=== PATIENT | female | born 1945 | race Caucasian/White ===

== ENCOUNTER 2017-10-11 06:14 | Emergency (ER) | payer MEDICARE, MEDICAID ==
[2014-08-05 08:55] VITALS: Ht 177.8 cm; Wt 108.9 kg
[~2017-10-11] VITALS: Ht 177.8 cm; Wt 108.9 kg
[~2017-10-11 06:14] MED LIST changes: -BACL-1 PO; -DOXA4TAB58 PO; -OLME40TA28 PO; -VITAMIN B12 SUBQ
--- NOTE | 2017-10-11 06:21 | ER Report ---
History and Physical Time Seen By MD: 06:14 (MELLO GOODMAN MD) HPI/ROS CHIEF COMPLAINT: short of breath, syncope, hypoxia HISTORY OF PRESENT ILLNESS: This is a 72 year old female. She had an episode of syncope this morning. Unsure how long she was down. She thinks from about 2:30 this morning. Family thinks from about 5:30 this morning. She has been very tired and fatigues for a few ays. Short of breath tonight. No chest pain. She has had a mild cough. She denies fevers or chills. She denies abdominal pain. She denies nausea or vomiting. She has a bowel movement every other day and that is normal. She denies having any diarrhea. She denies having any dysuria or other urinary problems. Initially hypoxic with EMS. They used their CPAP device to bring her oxygen saturations to about 94%. Oxygen saturation on her usual 2 liters was 80%. EMS reported some confusion initially, but clearing with improved oxygenation. Family also notes that she had extreme confusion when they found her. REVIEW OF SYSTEMS: Constitutional: As above. Eyes: No vision changes. ENT: No sore throat. No congestion. Cardiovascular: No chest pain. No palpitations. Respiratory: As above. Gastrointestinal: No abdominal pain. No nausea or vomiting. No change in bowel movements. Genitourinary: No dysuria or problems with urination. Musculoskeletal: No back pain. No extremity pain. Skin: No rashes. Neurological: No numbness. No weakness. (MELLO GOODMAN MD) HPI/ROS Primary given to me by Mello Goodman M.D. past medical history heart blood pressure, hyperlipidemia, COPD, emphysema, GERD, hiatal hernia, arthritis, back pain, upper or lower dentures, diabetes, occasional alcohol use, depression. Patient has a surgical history of cataract surgery, tonsillectomy, bilateral shoulder surgery, carpal tunnel, hammertoe, knee scope, colonoscopy, vein stripping. Patient was found down in her house. EMS was called and then transported to the emergency department. Patient is complaining of hip pain and knee pain. Patient does have decreased oxygenation. Patient is on oxygen at night. She did have a syncopal episode for unknown causes. (BARTOLO PABLO MD) Allergies: Coded Allergies: bacitracin (Verified Allergy, Intermediate, RASH, 10/11/17) gramicidin D (Verified Allergy, Intermediate, RASH, 10/11/17) neomycin (Verified Allergy, Intermediate, RASH, 10/11/17) polymyxin B (Verified Allergy, Intermediate, RASH, 10/11/17) Home Meds Active Scripts Oxybutynin Chloride (OXYBUTYNIN CHLORIDE) 5 Mg Tablet, 1 TAB PO BID, #180 TAB 3 Refills Prov:WENDY STONE MD 12/22/14 Gabapentin (GABAPENTIN) 400 Mg Capsule, 400 MG PO TID, #90 CAPSULE 12 Refills Prov:WENDY STONE MD 10/03/14 Reported Medications [Vitamin B12] No Conflict Check, 1 UNIT SUBQ QMONTH 10/11/17 Baclofen (BACLOFEN) 10 Mg Tablet, 10 MG PO TID Y for PAIN, #30 TAB 10/11/17 Olmesartan Medoxomil (BENICAR) 40 Mg Tablet, 40 MG PO QAM 10/11/17 Citalopram Hydrobromide (CITALOPRAM HBR) 20 Mg Tablet, 20 MG PO QAM, #5 TAB 10/11/17 Doxazosin Mesylate (DOXAZOSIN MESYLATE) 4 Mg Tablet, 4 MG PO HS 10/11/17 Fluticasone/Vilanterol (Breo Ellipta 200-25 Mcg INH) 1 Each Blst.w.dev, 1 PUFF INH PRN 05/01/17 Linaclotide (LINZESS) 145 Mcg Capsule, 145 MCG PO QAM, CAPSULE 05/01/17 Furosemide (LASIX) 20 Mg Tablet, 1-2 TAB PO QAM, TAB 05/01/17 Aspirin (ASPIRIN) 81 Mg Tab.chew, 81 MG PO QHS, TAB.CHEW 05/01/17 Atorvastatin Calcium (LIPITOR) 20 Mg Tablet, 1 TAB PO QHS, TAB 05/01/17 Oxygen (OXYGEN) Inha, 3 L INH CONTINUOUS, L 10/18/16 Albuterol Sulfate (PROVENTIL HFA) 6.7 Gm Inh, 1-2 PUFF INH QDAY Y for SHORTNESS OF BREATH, INH 10/18/16 Insulin Glargine (LANTUS) 100 Unit/Ml Soln, 30 UNIT SUBQ QHS, ML 10/18/16 Dexlansoprazole (DEXILANT) 60 Mg Rosendo., 60 MG PO QHS 10/18/16 Fish Oil/Dha/Epa (FISH OIL 1,200 MG FISH OIL) 1 Each Capsule, 1 EACH PO TID, CAPSULE 10/18/16 Sitagliptin Phos/Metformin Hcl (JANUMET 50-1,000 MG TABLET) 1 Each Tablet, 1 EACH PO BID 10/18/16 Meloxicam (MELOXICAM) 7.5 Mg Tablet, 7.5 MG PO QAM 10/18/16 Allopurinol (ALLOPURINOL) 100 Mg Tablet, 100 MG PO QAM, TAB 10/18/16 Cinnamon Bark (CINNAMON) 500 Mg Capsule, 1000 MG PO BID, CAPSULE 02/22/14 Discontinued Reported Medications Losartan Potassium (LOSARTAN POTASSIUM) 100 Mg Tablet, 100 MG PO QDAY 05/01/17 Discontinued Scripts Atorvastatin Calcium (ATORVASTATIN CALCIUM) 20 Mg Tablet, 1 TAB PO QDAY, #90 TAB 1 Refill Prov:WENDY STONE MD 03/13/15 Citalopram Hydrobromide (CITALOPRAM HBR) 20 Mg Tablet, 20 MG PO QDAY, #90 TAB 3 Refills TAKE 1 TABLET BY MOUTH EVERY DAY Prov:WENDY STONE MD 10/03/14 Past Medical/Surgical History Hypertension, hyperlipidemia, COPD with continuous oxygen use at 3 L by nasal cannula, emphysema due to smoking history, GERD, insulin-dependent diabetes, arthritis with some chronic back pain. Surgeries include hernia repair, multiple orthopedic surgeries including right rotator cuff, left rotator cuff, bilateral carpal tunnels, left foot, right knee. She has had a colonoscopy in the past. Also with history of cataract surgery and tonsillectomy (MELLO GOODMAN MD) Reviewed Nurses Notes: Yes (MELLO GOODMAN MD) Hx Smoking: Yes Smoking Status: Current: Every Day Smoker Exposure to Second Hand Smoke?: Yes Hx Substance Use Disorder: No Hx Alcohol Use: Yes (MELLO GOODMAN MD) Constitutional Vital Sign - Last 24 Hours 10/11/17 10/11/17 10/11/17 10/11/17 06:16 06:18 06:28 06:29 Temp 99.1 Pulse 95 95 Resp 24 B/P (MAP) 160/91 160/91 (114) Pulse Ox 91 O2 Delivery CPAP O2 Flow Rate 15.0 10/11/17 10/11/17 10/11/17 1/6/18 06:31 06:31 06:38 06:44 Pulse 94 91 95 Resp 22 22 28 Pulse Ox 90 91 O2 Delivery Non-Rebreather O2 Flow Rate 15.0 10/11/17 10/11/17 10/11/17 10/11/17 06:49 07:15 07:19 07:30 Pulse 94 86 Resp 24 27 B/P (MAP) 158/81 (106) Pulse Ox 91 95 O2 Flow Rate 6.0 10/11/17 10/11/17 10/11/17 10/11/17 07:30 07:34 07:59 08:04 Pulse 84 77 Resp 24 21 B/P (MAP) 118/66 (83) Pulse Ox 96 91 O2 Flow Rate 15.0 10/11/17 10/11/17 10/11/17 10/11/17 08:12 08:15 09:00 09:07 Pulse 69 Resp 29 B/P (MAP) 93/64 (74) Pulse Ox 90 O2 Flow Rate 6.0 15.0 10.0 10/11/17 10/11/17 10/11/17 10/11/17 09:15 09:30 09:45 09:51 Pulse 70 72 71 Resp 21 20 19 B/P (MAP) 88/56 (67) Pulse Ox 93 89 94 O2 Flow Rate 15.0 10/11/17 10/11/17 10/11/17 10:00 11:05 11:05 Pulse 68 Resp 21 B/P (MAP) 102/59 (73) Pulse Ox 87 93 O2 Delivery Bi-PAP FiO2 50.0 50.0 (BARTOLO PABLO MD) Physical Exam General Appearance: The patient is alert. Acute distress due to pain. Non- toxic in appearance. Eyes: Pupils are equal, round. No pallor, injection or icterus. ENT: Mucous membranes are moist. Normal oral mucosa. Posterior oropharynx is normal. Normal tympanic membranes and canals. Neck: Supple and non tender. No lymphadenopathy. Respiratory: Lungs diminished throughout, some coarse sounds on the left chest. There are retractions and accessory muscle use. Cardiovascular: Regular rate and rhythm. Distant sounds. No murmurs, gallops or rubs appreciated. Normal capillary refill. Trace edema in the extremities. Gastrointestinal: Abdomen is soft and non tender. Nondistended. Normal active bowel sounds. Neurological: Alert and oriented x3. No focal neurologic deficits, but has generalized weakness. Skin: Warm and dry. Musculoskeletal: Extremities are nontender. DIFFERENTIAL DIAGNOSIS: After history and physical exam, differential diagnosis was considered for shortness of breath and hypoxia, with syncopal episode, including but not limited to pulmonary infectious process, COPD, myocardial infarction, arrhythmia, pulmonary embolus and heart failure. ([facility]) Medical Decision Making Data Points Result Diagram: 10/11/17 0630 10/11/17 0630 Laboratory Hematology Test 10/11/17 06:30 10/11/17 06:45 10/11/17 07:10 10/11/17 11:06 Red Blood Count 4.86 M/uL (4.17-5.56) Mean Corpuscular Volume 96.1 fL (80.0-96.0) Mean Corpuscular Hemoglobin 31.9 pg (26.0-33.0) Mean Corpuscular Hemoglobin Concent 33.2 g/dL (32.0-36.0) Red Cell Distribution Width 14.3 % (11.5-14.5) Mean Platelet Volume 9.1 fL (7.2-11.1) Neutrophils (%) (Auto) 93.6 % (39.4-72.5) Lymphocytes (%) (Auto) 1.7 % (17.6-49.6) Monocytes (%) (Auto) 4.3 % (4.1-12.4) Eosinophils (%) (Auto) 0.1 % (0.4-6.7) Basophils (%) (Auto) 0.3 % (0.3-1.4) Nucleated RBC Relative Count (auto) 0.0 /100WBC Neutrophils # (Auto) 16.9 K/uL (2.0-7.4) Lymphocytes # (Auto) 0.3 K/uL (1.3-3.6) Monocytes # (Auto) 0.8 K/uL (0.3-1.0) Eosinophils # (Auto) 0.0 K/uL (0.0-0.5) Basophils # (Auto) 0.1 K/uL (0.0-0.1) Nucleated RBC Absolute Count (auto) 0.00 K/uL Prothrombin Time 13.6 seconds (12.0-14.4) Prothromb Time International Ratio 1.04 Activated Partial Thromboplast Time 35 seconds (23-35) D-Dimer Quantitative (PE/DVT) 2.78 ug/ml (0-0.50) Sodium Level 134 mmol/L (137-145) Potassium Level 4.4 mmol/L (3.5-5.0) Chloride Level 101 mmol/L (98-107) Carbon Dioxide Level 23 mmol/L (22-31) Blood Urea Nitrogen 33 mg/dl (7-18) Creatinine 0.90 mg/dl (0.52-1.04) Glomerular Filtration Rate Calc > 60.0 Random Glucose 219 mg/dl (75-110) Lactate 2.4 mmol/L (0.7-2.1) Calcium Level 9.4 mg/dl (8.4-10.2) Total Bilirubin 0.6 mg/dl (0.2-1.3) Aspartate Amino Transf (AST/SGOT) 22 U/L (0-35) Alanine Aminotransferase (ALT/SGPT) 25 U/L (0-56) Alkaline Phosphatase 91 U/L (0-126) B-Type Natriuretic Peptide 128 pg/ml (0-100) Total Protein 7.2 gm/dl (6.3-8.2) Albumin 3.7 g/dl (3.5-5.0) Blood Gas Puncture Site Right radial Blood Gas Patient Temperature Unknown DEGREES Arterial Blood pH 7.32 (7.35-7.45) Arterial Blood Partial Pressure CO2 45 mmHg (32-37) Arterial Blood Partial Pressure O2 49 mmHg (60-80) Arterial Blood HCO3 23 mmol/L (20-26) Arterial Blood Oxygen Saturation 80 % (92-100) Arterial Blood Base Excess -3.0 mmol/L Karlos Test Acceptable Oxygen Liters/Minute Unknown Urine Color Yellow Urine Clarity Slightly-cloudy Urine pH 5.0 pH (4.8-9.5) Urine Specific Ford 1.011 Urine Protein 100 mg/dL (NEGATIVE) Urine Glucose (UA) Negative mg/dL (NEGATIVE) Urine Ketones Negative mg/dL (NEGATIVE) Urine Blood Small (NEGATIVE) Urine Nitrite Negative (NEGATIVE) Urine Bilirubin Negative (NEGATIVE) Urine Urobilinogen Negative mg/dL (0.2-1.9) Urine Leukocyte Esterase Small (NEGATIVE) Urine RBC 3 /HPF (0-2/HPF) Urine WBC 8 /HPF (0-5/HPF) Urine Squamous Epithelial Cells Many /LPF (</=FEW) Urine Bacteria Few /HPF (NONE-FEW) Urine Mucus None /HPF (NONE-FEW) Troponin I 0.358 ng/ml Test 10/11/17 13:24 Whole Blood Glucose 258 mg/DL (75-110) Chemistry Test 10/11/17 06:30 10/11/17 06:45 10/11/17 07:10 10/11/17 11:06 White Blood Count 18.1 k/uL (4.5-11.0) Red Blood Count 4.86 M/uL (4.17-5.56) Hemoglobin 15.5 g/dL (12.0-16.0) Hematocrit 46.7 % (34.0-47.0) Mean Corpuscular Volume 96.1 fL (80.0-96.0) Mean Corpuscular Hemoglobin 31.9 pg (26.0-33.0) Mean Corpuscular Hemoglobin Concent 33.2 g/dL (32.0-36.0) Red Cell Distribution Width 14.3 % (11.5-14.5) Platelet Count 172 K/uL (150-450) Mean Platelet Volume 9.1 fL (7.2-11.1) Neutrophils (%) (Auto) 93.6 % (39.4-72.5) Lymphocytes (%) (Auto) 1.7 % (17.6-49.6) Monocytes (%) (Auto) 4.3 % (4.1-12.4) Eosinophils (%) (Auto) 0.1 % (0.4-6.7) Basophils (%) (Auto) 0.3 % (0.3-1.4) Nucleated RBC Relative Count (auto) 0.0 /100WBC Neutrophils # (Auto) 16.9 K/uL (2.0-7.4) Lymphocytes # (Auto) 0.3 K/uL (1.3-3.6) Monocytes # (Auto) 0.8 K/uL (0.3-1.0) Eosinophils # (Auto) 0.0 K/uL (0.0-0.5) Basophils # (Auto) 0.1 K/uL (0.0-0.1) Nucleated RBC Absolute Count (auto) 0.00 K/uL Prothrombin Time 13.6 seconds (12.0-14.4) Prothromb Time International Ratio 1.04 Activated Partial Thromboplast Time 35 seconds (23-35) D-Dimer Quantitative (PE/DVT) 2.78 ug/ml (0-0.50) Glomerular Filtration Rate Calc > 60.0 Lactate 2.4 mmol/L (0.7-2.1) Calcium Level 9.4 mg/dl (8.4-10.2) Total Bilirubin 0.6 mg/dl (0.2-1.3) Aspartate Amino Transf (AST/SGOT) 22 U/L (0-35) Alanine Aminotransferase (ALT/SGPT) 25 U/L (0-56) Alkaline Phosphatase 91 U/L (0-126) B-Type Natriuretic Peptide 128 pg/ml (0-100) Total Protein 7.2 gm/dl (6.3-8.2) Albumin 3.7 g/dl (3.5-5.0) Blood Gas Puncture Site Right radial Blood Gas Patient Temperature Unknown DEGREES Arterial Blood pH 7.32 (7.35-7.45) Arterial Blood Partial Pressure CO2 45 mmHg (32-37) Arterial Blood Partial Pressure O2 49 mmHg (60-80) Arterial Blood HCO3 23 mmol/L (20-26) Arterial Blood Oxygen Saturation 80 % (92-100) Arterial Blood Base Excess -3.0 mmol/L Karlos Test Acceptable Oxygen Liters/Minute Unknown Urine Color Yellow Urine Clarity Slightly-cloudy Urine pH 5.0 pH (4.8-9.5) Urine Specific Ford 1.011 Urine Protein 100 mg/dL (NEGATIVE) Urine Glucose (UA) Negative mg/dL (NEGATIVE) Urine Ketones Negative mg/dL (NEGATIVE) Urine Blood Small (NEGATIVE) Urine Nitrite Negative (NEGATIVE) Urine Bilirubin Negative (NEGATIVE) Urine Urobilinogen Negative mg/dL (0.2-1.9) Urine Leukocyte Esterase Small (NEGATIVE) Urine RBC 3 /HPF (0-2/HPF) Urine WBC 8 /HPF (0-5/HPF) Urine Squamous Epithelial Cells Many /LPF (</=FEW) Urine Bacteria Few /HPF (NONE-FEW) Urine Mucus None /HPF (NONE-FEW) Troponin I 0.358 ng/ml Test 10/11/17 13:24 Whole Blood Glucose 258 mg/DL (75-110) Coagulation Test 10/11/17 06:30 Prothrombin Time 13.6 seconds Prothromb Time International Ratio 1.04 Activated Partial Thromboplast Time 35 seconds D-Dimer Quantitative (PE/DVT) 2.78 ug/ml Urinalysis Test 10/11/17 07:10 Urine Color Yellow Urine Clarity Slightly-cloudy Urine pH 5.0 pH (4.8-9.5) Urine Specific Ford 1.011 Urine Protein 100 mg/dL (NEGATIVE) Urine Glucose (UA) Negative mg/dL (NEGATIVE) Urine Ketones Negative mg/dL (NEGATIVE) Urine Blood Small (NEGATIVE) Urine Nitrite Negative (NEGATIVE) Urine Bilirubin Negative (NEGATIVE) Urine Urobilinogen Negative mg/dL (0.2-1.9) Urine Leukocyte Esterase Small (NEGATIVE) Urine RBC 3 /HPF (0-2/HPF) Urine WBC 8 /HPF (0-5/HPF) Urine Squamous Epithelial Cells Many /LPF (</=FEW) Urine Bacteria Few /HPF (NONE-FEW) Urine Mucus None /HPF (NONE-FEW) (BARTOLO PABLO MD) Microbiology Microbiology Date/Time Source Procedure Growth Status 10/11/17 06:45 Blood Blood Culture - Preliminary NO GROWTH SO FAR, SET LATE. REINCUBATED Resulted 10/11/17 06:30 Blood Blood Culture - Preliminary NO GROWTH SO FAR, SET LATE. REINCUBATED Resulted (BARTOLO PABLO MD) EKG/Imaging EKG Interpretation 12 lead EKG: Rhythm: [normal sinus rhythm] [Mccormick:] [normal] [QRS:] [normal] ST segments: [normal] [ ] (MELLO GOODMAN MD) EKG Interpretation Normal sinus rhythm left anterior fascicular block left ventricular hypertrophy with repolarization abnormality. Possible old septal infarct when determined age. Ventricular rate 94 bpm, [place] interval 184 ms, QRS duration 102 ms, QT 336 ms , QTC is 420 ms. Similar ECG from 05/01/2017 but this ECG appears to have increased strain. Repeat ECG shows sinus bradycardia, left anterior fascicular block, LVH, ventricular rate 56 bpm, [place] interval 200 ms, QRS duration R 16 ms, QTC 434 ms, QTC 418 ms. Imaging CTA chest: IMPRESSION: 1. Negative examination for acute pulmonary embolism. 2. Moderate airspace consolidation within the left upper lobe with mild consolidation within the left lower lobe. Findings may represent pneumonia versus contusion. Subtle nondisplaced fracture of the left lateral seventh and eighth rib. Recommend continued radiographic surveillance to resolution. 3. Stable mildly enlarged distal paraesophageal lymph nodes which could be inflammatory but nonspecific. X-ray chest: IMPRESSION: New left mid and lower lung opacification suspicious for pneumonia. Consider follow-up to exclude underlying lesion. CT abdomen and pelvis: IMPRESSION: 1. No evidence of traumatic injury to the abdominal organs or free fluid. X-ray knee: IMPRESSION: 1. Moderate to severe tricuspid minimal osteoarthritis in the right knee with meniscal calcifications which can be seen with CPPD arthropathy. 2. No acute fracture or malalignment. 3. Small simple right knee effusion CT HEAD: IMPRESSION: 1. Continued senescent changes without acute abnormality. 2. Bilateral maxillary sinus disease (BARTOLO PABLO MD) ED Course/Re-evaluation ED Course Patient was changed to BiPAP. Head CT was not performed as patient did not report loss of consciousness or hitting her head. Due to rising troponin I called Rona entitled to Dr. Gomez the sales representative leather goods. He agreed that patient should be transferred. Entire to the hospitalist who feels due to the fall this needs to be referred through the trauma service. Due to the rising troponin we then talked to Dr. Carver the ED physician and he accepts patient. Patient will be transferred to the emergency room and [place] and will be evaluated at that time by cardiology and the trauma service. Report given on a CT and labs. Patient stable at this time on BiPAP. Re-evaluation Medical decision making acute coronary syndrome, pulmonary embolus, pulmonary contusion, pneumonia. Decision to Disposition Date: Oct 11, 2017 Decision to Disposition Time: 12:15 (BARTOLO PABLO MD) Depart Departure Latest Vital Signs Vital Signs Date Time Temp Pulse Resp B/P (MAP) Pulse Ox O2 Delivery O2 Flow Rate FiO2 10/11/17 11:05 93 Bi-PAP 50.0 10/11/17 10:00 68 21 102/59 (73) 10/11/17 09:51 15.0 10/11/17 06:16 99.1 (BARTOLO PABLO MD) Impression: Primary Impression: Troponin level elevated Additional Impressions: Hypoxia Lung contusion Pneumonia Condition: Improved Disposition: XFER TO [facility]ARE [facility] Referrals: AVA,MELANIE BRIDGE GANG WORKER (PCP) Problem Qualifiers Additional Impressions: Lung contusion Encounter type: sequela Laterality: unspecified laterality Qualified Codes : S27.329S - Contusion of lung, unspecified, sequela Pneumonia Pneumonia type: due to unspecified organism Laterality: unspecified laterality Lung location: unspecified part of lung Qualified Codes: J18.9 - Pneumonia, unspecified organism MELLO GOODMAN MD Oct 11, 2017 06:21 BARTOLO PABLO MD Oct 11, 2017 08:41
[2017-10-11] MEDS ORDERED: methylPREDNIS SUCC 125 MG/2ML IVP ONE (06:25)
[2017-10-11] MEDS ORDERED: ALBUTEROL/IPRATROPIUM 3 ML NEB NEB ONE (06:25)
--- NOTE | 2017-10-11 06:41 | EKG ---
[place] [facility] [place] NAME: NINO JUDGE : [id number] MR: [id number] V: [id number] EXAM DATE: ORDERING PHYSICIAN: NAYAN STEWARD TECHNOLOGIST: NOLBERTO Cosme Reason : RESPIRAATORY Blood Pressure : / mmHG Vent. Rate : 096 BPM Atrial Rate : 096 BPM P-R Int : 190 ms QRS Dur : 114 ms QT Int : 334 ms P-R-T Axes : 033 -67 087 degrees QTc Int : 421 ms Sinus rhythm Left axis Probable left atrial enlargement Interventricular conduction delay Poor R wave progression through precordial leads Diffuse ST elevation Abnormal ECG Confirmed by ZOILA NEWTON ([id number]) on 10/11/2017 12:51:02 PM Referred By: BIN Confirmed By:ZOILA NEWTON
[2017-10-11 06:53] LABS: PLATELET COUNT, AUTOMATED 172 K/uL (150-450)
[2017-10-11] MEDS ORDERED: EMS NS 0.9%(*) 1000 ML BAG 1,000 ML IV ONE (06:55)
[2017-10-11] MEDS ORDERED: DOXA4TAB58 PO (07:12)
[2017-10-11] MEDS ORDERED: BACL-1 PO (07:12)
[2017-10-11] MEDS ORDERED: CITA-139 PO (07:12)
[2017-10-11] MEDS ORDERED: OLME40TA28 PO (07:12)
[2017-10-11] MEDS ORDERED: VITAMIN B12 SUBQ (07:15)
[2017-10-11 07:34] LABS: INR 1.04
--- NOTE | 2017-10-11 07:34 | RADIOLOGY IMAGING REPORT ---
FACILITY: [facility] - [place] PATIENT NAME: Danielle Moody : 1945 MR: [id number] V: [id number] EXAM DATE: ORDERING PHYSICIAN: NAYAN STEWARD TECHNOLOGIST: [place] [facility] [place]: Danielle Moody : 1945 Visit/Account:[id number] Date of Sevice: 10/11/2017 AP radiographs of the chest 10/11/2017 6:21 AM. INDICATION: Respiratory distress. COMPARISON: 04/24/1717. FINDINGS: Lungs are overall hyperexpanded, likely chronic. New patchy opacification of the left mid and lower lung. No definite pleural effusion or pneumothorax. Heart size is normal. IMPRESSION: New left mid and lower lung opacification suspicious for pneumonia. Consider follow-up t o exclude underlying lesion. Report Dictated By: Cale Wilkerson MD at 10/11/2017 7:27 AM Report E-Signed By: Cale Wilkerson MD at 10/11/2017 7:29 AM WSN:[id number]
[2017-10-11] MEDS ORDERED: PIPERACILLIN/TAZO*3.375GM VIAL 3.375 GM in NS(*) 0.9% 100 ML ADDVANT BAG 100 ML IVPB ONE (07:50)
[2017-10-11] MEDS ORDERED: NS 0.9% 50 ML VIAL 100 ML ONE (07:57)
[2017-10-11] MEDS ORDERED: IOPAMIDOL 76% 100 ML INFUS BTL 100 ML ONE (07:57)
--- NOTE | 2017-10-11 08:48 | RADIOLOGY IMAGING REPORT ---
FACILITY: [facility] - [place] PATIENT NAME: Danielle Moody : 1945 MR: [id number] V: [id number] EXAM DATE: ORDERING PHYSICIAN: BARTOLO PABLO TECHNOLOGIST: [place] [facility] [place] : 1945 Visit/Account:[id number] Date of Sevice: 10/11/2017 KNEE 3 VIEW RIGHT COMPARISON: None. HISTORY: :trauma TECHNIQUE: 3 views of the right knee FINDINGS: BONES: Advanced patellofemoral and lateral compartment, moderate to advanced medial compartment dege nerative narrowing with bulky tricompartmental spurring consistent with severe osteoarthritis. Lucenc ies consistent with degenerative geodes in the medial and lateral tibial plateau. There is no acute f racture or malalignment. SOFT TISSUES: Numerous clips in the soft tissues. Mild soft tissue swelling anterior to a small knee effusion. There is medial and lateral meniscal chondrocalcinosis. EFFUSION: Small simple appearing knee effusion. OTHER: Negative. IMPRESSION: 1. Moderate to severe tricuspid minimal osteoarthritis in the right knee with meniscal calcification s which can be seen with CPPD arthropathy. 2. No acute fracture or malalignment. 3. Small simple right knee effusion. Report Dictated By: Osmel Marcano at 10/11/2017 8:41 AM Report E-Signed By: Osmel Marcano at 10/11/2017 8:43 AM WSN:[id number]
--- NOTE | 2017-10-11 09:11 | RADIOLOGY IMAGING REPORT ---
FACILITY: [facility] - [place] PATIENT NAME: Danielle Moody : 1945 MR: [id number] V: [id number] EXAM DATE: ORDERING PHYSICIAN: BARTOLO PABLO TECHNOLOGIST: Location: [facility] - [place] Patient: Danielle Moody : 1945 Visit/Account:[id number] Date of Sevice: 10/11/2017 CTA CHEST with contrast [facility] (PULM ANG) HISTORY: Shortness of breath. Trauma ADDITIONAL HISTORY: None. TECHNIQUE: CTA chest with contrast. 3D coronal slab MIPs and 2D reconstructions in the coronal and sagittal planes were also created. One of the following dose optimization techniques was utilized in the performance of this exam: automated exposure control; adjustment of the mA and/or kv according to patient size; or use of iterative reconstruction technique. Specific details can be referenced in [facility]'s radiology CT exam operational policy. CONTRAST: Trauma COMPARISON: CT angiogram of the chest 05/01/2017 FINDINGS: Vessels: No acute filling defect within the central or segmental pulmonary arteries. Moderate aortic calcification. Moderate calcification of the coronary arteries. Lower neck: Negative. Heart and pericardium: No pericardial effusion. Mediastinum/hilum/lymph nodes: Stable mildly enlarged distal paraesophageal lymph node measuring up to 1.3 x 1.2 cm (image 197). Lungs/pleura: Moderate left upper lobe airspace consolidation. Mild left lower lobe airspace consoli dation. Mild right basilar atelectasis. No pleural effusion. Visualized upper abdomen: Negative. Bones/soft tissues: Subtle fracture of the left lateral seventh and eighth ribs. Other findings: None significant IMPRESSION: 1. Negative examination for acute pulmonary embolism. 2. Moderate airspace consolidation within the left upper lobe with mild consolidation within the left lower lobe. Findings may represent pneumonia versus contusion. Subtle nondisplaced fracture of the l eft lateral seventh and eighth rib. Recommend continued radiographic surveillance to resolution. 3. Stable mildly enlarged distal paraesophageal lymph nodes which could be inflammatory but nonspecif ic. Report Dictated By: Bakari Mitchell MD at 10/11/2017 8:54 AM Report E-Signed By: Bakari Mitchell MD at 10/11/2017 9:07 AM WSN:[id number]
--- NOTE | 2017-10-11 09:15 | RADIOLOGY IMAGING REPORT ---
[place] [facility] [place] NAME: Danielle Moody : 1945 MR: [id number] V: [id number] EXAM DATE: ORDERING PHYSICIAN: BARTOLO PABLO TECHNOLOGIST: Location: [facility] Patient: Danielle Moody : 1945 Visit/Account:[id number] Date of Sevice: 10/11/2017 ABDOMEN/PELVIS WITH CONTRAST HISTORY: Trauma TECHNIQUE: Axial images were obtained through the abdomen and pelvis with intravenous contrast . One of the following dose optimization techniques was utilized in the performance of this exam: automate d exposure control; adjustment of the mA and/or kv according to patient size; or use of iterative rec onstruction technique. Specific details can be referenced in the facility's radiology CT exam operati onal policy. CONTRAST: 100 cc of Isovue-370 COMPARISON: 08/03/2014 FINDINGS: Visualized lung bases: Please see separate report Hepatobiliary: Negative. Spleen: Negative. Adrenals: Negative. Pancreas: Negative. Kidneys/ureters/bladder: 1.5 cm exophytic cyst at the upper pole the right kidney. No hydronephrosis . Mild bilateral perinephric stranding. Bowel/peritoneum/mesentery: Negative. Vessels: Moderate arterial calcifications. Retroaortic left renal vein noted. Lymph nodes: Enlarged paraesophageal lymph nodes discussed on CT chest report Pelvic genitourinary: Negative. Bones/body wall: Bilateral indirect inguinal hernias containing fat, right greater than left. Other findings: None significant IMPRESSION: 1. No evidence of traumatic injury to the abdominal organs or free fluid. Report Dictated By: Bakari Mitchell MD at 10/11/2017 9:04 AM Report E-Signed By: Bakari Mitchell MD at 10/11/2017 9:11 AM WSN:[id number]
[2017-10-11 10:00] VITALS: BP 102/59
[2017-10-11] MEDS ORDERED: ASPIRIN 325 MG TAB PO ONE (12:05)
--- NOTE | 2017-10-11 13:14 | RADIOLOGY IMAGING REPORT ---
FACILITY: [facility] PATIENT NAME: Danielle Moody : 1945 MR: [id number] V: [id number] EXAM DATE: ORDERING PHYSICIAN: BARTOLO PABLO TECHNOLOGIST: Location: [facility] Patient: Danielle Moody : 1945 Visit/Account:[id number] Date of Sevice: 10/11/2017 CT Head without contrast Indication: Trauma. Comparison: 05/01/2017. Technique: Axial CT images were obtained through the brain from the skull base to the vertex without administration of IV contrast. Reformatted coronal and sagittal images were also obtained. One of the following dose optimization techniques was utilized in the performance of this exam: autom ated exposure control; adjustment of the mA and/or kV according to the patient's size; or use of an i terative reconstruction technique. Specific details can be referenced in the facility's radiology CT exam operational policy. Findings: No evidence of mass, mass effect, or midline shift. No acute intracranial hemorrhage or acute territorial infarction. No extra-axial fluid collection or hydrocephalus. Age-related cerebral atrophy. Mild periventricular white matter ischemic changes consistent small vessel disease. Gutierrez/white matter differentiation appe ars normal. Mild bilateral internal carotid artery calcifications. Bony structures show no fractures or lesions. There is again prominent soft tissue mucosal thickening seen in both maxillary sinuses which may represent cyst or polyps. The remaining sinuses visualized are clear. Mastoid air cells are clear. IMPRESSION: 1. Continued senescent changes without acute abnormality. 2. Bilateral maxillary sinus disease. Report Dictated By: Judd Linn at 10/11/2017 1:03 PM Report E-Signed By: Judd Linn at 10/11/2017 1:09 PM WSN:[id number]
[2017-10-11] MEDS ORDERED: ENOXAPARIN 100 MG/ML SYR SC SCH (21:00)
--- NOTE | 2017-10-13 10:48 | EKG ---
FACILITY: [facility] - [place] PATIENT NAME: NINO JUDGE : [id number] MR: [id number] V: [id number] EXAM DATE: ORDERING PHYSICIAN: BARTOLO PABLO TECHNOLOGIST: JENNIFER Cosme Reason : HIGH TRIPONIN Blood Pressure : / mmHG Vent. Rate : 056 BPM Atrial Rate : 056 BPM P-R Int : 200 ms QRS Dur : 116 ms QT Int : 434 ms P-R-T Axes : 061 -64 068 degrees QTc Int : 418 ms Sinus bradycardia Left anterior fascicular block Left ventricular hypertrophy with QRS widening and repolarization abnormality Abnormal ECG When compared with ECG of 11-OCT-2017 06:29, Vent. rate has decreased BY 40 BPM T wave inversion less evident in Lateral leads Confirmed by KANDICE COREAS ([id number]) on 10/13/2017 3:52:05 PM Referred By: BEV Confirmed By:KANDICE COREAS
== END 2017-10-11 13:53 | disposition short-term general hospital (02) ==
LOC: ER 06:21
DX: J18.9 Pneumonia, unspecified organism (principal); R79.89 Other specified abnormal findings of blood chemistry; R09.02 Hypoxemia; S27.329S Contusion of lung, unspecified, sequela
CPT/HCPCS: 36416; 36600; 70450; 71045; 71275; 73562; 74177; 81001; 82803; 82948; 83605; 83874; 83880; 84484; 85025; 85379; 85610; 85730; 87040; 93005; 94640; 94660; 96361; 96365; 96366; 96375; 99285; J2543; J2930; J7050; J7620; Q9967; 82040; 82247; 82310; 82374; 82435; 82565; 82947; 84075; 84132; 84155; 84295; 84450; 84460; 84520

== ENCOUNTER → 2017-10-11 | Outpatient (CLI) | payer MEDICARE, MEDICAID ==
[2014-08-05 08:55] VITALS: BMI 33.4
[~2017-10-11] MED LIST: ALB18R INH; ALB6.7R INH; ALBU8.5H IH; ALLO100T70 PO; AMLO2.5T74 PO; ASP325 PO; ASPI-757 PO; ASPI81TA94 PO; ATOR20TA22 PO; ATOR20TA65 PO; ATOR40TA24 PO; AUG875 PO; AZIT-18 PO; BACL-1 PO; CALC-547 PO; CALC-852 PO; CHOL200025 PO; CINN500C12 PO; CIPR-344 PO; CITA-139 PO; CYCL-277 PO; DEXL60CA6 PO; DICY20TA70 PO; DOC100 PO; DOXA4TAB58 PO; ENA10 PO; ESOM40CA42 PO; FISH OIL1 CAP PO; FISH1CAP15 PO; FLUINH INH; FLUO40CA76 PO; FLUT1BLS3 IH; FLUT1BLS3 INH; FURO20TA19 PO; GABA-1 PO; GABA-551 PO; GLUC1TAB13 PO; GLY5 PO; HCTZ/LISINOPRIL; HYDR-2966 PO; HYDR-4309 PO; LANI SC; LANI SUBQ; LIDO10VI16 INTRA-ART; LIDO700A25 TP; LIDO700A29 ASDIRECTED; LINA145C PO; LISI-349 PO; LISI-362 PO; LISI20TA29 PO; LISI5TAB25 PO; LOR5/325 PO; LOSA100T67 PO; MELO-150 PO; MELO-205 PO; MELO-207 PO; METF-410 PO; METF-420 PO; METR-160 PO; MULT-1335 PO; NAP250 PO; NIA100 PO; OLME40TA28 PO; OMEG500C7 PO; OMEP-125 PO; OXYB5TAB86 PO; OXYC-865 PO; OXYGEN INH; OXYGENHOME INH; OXYM22SP3 NS; PANT40TA13 GT; PER PO; PRAV80TA PO; PSYL0.5210 PO; RABE20TA33 PO; SENN-187 PO; SITA100T9 PO; SITA1TAB17 PO; SPIR1TAB28 PO; TOLT4CAP13 PO; TRAM-420 PO; TRI05T TP; TRI40I IART; TRIA15CR40 TP; VITAMIN B12 SUBQ
== END ==
LOC: AMB 05:36
PROVIDERS: ATTEND Nurse Practitioner
DX: E11.65 Type 2 diabetes mellitus with hyperglycemia (principal); R53.1 Weakness; R09.02 Hypoxemia; R94.31 Abnormal electrocardiogram [ECG] [EKG]; W18.30XA Fall on same level, unspecified, initial encounter; Y92.003 Bedroom of unspecified non-institutional (private) residence as the place of occurrence of the external cause
CPT/HCPCS: A0425; A0427

== ENCOUNTER → 2017-10-11 | Outpatient (CLI) | payer MEDICARE, MEDICAID ==
[2014-08-05 08:55] VITALS: BMI 33.4
== END ==
LOC: AMB 13:37
PROVIDERS: ATTEND Nurse Practitioner
DX: R79.89 Other specified abnormal findings of blood chemistry (principal); M54.9 Dorsalgia, unspecified
CPT/HCPCS: A0425; A0426

== ENCOUNTER → 2017-11-05 | Outpatient (CLI) | payer MEDICARE, MEDICAID ==
[2014-08-05 08:55] VITALS: BMI 33.4
[~2017-11-05] MED LIST changes: +BACL-1 PO; +DOXA4TAB58 PO; +OLME40TA28 PO; +VITAMIN B12 SUBQ
[2017-11-05 14:09] LABS: PLATELET COUNT, AUTOMATED 167 K/uL (150-450)
--- NOTE | 2017-11-05 15:15 | RADIOLOGY IMAGING REPORT ---
FACILITY: [facility] PATIENT NAME: Danielle Moody : 1945 MR: [id number] V: [id number] EXAM DATE: ORDERING PHYSICIAN: DARWIN RICHARDSON TECHNOLOGIST: Location: [facility] Patient: Danielle Moody : 1945 Visit/Account:[id number] Date of Sevice: 11/05/2017 Exam type: CHEST PA AND LAT History: Pneumonia starting October 11, 2017, cough, shortness of breath and chest pain Comparison: October 11, 2017. Findings: There has been interval improvement of the left-sided pulmonary infiltrates. No new areas of pulmona ry consolidation identified. The cardiac silhouette is normal in size. The central pulmonary arteri es appear prominent. There is an exaggeration of the normal thoracic kyphosis secondary to spondylot ic changes and mild compression fractures in the thoracic spine IMPRESSION: 1. When compared the prior study there has been improvement of the left-sided pulmonary infiltrates Prominent central arteries which can be seen with pulmonary arterial hypertension Report Dictated By: Maritza Cardona MD at 11/05/2017 3:09 PM Report E-Signed By: Maritza Cardona MD at 11/05/2017 3:12 PM WSN:[email or web address]
== END ==
LOC: LAB 13:48
PROVIDERS: ATTEND Internal Medicine Cardiovascular Disease
DX: R91.8 Other nonspecific abnormal finding of lung field (principal); J18.9 Pneumonia, unspecified organism
CPT/HCPCS: 36415; 71046; 85025

== ENCOUNTER 2017-11-19 14:38 | Emergency (ER) | payer MEDICARE, MEDICAID ==
[2014-08-05 08:55] VITALS: Ht 177.8 cm; Wt 108.9 kg
[~2017-11-19] VITALS: Ht 177.8 cm; Wt 108.9 kg
--- NOTE | 2017-11-19 14:49 | ER Report ---
History and Physical Time Seen By MD: 14:49 HPI/ROS CHIEF COMPLAINT: Coughing up blood HISTORY OF PRESENT ILLNESS: 72-year-old female patient presents to emergency room with complaint of coughing up blood. Patient states that she has been coughing up blood since yesterday. She states that approximately one month ago she was diagnosed with pneumonia and transferred to [facility]. 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 They state that the pneumonia was improving, however does not completely resolved, which was explaining why she was still feeling crummy. Patient states that she is not feeling short of breath, she states that she has been feeling chilled, but denies having any fevers. She denies having any nausea, vomiting or diarrhea. Her daughter states that on the she was evaluated that she was having weakness to the left lower extremity. She states that she did not have a CT scan of the head done at that time. She is concerned that her mother may have had a stroke. REVIEW OF SYSTEMS: Respiratory: As noted above. Cardiovascular: No chest pain, no palpitations. Gastrointestinal: No vomiting, no abdominal pain. Musculoskeletal: No back pain. Allergies: Coded Allergies: bacitracin (Verified Allergy, Intermediate, RASH, 10/11/17) gramicidin D (Verified Allergy, Intermediate, RASH, 10/11/17) neomycin (Verified Allergy, Intermediate, RASH, 10/11/17) polymyxin B (Verified Allergy, Intermediate, RASH, 10/11/17) Home Meds Active Scripts Levofloxacin 750 Mg Tab (LEVAQUIN 750 MG TAB) 750 Mg Tablet, 750 MG PO DAILY, # 9 TAB Prov:NORMAN EATON 11/19/17 Oxybutynin Chloride (OXYBUTYNIN CHLORIDE) 5 Mg Tablet, 1 TAB PO BID, #180 TAB 3 Refills Prov:WENDY STONE MD 12/22/14 Gabapentin (GABAPENTIN) 400 Mg Capsule, 400 MG PO TID, #90 CAPSULE 12 Refills Prov:WENDY STONE MD 10/03/14 Reported Medications [Vitamin B12] No Conflict Check, 1 UNIT SUBQ QMONTH 10/11/17 Baclofen (BACLOFEN) 10 Mg Tablet, 10 MG PO TID Y for PAIN, #30 TAB 10/11/17 Olmesartan Medoxomil (BENICAR) 40 Mg Tablet, 40 MG PO QAM 10/11/17 Citalopram Hydrobromide (CITALOPRAM HBR) 20 Mg Tablet, 20 MG PO QAM, #5 TAB 10/11/17 Doxazosin Mesylate (DOXAZOSIN MESYLATE) 4 Mg Tablet, 4 MG PO HS 10/11/17 Fluticasone/Vilanterol (Breo Ellipta 200-25 Mcg INH) 1 Each Blst.w.dev, 1 PUFF INH PRN 05/01/17 Linaclotide (LINZESS) 145 Mcg Capsule, 145 MCG PO QAM, CAPSULE 05/01/17 Furosemide (LASIX) 20 Mg Tablet, 1-2 TAB PO QAM, TAB 05/01/17 Aspirin (ASPIRIN) 81 Mg Tab.chew, 81 MG PO QHS, TAB.CHEW 05/01/17 Atorvastatin Calcium (LIPITOR) 20 Mg Tablet, 1 TAB PO QHS, TAB 05/01/17 Oxygen (OXYGEN) Inha, 3 L INH CONTINUOUS, L 10/18/16 Albuterol Sulfate (PROVENTIL HFA) 6.7 Gm Inh, 1-2 PUFF INH QDAY Y for SHORTNESS OF BREATH, INH 10/18/16 Insulin Glargine (LANTUS) 100 Unit/Ml Soln, 30 UNIT SUBQ QHS, ML 10/18/16 Dexlansoprazole (DEXILANT) 60 Mg Cap., 60 MG PO QHS 10/18/16 Fish Oil/Dha/Epa (FISH OIL 1,200 MG FISH OIL) 1 Each Capsule, 1 EACH PO TID, CAPSULE 10/18/16 Sitagliptin Phos/Metformin Hcl (JANUMET 50-1,000 MG TABLET) 1 Each Tablet, 1 EACH PO BID 10/18/16 Meloxicam (MELOXICAM) 7.5 Mg Tablet, 7.5 MG PO QAM 10/18/16 Allopurinol (ALLOPURINOL) 100 Mg Tablet, 100 MG PO QAM, TAB 10/18/16 Cinnamon Bark (CINNAMON) 500 Mg Capsule, 1000 MG PO BID, CAPSULE 02/22/14 Past Medical/Surgical History Patient has a past medical history of hypertension, hyperlipidemia, COPD, emphysema, pneumonia, reflux, hiatal hernia, arthritis, back pain, diabetes, alcohol use, depression. Patient has a surgical history of cataract surgery, tonsillectomy, shoulder surgery, carpal tunnel release, left foot surgery, right knee surgery, colonoscopy, hernia repair, vein stripping. Patient has a family medical history of cancer, CAD, stroke, diabetes. Reviewed Nurses Notes: Yes Hx Smoking: Yes Smoking Status: Current: Every Day Smoker Exposure to Second Hand Smoke?: Yes Hx Substance Use Disorder: No Hx Alcohol Use: Yes Constitutional Vital Sign - Last 24 Hours 11/19/17 11/19/17 11/19/17 11/19/17 14:46 14:46 14:53 15:00 Temp 98.8 Pulse 55 51 Resp 18 B/P (MAP) 158/70 (99) 158/70 146/61 (89) Pulse Ox 94 93 O2 Delivery Room Air 11/19/17 11/19/17 11/19/17 11/19/17 15:08 15:18 15:23 15:30 Pulse 48 50 B/P (MAP) 143/53 (83) Pulse Ox 94 94 O2 Flow Rate 3.0 11/19/17 11/19/17 11/19/17 11/19/17 15:38 15:43 15:48 16:18 Pulse 52 59 52 47 Resp 28 26 13 Pulse Ox 94 91 92 93 11/19/17 11/19/17 11/19/17 11/19/17 16:30 16:33 16:48 17:00 Pulse 51 47 Resp 9 17 B/P (MAP) 147/122 (130) 151/52 (85) Pulse Ox 93 91 11/19/17 11/19/17 11/19/17 17:03 17:18 17:26 Pulse 48 49 Resp 8 8 B/P (MAP) 157/80 (105) Pulse Ox 93 90 Physical Exam General Appearance: The patient is alert, has no immediate need for airway protection and no current signs of toxicity. ENT: Tympanic membranes are pearly-gutierrez, auditory canals are patent, mucous membranes are moist. Respiratory: Chest is non tender, lungs are clear to auscultation. Cardiac: regular rate and rhythm Gastrointestinal: Abdomen is soft and non tender, no masses, bowel sounds normal. Musculoskeletal: Neck: Neck is supple and non tender. Extremities have full range of motion and are non tender. Skin: No rashes or lesions. DIFFERENTIAL DIAGNOSIS: After history and physical exam differential diagnosis was considered for shortness of breath including but not limited to pulmonary infectious process, COPD, asthma, pulmonary embolus and congestive heart failure. Medical Decision Making Data Points Result Diagram: 11/19/17 1510 11/19/17 1510 Laboratory Hematology Test 11/19/17 15:10 11/19/17 15:30 Red Blood Count 4.18 M/uL (4.17-5.56) Mean Corpuscular Volume 94.0 fL (80.0-96.0) Mean Corpuscular Hemoglobin 32.0 pg (26.0-33.0) Mean Corpuscular Hemoglobin Concent 34.0 g/dL (32.0-36.0) Red Cell Distribution Width 13.4 % (11.5-14.5) Mean Platelet Volume 9.4 fL (7.2-11.1) Neutrophils (%) (Auto) 76.3 % (39.4-72.5) Lymphocytes (%) (Auto) 13.9 % (17.6-49.6) Monocytes (%) (Auto) 8.5 % (4.1-12.4) Eosinophils (%) (Auto) 0.8 % (0.4-6.7) Basophils (%) (Auto) 0.5 % (0.3-1.4) Nucleated RBC Relative Count (auto) 0.0 /100WBC Neutrophils # (Auto) 5.5 K/uL (2.0-7.4) Lymphocytes # (Auto) 1.0 K/uL (1.3-3.6) Monocytes # (Auto) 0.6 K/uL (0.3-1.0) Eosinophils # (Auto) 0.1 K/uL (0.0-0.5) Basophils # (Auto) 0.0 K/uL (0.0-0.1) Nucleated RBC Absolute Count (auto) 0.00 K/uL D-Dimer Quantitative (PE/DVT) 3.28 ug/ml (0-0.50) Sodium Level 135 mmol/L (137-145) Potassium Level 4.5 mmol/L (3.5-5.0) Chloride Level 98 mmol/L (98-107) Carbon Dioxide Level 26 mmol/L (22-31) Blood Urea Nitrogen 29 mg/dl (7-18) Creatinine 1.10 mg/dl (0.52-1.04) Glomerular Filtration Rate Calc 49.0 Random Glucose 173 mg/dl (75-110) Calcium Level 9.3 mg/dl (8.4-10.2) Total Bilirubin 0.3 mg/dl (0.2-1.3) Aspartate Amino Transf (AST/SGOT) 19 U/L (0-35) Alanine Aminotransferase (ALT/SGPT) 26 U/L (0-56) Alkaline Phosphatase 74 U/L (0-126) Troponin I < 0.012 ng/ml B-Type Natriuretic Peptide 171 pg/ml (0-100) Total Protein 7.3 gm/dl (6.3-8.2) Albumin 3.6 g/dl (3.5-5.0) Urine Color Yellow Urine Clarity Slightly-cloudy Urine pH 5.0 pH (4.8-9.5) Urine Specific [place] 1.011 Urine Protein 100 mg/dL (NEGATIVE) Urine Glucose (UA) Negative mg/dL (NEGATIVE) Urine Ketones Negative mg/dL (NEGATIVE) Urine Blood Negative (NEGATIVE) Urine Nitrite Negative (NEGATIVE) Urine Bilirubin Negative (NEGATIVE) Urine Urobilinogen Negative mg/dL (0.2-1.9) Urine Leukocyte Esterase Moderate (NEGATIVE) Urine RBC 2 /HPF (0-2/HPF) Urine WBC 18 /HPF (0-5/HPF) Urine Squamous Epithelial Cells Many /LPF (</=FEW) Urine Bacteria Negative /HPF (NONE-FEW) Urine Mucus None /HPF (NONE-FEW) Chemistry Test 11/19/17 15:10 11/19/17 15:30 White Blood Count 7.2 k/uL (4.5-11.0) Red Blood Count 4.18 M/uL (4.17-5.56) Hemoglobin 13.3 g/dL (12.0-16.0) Hematocrit 39.2 % (34.0-47.0) Mean Corpuscular Volume 94.0 fL (80.0-96.0) Mean Corpuscular Hemoglobin 32.0 pg (26.0-33.0) Mean Corpuscular Hemoglobin Concent 34.0 g/dL (32.0-36.0) Red Cell Distribution Width 13.4 % (11.5-14.5) Platelet Count 176 K/uL (150-450) Mean Platelet Volume 9.4 fL (7.2-11.1) Neutrophils (%) (Auto) 76.3 % (39.4-72.5) Lymphocytes (%) (Auto) 13.9 % (17.6-49.6) Monocytes (%) (Auto) 8.5 % (4.1-12.4) Eosinophils (%) (Auto) 0.8 % (0.4-6.7) Basophils (%) (Auto) 0.5 % (0.3-1.4) Nucleated RBC Relative Count (auto) 0.0 /100WBC Neutrophils # (Auto) 5.5 K/uL (2.0-7.4) Lymphocytes # (Auto) 1.0 K/uL (1.3-3.6) Monocytes # (Auto) 0.6 K/uL (0.3-1.0) Eosinophils # (Auto) 0.1 K/uL (0.0-0.5) Basophils # (Auto) 0.0 K/uL (0.0-0.1) Nucleated RBC Absolute Count (auto) 0.00 K/uL D-Dimer Quantitative (PE/DVT) 3.28 ug/ml (0-0.50) Glomerular Filtration Rate Calc 49.0 Calcium Level 9.3 mg/dl (8.4-10.2) Total Bilirubin 0.3 mg/dl (0.2-1.3) Aspartate Amino Transf (AST/SGOT) 19 U/L (0-35) Alanine Aminotransferase (ALT/SGPT) 26 U/L (0-56) Alkaline Phosphatase 74 U/L (0-126) Troponin I < 0.012 ng/ml B-Type Natriuretic Peptide 171 pg/ml (0-100) Total Protein 7.3 gm/dl (6.3-8.2) Albumin 3.6 g/dl (3.5-5.0) Urine Color Yellow Urine Clarity Slightly-cloudy Urine pH 5.0 pH (4.8-9.5) Urine Specific [place] 1.011 Urine Protein 100 mg/dL (NEGATIVE) Urine Glucose (UA) Negative mg/dL (NEGATIVE) Urine Ketones Negative mg/dL (NEGATIVE) Urine Blood Negative (NEGATIVE) Urine Nitrite Negative (NEGATIVE) Urine Bilirubin Negative (NEGATIVE) Urine Urobilinogen Negative mg/dL (0.2-1.9) Urine Leukocyte Esterase Moderate (NEGATIVE) Urine RBC 2 /HPF (0-2/HPF) Urine WBC 18 /HPF (0-5/HPF) Urine Squamous Epithelial Cells Many /LPF (</=FEW) Urine Bacteria Negative /HPF (NONE-FEW) Urine Mucus None /HPF (NONE-FEW) Coagulation Test 11/19/17 15:10 D-Dimer Quantitative (PE/DVT) 3.28 ug/ml Urinalysis Test 11/19/17 15:30 Urine Color Yellow Urine Clarity Slightly-cloudy Urine pH 5.0 pH (4.8-9.5) Urine Specific [place] 1.011 Urine Protein 100 mg/dL (NEGATIVE) Urine Glucose (UA) Negative mg/dL (NEGATIVE) Urine Ketones Negative mg/dL (NEGATIVE) Urine Blood Negative (NEGATIVE) Urine Nitrite Negative (NEGATIVE) Urine Bilirubin Negative (NEGATIVE) Urine Urobilinogen Negative mg/dL (0.2-1.9) Urine Leukocyte Esterase Moderate (NEGATIVE) Urine RBC 2 /HPF (0-2/HPF) Urine WBC 18 /HPF (0-5/HPF) Urine Squamous Epithelial Cells Many /LPF (</=FEW) Urine Bacteria Negative /HPF (NONE-FEW) Urine Mucus None /HPF (NONE-FEW) EKG/Imaging EKG Interpretation 12 lead EKG: Rhythm: Sinus bradycardia with ventricular rate of 48bpm [place]: normal QRS: Left anterior fascicular block ST segments: normal Compared with EKG from October 11 there is no obvious change. Imaging CT ANGIOGRAM OF THE CHEST WITH INTRAVENOUS CONTRAST, PE PROTOCOL DATE OF EXAM: 11/19/2017 15:01 COMPARISON: Chest radiograph of November 05, 2017. INDICATION: Coughing up blood. TECHNIQUE: Contrast enhanced chest CT performed during the injection of 75 ml of Isovue-370. Three-dimensional (MIP) reconstructions were performed. FINDINGS: Negative for pulmonary arterial embolus. There is an area of patchy opacity in the left lower lobe. Mild diffuse bronchial wall thickening. No effusion. No pneumothorax. Mild basilar atelectasis. Subtle tree-in-bud opacity in the right upper lobe. Thyroid: Incompletely imaged thyroid. Thoracic inlet: No adenopathy. Heart and great vessels: Heart size is at the upper limits of normal. Coronary atherosclerosis is extensive. Moderate aortic arch atherosclerosis. Mediastinum and lydia: Mild thickening at the lydia may be reactive. Lungs and pleura: As above. Breast and axilla: Breast tissue is incompletely imaged. Bones and soft tissues: Acute osseous abnormality. Subchondral cystic change within both humeral heads. Upper abdomen: Mild left perinephric stranding is suggested but incompletely imaged. IMPRESSION: 1. Negative for pulmonary arterial embolus. 2. Patchy opacity in the left lower lobe and subtle tree-in-bud opacity in the right upper lobe suspicious for multifocal infection. CT Head without contrast Indication: Weakness. Coughing up blood. Comparison: 10/11/2017. Technique: Axial CT images were obtained through the brain from the skull base to the vertex without administration of IV contrast. Reformatted coronal and sagittal images were also obtained. One of the following dose optimization techniques was utilized in the performance of this exam: automated exposure control; adjustment of the mA and/ or kV according to the patient's size; or use of an iterative reconstruction technique. Specific details can be referenced in the facility's radiology CT exam operational policy. Findings: No evidence of mass, mass effect, or midline shift. No acute intracranial hemorrhage or acute territorial infarction. No extra-axial fluid collection or hydrocephalus. Age-related cerebral atrophy. Periventricular white matter ischemic changes consistent small vessel disease, unchanged. Gutierrez/white matter differentiation appears normal. Mild bilateral internal carotid artery calcifications. Bony structures show no fractures or lesions. The inferior aspect both exercise do show focal areas of mucosal thickening most likely cyst/polyps which appears similar. The remaining sinuses and mastoids visualized are clear. IMPRESSION: 1. Senescent changes without acute abnormality. 2. Continued mild bilateral maxillary sinus disease. Report Dictated By: Judd Linn at 11/19/2017 4:29 PM Report E-Signed By: Judd Linn at 11/19/2017 4:34 PM ED Course/Re-evaluation ED Course Patient was admitted exam room, history of physical were obtained. Differential diagnoses were considered. On examination patient is breathing well, lungs are clear. A CBC, CMP, d-dimer, CT pulmonary angiogram and CT scan of the head were done. The labs were unremarkable, patient did have a GFR of 41, d-dimer was 3.48. CT scan was done which showed a multifocal pneumonia in the left and right upper lobes. Patient had recently been treated. I don't believe that the pneumonia has completely cleared. We will go ahead and treat her with 10 days of Levaquin. She is to follow-up with her primary care provider on Friday. I discussed the results of the CT scan as well as the labs with the patient. We discussed the plan and the patient and her niece both verbalized understanding and agreement with plan. Decision to Disposition Date: Nov 19, 2017 Decision to Disposition Time: 17:23 Depart Departure Latest Vital Signs Vital Signs Date Time Temp Pulse Resp B/P (MAP) Pulse Ox O2 Delivery O2 Flow Rate FiO2 11/19/17 17:26 157/80 (105) 11/19/17 17:18 49 8 90 11/19/17 15:18 3.0 11/19/17 14:46 98.8 Room Air Impression: Primary Impression: Pneumonia Condition: Improved Disposition: HOME OR SELF-CARE Referrals: ESTELA MARIE (PCP) New Scripts Levofloxacin 750 Mg Tab (LEVAQUIN 750 MG TAB) 750 Mg Tablet 750 MG PO DAILY, #9 TAB Prov: NORMAN EATON 11/19/17 Patient Instructions: Bacterial Pneumonia (ED) Additional Instructions: Increase fluid intake. Get plenty of rest. Follow up with your primary care provider (Estela Marie) on Friday. Take the antibiotics as directed. Return to the ER if condition worsens. Take Tylenol or Ibuprofen as needed for pain or fevers. Problem Qualifiers Primary Impression: Pneumonia Pneumonia type: due to unspecified organism Laterality: bilateral Lung location: unspecified part of lung Qualified Codes: J18.9 - Pneumonia, unspecified organism NORMAN EATON Nov 19, 2017 14:49
[2017-11-19 15:22] LABS: PLATELET COUNT, AUTOMATED 176 K/uL (150-450)
[2017-11-19] MEDS ORDERED: IOPAMIDOL 76% 100 ML INFUS BTL 100 ML ONE (15:51)
[2017-11-19] MEDS ORDERED: NS 0.9% 150 ML BAG 150 ML ONE (15:51)
--- NOTE | 2017-11-19 16:28 | EKG ---
FACILITY: [facility] - [place] PATIENT NAME: NINO JUDGE : [id number] MR: [id number] V: [id number] EXAM DATE: ORDERING PHYSICIAN: NORMAN EATON TECHNOLOGIST: NOLBERTO Cosme Reason : COUGHING UP BLOOD Blood Pressure : / mmHG Vent. Rate : 048 BPM Atrial Rate : 048 BPM P-R Int : 194 ms QRS Dur : 122 ms QT Int : 436 ms P-R-T Axes : 055 -71 059 degrees QTc Int : 389 ms Marked sinus bradycardia Borderline first degree AV block Left axis Nonspecific interventricular conduction delay U waves noted Abnormal ECG When compared with ECG of 11-OCT-2017 11:51, No significant change was found Confirmed by ZOILA NEWTON ([id number]) on 11/20/2017 6:16:42 AM Referred By: UMA Confirmed By:ZOILA NEWTON
--- NOTE | 2017-11-19 16:38 | RADIOLOGY IMAGING REPORT ---
FACILITY: [facility] [place] PATIENT NAME: Danielle Moody : 1945 MR: [id number] V: [id number] EXAM DATE: ORDERING PHYSICIAN: NORMAN EATON TECHNOLOGIST: Location: [facility] Patient: Danielle Moody : 1945 Visit/Account:[id number] Date of Sevice: 11/19/2017 CT Head without contrast Indication: Weakness. Coughing up blood. Comparison: 10/11/2017. Technique: Axial CT images were obtained through the brain from the skull base to the vertex without administration of IV contrast. Reformatted coronal and sagittal images were also obtained. One of the following dose optimization techniques was utilized in the performance of this exam: autom ated exposure control; adjustment of the mA and/or kV according to the patient's size; or use of an i terative reconstruction technique. Specific details can be referenced in the facility's radiology CT exam operational policy. Findings: No evidence of mass, mass effect, or midline shift. No acute intracranial hemorrhage or acute territorial infarction. No extra-axial fluid collection or hydrocephalus. Age-related cerebral atrophy. Periventricular white matter ischemic changes consistent small vessel disease, unchanged. Gutierrez/white matter differentiatio n appears normal. Mild bilateral internal carotid artery calcifications. Bony structures show no fractures or lesions. The inferior aspect both exercise do show focal areas of mucosal thickening most likely cyst/polyps w hich appears similar. The remaining sinuses and mastoids visualized are clear. IMPRESSION: 1. Senescent changes without acute abnormality. 2. Continued mild bilateral maxillary sinus disease. Report Dictated By: Judd Linn at 11/19/2017 4:29 PM Report E-Signed By: Judd Linn at 11/19/2017 4:34 PM WSN:[id number]
--- NOTE | 2017-11-19 16:44 | RADIOLOGY IMAGING REPORT ---
[place] [facility] [place]: Danielle Moody : 1945 MR: [id number] V: [id number] EXAM DATE: ORDERING PHYSICIAN: NORMAN EATON TECHNOLOGIST: Location: [facility] Patient: Danielle Moody : 1945 Visit/Account:[id number] Date of Sevice: 11/19/2017 CT ANGIOGRAM OF THE CHEST WITH INTRAVENOUS CONTRAST, PE PROTOCOL DATE OF EXAM: 11/19/2017 15:01 COMPARISON: Chest radiograph of November 05, 2017. INDICATION: Coughing up blood. TECHNIQUE: Contrast enhanced chest CT performed during the injection of 75 ml of Isovue-370. Three-d imensional (MIP) reconstructions were performed. FINDINGS: Negative for pulmonary arterial embolus. There is an area of patchy opacity in the left lower lobe. M ild diffuse bronchial wall thickening. No effusion. No pneumothorax. Mild basilar atelectasis. Subtle tree-in-bud opacity in the right upper lobe. Thyroid: Incompletely imaged thyroid. Thoracic inlet: No adenopathy. Heart and great vessels: Heart size is at the upper limits of normal. Coronary atherosclerosis is ex tensive. Moderate aortic arch atherosclerosis. Mediastinum and lydia: Mild thickening at the lydia may be reactive. Lungs and pleura: As above. Breast and axilla: Breast tissue is incompletely imaged. Bones and soft tissues: Acute osseous abnormality. Subchondral cystic change within both humeral hea ds. Upper abdomen: Mild left perinephric stranding is suggested but incompletely imaged. IMPRESSION: 1. Negative for pulmonary arterial embolus. 2. Patchy opacity in the left lower lobe and subtle tree-in-bud opacity in the right upper lobe suspi cious for multifocal infection. One of the following dose optimization techniques was utilized in the performance of this exam: Autom ated exposure control; adjustment of the mA and/or kV according to the patient's size; or use of an i terative reconstruction technique. Specific details can be referenced in the facility's radiology C T exam operational policy. Report Dictated By: Greg Corley MD at 11/19/2017 4:33 PM Report E-Signed By: Greg Corley MD at 11/19/2017 4:40 PM WSN:[id number]
[2017-11-19] MEDS ORDERED: LEVOFLOXACIN 750 MG TAB PO ONE (17:20)
[2017-11-19] MEDS ORDERED: LEVO750T44 PO (17:22)
[2017-11-19 17:26] VITALS: BP 157/80
== END 2017-11-19 17:36 | disposition home or self-care (01) ==
LOC: ER 14:51
DX: J18.9 Pneumonia, unspecified organism (principal); J32.0 Chronic maxillary sinusitis
CPT/HCPCS: 70450; 71275; 81001; 83880; 84484; 85025; 85379; 87070; 87077; 87186; 87205; 93005; 99284; A9270; Q9967; 82040; 82247; 82310; 82374; 82435; 82565; 82947; 84075; 84132; 84155; 84295; 84450; 84460; 84520

== ENCOUNTER 2017-12-17 12:39 | Inpatient (IN) | payer MEDICARE, MEDICAID ==
[~2017-12-17] VITALS: Ht 172.7 cm; Wt 76.7 kg
[~2017-12-17 12:39] MED LIST changes: -AMLO-99 PO; -CHOL200074 PO; -CYAN1000 IJ; -INSU100I30 SQ; -LEVO50TA86 PO; -NIC10R INH; -OXYC-373 PO; -OXYC-870 PO; -UMEC62.5
[2017-12-17] MEDS ORDERED: LEVO50TA86 PO (12:57)
[2017-12-17] MEDS ORDERED: CHOL200074 PO (12:57)
[2017-12-17 13:42] LABS: PLATELET COUNT, AUTOMATED 158 K/uL (150-450)
[2017-12-17] MEDS ORDERED: IBUPROFEN 600 MG TAB PO ONE (13:45)
[2017-12-17] MEDS ORDERED: IOPAMIDOL 76% 75 ML INFUS BTL 75 ML ONE (14:16)
[2017-12-17] MEDS ORDERED: NS 0.9% 150 ML BAG 150 ML ONE (14:16)
--- NOTE | 2017-12-17 14:16 | RADIOLOGY IMAGING REPORT ---
FACILITY: [facility] [place] PATIENT NAME: Danielle Moody : 1945 MR: [id number] V: [id number] EXAM DATE: ORDERING PHYSICIAN: NORMAN EATON TECHNOLOG[place]: [place] [facility] [place] : 1945 Visit/Account:[id number] Date of Sevice: 12/17/2017 2 VIEWS CHEST INDICATION: Cough and shortness of breath. Altered mental status. COMPARISON: 11/05/2017. FINDINGS: Cardiomediastinal silhouette and pulmonary vessels within normal limits. There is a patchy hazy opacity seen in the left midlung field, not appreciated previously. The remain ing lung sutton are clear. There is no pneumothorax or pleural effusion. No nodule. Upper abdomen is unremarkable. Upper abdomen is unremarkable. No acute bony abnormality. IMPRESSION: 1. Early left pneumonia. Suggest follow-up films to assess for clearing or other etiologies. Report Dictated By: Judd Linn at 12/17/2017 2:09 PM Report E-Signed By: Judd Linn at 12/17/2017 2:12 PM WSN:[id number]
[2017-12-17] MEDS ORDERED: EMS NS 0.9%(*) 1000 ML BAG 1,000 ML IV ONE (14:55)
--- NOTE | 2017-12-17 14:55 | EKG ---
[place] [facility] [place]: NINO JUDGE : [id number] MR: [id number] V: [id number] EXAM DATE: ORDERING PHYSICIAN: NORMAN EATON TECHNOLOGIST: YANICK Test Reason : SOB Blood Pressure : / mmHG Vent. Rate : 090 BPM Atrial Rate : 090 BPM P-R Int : 178 ms QRS Dur : 116 ms QT Int : 344 ms P-R-T Axes : 041 -65 081 degrees QTc Int : 420 ms Normal sinus rhythm Right bundle branch block Left anterior fascicular block Bifascicular block Left ventricular hypertrophy with QRS widening and repolarization abnormality Possible Lateral infarct , age undetermined Abnormal ECG No previous ECGs available Confirmed by KANDICE COREAS ([id number]) on 12/17/2017 6:25:39 PM Referred By: Confirmed By:KANDICE COREAS
--- NOTE | 2017-12-17 15:00 | ER Report ---
History and Physical Time Seen By MD: 12:50 Hx. of Stated Complaint: PTPRESENTS WITH HX OF NOT FEELING WELL SINCE OCTOBER, WORSENING TROUBLE BREATHING AND WAS A LITTLE CONFUSED. THIS HAS RESOLVED SINCE INCREASE IN OXYGEN HPI/ROS chief concern: cough, fever HPI: 72 y/o female presents with concern for cough and fever. Reports ongoing symptoms since being hospitalized in October for pneumonia. Reports she saw her PCP three weeks post-discharge, and was diagnosed with pneumonia and prescribed levofloxacin. She states she was later called and told she was "allergic" to levofloxacin and to discontinue. She denies being on any antibiotic currently. Reports 2 week history of "clotted blood" emesis. Niece reports that she arrived this morning to patient's house, observed confusion, shaking with chills , and oxygen levels of 78-80% on 3L continuous oxygen. She increased oxygen to 3.5, and observed oxygen levels of 89%. Reports decreased exercise tolerance and sedentary lifestyle, reports gasping when she walks from bedroom to kitchen. Review of Systems: General: fever, chills, confusion HENT: Denies nasal discharge, ear pain Respiratory: reports cough, hematemesis, CV: Denies chest pain, palpitations. Reports bilateral lower extremity edema. GI: Reports diarrhea three days ago, resolved. Allergies: Coded Allergies: bacitracin (Verified Allergy, Intermediate, RASH, 10/11/17) gramicidin D (Verified Allergy, Intermediate, RASH, 10/11/17) neomycin (Verified Allergy, Intermediate, RASH, 10/11/17) polymyxin B (Verified Allergy, Intermediate, RASH, 10/11/17) levofloxacin (Verified Allergy, Unknown, 12/17/17) Home Meds Active Scripts Oxybutynin Chloride (OXYBUTYNIN CHLORIDE) 5 Mg Tablet, 1 TAB PO BID, #180 TAB 3 Refills Prov:WENDY STONE MD 12/22/14 Gabapentin (GABAPENTIN) 400 Mg Capsule, 400 MG PO TID, #90 CAPSULE 12 Refills Prov:WENDY STONE MD 10/03/14 Reported Medications Sitagliptin Phos/Metformin Hcl (JANUMET 50-1,000 MG TABLET) 1 Each Tablet, 1 EACH PO BID 12/17/17 Cyanocobalamin (Vitamin B-12) (CYANOCOBALAMIN INJECTION) 1,000 Mcg/1 Ml Vial, 1000 MCG IJ Qmonthly, VIAL 12/17/17 Olmesartan Medoxomil (BENICAR) 40 Mg Tablet, 40 MG PO QDAY 12/17/17 Losartan Potassium (LOSARTAN POTASSIUM) 100 Mg Tablet, 100 MG PO QDAY 12/17/17 Oxycodone Hcl/Acetaminophen (OXYCODONE-ACETAMINOPHEN 5-325) 1 Each Tablet, 1 EACH PO Q6H, TAB 12/17/17 Umeclidinium [place] (Incruse Ellipta) 62.5 Mcg Blst.w.dev, QDAY 12/17/17 Nicotine (NICOTROL) 10 Mg/Inh Ctr, 10 MG INH 12/17/17 Oxycodone Hcl/Acetaminophen (PERCOCET 10-325 MG TABLET) 1 Each Tablet, 1 EACH PO Q6H, TAB 12/17/17 Amlodipine Besylate (AMLODIPINE BESYLATE) 10 Mg Tablet, 1 TAB PO QHS, TAB 12/17/17 Levothyroxine Sodium (LEVOTHYROXINE SODIUM) 50 Mcg Tablet, 50 MCG PO QDAY, TAB 12/17/17 Cholecalciferol (Vitamin D3) (VITAMIN D-3) 2,000 Unit Capsule, 2000 UNIT PO, CAPSULE 12/17/17 [Vitamin B12] No Conflict Check, 1 UNIT SUBQ QMONTH 10/11/17 Baclofen (BACLOFEN) 10 Mg Tablet, 10 MG PO TID Y for PAIN, #30 TAB 10/11/17 Olmesartan Medoxomil (BENICAR) 40 Mg Tablet, 40 MG PO QAM 10/11/17 Citalopram Hydrobromide (CITALOPRAM HBR) 20 Mg Tablet, 20 MG PO QAM, #5 TAB 10/11/17 Doxazosin Mesylate (DOXAZOSIN MESYLATE) 4 Mg Tablet, 4 MG PO HS 10/11/17 Fluticasone/Vilanterol (Breo Ellipta 200-25 Mcg INH) 1 Each Blst.w.dev, 1 PUFF INH QDAY 05/01/17 Linaclotide (LINZESS) 145 Mcg Capsule, 145 MCG PO QAM, CAPSULE 05/01/17 Furosemide (LASIX) 20 Mg Tablet, 1-2 TAB PO QAM, TAB 05/01/17 Aspirin (ASPIRIN) 81 Mg Tab.chew, 81 MG PO QHS, TAB.CHEW 05/01/17 Atorvastatin Calcium (LIPITOR) 20 Mg Tablet, 1 TAB PO QHS, TAB 05/01/17 Oxygen (OXYGEN) Inha, 3 L INH CONTINUOUS, L 10/18/16 Insulin Glargine (LANTUS) 100 Unit/Ml Soln, 40 UNIT SUBQ QHS, ML 10/18/16 Dexlansoprazole (DEXILANT) 60 Mg Cap., 60 MG PO QHS 10/18/16 Fish Oil/Dha/Epa (FISH OIL 1,200 MG FISH OIL) 1 Each Capsule, 1 EACH PO TID, CAPSULE 10/18/16 Sitagliptin Phos/Metformin Hcl (JANUMET 50-1,000 MG TABLET) 1 Each Tablet, 1 EACH PO BID 10/18/16 Meloxicam (MELOXICAM) 7.5 Mg Tablet, 7.5 MG PO QAM 10/18/16 Allopurinol (ALLOPURINOL) 100 Mg Tablet, 100 MG PO QAM, TAB 10/18/16 Cinnamon Bark (CINNAMON) 500 Mg Capsule, 1000 MG PO BID, CAPSULE 02/22/14 Discontinued Reported Medications Albuterol Sulfate (PROVENTIL HFA) 6.7 Gm Inh, 1-2 PUFF INH QDAY Y for SHORTNESS OF BREATH, INH 10/18/16 Discontinued Scripts Levofloxacin 750 Mg Tab (LEVAQUIN 750 MG TAB) 750 Mg Tablet, 750 MG PO DAILY, # 9 TAB Prov:NORMAN EATON ELECTRONIC ENGRAVER 11/19/17 Past Medical/Surgical History History of COPD, CHF, hypertension, hypercholesterolemia, GERD, recurrent UTIs, Smoking history discontinued October 2017; hysterectomy; hernia repair 2011; carpal tunnel bilateraly; Reviewed Nurses Notes: Yes Hx Smoking: Yes Smoking Status: Current: Every Day Smoker Exposure to Second Hand Smoke?: Yes Hx Substance Use Disorder: No Hx Alcohol Use: No Constitutional Vital Sign - Last 24 Hours 12/17/17 12/17/17 12/17/17 12/17/17 12:40 12:42 12:45 12:53 Temp 101.4 Pulse 92 Resp 22 B/P (MAP) 147/78 147/78 (101) 157/79 (105) Pulse Ox 89 O2 Delivery Nasal Cannula O2 Flow Rate 5.0 12/17/17 12/17/17 12/17/17 12/17/17 13:00 13:05 13:15 13:20 Pulse 88 88 B/P (MAP) 155/71 (99) 153/71 (98) Pulse Ox 90 92 12/17/17 12/17/17 12/17/17 12/17/17 13:30 13:45 14:15 14:20 Pulse 85 B/P (MAP) 172/80 (110) 172/74 (106) 187/90 (122) Pulse Ox 93 12/17/17 12/17/17 12/17/17 12/17/17 14:45 14:55 15:00 15:25 Pulse 82 82 B/P (MAP) 147/78 (101) 135/67 (89) Pulse Ox 90 90 12/17/17 12/17/17 12/17/17 12/17/17 15:30 15:45 16:00 16:15 B/P (MAP) 106/58 (74) 118/60 (79) 101/48 (65) 97/44 (61) Intake and Output 12/17/17 12/17/17 12/18/17 15:00 23:00 07:00 Output Total 15 ml Balance -15 ml Physical Exam Physical exam: General: Alert, answering questions appropriately with appropriate affect. Oriented x3. HENT: TMs pearly borjas, slight erythema right ear canal. Posterior pharynx pink, tonsillar pillars +1 with no tonsillar exudates. No lymphadenopathy. Respiratory: Coarse expiratory wheezes throughout, right lobes harsher than left. CV: Regular rate and rhythm. 1+ pitting edema bilateral lower extremities. GI: normoactive bowel sounds; scattered sounds of tympany and dullness; nontender to palpation. After obtaining thorough HPI, ROS, and physical exam, the following differentials were considered but not limited to: acute exacerbation of COPD, CHF, pneumonia, bronchitis, UTI, PE, and seasonal influenza. Medical Decision Making Data Points Result Diagram: 12/17/17 1225 12/17/17 1225 Laboratory Hematology Test 12/17/17 12:25 12/17/17 13:37 12/17/17 13:40 12/17/17 14:52 Red Blood Count 4.07 M/uL (4.17-5.56) Mean Corpuscular Volume 93.7 fL (80.0-96.0) Mean Corpuscular Hemoglobin 31.6 pg (26.0-33.0) Mean Corpuscular Hemoglobin Concent 33.7 g/dL (32.0-36.0) Red Cell Distribution Width 14.9 % (11.5-14.5) Mean Platelet Volume 9.8 fL (7.2-11.1) Neutrophils (%) (Auto) 92.0 % (39.4-72.5) Lymphocytes (%) (Auto) 3.1 % (17.6-49.6) Monocytes (%) (Auto) 4.5 % (4.1-12.4) Eosinophils (%) (Auto) 0.1 % (0.4-6.7) Basophils (%) (Auto) 0.3 % (0.3-1.4) Nucleated RBC Relative Count (auto) 0.0 /100WBC Neutrophils # (Auto) 12.7 K/uL (2.0-7.4) Lymphocytes # (Auto) 0.4 K/uL (1.3-3.6) Monocytes # (Auto) 0.6 K/uL (0.3-1.0) Eosinophils # (Auto) 0.0 K/uL (0.0-0.5) Basophils # (Auto) 0.0 K/uL (0.0-0.1) Nucleated RBC Absolute Count (auto) 0.00 K/uL D-Dimer Quantitative (PE/DVT) 2.92 ug/ml (0-0.50) Sodium Level 135 mmol/L (137-145) Potassium Level 4.5 mmol/L (3.5-5.0) Chloride Level 98 mmol/L (98-107) Carbon Dioxide Level 23 mmol/L (22-31) Blood Urea Nitrogen 31 mg/dl (7-18) Creatinine 1.00 mg/dl (0.52-1.04) Glomerular Filtration Rate Calc 54.7 Random Glucose 131 mg/dl (75-110) Calcium Level 9.5 mg/dl (8.4-10.2) Total Bilirubin 0.6 mg/dl (0.2-1.3) Aspartate Amino Transf (AST/SGOT) 24 U/L (0-35) Alanine Aminotransferase (ALT/SGPT) 32 U/L (0-56) Alkaline Phosphatase 100 U/L (0-126) Troponin I 0.023 ng/ml B-Type Natriuretic Peptide 183 pg/ml (0-100) Total Protein 7.6 gm/dl (6.3-8.2) Albumin 3.8 g/dl (3.5-5.0) Influenza Virus Type A (PCR) Negative (NEGATIVE) Influenza Virus Type B (PCR) Negative (NEGATIVE) Urine Color Yellow Urine Clarity Clear Urine pH 5.0 pH (4.8-9.5) Urine Specific [place] 1.010 Urine Protein 100 mg/dL (NEGATIVE) Urine Glucose (UA) Negative mg/dL (NEGATIVE) Urine Ketones Negative mg/dL (NEGATIVE) Urine Blood Negative (NEGATIVE) Urine Nitrite Negative (NEGATIVE) Urine Bilirubin Negative (NEGATIVE) Urine Urobilinogen Negative mg/dL (0.2-1.9) Urine Leukocyte Esterase Negative (NEGATIVE) Urine RBC 1 /HPF (0-2/HPF) Urine WBC 2 /HPF (0-5/HPF) Urine Squamous Epithelial Cells Few /LPF (NONE-FEW) Urine Bacteria Negative /HPF (NONE-FEW) Urine Mucus None /HPF (NONE-FEW) Lactate 1.3 mmol/L (0.7-2.1) Chemistry Test 12/17/17 12:25 12/17/17 13:37 12/17/17 13:40 12/17/17 14:52 White Blood Count 13.9 k/uL (4.5-11.0) Red Blood Count 4.07 M/uL (4.17-5.56) Hemoglobin 12.9 g/dL (12.0-16.0) Hematocrit 38.1 % (34.0-47.0) Mean Corpuscular Volume 93.7 fL (80.0-96.0) Mean Corpuscular Hemoglobin 31.6 pg (26.0-33.0) Mean Corpuscular Hemoglobin Concent 33.7 g/dL (32.0-36.0) Red Cell Distribution Width 14.9 % (11.5-14.5) Platelet Count 158 K/uL (150-450) Mean Platelet Volume 9.8 fL (7.2-11.1) Neutrophils (%) (Auto) 92.0 % (39.4-72.5) Lymphocytes (%) (Auto) 3.1 % (17.6-49.6) Monocytes (%) (Auto) 4.5 % (4.1-12.4) Eosinophils (%) (Auto) 0.1 % (0.4-6.7) Basophils (%) (Auto) 0.3 % (0.3-1.4) Nucleated RBC Relative Count (auto) 0.0 /100WBC Neutrophils # (Auto) 12.7 K/uL (2.0-7.4) Lymphocytes # (Auto) 0.4 K/uL (1.3-3.6) Monocytes # (Auto) 0.6 K/uL (0.3-1.0) Eosinophils # (Auto) 0.0 K/uL (0.0-0.5) Basophils # (Auto) 0.0 K/uL (0.0-0.1) Nucleated RBC Absolute Count (auto) 0.00 K/uL D-Dimer Quantitative (PE/DVT) 2.92 ug/ml (0-0.50) Glomerular Filtration Rate Calc 54.7 Calcium Level 9.5 mg/dl (8.4-10.2) Total Bilirubin 0.6 mg/dl (0.2-1.3) Aspartate Amino Transf (AST/SGOT) 24 U/L (0-35) Alanine Aminotransferase (ALT/SGPT) 32 U/L (0-56) Alkaline Phosphatase 100 U/L (0-126) Troponin I 0.023 ng/ml B-Type Natriuretic Peptide 183 pg/ml (0-100) Total Protein 7.6 gm/dl (6.3-8.2) Albumin 3.8 g/dl (3.5-5.0) Influenza Virus Type A (PCR) Negative (NEGATIVE) Influenza Virus Type B (PCR) Negative (NEGATIVE) Urine Color Yellow Urine Clarity Clear Urine pH 5.0 pH (4.8-9.5) Urine Specific [place] 1.010 Urine Protein 100 mg/dL (NEGATIVE) Urine Glucose (UA) Negative mg/dL (NEGATIVE) Urine Ketones Negative mg/dL (NEGATIVE) Urine Blood Negative (NEGATIVE) Urine Nitrite Negative (NEGATIVE) Urine Bilirubin Negative (NEGATIVE) Urine Urobilinogen Negative mg/dL (0.2-1.9) Urine Leukocyte Esterase Negative (NEGATIVE) Urine RBC 1 /HPF (0-2/HPF) Urine WBC 2 /HPF (0-5/HPF) Urine Squamous Epithelial Cells Few /LPF (NONE-FEW) Urine Bacteria Negative /HPF (NONE-FEW) Urine Mucus None /HPF (NONE-FEW) Lactate 1.3 mmol/L (0.7-2.1) Coagulation Test 12/17/17 12:25 D-Dimer Quantitative (PE/DVT) 2.92 ug/ml Urinalysis Test 12/17/17 13:40 Urine Color Yellow Urine Clarity Clear Urine pH 5.0 pH (4.8-9.5) Urine Specific [place] 1.010 Urine Protein 100 mg/dL (NEGATIVE) Urine Glucose (UA) Negative mg/dL (NEGATIVE) Urine Ketones Negative mg/dL (NEGATIVE) Urine Blood Negative (NEGATIVE) Urine Nitrite Negative (NEGATIVE) Urine Bilirubin Negative (NEGATIVE) Urine Urobilinogen Negative mg/dL (0.2-1.9) Urine Leukocyte Esterase Negative (NEGATIVE) Urine RBC 1 /HPF (0-2/HPF) Urine WBC 2 /HPF (0-5/HPF) Urine Squamous Epithelial Cells Few /LPF (NONE-FEW) Urine Bacteria Negative /HPF (NONE-FEW) Urine Mucus None /HPF (NONE-FEW) EKG/Imaging Imaging EXAMINATION: CTA of the chest with IV contrast HISTORY: Elevated d-dimer. COMPARISON: 11/19/2017. TECHNIQUE: Pulmonary embolus protocol - Thin-slice axial imaging of the chest was performed during maximal pulmonary arterial opacification with intravenous nonionic iodinated contrast. 3D coronal slab MIPs and 2D reconstructions in the coronal and sagittal planes were performed to aid in pulmonary embolus detection. Real Estate Office Manager images have been stored on PACS. CONTRAST: 75 mL of IV Isovue-370 One of the following dose optimization techniques was utilized in the performance of this exam: Automated exposure control; adjustment of the mA and/ or kV according to the patient's size; or use of an iterative reconstruction technique. Specific details can be referenced in the facility's radiology CT exam operational policy. FINDINGS: CTA CHEST: Please note that this exam is optimized for assessment of the pulmonary arteries and is not intended as a diagnostic study of the thoracic aorta, coronary arteries or venous structures. Angiographic Findings: Pulmonary arteries: No filling defects are identified in the main, right, left, lobar, segmental or visualized sub-segmental branches of the pulmonary arterial system. Other vasculature: Coronary artery calcifications. Mild plaque along the thoracic aorta. Mild plaque at the origins of the great vessels. Mild plaque along the splenic artery. Additional non-angiographic findings: Lungs / Pleura: Moderate size region of consolidation in the left upper lobe with small patchy consolidations scattered in the left upper lobe and a small amount of consolidation in the base of the right lower lobe. No pleural effusion. Mediastinum / Sapna: Negative. Heart / Pericardium: Negative. Musculoskeletal / Body wall: Mildly exaggerated thoracic kyphosis. Multilevel disc degenerative changes in the thoracic spine. Lymph node assessment: Stable mildly enlarged distal periesophageal lymph nodes, the largest measuring 1.2 cm in short axis. Upper abdomen: Negative. Lower neck: Negative. IMPRESSION: No evidence of pulmonary embolism. Multifocal consolidation, predominantly within the left upper lobe. These consolidations are a new regions compared with the previous CT examination. This may represent pneumonia in the appropriate clinical setting. Unchanged mildly enlarged distal paraesophageal lymph nodes. Report Dictated By: Daniele Patrick MD at 12/17/2017 3:05 PM Report E-Signed By: Daniele Patrick MD at 12/17/2017 3:30 PM 2 VIEWS CHEST INDICATION: Cough and shortness of breath. Altered mental status. COMPARISON: 11/05/2017. FINDINGS: Cardiomediastinal silhouette and pulmonary vessels within normal limits. There is a patchy hazy opacity seen in the left midlung field, not appreciated previously. The remaining lung sutton are clear. There is no pneumothorax or pleural effusion. No nodule. Upper abdomen is unremarkable. Upper abdomen is unremarkable. No acute bony abnormality. IMPRESSION: 1. Early left pneumonia. Suggest follow-up films to assess for clearing or other etiologies. Report Dictated By: Judd Linn at 12/17/2017 2:09 PM Report E-Signed By: Judd Linn at 12/17/2017 2:12 PM ED Course/Re-evaluation ED Course Patient was admitted to an exam room, history and physical were obtained. Differential diagnoses were considered. On examination patient had wheezing noted throughout her lung sutton, her heart was regular, patient did look tired but was able to maintain good oxygen saturations on 4 L of oxygen. A CBC, CMP, EKG, troponin, d-dimer, chest x-ray were done. On the chest x-ray appears that she has a developing left lung infiltrate. Patient had a white count of 14,000 with left shift. Her BUN was 31 and her creatinine was one. Her d-dimer came back at 3.2. A CT pulmonary angiogram was done. That showed the patient did have no pulmonary emboli, however she does have infiltrate is developing the right lower lobe. I discussed the findings with the patient. Lab cultures and lactate were drawn. Lactate was 1.3. We discussed admitting the patient due to her age, comorbid conditions, including CHF and COPD. Patient verbalized understanding and agreement with plan. I discussed the case with Dr. Eng, hospitalist who agreed to accept the patient for admission. Decision to Disposition Date: Dec 17, 2017 Decision to Disposition Time: 15:56 Depart Departure Latest Vital Signs Vital Signs Date Time Temp Pulse Resp B/P (MAP) Pulse Ox O2 Delivery O2 Flow Rate FiO2 12/17/17 16:15 97/44 (61) 12/17/17 15:25 82 90 12/17/17 12:53 5.0 12/17/17 12:40 101.4 22 Nasal Cannula Impression: Primary Impression: Multifocal pneumonia Condition: Condition Unchanged Disposition: Admitted from ER Referrals: MELANIE ESCALANTE (PCP) NORMAN EATON Dec 17, 2017 15:00
--- NOTE | 2017-12-17 15:34 | RADIOLOGY IMAGING REPORT ---
FACILITY: [facility] PATIENT NAME: Danielle Moody : 1945 MR: [id number] V: [id number] EXAM DATE: [id number] ORDERING PHYSICIAN: NORMAN EATON TECHNOLOGIST: Location: [facility] Patient: Danielle Moody : 1945 Visit/Account:[id number] Date of Sevice: 12/17/2017 EXAMINATION: CTA of the chest with IV contrast HISTORY: Elevated d-dimer. COMPARISON: 11/19/2017. TECHNIQUE: Pulmonary embolus protocol - Thin-slice axial imaging of the chest was performed during maximal pulmonary arterial opacification with intravenous nonionic iodinated contrast. 3D coronal sla b MIPs and 2D reconstructions in the coronal and sagittal planes were performed to aid in pulmonary e mbolus detection. Special Events Assistant images have been stored on PACS. CONTRAST: 75 mL of IV Isovue-370 One of the following dose optimization techniques was utilized in the performance of this exam: Autom ated exposure control; adjustment of the mA and/or kV according to the patient's size; or use of an i terative reconstruction technique. Specific details can be referenced in the facility's radiology C T exam operational policy. FINDINGS: CTA CHEST: Please note that this exam is optimized for assessment of the pulmonary arteries and is not intended as a diagnostic study of the thoracic aorta, coronary arteries or venous structures. Angiographic Findings: Pulmonary arteries: No filling defects are identified in the main, right, left, lobar, segmental or v isualized sub-segmental branches of the pulmonary arterial system. Other vasculature: Coronary artery calcifications. Mild plaque along the thoracic aorta. Mild plaqu e at the origins of the great vessels. Mild plaque along the splenic artery. Additional non-angiographic findings: Lungs / Pleura: Moderate size region of consolidation in the left upper lobe with small patchy cons olidations scattered in the left upper lobe and a small amount of consolidation in the base of the ri ght lower lobe. No pleural effusion. Mediastinum / Sapna: Negative. Heart / Pericardium: Negative. Musculoskeletal / Body wall: Mildly exaggerated thoracic kyphosis. Multilevel disc degenerative nohelia nges in the thoracic spine. Lymph node assessment: Stable mildly enlarged distal periesophageal lymph nodes, the largest measur ing 1.2 cm in short axis. Upper abdomen: Negative. Lower neck: Negative. IMPRESSION: No evidence of pulmonary embolism. Multifocal consolidation, predominantly within the left upper lobe. These consolidations are a new re gions compared with the previous CT examination. This may represent pneumonia in the appropriate clin ical setting. Unchanged mildly enlarged distal paraesophageal lymph nodes. Report Dictated By: Daniele Patrick MD at 12/17/2017 3:05 PM Report E-Signed By: Daniele Patrick MD at 12/17/2017 3:30 PM WSN:[id number]
[2017-12-17 17:04] VITALS: BP 153/77
[2017-12-17] MEDS ORDERED: FLUTICASONE/VILANTEROL 1 EACH INHALER INH PRN (17:50)
--- NOTE | 2017-12-17 18:16 | History & Physical ---
History of Present Illness Chief Complaint Cough and fever History of Present Illness This patient presented to the emergency room complaining of cough and fever. She reports that she has been sick for the past 2 weeks, but only developed fever in the last 24hrs. History Problems: (1) Diverticulitis of colon Status: Chronic (2) Morbid obesity Status: Chronic (3) Pancreatitis Status: Chronic (4) Hypertrophy of gallbladder Status: Chronic (5) Depression Status: Chronic (6) Hypercholesterolemia Onset Date: 06/23/2014 Status: Chronic (7) GERD (gastroesophageal reflux disease) Status: Chronic (8) Hypertension, benign Onset Date: 06/23/2014 Status: Chronic (9) Type II diabetes mellitus Onset Date: 06/23/2014 Status: Chronic (10) COPD (chronic obstructive pulmonary disease) Status: Chronic Home Meds Active Scripts Oxybutynin Chloride (OXYBUTYNIN CHLORIDE) 5 Mg Tablet, 1 TAB PO BID, #180 TAB 3 Refills Prov:WENDY STONE MD 12/22/14 Gabapentin (GABAPENTIN) 400 Mg Capsule, 400 MG PO TID, #90 CAPSULE 12 Refills Prov:WENDY STONE MD 10/03/14 Reported Medications Levothyroxine Sodium (LEVOTHYROXINE SODIUM) 50 Mcg Tablet, 50 MCG PO QDAY, TAB 12/17/17 Cholecalciferol (Vitamin D3) (VITAMIN D-3) 2,000 Unit Capsule, 2000 UNIT PO, CAPSULE 12/17/17 [Vitamin B12] No Conflict Check, 1 UNIT SUBQ QMONTH 10/11/17 Baclofen (BACLOFEN) 10 Mg Tablet, 10 MG PO TID Y for PAIN, #30 TAB 10/11/17 Olmesartan Medoxomil (BENICAR) 40 Mg Tablet, 40 MG PO QAM 10/11/17 Citalopram Hydrobromide (CITALOPRAM HBR) 20 Mg Tablet, 20 MG PO QAM, #5 TAB 10/11/17 Doxazosin Mesylate (DOXAZOSIN MESYLATE) 4 Mg Tablet, 4 MG PO HS 10/11/17 Fluticasone/Vilanterol (Breo Ellipta 200-25 Mcg INH) 1 Each Blst.w.dev, 1 PUFF INH PRN 05/01/17 Linaclotide (LINZESS) 145 Mcg Capsule, 145 MCG PO QAM, CAPSULE 05/01/17 Furosemide (LASIX) 20 Mg Tablet, 1-2 TAB PO QAM, TAB 05/01/17 Aspirin (ASPIRIN) 81 Mg Tab.chew, 81 MG PO QHS, TAB.CHEW 05/01/17 Atorvastatin Calcium (LIPITOR) 20 Mg Tablet, 1 TAB PO QHS, TAB 05/01/17 Oxygen (OXYGEN) Inha, 3 L INH CONTINUOUS, L 10/18/16 Insulin Glargine (LANTUS) 100 Unit/Ml Soln, 30 UNIT SUBQ QHS, ML 10/18/16 Dexlansoprazole (DEXILANT) 60 Mg Cap., 60 MG PO QHS 10/18/16 Fish Oil/Dha/Epa (FISH OIL 1,200 MG FISH OIL) 1 Each Capsule, 1 EACH PO TID, CAPSULE 10/18/16 Sitagliptin Phos/Metformin Hcl (JANUMET 50-1,000 MG TABLET) 1 Each Tablet, 1 EACH PO BID 10/18/16 Meloxicam (MELOXICAM) 7.5 Mg Tablet, 7.5 MG PO QAM 10/18/16 Allopurinol (ALLOPURINOL) 100 Mg Tablet, 100 MG PO QAM, TAB 10/18/16 Cinnamon Bark (CINNAMON) 500 Mg Capsule, 1000 MG PO BID, CAPSULE 02/22/14 Discontinued Reported Medications Albuterol Sulfate (PROVENTIL HFA) 6.7 Gm Inh, 1-2 PUFF INH QDAY Y for SHORTNESS OF BREATH, INH 10/18/16 Discontinued Scripts Levofloxacin 750 Mg Tab (LEVAQUIN 750 MG TAB) 750 Mg Tablet, 750 MG PO DAILY, # 9 TAB Prov:NORMAN EATON FIRE RANGER 11/19/17 Allergies: Coded Allergies: bacitracin (Verified Allergy, Intermediate, RASH, 10/11/17) gramicidin D (Verified Allergy, Intermediate, RASH, 10/11/17) neomycin (Verified Allergy, Intermediate, RASH, 10/11/17) polymyxin B (Verified Allergy, Intermediate, RASH, 10/11/17) levofloxacin (Verified Allergy, Unknown, 12/17/17) Patient History: FH: breast cancer BROTHER, , Age:71 BROTHER, FH: colon cancer SISTER, FH: diabetes mellitus MOTHER, , Age:94 FH: lung cancer FATHER, , Age:71 SISTER, FH: stroke SISTER, Hx Smoking: Yes (1/2-1PPD, FOR 50 YRS) Smoking Status: Current: Every Day Smoker Exposure to Second Hand Smoke?: Yes Caffeine Intake: Coffee Caffeine/Cups Per Day: 4-6 Hx Alcohol Use: No Hx Substance Use Disorder: No Social Drug Use: Never Review of Systems All Systems Reviewed/Normal: Yes, Except as Noted Constitutional: Fever Respiratory: Cough Exam Vital Signs Vital Signs Date Time Temp Pulse Resp B/P (MAP) Pulse Ox O2 Delivery O2 Flow Rate FiO2 12/17/17 17:08 90 Nasal Cannula 3.0 12/17/17 17:04 98.3 67 18 153/77 (102) Neuro: No Gross deficits Eyes: PERRLA Cardiovascular: Regular Rate and Rhythm Respiratory: Clear to Auscultation GI: Abd Soft and Non-Tender Extremities: No Edema Integumentary: No Cyanosis Medical Decision Making Data Points Result Diagram: 12/17/17 1225 12/17/17 1225 Item Value Date Time Influenza Virus Type A (PCR) Negative 12/17/17 1337 Influenza Virus Type B (PCR) Negative 12/17/17 1337 EKG / Imaging Imaging Chest CT reviewed Assessment and Plan Problems: (1) Bacterial pneumonia Assessment & Plan: She did present with cough and fever. Her chest x-ray and CT scan have both shown an infiltrate on the left. She has been started on empiric treatment with ceftriaxone and azithromycin. Blood cultures are pending. (2) COPD (chronic obstructive pulmonary disease) Status: Chronic Assessment & Plan: She is on chronic treatment with Breo. (3) Type II diabetes mellitus Onset Date: 06/23/2014 Status: Chronic Assessment & Plan: She is on chronic treatment with Lantus and Janumet. The Janumet will need to remain on hold for 48hrs after contrast administration. She has been placed on sliding scale level #2. (4) Gout Assessment & Plan: She is on chronic treatment with allopurinol. (5) Hypercholesterolemia Onset Date: 06/23/2014 Status: Chronic Assessment & Plan: She is on chronic treatment with atorvastatin. (6) Depression Status: Chronic Assessment & Plan: She is on chronic treatment with citalopram. (7) Hypertension, benign Onset Date: 06/23/2014 Status: Chronic Assessment & Plan: She is on chronic treatment with olmesartan. Copies to: MELANIE ESCALANTE FIRE RANGER Venous Thromboembolism Antithrombotics Is Pt On Any Antithrombotics?: No Exam Sepsis Risk: No Definite Risk KANDICE COREAS DO Dec 17, 2017 18:16
[2017-12-17] MEDS: cefTRIAXone 2 GM VIAL IVP SCH (18:38)
[2017-12-17] MEDS: BENZOCAINE/MENTHOL 1 EACH LOZG PO PRN (18:38)
[2017-12-17] MEDS ORDERED: UMEC62.5 (19:22)
[2017-12-17] MEDS ORDERED: SITA1TAB17 PO (19:22)
[2017-12-17] MEDS ORDERED: CYAN1000 IJ (19:22)
[2017-12-17] MEDS ORDERED: NIC10R INH (19:22)
[2017-12-17] MEDS ORDERED: OXYC-870 PO (19:22)
[2017-12-17] MEDS ORDERED: OLME40TA28 PO (19:22)
[2017-12-17] MEDS ORDERED: OXYC-373 PO (19:22)
[2017-12-17] MEDS ORDERED: LOSA100T67 PO (19:22)
[2017-12-17] MEDS ORDERED: AMLO-99 PO (19:22)
[2017-12-17 19:59] VITALS: BP 172/59
[2017-12-17] MEDS: AZITHROMYCIN(*) 500 MG 500 MG in NS(*) 0.9% 250 ML BAG 250 ML IVPB SCH (20:01)
[2017-12-17] MEDS: OXYBUTYNIN CHL 5 MG TAB PO SCH (20:52)
[2017-12-17] MEDS: ATORVASTATIN 10 MG TAB PO SCH (20:52)
[2017-12-17] MEDS: DOXAZOSIN MESYLATE 2 MG TAB PO SCH (20:53)
[2017-12-17] MEDS: PANTOPRAZOLE SOD 40 MG TABEC PO SCH (20:53)
[2017-12-17] MEDS: ASPIRIN 81 MG CHEW PO SCH (20:53)
[2017-12-17] MEDS: GABAPENTIN(*) 300 MG CAP 300 MG, GABAPENTIN(*) 100 MG CAP 100 MG PO SCH (20:53)
[2017-12-17] MEDS: INSULIN GLARGINE 100 U/ML 3 ML PEN SUBQ SCH (20:53)
[2017-12-17] MEDS: LEVOTHYROXINE SOD 0.05 MG TAB PO SCH (20:53)
[2017-12-17] MEDS: INSULIN HUM LISPRO 100 UN/ML 3 ML VIAL SUBQ PRN (20:54)
[2017-12-17] MEDS ORDERED: [UNRECOGNIZED DRUG - OTHER] PO SCH (21:00)
[2017-12-17] MEDS ORDERED: SITAGLIPTIN PHOS PO SCH (21:00)
[2017-12-17] MEDS ORDERED: METFORMIN HCL PO SCH (21:00)
[2017-12-17] MEDS ORDERED: INSULIN GLARGINE 100 U/ML 3 ML PEN SUBQ SCH (21:00)
[2017-12-17] MEDS ORDERED: NON-FORMULARY MEDICATION MISCELL (Gabapentin 400 MG) PO SCH (21:00)
[2017-12-17] MEDS ORDERED: PROMETHAZINE 25 MG/ML 1 ML AMP IVP PRN (21:35)
[2017-12-17 23:34] VITALS: BP 201/83
[2017-12-17] MEDS: ACETAMINOPHEN(*)1000 MG/100 ML 100 ML IVPB PRN (23:41)
[2017-12-17] MEDS: NS(*) 0.9% 1000 ML BAG 1,000 ML IV PRN (23:41)
[2017-12-18] VITALS (71 sets, daily range): BP systolic 85–188; BP diastolic 36–135; Ht 172.7 cm; Wt 76.7 kg
[2017-12-18] MEDS ORDERED: IBUPROFEN 600 MG TAB PO PRN (00:15)
[2017-12-18] MEDS ORDERED: IV BOLUS 500 ML IVSOL IV ONE (01:40)
--- NOTE | 2017-12-18 02:21 | Miscellaneous Provider Note ---
Miscellaneous Provider Note Note This patient was admitted earlier for pneumonia. She has had labile blood pressures since arriving to the floor with systolic blood pressure varying from 200mmHg to 80mmHg. She has also had a fever and complained of severe headache. We are repeating a lactate level, placing a Cobb catheter for urinary monitoring, administering a fluid bolus, and obtaining a CT scan. We have ordered urine catecholamines to evaluate for pheochromocytoma given her fluctuating pressures. We are also moving her to the ICU for closer monitoring. KANDICE COREAS DO Dec 18, 2017 02:21
--- NOTE | 2017-12-18 03:25 | RADIOLOGY IMAGING REPORT ---
FACILITY: [facility] PATIENT NAME: Danielle Moody : 1945 MR: [id number] V: [id number] EXAM DATE: ORDERING PHYSICIAN: KANDICE COREAS TECHNOLOGIST: Location: [facility] Patient: Danielle Moody : 1945 Visit/Account:[id number] Date of Sevice: 12/18/2017 CT BRAIN WITHOUT CONTRAST CLINICAL INDICATION: Headache and hypertension COMPARISON: 11/19/2017 TECHNIQUE: Contiguous axial CT images of the brain were obtained without IV contrast. Sagittal and co luanne reformatted images were also performed. One of the following dose optimization techniques was utilized in the performance of this exam: Autom ated exposure control; adjustment of the mA and/or kV according to the patient's size; or use of an i terative reconstruction technique. Specific details can be referenced in the facility's radiology C T exam operational policy. RESULT: BRAIN: Prominence of the ventricles and sulci is consistent with atrophy. There are areas of low atte nuation in the periventricular and subcortical white matter which are nonspecific, but suggestive of chronic microvascular ischemic change. The brainstem and cerebellum appear normal. The basilar ciste rns appear normal. There is no mass, acute infarct, hemorrhage or shift of midline. Vascular atherosc lerotic calcifications are present. PARANASAL SINUSES & MASTOIDS: Mucous retention cysts or small polyps within the maxillary sinuses inf eriorly. Otherwise negative.. SKULL BASE & CRANIUM: Visualized osseous structures are intact. SOFT TISSUES: No soft tissue swelling or hematoma is appreciated. IMPRESSION: 1. No acute findings. 2. Findings of advanced chronological age. Report Dictated By: Rodo Khan MD at 12/18/2017 3:19 AM Report E-Signed By: Rodo Khan MD at 12/18/2017 3:21 AM WSN:[id number]
[2017-12-18 05:36] LABS: PLATELET COUNT, AUTOMATED 131 K/uL (150-450)
[2017-12-18] MEDS: NS(*) 0.9% 1000 ML BAG 1,000 ML IV PRN ×2 (05:45→15:34)
[2017-12-18] MEDS ORDERED: LEVOTHYROXINE SOD 0.05 MG TAB PO SCH (06:00)
[2017-12-18] MEDS ORDERED: OLMESARTAN 20 MG TAB PO SCH (09:00)
[2017-12-18] MEDS: NYSTATIN 100,000 U/GM PWD 15GM TP SCH ×2 (09:30→20:15)
[2017-12-18] MEDS: GABAPENTIN(*) 300 MG CAP 300 MG, GABAPENTIN(*) 100 MG CAP 100 MG PO SCH ×3 (09:31→20:16)
[2017-12-18] MEDS: OXYBUTYNIN CHL 5 MG TAB PO SCH ×2 (09:31→20:16)
[2017-12-18] MEDS: ALLOPURINOL 100 MG TAB PO SCH (09:31)
[2017-12-18] MEDS: guaiFENesin 600 MG TABCR PO SCH ×2 (09:31→20:16)
[2017-12-18] MEDS: CITALOPRAM HYDROBROM 20 MG TAB PO SCH (09:31)
[2017-12-18] MEDS: ACETAMINOPHEN(*)1000 MG/100 ML 100 ML IVPB PRN ×2 (11:07→19:12)
[2017-12-18] MEDS: INSULIN HUM LISPRO 100 UN/ML 3 ML VIAL SUBQ PRN ×2 (11:53→20:27)
--- NOTE | 2017-12-18 13:07 | Hospitalist Progress Note ---
Subjective Progress Notes Subjective The patient was moved to the ICU overnight for labile BP, fevers and confusion. This morning she denies any specific complaints. Physical Exam Vital Signs Date Time Temp Pulse Resp B/P (MAP) Pulse Ox O2 Delivery O2 Flow Rate FiO2 12/18/17 12:28 71 12/18/17 12:15 31 113/55 (74) 90 High-Flow Nasal Cannula 8.0 12/18/17 11:16 98.5 Intake and Output 12/19/17 07:00 Intake Total 600 ml Output Total 265 ml Balance 335 ml Intake Oral 600 ml Output Urine Total 265 ml General Appearance: Alert, Awake, No Acute Distress Neuro: Other (She recognizes me. She knows where she is, but doesn't know the events of last night.) Cardiovascular: Regular Rate and Rhythm Respiratory: Clear to Auscultation GI: Soft and Non-Tender Result Diagram: 12/18/17 0527 12/18/17 0000 Assessment and Plan Problems: (1) Sepsis Status: Acute Assessment & Plan: She was confused, febrile and had labile BP overnight. Now afebrile and BP stable. Her mental status is back to baseline. Will continue to follow in the ICU. (2) Bacterial pneumonia Assessment & Plan: She did present with cough and fever. Her chest x-ray and CT scan have both shown an infiltrate on the left. She has been started on empiric treatment with ceftriaxone and azithromycin. Blood cultures are pending. (3) Elevated serum creatinine Status: Acute Assessment & Plan: Likely, secondary to labile pressures. Will follow and continue hydration. (4) COPD (chronic obstructive pulmonary disease) Status: Chronic Assessment & Plan: She is on chronic treatment with Breo. (5) Type II diabetes mellitus Onset Date: 06/23/2014 Status: Chronic Assessment & Plan: She is on chronic treatment with Lantus and Janumet. The Janumet will need to remain on hold for 48hrs after contrast administration. She has been placed on sliding scale level #2. (6) Gout Assessment & Plan: She is on chronic treatment with allopurinol. (7) Hypercholesterolemia Onset Date: 06/23/2014 Status: Chronic Assessment & Plan: She is on chronic treatment with atorvastatin. (8) Depression Status: Chronic Assessment & Plan: She is on chronic treatment with citalopram. (9) Hypertension, benign Onset Date: 06/23/2014 Status: Chronic Assessment & Plan: She is on chronic treatment with olmesartan, but held for the labile pressures and the creatinine elevation. Exam Sepsis Risk: No Definite Risk Problem Qualifiers (1) COPD (chronic obstructive pulmonary disease): COPD type: chronic bronchitis SANTOSH BOLTON MD Dec 18, 2017 13:06
[2017-12-18] MEDS ORDERED: PATIENT'S OWN MED INH PRN (14:55)
[2017-12-18] MEDS ORDERED: UMECLIDINIUM BROMIDE INH PRN (15:35)
[2017-12-18] MEDS: cefTRIAXone 2 GM VIAL IVP SCH (17:53)
[2017-12-18] MEDS: LINACLOTIDE 145 MCG CAPSULE PO SCH (17:53)
[2017-12-18] MEDS: ALBUTEROL 2.5 MG/3 ML NEB NEB PRN (18:03)
[2017-12-18] MEDS: FLUTICASONE/VILANTEROL 1 EACH INHALER INH SCH (18:03)
--- NOTE | 2017-12-18 19:30 | EKG ---
FACILITY: [facility] PATIENT NAME: NINO JUDGE : [id number] MR: [id number] V: [id number] EXAM DATE: ORDERING PHYSICIAN: SANTOSH BOLTON TECHNOLOGIST: DELIA Test Reason : TACHYCARDIA Blood Pressure : / mmHG Vent. Rate : 102 BPM Atrial Rate : 131 BPM P-R Int : 000 ms QRS Dur : 116 ms QT Int : 316 ms P-R-T Axes : 000 -70 089 degrees QTc Int : 411 ms Atrial fibrillation Left bundle branch block ST and T wave abnormality, consider lateral ischemia or digitalis effect Abnormal ECG When compared with ECG of 17-DEC-2017 12:39, Atrial fibrillation has replaced Sinus rhythm Confirmed by SANTOSH BOLTON ([id number]) on 12/19/2017 6:58:38 AM Referred By: Confirmed By:SANTOSH BOLTON
--- NOTE | 2017-12-18 19:45 | RADIOLOGY IMAGING REPORT ---
[place] [facility] [place] NAME: Danielle Moody : 1945 MR: [id number] V: [id number] EXAM DATE: ORDERING PHYSICIAN: SANTOSH BOLTON TECHNOLOGIST: Location: [facility] Patient: Danielle Moody : 1945 Visit/Account:[id number] Date of Sevice: 12/18/2017 EXAMINATION: Portable chest radiograph single view at 7:14 PM HISTORY: Shortness of breath. COMPARISON: 12/17/2017. FINDINGS: A single portable AP view of the chest is obtained. Lines/tubes: None. Lungs/pleura: Increasing consolidation in the left lung. Mild patchy consolidation at the right lung base, increased since the previous examination. The pulmonary vasculature appears congested with ind istinct pulmonary vessel margins. No evidence of pneumothorax. No significant pleural effusion. Heart: Borderline cardiac silhouette enlargement. Mediastinum: Calcified plaque at the aortic arch. Bony structures/body wall: Negative. IMPRESSION: Increasing consolidations in the lungs, more on the left. This remains suspicious for pneumonia. The pulmonary vasculature appears congested and there is suggestion of mild interstitial edema, new s shani the previous exam. Borderline cardiac silhouette enlargement. Report Dictated By: Daniele Patrick MD at 12/18/2017 7:38 PM Report E-Signed By: Daniele Patrick MD at 12/18/2017 7:42 PM WSN:[id number]
[2017-12-18] MEDS: AZITHROMYCIN(*) 500 MG 500 MG in NS(*) 0.9% 250 ML BAG 250 ML IVPB SCH (19:46)
[2017-12-18] MEDS: LEVOTHYROXINE SOD 0.05 MG TAB PO SCH (20:15)
[2017-12-18] MEDS: DOXAZOSIN MESYLATE 2 MG TAB PO SCH (20:16)
[2017-12-18] MEDS: ASPIRIN 81 MG CHEW PO SCH (20:16)
[2017-12-18] MEDS: ATORVASTATIN 10 MG TAB PO SCH (20:16)
[2017-12-18] MEDS: PANTOPRAZOLE SOD 40 MG TABEC PO SCH (20:16)
[2017-12-18] MEDS: INSULIN GLARGINE 100 U/ML 3 ML PEN SUBQ SCH (20:19)
[2017-12-18] MEDS: ENOXAPARIN 30 MG/0.3 ML SYR SC SCH (20:20)
[2017-12-18] MEDS ORDERED: FUROSEMIDE 20 MG/2 ML VIAL IVP ONE ×2 (21:30→22:25)
[2017-12-19] VITALS (24 sets, daily range): BP systolic 79–176; BP diastolic 43–71
[2017-12-19] MEDS: ACETAMINOPHEN(*)1000 MG/100 ML 100 ML IVPB PRN ×2 (03:38→20:17)
[2017-12-19] MEDS: BENZOCAINE/MENTHOL 1 EACH LOZG PO PRN (03:38)
[2017-12-19 05:50] LABS: PLATELET COUNT, AUTOMATED 126 K/uL (150-450)
[2017-12-19] MEDS: FLUTICASONE/VILANTEROL 1 EACH INHALER INH SCH (05:50)
[2017-12-19] MEDS ORDERED: INFLUENZA VIRUS VAC 0.5 ML SYR IM ONLY ONE (09:00)
--- NOTE | 2017-12-19 09:08 | Hospitalist Progress Note ---
Subjective Progress Notes Subjective She is awake and alert. Productive cough. Still requiring high flow O2. Physical Exam Vital Signs Date Time Temp Pulse Resp B/P (MAP) Pulse Ox O2 Delivery O2 Flow Rate FiO2 12/19/17 08:18 76 12/19/17 08:00 19 105/54 (71) 92 12/19/17 07:10 High-Flow Nasal Cannula 10.0 12/19/17 07:00 98.3 General Appearance: Alert, Awake Neuro: No Gross deficits Cardiovascular: Regular Rate and Rhythm Respiratory: Other (scattered rhonchi throughout with a few rales on left) GI: Soft and Non-Tender Extremities: Warm, Perfused Result Diagram: 12/19/17 0520 12/19/17 0520 Assessment and Plan Problems: (1) Sepsis Status: Acute Assessment & Plan: She was confused, febrile and had labile BP. Now afebrile. BP are more stable, but still on low side. Her mental status is improved. Will keep in the ICU. (2) Bacterial pneumonia Assessment & Plan: She did present with cough and fever. Her chest x-ray and CT scan have both shown an infiltrate on the left. She was started on empiric treatment with ceftriaxone and azithromycin, but has persistent elevation of her WBC count. One of two blood cultures is growing GPC in clusters and she had MRSA in her sputum in November. Will change her regimen to cefepime and vancomycin. Keep her in the ICU. (3) Elevated serum creatinine Status: Acute Assessment & Plan: Likely, secondary to labile pressures/acute infection. Will continue hydration and monitor labs/UOP. Cobb cath in place. (4) COPD (chronic obstructive pulmonary disease) Status: Chronic Assessment & Plan: She is on chronic treatment with Breo. (5) Type II diabetes mellitus Onset Date: 06/23/2014 Status: Chronic Assessment & Plan: She is on chronic treatment with Lantus and Janumet. The Janumet will need to remain on hold as she had IV contrast administration. She has been placed on sliding scale level #2. (6) Gout Assessment & Plan: She is on chronic treatment with allopurinol. (7) Hypercholesterolemia Onset Date: 06/23/2014 Status: Chronic Assessment & Plan: She is on chronic treatment with atorvastatin. (8) Depression Status: Chronic Assessment & Plan: She is on chronic treatment with citalopram. (9) Hypertension, benign Onset Date: 06/23/2014 Status: Chronic Assessment & Plan: She is on chronic treatment with olmesartan and doxazosin, but held for the labile pressures and the creatinine elevation. Exam Sepsis Risk: Sepsis Risk Problem Qualifiers (1) COPD (chronic obstructive pulmonary disease): COPD type: chronic bronchitis ZOILA NEWTON MD Dec 19, 2017 09:08
[2017-12-19] MEDS: GABAPENTIN(*) 300 MG CAP 300 MG, GABAPENTIN(*) 100 MG CAP 100 MG PO SCH ×3 (09:10→20:24)
[2017-12-19] MEDS: OXYBUTYNIN CHL 5 MG TAB PO SCH ×2 (09:10→20:24)
[2017-12-19] MEDS: CITALOPRAM HYDROBROM 20 MG TAB PO SCH (09:10)
[2017-12-19] MEDS: LINACLOTIDE 145 MCG CAPSULE PO SCH (09:10)
[2017-12-19] MEDS: guaiFENesin 600 MG TABCR PO SCH ×2 (09:10→20:24)
[2017-12-19] MEDS: ALLOPURINOL 100 MG TAB PO SCH (09:10)
[2017-12-19] MEDS: CEFEPIME HCL 2 GM VIAL IVP SCH ×2 (09:38→20:25)
[2017-12-19] MEDS: VANCOMYCIN(*) 1 GM VIAL 1 GM, VANCOMYCIN (*) 0.5 GM VIAL 0.5 GM in NS(*) 0.9% 250 ML BA... IVPB SCH ×2 (10:29→22:12)
[2017-12-19] MEDS: DOXYCYCLINE HYCL 100 MG VIAL 100 MG in NS(*) 0.9% 250 ML BAG 250 ML IV SCH ×2 (12:18→23:39)
[2017-12-19] MEDS: NYSTATIN 100,000 U/GM PWD 15GM TP SCH ×2 (13:49→20:23)
--- NOTE | 2017-12-19 14:39 | Antimicrobial Stewardship ---
Antimicrobial Stewardship MD Service: Hospitalist Indications: CAP, Other (Sepsis) Antimicrobial Allergies Levofloxacin Height (Calculated Centimeters: 172.033463 Weight (Calculated Kilograms): 117.027 Culture Results: No (Sputum and BC pending) Patient Improving Clinically: No Tolerating Oral Fluids: Yes Able to Absorb PO Meds: Yes Taking Other Meds PO: Yes Received >24 hr of IV Abx: Yes Afebrile > 24 hrs: Yes Improving WBC and Differential: No Eligable for PO Conversion: No MIKAEL SANCHEZ Dec 19, 2017 14:39
[2017-12-19] MEDS: INSULIN HUM LISPRO 100 UN/ML 3 ML VIAL SUBQ PRN ×2 (17:22→20:19)
[2017-12-19] MEDS: NS(*) 0.9% 1000 ML BAG 1,000 ML IV PRN (19:54)
[2017-12-19] MEDS: ENOXAPARIN 30 MG/0.3 ML SYR SC SCH (20:23)
[2017-12-19] MEDS: LEVOTHYROXINE SOD 0.05 MG TAB PO SCH (20:24)
[2017-12-19] MEDS: INSULIN GLARGINE 100 U/ML 3 ML PEN SUBQ SCH (20:24)
[2017-12-19] MEDS: ATORVASTATIN 10 MG TAB PO SCH (20:24)
[2017-12-19] MEDS: PANTOPRAZOLE SOD 40 MG TABEC PO SCH (20:24)
[2017-12-19] MEDS: ASPIRIN 81 MG CHEW PO SCH (20:24)
[2017-12-19] MEDS: ALBUTEROL 2.5 MG/3 ML NEB NEB PRN (22:03)
[2017-12-20] VITALS (7 sets, daily range): BP systolic 106–178; BP diastolic 47–100
[2017-12-20] MEDS: ALBUTEROL 2.5 MG/3 ML NEB NEB PRN (05:38)
[2017-12-20] MEDS: FLUTICASONE/VILANTEROL 1 EACH INHALER INH SCH (05:38)
[2017-12-20] MEDS: ACETAMINOPHEN(*)1000 MG/100 ML 100 ML IVPB PRN (06:14)
[2017-12-20 06:35] LABS: PLATELET COUNT, AUTOMATED 141 K/uL (150-450)
--- NOTE | 2017-12-20 06:40 | RADIOLOGY IMAGING REPORT ---
FACILITY: [facility] PATIENT NAME: Danielle Moody : 1945 MR: [id number] V: [id number] EXAM DATE: ORDERING PHYSICIAN: ZOILA NEWTON TECHNOLOGIST: Location: [facility] [place] Patient: Danielle Moody : 1945 Visit/Account:[id number] Date of Sevice: 12/20/2017 CHEST SINGLE AP HISTORY: Pneumonia. COMPARISON: 12/18/2017. FINDINGS: A single portable AP view of the chest is obtained. Lines/tubes: None. Lungs/pleura: Consolidation in the lateral left mid lung. No pleural effusion or pneumothorax. No si gnificant change. Heart: Negative. Mediastinum: Aortic calcifications. Otherwise negative. Bony structures/body wall: Negative. IMPRESSION: No significant interval change. Report Dictated By: Matt De Leon MD at 12/20/2017 6:34 AM Report E-Signed By: Matt De Leon MD at 12/20/2017 6:36 AM WSN:[id number]
[2017-12-20] MEDS: GABAPENTIN(*) 300 MG CAP 300 MG, GABAPENTIN(*) 100 MG CAP 100 MG PO SCH ×3 (08:44→20:58)
[2017-12-20] MEDS: OXYBUTYNIN CHL 5 MG TAB PO SCH ×2 (08:44→20:59)
[2017-12-20] MEDS: CITALOPRAM HYDROBROM 20 MG TAB PO SCH (08:44)
[2017-12-20] MEDS: NYSTATIN 100,000 U/GM PWD 15GM TP SCH ×2 (08:44→20:57)
[2017-12-20] MEDS: LINACLOTIDE 145 MCG CAPSULE PO SCH (08:44)
[2017-12-20] MEDS: CEFEPIME HCL 2 GM VIAL IVP SCH ×2 (08:44→20:56)
[2017-12-20] MEDS: ALLOPURINOL 100 MG TAB PO SCH (08:44)
[2017-12-20] MEDS: guaiFENesin 600 MG TABCR PO SCH ×2 (08:44→20:58)
[2017-12-20] MEDS ORDERED: VANCOMYCIN(*) 1 GM VIAL 1 GM, VANCOMYCIN (*) 0.5 GM VIAL 0.5 GM in NS(*) 0.9% 250 ML BA... IVPB SCH (10:30)
[2017-12-20] MEDS ORDERED: POLYETHYLENE GLYCOL 17 GM PKT PO SCH (10:50)
[2017-12-20] MEDS ORDERED: MAGNESIUM HYDROXIDE* 30ML UDCP PO PRN (10:50)
[2017-12-20] MEDS ORDERED: DOCUSATE SODIUM 100 MG CAP PO SCH (10:50)
[2017-12-20] MEDS ORDERED: BISACODYL 10 MG SUPP PR PRN (10:50)
[2017-12-20] MEDS: VANCOMYCIN(*) 1 GM VIAL 1 GM, VANCOMYCIN (*) 0.5 GM VIAL 0.5 GM in NS(*) 0.9% 250 ML BA... IVPB SCH ×2 (11:09→22:40)
--- NOTE | 2017-12-20 11:58 | Medical Nutrition Therapy ---
Nutrition Anthropometrics Height (Inches): 68.00 Height (Calculated Centimeters: 172.305340 Weight (Pounds): 258 Weight (Calculated Kilograms): 117.027 BMI Calculated: 37.86 Duke Nutrition Score: Adequate Duke Nutrition Risk Score: 17 Dietary Referral Nutrition Risk Factors: Nutrition Risk Comment: Nausea & abdominal pain for past 5 days Physical Findings Physical Appearance: Obese BMI 30-39 Skin Appearance Skin Appearance: Edema Edema Location Modifier: Right Edema Location: Foot Type of Edema: Degree of Edema: 1+ Gastrointestinal Symptoms GI Symtoms: Tube Present: Bowel Sounds: Recent Bowel Pattern: Stool Characteristics: Nutritional Diagnosis Nutritional Risk Acuity 2: Sepsis Past Medical History: DMI, HTN, COPD, depression, GERD, hypercholesterolemia Nutritional Acuity: 3-Mild Nutrition Diagnosis: Increased Nutrient Needs Nutrition Etiology: Physiological Causes Nutrition Problem/Etiology/Sym: r/t dx sepsis AEB alb 2.6 Adjusted Energy Requirement Re: 2000 (H-B adj for obesity X 1.2 SF) Protein Requirement: 94 (.8gm/kg AW) Fluid Requirement: 2340 (20ml/kg AW) Diet Type: Diabetic Nutrition Intervention: Cont diet as ordered, Encourage intake Nutrition Monitoring & Eval Nutrition Goals: Eat 75-100% Meal Nutrition Follow-Up: Good Intake RD Patient Assessment Time: [address] Assessment Type: RD Assessment Patient Nutrition Acuity: 2-Moderate Follow Up Date: Dec 27, 2017 Nutritional Comment: Pt admitted with pneumonia. Pt on ADA diet but no intake reported at this time. Alb 3.8. BG elevated up to 200's. will cont to monitor and encourage intake. 12/20 Pt dx with sepsis and pneumonia. Pt on diabetic diet and intake average 82%. Pt receiving insulin. BG ranging 72- 223. Alb 2.6. Will cont to monitor and encourage intake. JESÚS TEJADA Dec 20, 2017 11:58
[2017-12-20] MEDS: DOXYCYCLINE HYCL 100 MG VIAL 100 MG in NS(*) 0.9% 250 ML BAG 250 ML IV SCH (12:50)
--- NOTE | 2017-12-20 12:51 | Hospitalist Progress Note ---
Subjective Progress Notes Subjective Overall, feeling better with SOB. Afebrile. Confusion resolved. Physical Exam Vital Signs Date Time Temp Pulse Resp B/P (MAP) Pulse Ox O2 Delivery O2 Flow Rate FiO2 12/20/17 11:30 98.3 53 16 149/77 (101) 96 High-Flow Nasal Cannula 7.0 Intake and Output 12/21/17 07:00 Intake Total 504 ml Output Total 500 ml Balance 4 ml Intake Oral 504 ml Output Urine Total 500 ml General Appearance: Alert, Awake, No Acute Distress Respiratory: Other (Moving air well, but diffuse exp wheezes) Extremities: No Edema Result Diagram: 12/20/1751712/20/17517 Assessment and Plan Problems: (1) Bacterial pneumonia Assessment & Plan: She did present with cough and fever. Her chest x-ray and CT scan have both shown an infiltrate on the left. She was started on empiric treatment with ceftriaxone and azithromycin, but has persistent elevation of her WBC count. One of two blood cultures is growing staph epi and sputum culture is growing MRSA. She was changed to cefepime, doxycycline and vancomycin on 12/19. She was treated for pneumonia in mid-October and then mid- November for pneumonia. Sputum culture from 11/19 grew MRSA. Because of the recurrent pneumonias, will ask ST to see for aspiration concerns. (2) Sepsis Status: Resolved Assessment & Plan: She was confused, febrile and had labile BP. Now afebrile since morning of 12/19. BP are more stable. Her mental status is improved. Transferred out of the ICU on 12/19. (3) Elevated serum creatinine Status: Acute Assessment & Plan: Likely, secondary to labile pressures/acute infection. Will saline lock and remove catheter. Follow Cr. (4) COPD (chronic obstructive pulmonary disease) Status: Chronic Assessment & Plan: She is on chronic treatment with Breo. (5) Type II diabetes mellitus Onset Date: 06/23/2014 Status: Chronic Assessment & Plan: She is on chronic treatment with Lantus and Janumet. She is currently on Lantus. Restart Janumet as it was held after receiving contrast. She has been placed on sliding scale level #2. (6) Gout Assessment & Plan: She is on chronic treatment with allopurinol. (7) Hypercholesterolemia Onset Date: 06/23/2014 Status: Chronic Assessment & Plan: She is on chronic treatment with atorvastatin. (8) Depression Status: Chronic Assessment & Plan: She is on chronic treatment with citalopram. (9) Hypertension, benign Onset Date: 06/23/2014 Status: Chronic Assessment & Plan: She is on chronic treatment with olmesartan and doxazosin, but held for the labile pressures and the creatinine elevation. Restart doxazosin. Exam Sepsis Risk: Sepsis Risk Problem Qualifiers (1) COPD (chronic obstructive pulmonary disease): COPD type: chronic bronchitis SANTOSH BOLTON MD Dec 20, 2017 12:51
[2017-12-20] MEDS: PANTOPRAZOLE SOD 40 MG TABEC PO SCH (20:57)
[2017-12-20] MEDS: ASPIRIN 81 MG CHEW PO SCH (20:57)
[2017-12-20] MEDS: ENOXAPARIN 30 MG/0.3 ML SYR SC SCH (20:57)
[2017-12-20] MEDS: DOXAZOSIN MESYLATE 2 MG TAB PO SCH (20:58)
[2017-12-20] MEDS: ATORVASTATIN 10 MG TAB PO SCH (20:58)
[2017-12-20] MEDS: LEVOTHYROXINE SOD 0.05 MG TAB PO SCH (20:59)
[2017-12-20] MEDS: INSULIN GLARGINE 100 U/ML 3 ML PEN SUBQ SCH (20:59)
[2017-12-20] MEDS: BACLOFEN 10 MG TAB PO PRN (20:59)
[2017-12-20] MEDS: INSULIN HUM LISPRO 100 UN/ML 3 ML VIAL SUBQ PRN (21:06)
[2017-12-20] MEDS: metFORMIN HCL XR 500 MG TABCR PO SCH (21:09)
[2017-12-20] MEDS ORDERED: ACETAMINOPHEN 500 MG TAB PO PRN (22:30)
[2017-12-21] MEDS: DOXYCYCLINE HYCL 100 MG VIAL 100 MG in NS(*) 0.9% 250 ML BAG 250 ML IV SCH (00:24)
[2017-12-21 03:53] VITALS: BP 113/55
[2017-12-21] MEDS: FLUTICASONE/VILANTEROL 1 EACH INHALER INH SCH (05:19)
[2017-12-21 05:50] LABS: PLATELET COUNT, AUTOMATED 175 K/uL (150-450)
[2017-12-21 08:26] VITALS: BP 132/55
[2017-12-21] MEDS: guaiFENesin 600 MG TABCR PO SCH ×2 (09:30→21:20)
[2017-12-21] MEDS: POLYETHYLENE GLYCOL 17 GM PKT PO SCH (09:30)
[2017-12-21] MEDS: LINACLOTIDE 145 MCG CAPSULE PO SCH (09:30)
[2017-12-21] MEDS: DOCUSATE SODIUM 100 MG CAP PO SCH ×2 (09:31→21:19)
[2017-12-21] MEDS: OXYBUTYNIN CHL 5 MG TAB PO SCH ×2 (09:31→21:19)
[2017-12-21] MEDS: metFORMIN HCL XR 500 MG TABCR PO SCH ×2 (09:31→21:20)
[2017-12-21] MEDS: ALLOPURINOL 100 MG TAB PO SCH (09:31)
[2017-12-21] MEDS: GABAPENTIN(*) 300 MG CAP 300 MG, GABAPENTIN(*) 100 MG CAP 100 MG PO SCH ×3 (09:32→21:19)
[2017-12-21] MEDS: NYSTATIN 100,000 U/GM PWD 15GM TP SCH ×2 (09:32→21:20)
[2017-12-21] MEDS: CITALOPRAM HYDROBROM 20 MG TAB PO SCH (09:32)
[2017-12-21] MEDS: VANCOMYCIN(*) 1 GM VIAL 1 GM, VANCOMYCIN (*) 0.5 GM VIAL 0.5 GM in NS(*) 0.9% 250 ML BA... IVPB SCH (10:18)
[2017-12-21 11:17] VITALS: BP 153/76
--- NOTE | 2017-12-21 11:19 | Hospitalist Progress Note ---
Subjective Progress Notes Subjective This patient was admitted for pneumonia and sepsis. She had no acute events overnight. Patient Complains of: Cardiovascular: No: Chest Pain Respiratory: No: Shortness of Breath Physical Exam Vital Signs Date Time Temp Pulse Resp B/P (MAP) Pulse Ox O2 Delivery O2 Flow Rate FiO2 12/21/17 10:43 72 12/21/17 10:34 93 High-Flow Nasal Cannula 6.0 12/21/17 08:26 98.3 16 132/55 (80) Intake and Output 12/22/17 07:00 Intake Total 360 ml Balance 360 ml Intake Oral 360 ml Neuro: No Gross deficits Eyes: PERRLA Cardiovascular: Regular Rate and Rhythm Respiratory: Clear to Auscultation Extremities: No Edema Integumentary: No Cyanosis Result Diagram: 12/21/17 0535 12/21/17 0535 Item Value Date Time Gram Stain - Final Complete 12/18/17 1517 Sputum Blood Culture - Preliminary Resulted 12/17/17 1505 Blood NO GROWTH AFTER 4 DAYS, REINCUBATED Blood Culture - Final Resulted 12/17/17 1452 Blood Assessment and Plan Problems: (1) Bacterial pneumonia Assessment & Plan: She did present with cough and fever. Her chest x-ray and CT scan have both shown an infiltrate on the left. She was started on empiric treatment with ceftriaxone and azithromycin, but had persistent elevation of her WBC count. One of two blood cultures is growing staph epi and a sputum culture is growing MRSA. She was changed to cefepime, doxycycline and vancomycin on 12/19. The cefepime and doxycycline were stopped today. She will likely require a full 7 days of the vancomycin. (2) Sepsis Status: Resolved Assessment & Plan: She was confused, febrile and had labile BP. She improved with IV fluids. (3) COPD (chronic obstructive pulmonary disease) Status: Chronic Assessment & Plan: She is on chronic treatment with Breo. (4) Type II diabetes mellitus Onset Date: 06/23/2014 Status: Chronic Assessment & Plan: She is on chronic treatment with Lantus and Janumet. She has been placed on sliding scale level #2. (5) Gout Assessment & Plan: She is on chronic treatment with allopurinol. (6) Hypercholesterolemia Onset Date: 06/23/2014 Status: Chronic Assessment & Plan: She is on chronic treatment with atorvastatin. (7) Depression Status: Chronic Assessment & Plan: She is on chronic treatment with citalopram. (8) Hypertension, benign Onset Date: 06/23/2014 Status: Chronic Assessment & Plan: She is on chronic treatment with olmesartan and doxazosin, but these were on hold secondary to labile pressures and the creatinine elevation. The doxazosin was restarted yesterday. (9) Acute renal failure Assessment & Plan: She did develop mild renal failure after her blood pressure issues. She likely suffered from acute tubular necrosis. Her renal function has been steadily improving. Exam Sepsis Risk: Sepsis Risk Problem Qualifiers (1) COPD (chronic obstructive pulmonary disease): COPD type: chronic bronchitis KANDICE COREAS DO Dec 21, 2017 11:19
[2017-12-21 16:51] VITALS: BP 153/76
[2017-12-21 19:08] VITALS: BP 170/80
[2017-12-21] MEDS: ENOXAPARIN 30 MG/0.3 ML SYR SC SCH (21:18)
[2017-12-21] MEDS: LEVOTHYROXINE SOD 0.05 MG TAB PO SCH (21:19)
[2017-12-21] MEDS: INSULIN GLARGINE 100 U/ML 3 ML PEN SUBQ SCH (21:19)
[2017-12-21] MEDS: PANTOPRAZOLE SOD 40 MG TABEC PO SCH (21:19)
[2017-12-21] MEDS: ATORVASTATIN 10 MG TAB PO SCH (21:19)
[2017-12-21] MEDS: DOXAZOSIN MESYLATE 2 MG TAB PO SCH (21:20)
[2017-12-21] MEDS: ASPIRIN 81 MG CHEW PO SCH (21:20)
[2017-12-21] MEDS ORDERED: VANCOMYCIN(*) 1 GM VIAL 1 GM, VANCOMYCIN (*) 0.5 GM VIAL 0.5 GM in NS(*) 0.9% 250 ML BA... IVPB SCH (23:00)
[2017-12-21] MEDS: BACLOFEN 10 MG TAB PO PRN (23:31)
[2017-12-22 03:25] VITALS: BP 129/60
[2017-12-22] MEDS: FLUTICASONE/VILANTEROL 1 EACH INHALER INH SCH (05:23)
[2017-12-22 07:33] VITALS: BP 144/70
--- NOTE | 2017-12-22 08:51 | RADIOLOGY IMAGING REPORT ---
FACILITY: [facility] PATIENT NAME: NINO JUDGE : [id number] MR: [id number] V: [id number] EXAM DATE: ORDERING PHYSICIAN: SANTOSH BOLTON TECHNOLOGIST: Gricel Gracia EXAMINATION:TWO-DIMENSIONAL ECHOCARDIOGRAPH REASON:Tachycardia 2D Measurements (normal values in centimeters) LV endLV endRV endVent.LV PostAorticLeftPercent DiastolicSystolicDiastolicSeptumWallRootAtriumShortening (3.5-5.7)(0.9-2.6)(0.6-1.1)(0.6-1.1)(2.0-3.7)(1.9-4.0)(25-35%) [id number]% STROKE VOLUME: 144mL ESTIMATED EJECTION FRACTION: 70% PARASTERNAL LONG AXIS: Overall left ventricular systolic function appears to be normal. Right ventricle appears to be mildly enlarged as well as the left ventricle. Left atrium is also enlarged. Aortic valve and mitral valve both appear to open normally. Color examination of the valves reveal only a trace of mitral insufficiency present. No wall motion abnormalities are noted in this view. PARASTERNAL SHORT AXIS: Overall left ventricular function again appears to be normal. Patient may be in a bundle branch block. A trace of pulmonic insufficiency is noted. The aortic valve is mildly sclerotic but not stenotic. Is trileaflet in configuration. Color examination of the aortic valve was unremarkable. Color examination of the tricuspid valve revealed a trace of tricuspid insufficiency. The right ventricle appears to contract normally. APICAL FOUR AND TWO CHAMBER: Normal left ventricular systolic function. Right ventricle and left atrium and left ventricle are mildly enlarged. Aortic valve area and mitral valve area both measure within normal range of 2.6 and 3.2cm/2 respectively. The tricuspid regurgitation Vmax measured at 2.9mt/2. The left atrial volume is moderate to borderline severally increased at 39ml/mt2 the right atrial volume is measured within normal range 21ml/mt2. The TAPSE is measured at 2.6. No wall motion abnormalities are noted. A trace of mitral and tricuspid insufficiency is noted. Doppler examination of the mitral valve in diastole does reveal the A wave > E wave. SUBCOSTAL VIEW: OVERALL IMPRESSION: 1. Normal left ventricular ejection fraction of 70% with a Grade1/4 decrease in diastolic function. 2. Right ventricle appears to contract normally. 3. Mild right ventricular and left ventricular enlargement. The right atrium is normal in size. The left atrium is moderate to borderline severely enlarged. 4. Patient appears to be in sinus rhythm with a possible bundle branch block. 5. Borderline concentric left ventricular thickening with no evidence for any outflow tract obstruction. 6. A trileaflet aortic valve with minimal aortic sclerosis but no stenosis. 7. A trace of pulmonic mitral and tricuspid insufficiency with estimated right ventricular systolic pressure at 42mm Hg which does include an estimated right atrial pressure of 8mm Hg indicating mild pulmonary hypertension and increase right ventricular systolic pressures. Dictated by: Marie Shell M.D. on 12/19/2017 at 12:39 Transcribed by: JENNIFER on 12/19/2017 at 15:07 Approved by: Marie Shell M.D. on 12/22/2017 at 8:50 [facility]
[2017-12-22] MEDS: DOCUSATE SODIUM 100 MG CAP PO SCH ×2 (09:00→21:00)
[2017-12-22] MEDS: POLYETHYLENE GLYCOL 17 GM PKT PO SCH (09:00)
[2017-12-22] MEDS: OXYBUTYNIN CHL 5 MG TAB PO SCH ×2 (09:00→21:01)
[2017-12-22] MEDS: guaiFENesin 600 MG TABCR PO SCH ×2 (09:00→20:59)
[2017-12-22] MEDS: NYSTATIN 100,000 U/GM PWD 15GM TP SCH ×2 (09:00→21:02)
[2017-12-22] MEDS: CITALOPRAM HYDROBROM 20 MG TAB PO SCH (09:00)
[2017-12-22] MEDS: metFORMIN HCL XR 500 MG TABCR PO SCH ×2 (09:00→21:01)
[2017-12-22] MEDS: GABAPENTIN(*) 300 MG CAP 300 MG, GABAPENTIN(*) 100 MG CAP 100 MG PO SCH ×3 (09:00→20:58)
[2017-12-22] MEDS: ALLOPURINOL 100 MG TAB PO SCH (09:00)
[2017-12-22] MEDS: LINACLOTIDE 145 MCG CAPSULE PO SCH (09:00)
[2017-12-22 10:54] VITALS: BP 165/74
--- NOTE | 2017-12-22 12:44 | Hospitalist Progress Note ---
Subjective Progress Notes Subjective The patient was admitted for pneumonia. She had no acute events overnight. Patient Complains of: Cardiovascular: No: Chest Pain Respiratory: No: Shortness of Breath Physical Exam Vital Signs Date Time Temp Pulse Resp B/P (MAP) Pulse Ox O2 Delivery O2 Flow Rate FiO2 12/22/17 10:54 97.9 16 165/74 (104) 90 Nasal Cannula 3.0 12/22/17 05:24 63 Intake and Output 12/23/17 07:00 Intake Total 240 ml Balance 240 ml Intake Oral 240 ml General Appearance: Alert, Awake, No Acute Distress Cardiovascular: Regular Rate and Rhythm Respiratory: No Respiratory Distress, Clear to Auscultation Psych: Alert & Oriented X3, Appropriate Mood & Affect Result Diagram: 12/21/17 0535 12/21/17 0535 Assessment and Plan Problems: (1) Bacterial pneumonia Assessment & Plan: She did present with cough and fever. Her chest x-ray and CT scan have both shown an infiltrate on the left. She was started on empiric treatment with ceftriaxone and azithromycin, but had persistent elevation of her WBC count. One of two blood cultures is growing staph epi and a sputum culture is growing MRSA. She was changed to cefepime, doxycycline and vancomycin on 12/19. The cefepime and doxycycline were stopped yesterday. She will require a full 7 days of the vancomycin. (2) Sepsis Status: Resolved Assessment & Plan: She was confused, febrile and had labile BP. She improved with IV fluids. (3) COPD (chronic obstructive pulmonary disease) Status: Chronic Assessment & Plan: She is on chronic treatment with Breo. (4) Type II diabetes mellitus Onset Date: 06/23/2014 Status: Chronic Assessment & Plan: She is on chronic treatment with Lantus and Janumet. She has been placed on sliding scale level #2. (5) Gout Assessment & Plan: She is on chronic treatment with allopurinol. (6) Hypercholesterolemia Onset Date: 06/23/2014 Status: Chronic Assessment & Plan: She is on chronic treatment with atorvastatin. (7) Depression Status: Chronic Assessment & Plan: She is on chronic treatment with citalopram. (8) Hypertension, benign Onset Date: 06/23/2014 Status: Chronic Assessment & Plan: She is on chronic treatment with olmesartan and doxazosin, but these were on hold secondary to labile pressures and the creatinine elevation. The doxazosin has been restarted. (9) Acute renal failure Assessment & Plan: She did develop mild renal failure after her blood pressure issues. She likely suffered from acute tubular necrosis. Her renal function has been steadily improving. Exam Sepsis Risk: No Definite Risk Problem Qualifiers (1) COPD (chronic obstructive pulmonary disease): COPD type: chronic bronchitis XIOMARA APONTEP Dec 22, 2017 12:44
[2017-12-22 15:27] VITALS: BP 201/91
[2017-12-22] MEDS: VANCOMYCIN(*) 1 GM VIAL 1 GM, VANCOMYCIN (*) 0.5 GM VIAL 0.25 GM in NS(*) 0.9% 250 ML B... IVPB SCH (17:20)
--- NOTE | 2017-12-22 18:57 | SWALLOW EVALUATION ---
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 The patient was admitted to [facility] with pneumonia on 11-19-17 , but reported that she had no hx of pneumonia prior to that. The patients medical history is also consistent with GERD, COPD, Type II Diabetes, and abdominal pain. A ST evaluation was ordered to further evaluate swallow structure and function and to rule out s/s of aspiration pneumonia. PREVIOUS LEVEL OF FUNCTION: Primary Medical Diagnosis: Pneumonia Prior Hospitalization: See chart for details Prior Level of Function: See chart for details Medical Complications/Past Medical History: See chart for details LOC / Participation: alert and cooperative Follows instructions: yes Orientation: oriented to person, place, time, situation Functional Communication Deficits impact swallow function/safety, or response to therapy: No VOICE Vocal Deficits: No DYSPHAGIA Functional Oral Intake Scale (FOIS): Level 7: Total oral intake with no restrictions Sialorrhea: No Xerostomia: Yes Supplemental Oxygen Use: Yes. Nasal Cannula 3L Oxygen Saturation: 93-97%. Remains Stable w/ thin liquids, puree, mechanical soft, and regular food trials. Respiratory Rate: 20 bpm as reported in chart. COPD Dx: Yes Oral Structure and Function: Within functional limits for speech and swallow. Upper and lower dentures noted. Patient reported wearing the dentures during every meal. Pain with Swallow: Denies Respiratory/Swallow Coordination: Typically patterned (ie. exhale/swallow/ exhale) . Oral Stage Oral Stage Dysphagia: No Self Feeds: Yes Compensatory Maneuvers Used: None Assistance Required: None Comment: Oral preparatory stage appeared to be WNL. Efficient chewing w/ min residue post swallow w/ all consistencies. Educated patient w/ verbal and written information regarding strategies to alleviate symptoms of Xerostomia. Pharyngeal Stage Pharyngeal Stage Dysphagia: No s/s of acute pharyngeal stage dysphagia including penetration aspiration with liquids or foods. Compensatory Maneuvers Used: None Assistance Required: None Indication of acute aspiration witnessed or reported by patient, family or staff : No Aspiration Risk: Increased 2nd to COPD. Comment: No noted s/s of penetration or aspiration noted w/ trials of thin, puree, mechanical soft, or solid foods. Patient reported that she experiences occasional GERD after eating too much or eating spicy foods but reported that her medication manages it well. Educated patient w/ verbal and written information regarding swallow safety precautions to reduce risk of aspiration secondary to COPD symptoms. Esophageal Stage Esophageal Stage Dysphagia Indicated: Yes. Patient has GERD and is currently taking medications. Reports symptoms are under control. Yes Odynophagia at/below Suprasternal Notch: Denies Globus Sensation at/below Suprasternal Notch: Denies Compensatory Maneuvers Used: None Assistance Required: None Comment: Educated patient on safety precautions to alleviate GERD systems if they were to occur. Provided patient w/ verbal and written education. ST ASSESSMENT SUMMARY DYSPHAGIA Pt passed swallow assessment for all consistencies trialed: thin liquids and puree, mechanical soft, and solid foods. Recommend a regular diet as tolerated w / thin liquids and pills w/ thin liquids or as preferred. Functional Oral Intake Scale (FOIS): Level 7: Total oral intake with no restrictions Aspiration Risk: Low risk. Aspiration risk is increased secondary to COPD FUNCTIONAL COMMUNICATION: Patient has functional communication tasks for independence and safety. Speech Therapy Need: Not indicated at this time. Educated patient on strategies to manage COPD symptoms regarding swallow, Xerostomia management, and swallow safety precautions. Provided patient w/ written and verbal education. Recommended that the patient let nursing/physician know if she experiences any changes to her swallow function. RECOMMENDATIONS 1. Diet Modification: Food: Regular diet as tolerated, Liquids: Regular thin liquids. 2. Pills: w/ thin liquids or as preferred 3. Speech Therapy: Not indicated at this time. Thank you for this referral. Tasha Anglin M.S., [facility], [place] [facility] [place] Speech Therapist MICHAEL
[2017-12-22 20:48] VITALS: BP 159/62
[2017-12-22] MEDS: ATORVASTATIN 10 MG TAB PO SCH (20:55)
[2017-12-22] MEDS: DOXAZOSIN MESYLATE 2 MG TAB PO SCH (20:56)
[2017-12-22] MEDS: LEVOTHYROXINE SOD 0.05 MG TAB PO SCH (20:57)
[2017-12-22] MEDS: PANTOPRAZOLE SOD 40 MG TABEC PO SCH (20:57)
[2017-12-22] MEDS: ASPIRIN 81 MG CHEW PO SCH (21:00)
[2017-12-22] MEDS: ENOXAPARIN 30 MG/0.3 ML SYR SC SCH (21:02)
[2017-12-22] MEDS: INSULIN GLARGINE 100 U/ML 3 ML PEN SUBQ SCH (21:03)
[2017-12-22] MEDS: INSULIN HUM LISPRO 100 UN/ML 3 ML VIAL SUBQ PRN (21:04)
[2017-12-22 23:18] VITALS: BP 154/70
[2017-12-23 03:30] VITALS: BP 161/69
[2017-12-23] MEDS: FLUTICASONE/VILANTEROL 1 EACH INHALER INH SCH (05:55)
[2017-12-23 07:21] VITALS: BP 178/77
[2017-12-23] MEDS: metFORMIN HCL XR 500 MG TABCR PO SCH ×2 (08:45→20:50)
[2017-12-23] MEDS: CITALOPRAM HYDROBROM 20 MG TAB PO SCH (08:46)
[2017-12-23] MEDS: ALLOPURINOL 100 MG TAB PO SCH (08:46)
[2017-12-23] MEDS: guaiFENesin 600 MG TABCR PO SCH ×2 (08:46→20:50)
[2017-12-23] MEDS: DOCUSATE SODIUM 100 MG CAP PO SCH ×2 (08:46→20:51)
[2017-12-23] MEDS: OXYBUTYNIN CHL 5 MG TAB PO SCH ×2 (08:46→20:50)
[2017-12-23] MEDS: GABAPENTIN(*) 300 MG CAP 300 MG, GABAPENTIN(*) 100 MG CAP 100 MG PO SCH ×3 (08:46→20:51)
[2017-12-23] MEDS: POLYETHYLENE GLYCOL 17 GM PKT PO SCH (08:47)
[2017-12-23] MEDS: NYSTATIN 100,000 U/GM PWD 15GM TP SCH ×2 (08:47→20:47)
[2017-12-23] MEDS: LINACLOTIDE 145 MCG CAPSULE PO SCH (08:47)
[2017-12-23] MEDS: VANCOMYCIN(*) 1 GM VIAL 1 GM, VANCOMYCIN (*) 0.5 GM VIAL 0.25 GM in NS(*) 0.9% 250 ML B... IVPB SCH (10:42)
--- NOTE | 2017-12-23 11:52 | Hospitalist Progress Note ---
Subjective Progress Notes Subjective Patient states she is doing better still. She had no acute events overnight. Patient Complains of: Cardiovascular: No: Chest Pain Respiratory: No: Shortness of Breath Physical Exam Vital Signs Date Time Temp Pulse Resp B/P (MAP) Pulse Ox O2 Delivery O2 Flow Rate FiO2 12/23/17 10:10 92 High-Flow Nasal Cannula 4.0 12/23/17 07:21 98.3 66 18 178/77 (110) Intake and Output 12/24/17 07:00 Intake Total 240 ml Balance 240 ml Intake Oral 240 ml # Voids 1 General Appearance: Alert, Awake, No Acute Distress, Afebrile Cardiovascular: Regular Rate and Rhythm Respiratory: No Respiratory Distress, Other (expiratory wheezes) Psych: Alert & Oriented X3, Appropriate Mood & Affect Result Diagram: 12/21/17 0535 12/21/17 0535 Assessment and Plan Problems: (1) Bacterial pneumonia Assessment & Plan: She did present with cough and fever. Her chest x-ray and CT scan have both shown an infiltrate on the left. She was started on empiric treatment with ceftriaxone and azithromycin, but had persistent elevation of her WBC count. One of two blood cultures is growing staph epi and a sputum culture is growing MRSA. She was changed to cefepime, doxycycline and vancomycin on 12/19. The cefepime and doxycycline were stopped yesterday. She will require a full 7 days of the vancomycin. (2) Sepsis Status: Resolved Assessment & Plan: She was confused, febrile and had labile BP. She improved with IV fluids. (3) COPD (chronic obstructive pulmonary disease) Status: Chronic Assessment & Plan: She is on chronic treatment with Breo. (4) Type II diabetes mellitus Onset Date: 06/23/2014 Status: Chronic Assessment & Plan: She is on chronic treatment with Lantus and Janumet. She has been placed on sliding scale level #2. (5) Gout Assessment & Plan: She is on chronic treatment with allopurinol. (6) Hypercholesterolemia Onset Date: 06/23/2014 Status: Chronic Assessment & Plan: She is on chronic treatment with atorvastatin. (7) Depression Status: Chronic Assessment & Plan: She is on chronic treatment with citalopram. (8) Hypertension, benign Onset Date: 06/23/2014 Status: Chronic Assessment & Plan: She is on chronic treatment with olmesartan and doxazosin, but these were on hold secondary to labile pressures and the creatinine elevation. The doxazosin has been restarted. (9) Acute renal failure Assessment & Plan: She did develop mild renal failure after her blood pressure issues. She likely suffered from acute tubular necrosis. Her renal function has been steadily improving. Exam Sepsis Risk: No Definite Risk Problem Qualifiers (1) COPD (chronic obstructive pulmonary disease): COPD type: chronic bronchitis XIOMARA APONTE Dec 23, 2017 11:52
[2017-12-23 14:28] VITALS: BP 169/79
[2017-12-23] MEDS: ENOXAPARIN 30 MG/0.3 ML SYR SC SCH (20:47)
[2017-12-23] MEDS: INSULIN GLARGINE 100 U/ML 3 ML PEN SUBQ SCH (20:48)
[2017-12-23] MEDS: INSULIN HUM LISPRO 100 UN/ML 3 ML VIAL SUBQ PRN (20:48)
[2017-12-23] MEDS: DOXAZOSIN MESYLATE 2 MG TAB PO SCH (20:49)
[2017-12-23] MEDS: ATORVASTATIN 10 MG TAB PO SCH (20:49)
[2017-12-23] MEDS: LEVOTHYROXINE SOD 0.05 MG TAB PO SCH (20:51)
[2017-12-23] MEDS: ASPIRIN 81 MG CHEW PO SCH (20:52)
[2017-12-23] MEDS: PANTOPRAZOLE SOD 40 MG TABEC PO SCH (20:52)
[2017-12-23 21:04] VITALS: BP 192/84
[2017-12-23] MEDS: NS(*) 0.9% 1000 ML BAG 1,000 ML IV PRN (23:52)
[2017-12-24 04:05] VITALS: BP 151/67
[2017-12-24 04:24] LABS: PLATELET COUNT, AUTOMATED 250 K/uL (150-450)
[2017-12-24] MEDS: VANCOMYCIN 1 GM ADDVIAL 1 GM in NS(*) 0.9% 250 ML ADDVAN BAG 250 ML IVPB SCH ×2 (04:50→23:06)
[2017-12-24] MEDS: FLUTICASONE/VILANTEROL 1 EACH INHALER INH SCH (05:54)
[2017-12-24 07:20] VITALS: BP 160/72
[2017-12-24] MEDS: guaiFENesin 600 MG TABCR PO SCH ×2 (08:15→20:20)
[2017-12-24] MEDS: DOCUSATE SODIUM 100 MG CAP PO SCH ×2 (08:17→20:21)
[2017-12-24] MEDS: GABAPENTIN(*) 300 MG CAP 300 MG, GABAPENTIN(*) 100 MG CAP 100 MG PO SCH ×3 (08:17→20:20)
[2017-12-24] MEDS: OXYBUTYNIN CHL 5 MG TAB PO SCH ×2 (08:17→20:20)
[2017-12-24] MEDS: LINACLOTIDE 145 MCG CAPSULE PO SCH (08:18)
[2017-12-24] MEDS: CITALOPRAM HYDROBROM 20 MG TAB PO SCH (08:18)
[2017-12-24] MEDS: ALLOPURINOL 100 MG TAB PO SCH (08:18)
[2017-12-24] MEDS: NYSTATIN 100,000 U/GM PWD 15GM TP SCH ×2 (08:19→20:22)
[2017-12-24] MEDS: metFORMIN HCL XR 500 MG TABCR PO SCH ×2 (08:20→20:20)
[2017-12-24] MEDS: POLYETHYLENE GLYCOL 17 GM PKT PO SCH (09:00)
--- NOTE | 2017-12-24 09:49 | Hospitalist Progress Note ---
Subjective Progress Notes Subjective Patient states she is doing well today. She had no acute events overnight. Patient Complains of: Cardiovascular: No: Chest Pain Respiratory: No: Shortness of Breath Physical Exam Vital Signs Date Time Temp Pulse Resp B/P (MAP) Pulse Ox O2 Delivery O2 Flow Rate FiO2 12/24/17 08:12 92 High-Flow Nasal Cannula 4.0 12/24/17 07:20 97.6 59 20 160/72 (101) Intake and Output 12/25/17 07:00 Intake Total 505 ml Balance 505 ml Intake Oral 240 ml IV Total 265 ml # Voids 1 General Appearance: Alert, Awake, No Acute Distress, Afebrile Cardiovascular: Regular Rate and Rhythm Respiratory: No Respiratory Distress, Other (Expiratory wheezes present) Psych: Alert & Oriented X3, Appropriate Mood & Affect Result Diagram: 12/24/1740412/24/17404 Assessment and Plan Problems: (1) Bacterial pneumonia Assessment & Plan: She did present with cough and fever. Her chest x-ray and CT scan have both shown an infiltrate on the left. She was started on empiric treatment with ceftriaxone and azithromycin, but had persistent elevation of her WBC count. One of two blood cultures is growing staph epi and a sputum culture is growing MRSA. She was changed to cefepime, doxycycline and vancomycin on 12/19. The cefepime and doxycycline were stopped yesterday. She will require a full 7 days of the vancomycin. (2) Sepsis Status: Resolved Assessment & Plan: She was confused, febrile and had labile BP. She improved with IV fluids. (3) COPD (chronic obstructive pulmonary disease) Status: Chronic Assessment & Plan: She is on chronic treatment with Breo. (4) Type II diabetes mellitus Onset Date: 06/23/2014 Status: Chronic Assessment & Plan: She is on chronic treatment with Lantus and Janumet. She has been placed on sliding scale level #2. (5) Gout Assessment & Plan: She is on chronic treatment with allopurinol. (6) Hypercholesterolemia Onset Date: 06/23/2014 Status: Chronic Assessment & Plan: She is on chronic treatment with atorvastatin. (7) Depression Status: Chronic Assessment & Plan: She is on chronic treatment with citalopram. (8) Hypertension, benign Onset Date: 06/23/2014 Status: Chronic Assessment & Plan: She is on chronic treatment with olmesartan and doxazosin, but these were on hold secondary to labile pressures and the creatinine elevation. The doxazosin was restarted, and the olmesartan will be restarted today with hold parameters. (9) Acute renal failure Assessment & Plan: She did develop mild renal failure after her blood pressure issues. She likely suffered from acute tubular necrosis. Her renal function has been steadily improving. Creatinine today 1.0. Exam Sepsis Risk: No Definite Risk Problem Qualifiers (1) COPD (chronic obstructive pulmonary disease): COPD type: chronic bronchitis XIOMARA APONTE Dec 24, 2017 09:49
[2017-12-24 15:21] VITALS: BP 185/85
[2017-12-24 20:12] VITALS: BP 199/80
[2017-12-24] MEDS: LEVOTHYROXINE SOD 0.05 MG TAB PO SCH (20:19)
[2017-12-24] MEDS: PANTOPRAZOLE SOD 40 MG TABEC PO SCH (20:19)
[2017-12-24] MEDS: DOXAZOSIN MESYLATE 2 MG TAB PO SCH (20:20)
[2017-12-24] MEDS: ASPIRIN 81 MG CHEW PO SCH (20:20)
[2017-12-24] MEDS: ATORVASTATIN 10 MG TAB PO SCH (20:20)
[2017-12-24] MEDS: INSULIN GLARGINE 100 U/ML 3 ML PEN SUBQ SCH (20:21)
[2017-12-24] MEDS: ENOXAPARIN 30 MG/0.3 ML SYR SC SCH (20:22)
[2017-12-24] MEDS: INSULIN HUM LISPRO 100 UN/ML 3 ML VIAL SUBQ PRN (20:22)
[2017-12-24 23:11] VITALS: BP 174/69
[2017-12-25] MEDS: FLUTICASONE/VILANTEROL 1 EACH INHALER INH SCH (04:25)
[2017-12-25 05:37] VITALS: BP 179/70
[2017-12-25 06:24] LABS: PLATELET COUNT, AUTOMATED 280 K/uL (150-450)
[2017-12-25] MEDS: OXYBUTYNIN CHL 5 MG TAB PO SCH ×2 (08:34→20:43)
[2017-12-25] MEDS: metFORMIN HCL XR 500 MG TABCR PO SCH ×2 (08:34→20:44)
[2017-12-25] MEDS: guaiFENesin 600 MG TABCR PO SCH ×2 (08:34→20:44)
[2017-12-25] MEDS: LINACLOTIDE 145 MCG CAPSULE PO SCH (08:34)
[2017-12-25] MEDS: ALLOPURINOL 100 MG TAB PO SCH (08:34)
[2017-12-25] MEDS: GABAPENTIN(*) 300 MG CAP 300 MG, GABAPENTIN(*) 100 MG CAP 100 MG PO SCH ×3 (08:34→20:45)
[2017-12-25] MEDS: CITALOPRAM HYDROBROM 20 MG TAB PO SCH (08:34)
[2017-12-25] MEDS: DOCUSATE SODIUM 100 MG CAP PO SCH ×2 (08:34→20:45)
[2017-12-25] MEDS: NYSTATIN 100,000 U/GM PWD 15GM TP SCH ×2 (09:00→20:43)
[2017-12-25] MEDS: OLMESARTAN 20 MG TAB PO SCH (09:00)
[2017-12-25] MEDS: POLYETHYLENE GLYCOL 17 GM PKT PO SCH (09:00)
--- NOTE | 2017-12-25 10:00 | Hospitalist Progress Note ---
Subjective Progress Notes Subjective Patient has no complaints today. She had no acute events overnight. Patient Complains of: Cardiovascular: No: Chest Pain Respiratory: No: Shortness of Breath Physical Exam Vital Signs Date Time Temp Pulse Resp B/P (MAP) Pulse Ox O2 Delivery O2 Flow Rate FiO2 12/25/17 05:37 98.0 57 20 179/70 (106) 90 Nasal Cannula 6.0 Intake and Output 12/26/17 07:00 Intake Total 240 ml Balance 240 ml Intake Oral 240 ml General Appearance: Alert, Awake, No Acute Distress, Afebrile Cardiovascular: Regular Rate and Rhythm Respiratory: No Respiratory Distress, Clear to Auscultation Psych: Alert & Oriented X3, Appropriate Mood & Affect Result Diagram: 12/25/17 0512/25/17541 Assessment and Plan Problems: (1) Bacterial pneumonia Assessment & Plan: She did present with cough and fever. Her chest x-ray and CT scan have both shown an infiltrate on the left. She was started on empiric treatment with ceftriaxone and azithromycin, but had persistent elevation of her WBC count. One of two blood cultures is growing staph epi and a sputum culture is growing MRSA. She was changed to cefepime, doxycycline and vancomycin on 12/19. The cefepime and doxycycline were stopped yesterday. She will require a full 7 days of the vancomycin. Her last dose of Vancomycin is today at 1700. (2) Sepsis Status: Resolved Assessment & Plan: She was confused, febrile and had labile BP. She improved with IV fluids. (3) COPD (chronic obstructive pulmonary disease) Status: Chronic Assessment & Plan: She is on chronic treatment with Breo. (4) Type II diabetes mellitus Onset Date: 06/23/2014 Status: Chronic Assessment & Plan: She is on chronic treatment with Lantus and Janumet. She has been placed on sliding scale level #2. Her fasting morning glucose has been decreased in the 50's. We will decrease her evening Lantus dose to 30 units from 40 units. (5) Gout Assessment & Plan: She is on chronic treatment with allopurinol. (6) Hypercholesterolemia Onset Date: 06/23/2014 Status: Chronic Assessment & Plan: She is on chronic treatment with atorvastatin. (7) Depression Status: Chronic Assessment & Plan: She is on chronic treatment with citalopram. (8) Hypertension, benign Onset Date: 06/23/2014 Status: Chronic Assessment & Plan: She is on chronic treatment with olmesartan and doxazosin, but these were on hold secondary to labile pressures and the creatinine elevation. The doxazosin was restarted, and the olmesartan will be restarted today with hold parameters. (9) Acute renal failure Assessment & Plan: She did develop mild renal failure after her blood pressure issues. She likely suffered from acute tubular necrosis. Her renal function has been steadily improving. Creatinine today 0.9. Exam Sepsis Risk: No Definite Risk Problem Qualifiers (1) COPD (chronic obstructive pulmonary disease): COPD type: chronic bronchitis XIOMARA APONTE Dec 25, 2017 10:00
[2017-12-25 11:42] VITALS: BP 184/85
[2017-12-25] MEDS: VANCOMYCIN 1 GM ADDVIAL 1 GM in NS(*) 0.9% 250 ML ADDVAN BAG 250 ML IVPB SCH (17:00)
[2017-12-25 20:36] VITALS: BP 181/84
[2017-12-25] MEDS: ENOXAPARIN 30 MG/0.3 ML SYR SC SCH (20:41)
[2017-12-25] MEDS: DOXAZOSIN MESYLATE 2 MG TAB PO SCH (20:44)
[2017-12-25] MEDS: ATORVASTATIN 10 MG TAB PO SCH (20:44)
[2017-12-25] MEDS: LEVOTHYROXINE SOD 0.05 MG TAB PO SCH (20:44)
[2017-12-25] MEDS: ASPIRIN 81 MG CHEW PO SCH (20:45)
[2017-12-25] MEDS: PANTOPRAZOLE SOD 40 MG TABEC PO SCH (20:45)
[2017-12-25] MEDS: INSULIN HUM LISPRO 100 UN/ML 3 ML VIAL SUBQ PRN (20:48)
[2017-12-25] MEDS ORDERED: INSULIN GLARGINE 100 U/ML 3 ML PEN SUBQ SCH (21:00)
[2017-12-26] MEDS: FLUTICASONE/VILANTEROL 1 EACH INHALER INH SCH (05:36)
[2017-12-26] MEDS: NS(*) 0.9% 1000 ML BAG 1,000 ML IV PRN (06:23)
[2017-12-26] MEDS ORDERED: INSU100I30 SQ (06:42)
[2017-12-26 07:06] VITALS: BP 170/72
--- NOTE | 2017-12-26 07:59 | Hospitalist Depart ---
Discharge Summary Reason for Hosp/Final Diag: (1) Bacterial pneumonia Hospital Course & Plan: She did present with cough and fever. Her chest x-ray and CT scan have both shown an infiltrate on the left. She was started on empiric treatment with ceftriaxone and azithromycin, but had persistent elevation of her WBC count. One of two blood cultures is growing staph epi and a sputum culture is growing MRSA. She was changed to cefepime, doxycycline and vancomycin on 12/19. The cefepime and doxycycline have since been stopped. She has now completed a full course of the vancomycin. (2) Sepsis Status: Resolved Hospital Course & Plan: She was confused, febrile and had labile BP. She improved with IV fluids. (3) COPD (chronic obstructive pulmonary disease) Status: Chronic Hospital Course & Plan: She is on chronic treatment with Breo. (4) Type II diabetes mellitus Onset Date: 06/23/2014 Status: Chronic Hospital Course & Plan: She is on chronic treatment with Lantus and Janumet. She has been placed on sliding scale level #2. Her fasting morning glucose has been decreased in the 50's. We have decreased her evening Lantus dose to 30 units from 40 units. (5) Gout Hospital Course & Plan: She is on chronic treatment with allopurinol. (6) Hypercholesterolemia Onset Date: 06/23/2014 Status: Chronic Hospital Course & Plan: She is on chronic treatment with atorvastatin. (7) Depression Status: Chronic Hospital Course & Plan: She is on chronic treatment with citalopram. (8) Hypertension, benign Onset Date: 06/23/2014 Status: Chronic Hospital Course & Plan: She is on chronic treatment with olmesartan and doxazosin, but these were on hold secondary to labile pressures and the creatinine elevation. The doxazosin was restarted, and the olmesartan will be restarted today with hold parameters. (9) Acute renal failure Hospital Course & Plan: She did develop mild renal failure after her blood pressure issues. She likely suffered from acute tubular necrosis. Her renal function has been steadily improving. Creatinine today 0.9. Departure Latest Vital Signs Vital Signs 12/26/17 12/26/17 07:06 07:11 Temp 97.5 Pulse 57 Resp 22 B/P (MAP) 170/72 (104) Pulse Ox 89 O2 Delivery Nasal Cannula O2 Flow Rate 5.0 Weight (Pounds): 169 Result Diagram: 12/25/1742 12/25/17 0542 Condition: Improved Discharge: Home, Self Care Discharge Instructions Home Meds Active Scripts Insulin Glargine,Hum.rec.anlog (LANTUS SOLOSTAR) 100 Unit/1 Ml Insuln.pen, 30 UNIT SQ QHS, #1 CART Prov:JOSSKANDICE DO 12/26/17 Oxybutynin Chloride (OXYBUTYNIN CHLORIDE) 5 Mg Tablet, 1 TAB PO BID, #180 TAB 3 Refills Prov:WENDY STONE MD 12/22/14 Gabapentin (GABAPENTIN) 400 Mg Capsule, 400 MG PO TID, #90 CAPSULE 12 Refills Prov:WENDY STONE MD 10/03/14 Reported Medications Cyanocobalamin (Vitamin B-12) (CYANOCOBALAMIN INJECTION) 1,000 Mcg/1 Ml Vial, 1000 MCG IJ Qmonthly, VIAL 12/17/17 Oxycodone Hcl/Acetaminophen (OXYCODONE-ACETAMINOPHEN 5-325) 1 Each Tablet, 1 EACH PO Q6H, TAB 12/17/17 Umeclidinium [place] (Incruse Ellipta) 62.5 Mcg Blst.w.dev, QDAY 12/17/17 Nicotine (NICOTROL) 10 Mg/Inh Ctr, 10 MG INH 12/17/17 Amlodipine Besylate (AMLODIPINE BESYLATE) 10 Mg Tablet, 1 TAB PO QHS, TAB 12/17/17 Levothyroxine Sodium (LEVOTHYROXINE SODIUM) 50 Mcg Tablet, 50 MCG PO QDAY, TAB 12/17/17 Cholecalciferol (Vitamin D3) (VITAMIN D-3) 2,000 Unit Capsule, 2000 UNIT PO, CAPSULE 12/17/17 Baclofen (BACLOFEN) 10 Mg Tablet, 10 MG PO TID Y for PAIN, #30 TAB 10/11/17 Olmesartan Medoxomil (BENICAR) 40 Mg Tablet, 40 MG PO QAM 10/11/17 Citalopram Hydrobromide (CITALOPRAM HBR) 20 Mg Tablet, 20 MG PO QAM, #5 TAB 10/11/17 Doxazosin Mesylate (DOXAZOSIN MESYLATE) 4 Mg Tablet, 4 MG PO HS 10/11/17 Fluticasone/Vilanterol (Breo Ellipta 200-25 Mcg INH) 1 Each Blst.w.dev, 1 PUFF INH QDAY 05/01/17 Linaclotide (LINZESS) 145 Mcg Capsule, 145 MCG PO QAM, CAPSULE 05/01/17 Furosemide (LASIX) 20 Mg Tablet, 1-2 TAB PO QAM, TAB 05/01/17 Aspirin (ASPIRIN) 81 Mg Tab.chew, 81 MG PO QHS, TAB.CHEW 05/01/17 Atorvastatin Calcium (LIPITOR) 20 Mg Tablet, 1 TAB PO QHS, TAB 05/01/17 Oxygen (OXYGEN) Inha, 3 L INH CONTINUOUS, L 10/18/16 Dexlansoprazole (DEXILANT) 60 Mg Rosendo., 60 MG PO QHS 10/18/16 Fish Oil/Dha/Epa (FISH OIL 1,200 MG FISH OIL) 1 Each Capsule, 1 EACH PO TID, CAPSULE 10/18/16 Sitagliptin Phos/Metformin Hcl (JANUMET 50-1,000 MG TABLET) 1 Each Tablet, 1 EACH PO BID 10/18/16 Meloxicam (MELOXICAM) 7.5 Mg Tablet, 7.5 MG PO QAM 10/18/16 Allopurinol (ALLOPURINOL) 100 Mg Tablet, 100 MG PO QAM, TAB 10/18/16 Discontinued Reported Medications Sitagliptin Phos/Metformin Hcl (JANUMET 50-1,000 MG TABLET) 1 Each Tablet, 1 EACH PO BID 12/17/17 Olmesartan Medoxomil (BENICAR) 40 Mg Tablet, 40 MG PO QDAY 12/17/17 Losartan Potassium (LOSARTAN POTASSIUM) 100 Mg Tablet, 100 MG PO QDAY 12/17/17 Oxycodone Hcl/Acetaminophen (PERCOCET 10-325 MG TABLET) 1 Each Tablet, 1 EACH PO Q6H, TAB 12/17/17 [Vitamin B12] No Conflict Check, 1 UNIT SUBQ QMONTH 10/11/17 Insulin Glargine (LANTUS) 100 Unit/Ml Soln, 40 UNIT SUBQ QHS, ML 10/18/16 Cinnamon Bark (CINNAMON) 500 Mg Capsule, 1000 MG PO BID, CAPSULE 02/22/14 Diet: Diabetic Activity: As Tolerated Copies to: MELANIE ESCALANTE [employer] Venous Thromboembolism Antithrombotics Is Pt On Any Antithrombotics?: No Problem Qualifiers (1) COPD (chronic obstructive pulmonary disease): COPD type: chronic bronchitis KANDICE COREAS DO Dec 26, 2017 07:59
[2017-12-26] MEDS: LINACLOTIDE 145 MCG CAPSULE PO SCH (09:00)
[2017-12-26] MEDS: NYSTATIN 100,000 U/GM PWD 15GM TP SCH (09:00)
[2017-12-26] MEDS: ALLOPURINOL 100 MG TAB PO SCH (09:22)
[2017-12-26] MEDS: GABAPENTIN(*) 300 MG CAP 300 MG, GABAPENTIN(*) 100 MG CAP 100 MG PO SCH (09:22)
[2017-12-26] MEDS: guaiFENesin 600 MG TABCR PO SCH (09:22)
[2017-12-26] MEDS: metFORMIN HCL XR 500 MG TABCR PO SCH (09:23)
[2017-12-26] MEDS: CITALOPRAM HYDROBROM 20 MG TAB PO SCH (09:23)
[2017-12-26] MEDS: DOCUSATE SODIUM 100 MG CAP PO SCH (09:23)
[2017-12-26] MEDS: OLMESARTAN 20 MG TAB PO SCH (09:23)
[2017-12-26] MEDS: OXYBUTYNIN CHL 5 MG TAB PO SCH (09:23)
[2017-12-26] MEDS: POLYETHYLENE GLYCOL 17 GM PKT PO SCH (09:24)
== END 2017-12-26 10:15 | disposition home or self-care (01) | DRG 871 ==
LOC: ER 12:54 → MED 16:18 → ICU 12-18 02:22 → MED 12-19 18:30
PROVIDERS: ADMIT Family Medicine; ATTEND Family Medicine
DX: A41.9 Sepsis, unspecified organism (principal); J15.212 Pneumonia due to Methicillin resistant Staphylococcus aureus; N17.0 Acute kidney failure with tubular necrosis; J44.0 Chronic obstructive pulmonary disease with (acute) lower respiratory infection; E11.9 Type 2 diabetes mellitus without complications; M1A.9XX0 Chronic gout, unspecified, without tophus (tophi); E78.00 Pure hypercholesterolemia, unspecified; F32.9 Major depressive disorder, single episode, unspecified; E66.01 Morbid (severe) obesity due to excess calories; I11.0 Hypertensive heart disease with heart failure; I50.9 Heart failure, unspecified; K21.9 Gastro-esophageal reflux disease without esophagitis; Z87.891 Personal history of nicotine dependence; Z88.1 Allergy status to other antibiotic agents; Z79.4 Long term (current) use of insulin; Z90.710 Acquired absence of both cervix and uterus; Z68.25 Body mass index [BMI] 25.0-25.9, adult; Z99.81 Dependence on supplemental oxygen
CPT/HCPCS: 36415; 36416; 70450; 71045; 71046; 71275; 80202; 81001; 82040; 82247; 82310; 82374; 82384; 82435; 82565; 82947; 82948; 83605; 83880; 84075; 84132; 84155; 84295; 84443; 84450; 84460; 84484; 84520; 85025; 85379; 87040; 87070; 87077; 87186; 87205; 87502; 93005; 93306; 94640; 94667; 96360; 96361; 97161; 99284; A4353; J0131; J0456; J0692; J0696; J1650; J1815; J1940; J2550; J3370; J3490; J7030; J7050; J7613; Q9967

== ENCOUNTER → 2017-12-17 | Outpatient (CLI) | payer MEDICARE, MEDICAID ==
[~2017-12-17] MED LIST changes: +AMLO-99 PO; +CHOL200074 PO; +CYAN1000 IJ; +INSU100I30 SQ; +LEVO50TA86 PO; +LEVO750T44 PO; +NIC10R INH; +OXYC-373 PO; +OXYC-870 PO; +UMEC62.5
[2017-12-18 12:39] VITALS: BMI 37.9
== END ==
LOC: AMB 11:58
PROVIDERS: ATTEND Nurse Practitioner
DX: R53.1 Weakness (principal); M54.9 Dorsalgia, unspecified; I44.7 Left bundle-branch block, unspecified; R50.9 Fever, unspecified; E11.649 Type 2 diabetes mellitus with hypoglycemia without coma
CPT/HCPCS: A0425; A0427

== ENCOUNTER 2017-12-24 14:22 | Outpatient (RCR) | payer MEDICARE, MEDICAID ==
[2017-12-18 12:39] VITALS: BMI 37.9
[~2017-12-24 14:22] MED LIST changes: +AMLO-99 PO; +CHOL200074 PO; -CITA-139 PO; +CITA-145 PO; +CYAN1000 IJ; +LEVO50TA86 PO; -METF-410 PO; +METF-411 PO; +METF-421 PO; +NIC10R INH; +OXYC-373 PO; +OXYC-870 PO; +UMEC62.5
[2017-12-26] MEDS ORDERED: INSU100I30 SQ (06:42)
--- NOTE | 2017-12-27 13:13 | Transitional Care Management ---
Assessment Visit Type: Telephone Visit (12/27) Cardiac: WNL Respiratory: WNL Except Respiratory Comment: 12/27 tired, no ambition, remains slightly SOB even though O2 is 3L. Reminded her that she was very sick here in the hospital and that it will take awhile for her to regain her strenght- to take it easy and rest. stated "I still have a cough with brn sputum" explained to her that she had been really sick but if it doesn't get better or is bloody she should visit with her PCP GI: Nutrition: WNL Except GI Comment: 12/27 not really hungery but eating my diabetic meals, Reminded her of the changes in her insulin. She was aware Wt Gain/Loss: WNL Constipation?: No Musculoskeletal, Excercise Com: 12/27 weak and no motivation. "trying to move around the house. Mobility/Falls: WNL Except Mobility Comment: 12/27 denies falls Integumentary: WNL Except Integumentary Comment: 12/27 bruises at IV sites ut they are turning green and going away. Feeling of Well Being: WNL Feeling of Well Being Comment: 12/27 lives with grandson Scheduled Follow-Up with Provi: Yes (12/27 to see Estela on 01/06) Following Discharge Instructio: Yes TCM Discharge Criteria Medication Knowledge: 12/27 most but Aide sets up for her Red/Yellow Flags: 12/27 Went over yellow/red flags of pneu. Hypo/hypeglycemia Transitional Care Comment: 12/27 She stated she was doing OK "but was weak and had no ambition." enc her to move around and some activity but she had been very ill and it will take awhile for her strength to return.She lives with Grandson and has an aide. Is agreeable to HV on Friday. Has appt on 01/06 with Estela. She was aware of the Insulin changes and has been doing BS. CINDY ARREGUIN Dec 27, 2017 13:13
--- NOTE | 2017-12-29 14:03 | Transitional Care Management ---
Assessment Visit Type: Home Visit Spoke with: Ashley and kaiece Caden, her waiver provider Cardiac: WNL Cardiac Comment: 12/29 enc her to find her wrist bp monitor and do periodic bps and record to show HEALTHCARE ADMINISTRATIVE ASSISTANT at next visit due to fluctuations when in hospital. Has pitting BLE edema since return home. Reports she had [employer] for dinner last pm. Enc low salt, limit fluids to 2 L a day for a while, elevate feet an do ROM exercises on feet Respiratory: WNL Except Respiratory Comment: 12/27 tired, no ambition, remains slightly SOB even though O2 is 3L. Reminded her that she was very sick here in the hospital and that it will take awhile for her to regain her strenght- to take it easy and rest. stated "I still have a cough with brn sputum" explained to her that she had been really sick but if it doesn't get better or is bloody she should visit with her PCP 12/29 NPC. Review s/s to report. Has rare jabier tinged sputum,nothing like previous sputum with blood GI: Nutrition: WNL Except GI Comment: 12/27 not really hungery but eating my diabetic meals, Reminded her of the changes in her insulin. She was aware 12/29 ADA. Knows lantus is now 30 units instead of 40 units. review previous am [facility] hospital were in 50's. Gave her log to record bs prior to visiting HEALTHCARE ADMINISTRATIVE ASSISTANT. Review s/s low and hi bs. states before she came in was shaky and confused and that they checked her bs first. Review aspiration prevention that gave her info about. Wt Gain/Loss: WNL Constipation?: No (12/29 taking linzess daily. will use softener or miralax if percocet is constipating) Musculoskeletal, Excercise Com: 12/27 weak and no motivation. "trying to move around the house. 12/29 review she could call to get PT/OT if wanted but still declines. Enc more activity and AROM instead of PROM provided by Caden on her feet Mobility/Falls: WNL Except Mobility Comment: 12/27 denies falls 12/29 using walker consistently Integumentary: WNL Except Integumentary Comment: 12/27 bruises at IV sites ut they are turning green and going away. Feeling of Well Being: WNL Feeling of Well Being Comment: 12/27 lives with grandson 12/29 son lives behind her and Caden lives beside her. She has her life alert on and is occasioinally home alone Pain/Management Comment: 12/29 knees are still painful. has percocet prn, meloxicam. Considering getting knee injection and maybe a replacement if cleared for surgery Scheduled Follow-Up with Provi: Yes (12/27 to see Estela on 01/06) Community Resources/C: 12/29 has meals brought in, life alert, fanta provider Personal Health Record Updated: Yes Primary Care Provider Visits: Yes Questions for Future PCP Visit: 12/29 new swelling in her feet is a concern nd is taking lasix as ordered. Creatine/kidney function. resuming cinnamon Following Discharge Instructio: Yes TCM Discharge Criteria Medication Knowledge: 12/27 most but Aide sets up for her 12/29 review allmeds with both. Would like to resume cinnamon as shes been on it for years. Amlodipine was ordered to be continued but states that HEALTHCARE ADMINISTRATIVE ASSISTANT dc that med along time ago along with losartan (that is not ordered). She has all meds and adjusted insulin dose. Has just gotten renewals from [employer]. Medplanner is filled and Caden checks to make sure the right days/times are being used Disease Management/Concern/Wha: COPD, pneumonia, DM hi/low Red/Yellow Flags: 12/27 Went over yellow/red flags of pneu. Hypo/hypeglycemia Transitional Care Comment: 12/27 She stated she was doing OK "but was weak and had no ambition." enc her to move around and some activity but she had been very ill and it will take awhile for her strength to return.She lives with Grandson and has an aide. Is agreeable to HV on Friday. Has appt on 01/06 with Estela. She was aware of the Insulin changes and has been doing BS. 12/29 had a bad day yesterday but better today. States last time she got sick that it hit her suddenly with no warning signs the day before. Will have grandchildren stay away when they are sick and she stays home most of time. Watch swelling closely. Cant get in to see HEALTHCARE ADMINISTRATIVE ASSISTANT until the . ERIKA JEFF Dec 29, 2017 14:03
[2017-12-30] MEDS ORDERED: PER PO (16:46)
[2017-12-30] MEDS ORDERED: OXYC-373 PO (16:46)
[2018-01-08] MEDS ORDERED: FERR-53 PO (13:40)
--- NOTE | 2018-01-10 11:08 | Transitional Care Management ---
Assessment Visit Type: Telephone Visit Spoke with: Ashley Cardiac: WNL Cardiac Comment: 12/29 enc her to find her wrist bp monitor and do periodic bps and record to show HISTORIOGRAPHER at next visit due to fluctuations when in hospital. Has pitting BLE edema since return home. Reports she had Top Ramen for dinner last pm. Enc low salt, limit fluids to 2 L a day for a while, elevate feet an do ROM exercises on feet 01/10 DC from ECF yesterday with persistent edema. reminded to keep TEDS on, limit salt/fluids, elevate and take lasix daily as ordered Respiratory: WNL Except Respiratory Comment: 12/27 tired, no ambition, remains slightly SOB even though O2 is 3L. Reminded her that she was very sick here in the hospital and that it will take awhile for her to regain her strenght- to take it easy and rest. stated "I still have a cough with brn sputum" explained to her that she had been really sick but if it doesn't get better or is bloody she should visit with her PCP 12/29 NPC. Review s/s to report. Has rare jabier tinged sputum,nothing like previous sputum with blood 01/10 no cough, sob. wearing O2 at 5 L; states sats 88-92% GI: Nutrition: WNL Except GI Comment: 12/27 not really hungery but eating my diabetic meals, Reminded her of the changes in her insulin. She was aware 12/29 ADA. Knows lantus is now 30 units instead of 40 units. review previous am [facility] were in 50's. Gave her log to record bs prior to visiting HISTORIOGRAPHER. Review s/s low and hi bs. states before she came in was shaky and confused and that they checked her bs first. Review aspiration prevention that gave her info about. 01/10 review se of iron is constipation. takes linzess daily but enc to monitor for constipation and use her miralax if needed. denies upset stomach with iron Wt Gain/Loss: WNL Constipation?: No (12/29 taking linzess daily. will use softener or miralax if percocet is constipating) Musculoskeletal, Excercise Com: 12/27 weak and no motivation. "trying to move around the house. 12/29 review she could call to get PT/OT if wanted but still declines. Enc more activity and AROM instead of PROM provided by Caden on her feet 01/10 enc to walk a little more around the house when up to bathroom etc to get stronger and help edema Mobility/Falls: WNL Except Mobility Comment: 12/27 denies falls 12/29 using walker consistently 01/10 reports fall at home prior to second admit was from tripping on her O2 hose. denies loose carpeting, cluttered path or other obstacles. [facility] scheduled to start on Friday 01/12 Integumentary: WNL Except Integumentary Comment: 12/27 bruises at IV sites ut they are turning green and going away. Feeling of Well Being: WNL Feeling of Well Being Comment: 12/27 lives with grandson 12/29 son lives behind her and Caden lives beside her. She has her life alert on and is occasioinally home alone 01/10 states shes never alone since hospital dc. even calls for Caden when getting up in the night to use the bathroom Socialization Comment: 01/10 prefers to stay in her home. does not leave to go shopping, only to MD fry Pain/Management Comment: 12/29 knees are still painful. has percocet prn, meloxicam. Considering getting knee injection and maybe a replacement if cleared for surgery 01/10 reports when she fell she landed on her right knee and was using percocet. now its better and she only uses tylenol Scheduled Follow-Up with Provi: Yes (01/10 states she has appt in 2 weeks) Community Resources/HHC: 12/29 has meals brought in, life alert, fanta provider Personal Health Record Updated: Yes Primary Care Provider Visits: Yes Questions for Future PCP Visit: 12/29 new swelling in her feet is a concern nd is taking lasix as ordered. Creatine/kidney function. resuming cinnamon 01/10 swelling persists. has resumed amlodipine due to increased bp's Following Discharge Instructio: Yes TCM Discharge Criteria Medication Knowledge: 12/27 most but Aide sets up for her 12/29 review allmeds with both. Would like to resume cinnamon as shes been on it for years. Amlodipine was ordered to be continued but states that HISTORIOGRAPHER dc that med along time ago along with losartan (that is not ordered). She has all meds and adjusted insulin dose. Has just gotten renewals from [employer]. Medplanner is filled and Caden checks to make sure the right days/times are being used 01/10 states Caden picked up her 2 new meds; iron and amlidipine. denies se Disease Management/Concern/Wha: COPD, pneumonia, DM hi/low Red/Yellow Flags: 12/27 Went over yellow/red flags of pneu. Hypo/hypeglycemia Transitional Care Comment: 12/27 She stated she was doing OK "but was weak and had no ambition." enc her to move around and some activity but she had been very ill and it will take awhile for her strength to return.She lives with Grandson and has an aide. Is agreeable to HV on Friday. Has appt on 01/06 with Estela. She was aware of the Insulin changes and has been doing BS. 12/29 had a bad day yesterday but better today. States last time she got sick that it hit her suddenly with no warning signs the day before. Will have grandchildren stay away when they are sick and she stays home most of time. Watch swelling closely. Cant get in to see HISTORIOGRAPHER until the . / states she feels better after this hospital dc than the last time she went home but, sounds a little depressed. ERIKA JEFF Jan 10, 2018 11:08
--- NOTE | 2018-01-15 15:28 | Transitional Care Management ---
Assessment Visit Type: Telephone Visit (01/15 Danielle) Cardiac: WNL Cardiac Comment: 12/29 enc her to find her wrist bp monitor and do periodic bps and record to show CHAMPAGNE MAKER at next visit due to fluctuations when in hospital. Has pitting BLE edema since return home. Reports she had Top Ramen for dinner last pm. Enc low salt, limit fluids to 2 L a day for a while, elevate feet an do ROM exercises on feet 01/10 DC from [facility] yesterday with persistent edema. reminded to keep TEDS on, limit salt/fluids, elevate and take lasix daily as ordered 01/15 States the edema hasn't gotten any better, Having a hard time walking as feet and legs swollen" Asked her if she was keeping feet elevated while sitting and she staed she was. Respiratory: WNL Except Respiratory Comment: 12/27 tired, no ambition, remains slightly SOB even though O2 is 3L. Reminded her that she was very sick here in the hospital and that it will take awhile for her to regain her strenght- to take it easy and rest. stated "I still have a cough with brn sputum" explained to her that she had been really sick but if it doesn't get better or is bloody she should visit with her PCP 12/29 NPC. Review s/s to report. Has rare jabier tinged sputum,nothing like previous sputum with blood 01/10 no cough, sob. wearing O2 at 5 L; states sats 88-92% 01/15 states she is still wearing O2 at 5L and still feels SOB.. I encouaged her to call Estela Marie's office and discuss this with her. Especially since she doesn't see her until 01/27. GI: Nutrition: WNL Except GI Comment: 12/27 not really hungery but eating my diabetic meals, Reminded her of the changes in her insulin. She was aware 12/29 ADA. Knows lantus is now 30 units instead of 40 units. review previous am [facility] were in 50's. Gave her log to record bs prior to visiting CHAMPAGNE MAKER. Review s/s low and hi bs. states before she came in was shaky and confused and that they checked her bs first. Review aspiration prevention that gave her info about. 01/10 review se of iron is constipation. takes linzess daily but enc to monitor for constipation and use her miralax if needed. denies upset stomach with iron 01/17 Denies stomach discofrot or constipation. Wt Gain/Loss: WNL Weight Comment: 01/15 Not weighting- enc her to do so to see if she is gaining more wt with the fluid retention. Constipation?: No (12/29 taking linzess daily. will use softener or miralax if percocet is constipating) Musculoskeletal, Excercise Com: 12/27 weak and no motivation. "trying to move around the house. 12/29 review she could call to get PT/OT if wanted but still declines. Enc more activity and AROM instead of PROM provided by Juliennebradbraulio on her feet 01/10 enc to walk a little more around the house when up to bathroom etc to get stronger and help edema 01/15 Enc to move more around the house so she doesn't get pneu again and also to help the fluid. she states HH helps her with ambulating and cares." Mobility/Falls: WNL Except Mobility Comment: 12/27 denies falls 12/29 using walker consistently 01/10 reports fall at home prior to second admit was from tripping on her O2 hose. denies loose carpeting, cluttered path or other obstacles. PHHC scheduled to start on Friday 01/12 Integumentary: WNL Except Integumentary Comment: 12/27 bruises at IV sites ut they are turning green and going away. Feeling of Well Being: WNL Feeling of Well Being Comment: 12/27 lives with grandson 12/29 son lives behind her and Caden lives beside her. She has her life alert on and is occasioinally home alone 01/10 states shes never alone since hospital [place]. even calls for Caden when getting up in the night to use the bathroom Socialization Comment: 01/10 prefers to stay in her home. does not leave to go shopping, only to MD fry Pain/Management Comment: 12/29 knees are still painful. has percocet prn, meloxicam. Considering getting knee injection and maybe a replacement if cleared for surgery 01/10 reports when she fell she landed on her right knee and was using percocet. now its better and she only uses tylenol Scheduled Follow-Up with Provi: Yes (01/10 states she has appt in 2 weeks01/15 appt w Estela Marie on 01/27) Community Resources/HHC: 12/29 has meals brought in, fanta [facility] provider Personal Health Record Updated: Yes Primary Care Provider Visits: Yes Questions for Future PCP Visit: 12/29 new swelling in her feet is a concern nd is taking lasix as ordered. Creatine/kidney function. resuming cinnamon 01/10 swelling persists. has resumed amlodipine due to increased bp's Following Discharge Instructio: Yes TCM Discharge Criteria Medication Knowledge: 12/27 most but Aide sets up for her 12/29 review allmeds with both. Would like to resume cinnamon as shes been on it for years. Amlodipine was ordered to be continued but states that CHAMPAGNE MAKER dc that med along time ago along with losartan (that is not ordered). She has all meds and adjusted insulin dose. Has just gotten renewals from [employer]. Medplanner is filled and Caden checks to make sure the right days/times are being used 01/10 states Caden picked up her 2 new meds; iron and amlidipine. denies se Disease Management/Concern/Wha: COPD, pneumonia, DM hi/lo01/15 went over the red and yellow flags of Pneu, COPD and DM Red/Yellow Flags: 12/27 Went over yellow/red flags of pneu. Hypo/hypeglycemia Transitional Care Comment: 12/27 She stated she was doing OK "but was weak and had no ambition." enc her to move around and some activity but she had been very ill and it will take awhile for her strength to return.She lives with Grandson and has an aide. Is agreeable to HV on Friday. Has appt on 01/06 with Estela. She was aware of the Insulin changes and has been doing BS. 12/29 had a bad day yesterday but better today. States last time she got sick that it hit her suddenly with no warning signs the day before. Will have grandchildren stay away when they are sick and she stays home most of time. Watch swelling closely. Cant get in to see CHAMPAGNE MAKER until the . 01/10 states she feels better after this hospital dc than the last time she went home but, sounds a little depressed. 01/15 Sounded upset d/t the edema and it not going down.. Wanted to know if she came to the ER would they help her. I suggested she call Finesse's office and talk it over with her.States she has HH and they been helping her with walking and cares and Caden stays with her to help her when they're not there. Copies to: ESTELA MARIE JOAN Jan 15, 2018 15:28
--- NOTE | 2018-01-22 12:58 | Transitional Care Management ---
Assessment Visit Type: Telephone Visit (01/22 Danielle) Cardiac: WNL Cardiac Comment: 12/29 enc her to find her wrist bp monitor and do periodic bps and record to show DIGITAL DATA ANALYST at next visit due to fluctuations when in hospital. Has pitting BLE edema since return home. Reports she had Top Ramen for dinner last pm. Enc low salt, limit fluids to 2 L a day for a while, elevate feet an do ROM exercises on feet 01/10 DC from [facility] yesterday with persistent edema. reminded to keep TEDS on, limit salt/fluids, elevate and take lasix daily as ordered 01/15 States the edema hasn't gotten any better, Having a hard time walking as feet and legs swollen" Asked her if she was keeping feet elevated while sitting and she staed she was.01/22 Swelling to feet continues. States she does them elevated. Denies CP Respiratory: WNL Except Respiratory Comment: 12/27 tired, no ambition, remains slightly SOB even though O2 is 3L. Reminded her that she was very sick here in the hospital and that it will take awhile for her to regain her strenght- to take it easy and rest. stated "I still have a cough with brn sputum" explained to her that she had been really sick but if it doesn't get better or is bloody she should visit with her PCP 12/29 NPC. Review s/s to report. Has rare jabier tinged sputum,nothing like previous sputum with blood 01/10 no cough, sob. wearing O2 at 5 L; states sats 88-92% 01/15 states she is still wearing O2 at 5L and still feels SOB.. I encouaged her to call Estela Marie's office and discuss this with her. Especially since she doesn't see her until 01/27. 01/22 states she did call Masha office but no changes. Will se her next week. [employer] did draw blood for WBC States she is VERY tired and wants to sleep all the time. Enc her to try and move around so she doesn't get pneu again. GI: Nutrition: WNL Except GI Comment: 12/27 not really hungery but eating my diabetic meals, Reminded her of the changes in her insulin. She was aware 12/29 ADA. Knows lantus is now 30 units instead of 40 units. review previous am [facility] were in 50's. Gave her log to record bs prior to visiting DIGITAL DATA ANALYST. Review s/s low and hi bs. states before she came in was shaky and confused and that they checked her bs first. Review aspiration prevention that ST gave her info about. 01/10 review se of iron is constipation. takes linzess daily but enc to monitor for constipation and use her miralax if needed. denies upset stomach with iron 01/17 Denies stomach discofrot or constipation. Wt Gain/Loss: WNL Weight Comment: 01/15 Not weighting- enc her to do so to see if she is gaining more wt with the fluid retention. 01/22 Continues to not wt. Constipation?: No (12/29 taking linzess daily. will use softener or miralax if percocet is constipating) Musculoskeletal, Excercise Com: 12/27 weak and no motivation. "trying to move around the house. 12/29 review she could call to get PT/OT if wanted but still declines. Enc more activity and AROM instead of PROM provided by Caden on her feet 01/10 enc to walk a little more around the house when up to bathroom etc to get stronger and help edema 01/15 Enc to move more around the house so she doesn't get pneu again and also to help the fluid. she states HH helps her with ambulating and cares. 01/22 No changes to tired to move around much. HH does cont to come and help her 3X a week and she has someone from [facility] who visits daily. Mobility/Falls: WNL Except Mobility Comment: 12/27 denies falls 12/29 using walker consistently 01/10 reports fall at home prior to second admit was from tripping on her O2 hose. denies loose carpeting, cluttered path or other obstacles. PHHC scheduled to start on Friday 01/12 Integumentary: WNL Except Integumentary Comment: 12/27 bruises at IV sites ut they are turning green and going away. Feeling of Well Being: WNL Feeling of Well Being Comment: 12/27 lives with grandson 12/29 son lives behind her and Caden lives beside her. She has her life alert on and is occasioinally home alone 01/10 states shes never alone since hospital dc. even calls for Caden when getting up in the night to use the bathroom 01/22 she has someone in her home to help her 28/04 Pretty much never alone. Socialization Comment: 01/10 prefers to stay in her home. does not leave to go shopping, only to MD fry Pain/Management Comment: 12/29 knees are still painful. has percocet prn, meloxicam. Considering getting knee injection and maybe a replacement if cleared for surgery 01/10 reports when she fell she landed on her right knee and was using percocet. now its better and she only uses tylenol 01/22 Knee improved Scheduled Follow-Up with Provi: Yes (01/10 states she has appt in 2 weeks01/15 appt w Estela Marie on 01/27) Community Resources/HHC: 12/29 has meals brought in, life alert, waiver provider Personal Health Record Updated: Yes Primary Care Provider Visits: Yes Questions for Future PCP Visit: 12/29 new swelling in her feet is a concern nd is taking lasix as ordered. Creatine/kidney function. resuming cinnamon 01/10 swelling persists. has resumed amlodipine due to increased bp's Following Discharge Instructio: Yes TCM Discharge Criteria Medication Knowledge: 12/27 most but Aide sets up for her 12/29 review allmeds with both. Would like to resume cinnamon as shes been on it for years. Amlodipine was ordered to be continued but states that [facility] dc that med along time ago along with losartan (that is not ordered). She has all meds and adjusted insulin dose. Has just gotten renewals from [facility]. Medplanner is filled and Caden checks to make sure the right days/times are being used 01/10 states Caden picked up her 2 new meds; iron and amlidipine. denies se Disease Management/Concern/Wha: COPD, pneumonia, DM hi/lo01/15 went over the red and yellow flags of Pneu, COPD and DM 01/22 went over red yellow flags of COPD, pneu and pneu. her comment is "I know" Red/Yellow Flags: 12/27 Went over yellow/red flags of pneu. Hypo/hypeglycemia Transitional Care Comment: 12/27 She stated she was doing OK "but was weak and had no ambition." enc her to move around and some activity but she had been very ill and it will take awhile for her strength to return.She lives with Grandson and has an aide. Is agreeable to HV on Friday. Has appt on 01/06 with Estela. She was aware of the Insulin changes and has been doing BS. 12/29 had a bad day yesterday but better today. States last time she got sick that it hit her suddenly with no warning signs the day before. Will have grandchildren stay away when they are sick and she stays home most of time. Watch swelling closely. Cant get in to see DIGITAL DATA ANALYST until the . 01/10 states she feels better after this hospital dc than the last time she went home but, sounds a little depressed. 01/15 Sounded upset d/t the edema and it not going down.. Wanted to know if she came to the ER would they help her. I suggested she call Finesse's office and talk it over with her.States she has HH and they been helping her with walking and cares and Caden stays with her to help her when they're not there. 01/22 sounds despondent over the phone. States she is just very tired and just wants to sleep all the time. GEOFF nick blood and Danielle thinkds she might need blood transfusions. I looked at labs and don't see any new lab draws. Danielle states she only does her BS once a day and they have been between 80-110. Feels like lungs have improved. Has appt with Estela Marie [employer] 01/26. Copies to: ESTELA MARIE JOAN Jan 22, 2018 12:58
--- NOTE | 2018-02-02 12:12 | Transitional Care Management ---
Assessment Visit Type: Telephone Visit ( Danielle) Cardiac: WNL Cardiac Comment: 12/29 enc her to find her wrist bp monitor and do periodic bps and record to show PAPER HANGER at next visit due to fluctuations when in hospital. Has pitting BLE edema since return home. Reports she had Top Ramen for dinner last pm. Enc low salt, limit fluids to 2 L a day for a while, elevate feet an do ROM exercises on feet 01/10 DC from [facility] yesterday with persistent edema. reminded to keep TEDS on, limit salt/fluids, elevate and take lasix daily as ordered 01/15 States the edema hasn't gotten any better, Having a hard time walking as feet and legs swollen" Asked her if she was keeping feet elevated while sitting and she staed she was.01/22 Swelling to feet continues. States she does keep them elevated. Denies CP 02/02 Swelling slightly improve-keeps feet up when sitting or on pillows when in bed. Denies CP Respiratory: WNL Except Respiratory Comment: 12/27 tired, no ambition, remains slightly SOB even though O2 is 3L. Reminded her that she was very sick here in the hospital and that it will take awhile for her to regain her strenght- to take it easy and rest. stated "I still have a cough with brn sputum" explained to her that she had been really sick but if it doesn't get better or is bloody she should visit with her PCP 12/29 NPC. Review s/s to report. Has rare jabier tinged sputum,nothing like previous sputum with blood 01/10 no cough, sob. wearing O2 at 5 L; states sats 88-92% 01/15 states she is still wearing O2 at 5L and still feels SOB.. I encouaged her to call Estela Marie's office and discuss this with her. Especially since she doesn't see her until 01/27. 01/22 states she did call Masha office but no changes. Will see her next week. Premium did draw blood for WBC States she is VERY tired and wants to sleep all the time. Enc her to try and move around so she doesn't get pneu again. 02/02 O2/5L states "I'm feeling a little better." still get SOB w much activity. cont to enc to enc her to get up and move around and take deep breaths to avoid getting pneu again. GI: Nutrition: WNL Except GI Comment: 12/27 not really hungery but eating my diabetic meals, Reminded her of the changes in her insulin. She was aware 12/29 ADA. Knows lantus is now 30 units instead of 40 units. review previous am [facility] were in 50's. Gave her log to record bs prior to visiting PAPER HANGER. Review s/s low and hi bs. states before she came in was shaky and confused and that they checked her bs first. Review aspiration prevention that ST gave her info about. 01/10 review se of iron is constipation. takes linzess daily but enc to monitor for constipation and use her miralax if needed. denies upset stomach with iron 01/17 Denies stomach discofrot or constipation. 02/02 does Bs q am and they are between 80-120 Wt Gain/Loss: WNL Weight Comment: 01/15 Not weighting- enc her to do so to see if she is gaining more wt with the fluid retention. 01/22 Continues to not wt. 02/02 still not weighting. Constipation?: No (12/29 taking linzess daily. will use softener or miralax if percocet is constipating) Musculoskeletal, Excercise Com: 12/27 weak and no motivation. "trying to move around the house. 12/29 review she could call to get PT/OT if wanted but still declines. Enc more activity and AROM instead of PROM provided by [facility] on her feet 01/10 enc to walk a little more around the house when up to bathroom etc to get stronger and help edema 01/15 Enc to move more around the house so she doesn't get pneu again and also to help the fluid. she states HH helps her with ambulating and cares. 01/22 No changes to tired to move around much. HH does cont to come and help her 3X a week and she has someone from [facility] who visits daily. Mobility/Falls: WNL Except Mobility Comment: 12/27 denies falls 12/29 using walker consistently 01/10 reports fall at home prior to second admit was from tripping on her O2 hose. denies loose carpeting, cluttered path or other obstacles. [facility] scheduled to start on Friday 01/12 Integumentary: WNL Except Integumentary Comment: 12/27 bruises at IV sites ut they are turning green and going away. Feeling of Well Being: WNL Feeling of Well Being Comment: 12/27 lives with grandson 12/29 son lives behind her and Caden lives beside her. She has her life alert on and is occasioinally home alone 01/10 states shes never alone since hospital dc. even calls for Caden when getting up in the night to use the bathroom 01/22 she has someone in her home to help her 28/04 Pretty much never alone. 02/02 Caden had to leave town yesterday so she has another person, Raquel, checking on her but not staying in home she depends on grand son to help her at night and w meals. Still has [facility] 3x a week Socialization Comment: 01/10 prefers to stay in her home. does not leave to go shopping, only to [employer] fry Pain/Management Comment: 12/29 knees are still painful. has percocet prn, meloxicam. Considering getting knee injection and maybe a replacement if cleared for surgery 01/10 reports when she fell she landed on her right knee and was using percocet. now its better and she only uses tylenol 01/22 Knee improved 02/02 Knee pain much improved Scheduled Follow-Up with Francisco Javieri: Yes (01/10 states she has appt in 2 weeks01/15 appt w Estela Marie on 01/27) Community Resources/HHC: 12/29 has meals brought in, life alert, [facility] provider Personal Health Record Updated: Yes Primary Care Provider Visits: Yes Questions for Future PCP Visit: 12/29 new swelling in her feet is a concern nd is taking lasix as ordered. Creatine/kidney function. resuming cinnamon 01/10 swelling persists. has resumed amlodipine due to increased bp's Following Discharge Instructio: Yes TCM Discharge Criteria Medication Knowledge: 12/27 most but Aide sets up for her 12/29 review allmeds with both. Would like to resume cinnamon as shes been on it for years. Amlodipine was ordered to be continued but states that PAPER HANGER dc that med along time ago along with losartan (that is not ordered). She has all meds and adjusted insulin dose. Has just gotten renewals from [facility]. Medplanner is filled and Caden checks to make sure the right days/times are being used 01/10 states Caden picked up her 2 new meds; iron and amlidipine. denies se Disease Management/Concern/Wha: COPD, pneumonia, DM hi/lo01/15 went over the red and yellow flags of Pneu, COPD and DM 01/22 went over red yellow flags of COPD, pneu and pneu. her comment is "I know" Red/Yellow Flags: 12/27 Went over yellow/red flags of pneu. Hypo//30 went over red and yellow flags of pneu, and hypo/hyperglycemia. Transitional Care Comment: 12/27 She stated she was doing OK "but was weak and had no ambition." enc her to move around and some activity but she had been very ill and it will take awhile for her strength to return.She lives with Grandson and has an aide. Is agreeable to HV on Friday. Has appt on 01/06 with Estela. She was aware of the Insulin changes and has been doing BS. 12/29 had a bad day yesterday but better today. States last time she got sick that it hit her suddenly with no warning signs the day before. Will have grandchildren stay away when they are sick and she stays home most of time. Watch swelling closely. Cant get in to see PAPER HANGER until the . 01/10 states she feels better after this hospital dc than the last time she went home but, sounds a little depressed. 01/15 Sounded upset d/t the edema and it not going down.. Wanted to know if she came to the ER would they help her. I suggested she call Finesse's office and talk it over with her.States she has HH and they been helping her with walking and cares and Caden stays with her to help her when they're not there. 01/22 sounds despondent over the phone. States she is just very tired and just wants to sleep all the time. GEOFF nick blood and Danielle thinkds she might need blood transfusions. I looked at labs and don't see any new lab draws. Danielle states she only does her BS once a day and they have been between 80-110. Feels like lungs have improved. Has appt with Estela Marie LAYBOY TENDER 01/26. 01/31 unable to contact. 02/02 States she is feeling somewhat better. Estela cancelled her appt on 01/26 as her blood work had improved. ?Had an appt to see her today but had to cancel as Caden was OOT and she had no way to get there. Has not made another appt. Will do so when Caden gets back. Enc her to continue exercises Copies to: ESTELA MARIE PAPER HANGER CINDY ARREGUIN Feb 02, 2018 12:12
--- NOTE | 2018-02-09 13:00 | Transitional Care Management ---
Assessment Visit Type: Telephone Visit Spoke with: Ashley Cardiac: WNL Cardiac Comment: 12/29 enc her to find her wrist bp monitor and do periodic bps and record to show [employer]ICE CLEANING MACHINE TENDER at next visit due to fluctuations when in hospital. Has pitting BLE edema since return home. Reports she had Top Ramen for dinner last pm. Enc low salt, limit fluids to 2 L a day for a while, elevate feet an do ROM exercises on feet 01/10 DC from [facility] yesterday with persistent edema. reminded to keep TEDS on, limit salt/fluids, elevate and take lasix daily as ordered 01/15 States the edema hasn't gotten any better, Having a hard time walking as feet and legs swollen" Asked her if she was keeping feet elevated while sitting and she staed she was.01/22 Swelling to feet continues. States she does keep them elevated. Denies CP 02/02 Swelling slightly improve-keeps feet up when sitting or on pillows when in bed. Denies CP 02/09 Edema slowly getting better. Respiratory: WNL Except Respiratory Comment: 12/27 tired, no ambition, remains slightly SOB even though O2 is 3L. Reminded her that she was very sick here in the hospital and that it will take awhile for her to regain her strenght- to take it easy and rest. stated "I still have a cough with brn sputum" explained to her that she had been really sick but if it doesn't get better or is bloody she should visit with her PCP 12/29 NPC. Review s/s to report. Has rare jabier tinged sputum,nothing like previous sputum with blood 01/10 no cough, sob. wearing O2 at 5 L; states sats 88-92% 01/15 states she is still wearing O2 at 5L and still feels SOB.. I encouaged her to call Estela Marie's office and discuss this with her. Especially since she doesn't see her until 01/27. 01/22 states she did call Masha office but no changes. Will see her next week. Premium did draw blood for WBC States she is VERY tired and wants to sleep all the time. Enc her to try and move around so she doesn't get pneu again. 02/02 O2/5L states "I'm feeling a little better." still get SOB w much activity. cont to enc to enc her to get up and move around and take deep breaths to avoid getting pneu again. GI: Nutrition: WNL Except GI Comment: 12/27 not really hungery but eating my diabetic meals, Reminded her of the changes in her insulin. She was aware 12/29 ADA. Knows lantus is now 30 units instead of 40 units. review previous am [facility] were in 50's. Gave her log to record bs prior to visiting RICE CLEANING MACHINE TENDER. Review s/s low and hi bs. states before she came in was shaky and confused and that they checked her bs first. Review aspiration prevention that ST gave her info about. 01/10 review se of iron is constipation. takes linzess daily but enc to monitor for constipation and use her miralax if needed. denies upset stomach with iron 01/17 Denies stomach discofrot or constipation. 02/02 does Bs q am and they are between 80-120 Wt Gain/Loss: WNL Weight Comment: 01/15 Not weighting- enc her to do so to see if she is gaining more wt with the fluid retention. 01/22 Continues to not wt. 02/02 still not weighting. 02/09 States that she has lost 25 pounds. Constipation?: No (12/29 taking linzess daily. will use softener or miralax if percocet is constipating) : WNL Musculoskeletal, Exercise: WNL Except Musculoskeletal, Excercise Com: 12/27 weak and no motivation. "trying to move around the house. 12/29 review she could call to get PT/OT if wanted but still declines. Enc more activity and AROM instead of PROM provided by Caden on her feet 01/10 enc to walk a little more around the house when up to bathroom etc to get stronger and help edema 01/15 Enc to move more around the house so she doesn't get pneu again and also to help the fluid. she states HH helps her with ambulating and cares. 01/22 No changes to tired to move around much. HH does cont to come and help her 3X a week and she has someone from [facility] who visits daily. 02/09 HH PT continues. Mobility/Falls: WNL Except Mobility Comment: 12/27 denies falls 12/29 using walker consistently 01/10 reports fall at home prior to second admit was from tripping on her O2 hose. denies loose carpeting, cluttered path or other obstacles. [facility] scheduled to start on Friday 01/12 Integumentary: WNL Except Integumentary Comment: 12/27 bruises at IV sites ut they are turning green and going away. Feeling of Well Being: WNL Feeling of Well Being Comment: 12/27 lives with grandson 12/29 son lives behind her and Caden lives beside her. She has her life alert on and is occasioinally home alone 01/10 states shes never alone since hospital dc. even calls for Caden when getting up in the night to use the bathroom 01/22 she has someone in her home to help her 28/04 Pretty much never alone. 02/02 Caden had to leave town yesterday so she has another person, Raquel, checking on her but not staying in home she depends on grand son to help her at night and w meals. Still has [facility]x a week Socialization Comment: 01/10 prefers to stay in her home. does not leave to go shopping, only to MD fry Pain/Management Comment: 12/29 knees are still painful. has percocet prn, meloxicam. Considering getting knee injection and maybe a replacement if cleared for surgery 01/10 reports when she fell she landed on her right knee and was using percocet. now its better and she only uses tylenol 01/22 Knee improved 02/02 Knee pain much improved Scheduled Follow-Up with Provi: Yes (appt coty Marie later today.) Community Resources/HHC: 12/29 has meals brought in, life alert, waiver provider Personal Health Record Updated: Yes Primary Care Provider Visits: Yes Questions for Future PCP Visit: 12/29 new swelling in her feet is a concern nd is taking lasix as ordered. Creatine/kidney function. resuming cinnamon 01/10 swelling persists. has resumed amlodipine due to increased bp's Following Discharge Instructio: Yes TCM Discharge Criteria Medication Knowledge: 12/27 most but Aide sets up for her 12/29 review allmeds with both. Would like to resume cinnamon as shes been on it for years. Amlodipine was ordered to be continued but states that [employer] MACHINE TENDER dc that med along time ago along with losartan (that is not ordered). She has all meds and adjusted insulin dose. Has just gotten renewals from [facility]. Medplanner is filled and Caden checks to make sure the right days/times are being used 01/10 states Caden picked up her 2 new meds; iron and amlidipine. denies se Disease Management/Concern/Wha: COPD, pneumonia, DM hi/lo01/15 went over the red and yellow flags of Pneu, COPD and DM 01/22 went over red yellow flags of COPD, pneu and pneu. her comment is "I know" Red/Yellow Flags: 12/27 Went over yellow/red flags of pneu. Hypo/[id number]/30 went over red and yellow flags of pneu, and hypo/hyperglycemia. Transitional Care Comment: 12/27 She stated she was doing OK "but was weak and had no ambition." enc her to move around and some activity but she had been very ill and it will take awhile for her strength to return.She lives with Grandson and has an aide. Is agreeable to HV on Friday. Has appt on 01/06 with Estela. She was aware of the Insulin changes and has been doing BS. 12/29 had a bad day yesterday but better today. States last time she got sick that it hit her suddenly with no warning signs the day before. Will have grandchildren stay away when they are sick and she stays home most of time. Watch swelling closely. Cant get in to see RICE CLEANING MACHINE TENDER until the . 01/10 states she feels better after this hospital dc than the last time she went home but, sounds a little depressed. 01/15 Sounded upset d/t the edema and it not going down.. Wanted to know if she came to the ER would they help her. I suggested she call Finesse's office and talk it over with her.States she has HH and they been helping her with walking and cares and Caden stays with her to help her when they're not there. 01/22 sounds despondent over the phone. States she is just very tired and just wants to sleep all the time. GEOFF nick blood and Danielle thinkds she might need blood transfusions. I looked at labs and don't see any new lab draws. Danielle states she only does her BS once a day and they have been between 80-110. Feels like lungs have improved. Has appt with Estela Marie OILER BANDER 01/26. 01/31 unable to contact. 02/02 States she is feeling somewhat better. Estela cancelled her appt on 01/26 as her blood work had improved. ?Had an appt to see her today but had to cancel as Caden was OOT and she had no way to get there. Has not made another appt. Will do so when Caden gets back. Enc her to continue exercises 02/09 She has an Appt with Estela Marie later today. She still feels worn down, "they were going to do a blood tranfusion on me last month." No change in resp status. I encouraged her to stay as active as she can. ARSENIO SULLIVAN February 09, 2018 13:00
--- NOTE | 2018-02-17 12:31 | Transitional Care Management ---
Assessment Cardiac: WNL Cardiac Comment: 12/29 enc her to find her wrist bp monitor and do periodic bps and record to show SALES ACCOUNT MANAGER at next visit due to fluctuations when in hospital. Has pitting BLE edema since return home. Reports she had Top Ramen for dinner last pm. Enc low salt, limit fluids to 2 L a day for a while, elevate feet an do ROM exercises on feet 01/10 DC from [facility] yesterday with persistent edema. reminded to keep TEDS on, limit salt/fluids, elevate and take lasix daily as ordered 01/15 States the edema hasn't gotten any better, Having a hard time walking as feet and legs swollen" Asked her if she was keeping feet elevated while sitting and she staed she was.01/22 Swelling to feet continues. States she does keep them elevated. Denies CP 02/02 Swelling slightly improve-keeps feet up when sitting or on pillows when in bed. Denies CP 02/09 Edema slowly getting better. 02/17 Edema improving. Denies CP Respiratory: WNL Except Respiratory Comment: 12/27 tired, no ambition, remains slightly SOB even though O2 is 3L. Reminded her that she was very sick here in the hospital and that it will take awhile for her to regain her strenght- to take it easy and rest. stated "I still have a cough with brn sputum" explained to her that she had been really sick but if it doesn't get better or is bloody she should visit with her PCP 12/29 NPC. Review s/s to report. Has rare jabier tinged sputum,nothing like previous sputum with blood 01/10 no cough, sob. wearing O2 at 5 L; states sats 88-92% 01/15 states she is still wearing O2 at 5L and still feels SOB.. I encouaged her to call Estela Marie's office and discuss this with her. Especially since she doesn't see her until 01/27. 01/22 states she did call Masha office but no changes. Will see her next week. Premium did draw blood for WBC States she is VERY tired and wants to sleep all the time. Enc her to try and move around so she doesn't get pneu again. 02/02 O2/5L states "I'm feeling a little better." still get SOB w much activity. cont to enc to enc her to get up and move around and take deep breaths to avoid getting pneu again. 02/17 Uning O2 4 1/2-5L Remains SOB w activity GI: Nutrition: WNL Except GI Comment: 12/27 not really hungery but eating my diabetic meals, Reminded her of the changes in her insulin. She was aware 12/29 ADA. Knows lantus is now 30 units instead of 40 units. [facility]. Gave her log to record bs prior to visiting SALES ACCOUNT MANAGER. Review s/s low and hi bs. states before she came in was shaky and confused and that they checked her bs first. Review aspiration prevention that ST gave her info about. 01/10 review se of iron is constipation. takes linzess daily but enc to monitor for constipation and use her miralax if needed. denies upset stomach with iron 01/17 Denies stomach discofrot or constipation. 02/02 does Bs q am and they are between 80-120 Wt Gain/Loss: WNL Weight Comment: 01/15 Not weighting- enc her to do so to see if she is gaining more wt with the fluid retention. 01/22 Continues to not wt. 02/02 still not weighting. 02/09 States that she has lost 25 pounds. 02/[address] office down a couple more lbs. Constipation?: No (12/29 taking linzess daily. will use softener or miralax if percocet is constipating) : WNL Musculoskeletal, Exercise: WNL Except Musculoskeletal, Excercise Com: 12/27 weak and no motivation. "trying to move around the house. 12/29 review she could call to get PT/OT if wanted but still declines. Enc more activity and AROM instead of PROM provided by Caden on her feet 01/10 enc to walk a little more around the house when up to bathroom etc to get stronger and help edema 01/15 Enc to move more around the house so she doesn't get pneu again and also to help the fluid. she states HH helps her with ambulating and cares. 01/22 No changes to tired to move around much. HH does cont to come and help her 3X a week and she has [facility] who visits daily. 02/09 HH PT continues. Mobility/Falls: WNL Except Mobility Comment: 12/27 denies falls 12/29 using walker consistently 01/10 reports fall at home prior to second admit was from tripping on her O2 hose. denies loose carpeting, cluttered path or other obstacles. [facility] scheduled to start on Friday 01/12 Integumentary: WNL Except Integumentary Comment: 12/27 bruises at IV sites ut they are turning green and going away. Feeling of Well Being: WNL Feeling of Well Being Comment: 12/27 lives with grandson 12/29 son lives behind her and Caden lives beside her. She has her life alert on and is occasioinally home alone 01/10 states shes never alone since hospital dc. even calls for Caden when getting up in the night to use the bathroom 01/22 she has someone in her home to help her 28/04 Pretty much never alone. 02/02 Caden had to leave town yesterday so she has another person, Raquel, checking on her but not staying in home she depends on grand son to help her at night and w meals. Still has [facility] 3x a week Socialization Comment: 01/10 prefers to stay in her home. does not leave to go shopping, only to MD fry Pain/Management Comment: 12/29 knees are still painful. has percocet prn, meloxicam. Considering getting knee injection and maybe a replacement if cleared for surgery 01/10 reports when she fell she landed on her right knee and was using percocet. now its better and she only uses tylenol 01/22 Knee improved 02/02 Knee pain much improved Scheduled Follow-Up with Francisco Javieri: Yes (appt coty Marie later today.02/17 Shobha 0514) Community Resources/HHC: 12/29 has meals brought in, life alert, warose provider Personal Health Record Updated: Yes Primary Care Provider Visits: Yes Questions for Future PCP Visit: 12/29 new swelling in her feet is a concern nd is taking lasix as ordered. Creatine/kidney function. resuming cinnamon 01/10 swelling persists. has resumed amlodipine due to increased bp's Following Discharge Instructio: Yes TCM Discharge Criteria Medication Knowledge: 12/27 most but Aide sets up for her 12/29 review allmeds with both. Would like to resume cinnamon as shes been on it for years. Amlodipine was ordered to be continued but states that SALES ACCOUNT MANAGER dc that med along time ago along with losartan (that is not ordered). She has all meds and adjusted insulin dose. Has just gotten renewals from [facility]. Medplanner is filled and Caden checks to make sure the right days/times are being used 01/10 states Juliennebradbraulio picked up her 2 new meds; iron and amlidipine. denies se Disease Management/Concern/Wha: COPD, pneumonia, DM hi/lo01/15 went over the red and yellow flags of Pneu, COPD and DM 01/22 went over red yellow flags of COPD, pneu and pneu. her comment is "I know" Red/Yellow Flags: 12/27 Went over yellow/red flags of pneu. Hypo/[id number]/30 went over red and yellow flags of pneu, and hypo/hyperglycemia. Transitional Care Comment: 12/27 She stated she was doing OK "but was weak and had no ambition." enc her to move around and some activity but she had been very ill and it will take awhile for her strength to return.She lives with Grandson and has an aide. Is agreeable to HV on Friday. Has appt on 01/06 with Estela. She was aware of the Insulin changes and has been doing BS. 12/29 had a bad day yesterday but better today. States last time she got sick that it hit her suddenly with no warning signs the day before. Will have grandchildren stay away when they are sick and she stays home most of time. Watch swelling closely. Cant get in to see SALES ACCOUNT MANAGER until the . 01/10 states she feels better after this hospital dc than the last time she went home but, sounds a little depressed. 01/15 Sounded upset d/t the edema and it not going down.. Wanted to know if she came to the ER would they help her. I suggested she call Finesse's office and talk it over with her.States she has HH and they been helping her with walking and cares and Caden stays with her to help her when they're not there. 01/22 sounds despondent over the phone. States she is just very tired and just wants to sleep all the time. nick blood and Danielle thinkds she might need blood transfusions. I looked at labs and don't see any new lab draws. Danielle states she only does her BS once a day and they have been between 80-110. Feels like lungs have improved. Has appt with Estela Mraie NP 01/26. 01/31 unable to contact. 02/02 States she is feeling somewhat better. Estela cancelled her appt on 01/26 as her blood work had improved. ?Had an appt to see her today but had to cancel as Caden was OOT and she had no way to get there. Has not made another appt. Will do so when Caden gets back. Enc her to continue exercises 02/09 She has an Appt with Estela Marie later today. She still feels worn down, "they were going to do a blood tranfusion on me last month." No change in resp status. I encouraged her to stay as active as she can. Unable to contact-left message 02/[address] office saw Shobha Galvan NP, Increased her Thyroid to 75 meq and stopped her iron. Jairoalonzo states she "is doing ok" O2 remains at 4 1/2L-5L Will FU again in a couple wks Copies to: ESTELA MARIE JOAN February 17, 2018 12:31
--- NOTE | 2018-02-23 11:15 | Transitional Care Management ---
Assessment Visit Type: Telephone Visit Spoke with: Ashley Cardiac: WNL Cardiac Comment: 12/29 enc her to find her wrist bp monitor and do periodic bps and record to show DENTAL INSURANCE COORDINATOR at next visit due to fluctuations when in hospital. Has pitting BLE edema since return home. Reports she had Top Ramen for dinner last pm. Enc low salt, limit fluids to 2 L a day for a while, elevate feet an do ROM exercises on feet 01/10 DC from [facility] yesterday with persistent edema. reminded to keep TEDS on, limit salt/fluids, elevate and take lasix daily as ordered 01/15 States the edema hasn't gotten any better, Having a hard time walking as feet and legs swollen" Asked her if she was keeping feet elevated while sitting and she staed she was.01/22 Swelling to feet continues. States she does keep them elevated. Denies CP 02/02 Swelling slightly improve-keeps feet up when sitting or on pillows when in bed. Denies CP 02/09 Edema slowly getting better. 02/17 Edema improving. Denies CP 02/23 states still on amlodipine and lasix. Edema decreasing slowly, elevates feet, Ar hose and low NA diet. Monitor BP at home daily Respiratory: WNL Except Respiratory Comment: 12/27 tired, no ambition, remains slightly SOB even though O2 is 3L. Reminded her that she was very sick here in the hospital and that it will take awhile for her to regain her strenght- to take it easy and rest. stated "I still have a cough with brn sputum" explained to her that she had been really sick but if it doesn't get better or is bloody she should visit with her PCP 12/29 NPC. Review s/s to report. Has rare jabier tinged sputum,nothing like previous sputum with blood 01/10 no cough, sob. wearing O2 at 5 L; states sats 88-92% 01/15 states she is still wearing O2 at 5L and still feels SOB.. I encouaged her to call Estela Marie's office and discuss this with her. Especially since she doesn't see her until 01/27. 01/22 states she did call Masha office but no changes. Will see her next week. Premium did draw blood for WBC States she is VERY tired and wants to sleep all the time. Enc her to try and move around so she doesn't get pneu again. 02/02 O2/5L states "I'm feeling a little better." still get SOB w much activity. cont to enc to enc her to get up and move around and take deep breaths to avoid getting pneu again. 02/17 Uning O2 4 1/2-5L Remains SOB w activity 02/23 O2 at 4 L. Denies SOB or productive cough. Is not doing breathing exercises but agree to do them GI: Nutrition: WNL Except GI Comment: 12/27 not really hungery but eating my diabetic meals, Reminded her of the changes in her insulin. She was aware 12/29 ADA. Knows lantus is now 30 units instead of 40 units. review previous am [facility] hospital were in 50's. Gave her log to record bs prior to visiting DENTAL INSURANCE COORDINATOR. Review s/s low and hi bs. states before she came in was shaky and confused and that they checked her bs first. Review aspiration prevention that ST gave her info about. 01/10 review se of iron is constipation. takes linzess daily but enc to monitor for constipation and use her miralax if needed. denies upset stomach with iron 01/17 Denies stomach discofrot or constipation. 02/02 does Bs q am and they are between 80-120 02/23 BS 118 this am. States she is eating good Wt Gain/Loss: WNL Weight Comment: 01/15 Not weighting- enc her to do so to see if she is gaining more wt with the fluid retention. 01/22 Continues to not wt. 02/02 still not weighting. 02/09 States that she has lost 25 pounds. 02/[address] office down a couple more lbs. Constipation?: No (12/29 taking linzess daily. will use softener or miralax if percocet is constipating) : WNL Musculoskeletal, Exercise: WNL Except Musculoskeletal, Excercise Com: 12/27 weak and no motivation. "trying to move around the house. 12/29 review she could call to get PT/OT if wanted but still declines. Enc more activity and AROM instead of PROM provided by Caden on her feet 01/10 enc to walk a little more around the house when up to bathroom etc to get stronger and help edema 01/15 Enc to move more around the house so she doesn't get pneu again and also to help the fluid. she states HH helps her with ambulating and cares. 01/22 No changes to tired to move around much. HH does cont to come and help her 3X a week and she has someone from [facility] who visits daily. 02/09 HH PT continues. Mobility/Falls: WNL Except Mobility Comment: 12/27 denies falls 12/29 using walker consistently 01/10 reports fall at home prior to second admit was from tripping on her O2 hose. denies loose carpeting, cluttered path or other obstacles. [facility] scheduled to start on 01/12 [facility]HC PT dc 02/20. States is confidend with mobility in home with walker. Denies falls Integumentary: WNL Except Integumentary Comment: 12/27 bruises at IV sites ut they are turning green and going away. Feeling of Well Being: WNL Feeling of Well Being Comment: 12/27 lives with grandson 12/29 son lives behind her and Caden lives beside her. She has her life alert on and is occasioinally home alone 01/10 states shes never alone since hospital dc. even calls for Caden when getting up in the night to use the bathroom 01/22 she has someone in her home to help her 28/04 Pretty much never alone. 02/02 Caden had to leave town yesterday so she has another person, Raquel, checking on her but not staying in home she depends on grand son to help her at night and w meals. Still has [facility] 3x a week Socialization Comment: 01/10 prefers to stay in her home. does not leave to go shopping, only to MD fry Pain/Management Comment: 12/29 knees are still painful. has percocet prn, meloxicam. Considering getting knee injection and maybe a replacement if cleared for surgery 01/10 reports when she fell she landed on her right knee and was using percocet. now its better and she only uses tylenol 01/22 Knee improved 02/02 Knee pain much improved Scheduled Follow-Up with Provi: Yes (appt coty Marie later today.02/17 Shobha 0514. Sees Shobha again in May) Community Resources/[facility]: 12/29 has meals brought in, life alertfanta provider Personal Health Record Updated: Yes Primary Care Provider Visits: Yes Questions for Future PCP Visit: 12/29 new swelling in her feet is a concern nd is taking lasix as ordered. Creatine/kidney function. resuming cinnamon 01/10 swelling persists. has resumed amlodipine due to increased bp's Following Discharge Instructio: Yes TCM Discharge Criteria Medication Knowledge: 12/27 most but Aide sets up for her 12/29 review allmeds with both. Would like to resume cinnamon as shes been on it for years. Amlodipine was ordered to be continued but states that DENTAL INSURANCE COORDINATOR dc that med along time ago along with losartan (that is not ordered). She has all meds and adjusted insulin dose. Has just gotten renewals from [employer]. Medplanner is filled and Caden checks to make sure the right days/times are being used 01/10 states Caden picked up her 2 new meds; iron and amlidipine. denies se 02/23 Verbalizes changes to meds from last SOFTWARE TESTER visit Disease Management/Concern/Wha: COPD, pneumonia, DM hi/lo01/15 went over the red and yellow flags of Pneu, COPD and DM 01/22 went over red yellow flags of COPD, pneu and pneu. her comment is "I know" Red/Yellow Flags: 12/27 Went over yellow/red flags of pneu. Hypo/[id number]/30 went over red and yellow flags of pneu, and hypo/hyperglycemia. Transitional Care Comment: 12/27 She stated she was doing OK "but was weak and had no ambition." enc her to move around and some activity but she had been very ill and it will take awhile for her strength to return.She lives with Grandson and has an aide. Is agreeable to HV on Friday. Has appt on 01/06 with Estela. She was aware of the Insulin changes and has been doing BS. 12/29 had a bad day yesterday but better today. States last time she got sick that it hit her suddenly with no warning signs the day before. Will have grandchildren stay away when they are sick and she stays home most of time. Watch swelling closely. Cant get in to see DENTAL INSURANCE COORDINATOR until the . 01/10 states she feels better after this hospital dc than the last time she went home but, sounds a little depressed. 01/15 Sounded upset d/t the edema and it not going down.. Wanted to know if she came to the ER would they help her. I suggested she call Finesse's office and talk it over with her.States she has HH and they been helping her with walking and cares and Caden stays with her to help her when they're not there. 01/22 sounds despondent over the phone. States she is just very tired and just wants to sleep all the time. GEOFF nick blood and Danielle thinkds she might need blood transfusions. I looked at labs and don't see any new lab draws. Danielle states she only does her BS once a day and they have been between 80-110. Feels like lungs have improved. Has appt with Estela Marie NP 01/26. 01/31 unable to contact. 02/02 States she is feeling somewhat better. Estela cancelled her appt on 01/26 as her blood work had improved. ?Had an appt to see her today but had to cancel as Caden was OOT and she had no way to get there. Has not made another appt. Will do so when Caden gets back. Enc her to continue exercises 02/09 She has an Appt with Estela Marie later today. She still feels worn down, "they were going to do a blood tranfusion on me last month." No change in resp status. I encouraged her to stay as active as she can. Unable to contact-left message 02/[address] office saw Shobha Galvan NP, Increased her Thyroid to 75 meq and stopped her iron. Jairoalonzo states she "is doing ok" O2 remains at 4 1/2L-5L Will FU again in a couple wks 02/23 Feels "much better" with more energy , independence, self mangement at home. Symptoms of edema, SOB pain are well managed. Agree to discharge ERIKA JEFF February 23, 2018 11:14
== END 2018-02-23 13:19 | disposition home or self-care (01) ==
LOC: TCM 14:22
PROVIDERS: ATTEND Nurse Practitioner
DX: Z02.9 Encounter for administrative examinations, unspecified (principal)

== ENCOUNTER 2017-12-30 14:17 | Observation (INO) | payer MEDICARE, MEDICAID ==
[~2017-12-30] VITALS: Ht 172.7 cm; Wt 108.9 kg
[~2017-12-30 14:17] MED LIST changes: -FERR-53 PO
--- NOTE | 2017-12-30 14:20 | ER Report ---
History and Physical Time Seen By MD: 14:19 (DELGADO GILBERT MD) HPI/ROS CHIEF COMPLAINT: Mechanical Fall HISTORY OF PRESENT ILLNESS: Patient was just discharged from transitional care unit yesterday after being admitted for bacterial pneumonia with sepsis. She returns to the emergency department by animal itself or a trip and a fall through a doorway. Patient states the fall was purely mechanical as at no time did she experience any chest pain or discomfort prior to during or after the fall. There is no loss of consciousness. Patient did hit her head and she does have a right-sided parietal occipital hematoma. She is complaining of right knee pain. She also has a hematoma to the middle of the left forearm. Patient denies any abdominal pain. She denies nausea vomiting or diarrhea. Patient denies fevers or chills. REVIEW OF SYSTEMS: Constitutional: No fever, no chills. Eyes: No discharge. ENT: No sore throat. Cardiovascular: No chest pain, no palpitations. Respiratory: No cough, no shortness of breath. Gastrointestinal: No abdominal pain, no vomiting. Genitourinary: No hematuria. Musculoskeletal: No back pain. Skin: No rashes. Bruised right knee right forearm and occiput Neurological: No headache. (DELGADO GILBERT MD) Allergies: Coded Allergies: bacitracin (Verified Allergy, Intermediate, RASH, 10/11/17) gramicidin D (Verified Allergy, Intermediate, RASH, 10/11/17) neomycin (Verified Allergy, Intermediate, RASH, 10/11/17) polymyxin B (Verified Allergy, Intermediate, RASH, 10/11/17) levofloxacin (Verified Allergy, Unknown, 12/17/17) Home Meds Active Scripts Oxycodone Hcl/Acetaminophen (OXYCODONE-ACETAMINOPHEN 5-325) 1 Each Tablet, 1 EACH PO Q4-6H Y for PAIN, #20 TAB Prov:EUSEBIA LYLES V DO 12/30/17 Insulin Glargine,Hum.rec.anlog (LANTUS SOLOSTAR) 100 Unit/1 Ml Insuln.pen, 30 UNIT SQ QHS, #1 CART Prov:KANDICE COREAS DO 12/26/17 Oxybutynin Chloride (OXYBUTYNIN CHLORIDE) 5 Mg Tablet, 1 TAB PO BID, #180 TAB 3 Refills Prov:WENDY STONE MD 12/22/14 Gabapentin (GABAPENTIN) 400 Mg Capsule, 400 MG PO TID, #90 CAPSULE 12 Refills Prov:WENDY STONE MD 10/03/14 Reported Medications Cyanocobalamin (Vitamin B-12) (CYANOCOBALAMIN INJECTION) 1,000 Mcg/1 Ml Vial, 1000 MCG IJ Qmonthly, VIAL 12/17/17 Oxycodone Hcl/Acetaminophen (OXYCODONE-ACETAMINOPHEN 5-325) 1 Each Tablet, 1 EACH PO Q6H, TAB 12/17/17 Umeclidinium [place] (Incruse Ellipta) 62.5 Mcg Blst.w.dev, QDAY 12/17/17 Nicotine (NICOTROL) 10 Mg/Inh Ctr, 10 MG INH 12/17/17 Amlodipine Besylate (AMLODIPINE BESYLATE) 10 Mg Tablet, 1 TAB PO QHS, TAB 12/17/17 Levothyroxine Sodium (LEVOTHYROXINE SODIUM) 50 Mcg Tablet, 50 MCG PO QDAY, TAB 12/17/17 Cholecalciferol (Vitamin D3) (VITAMIN D-3) 2,000 Unit Capsule, 2000 UNIT PO, CAPSULE 12/17/17 Baclofen (BACLOFEN) 10 Mg Tablet, 10 MG PO TID Y for PAIN, #30 TAB 10/11/17 Olmesartan Medoxomil (BENICAR) 40 Mg Tablet, 40 MG PO QAM 10/11/17 Citalopram Hydrobromide (CITALOPRAM HBR) 20 Mg Tablet, 20 MG PO QAM, #5 TAB 10/11/17 Doxazosin Mesylate (DOXAZOSIN MESYLATE) 4 Mg Tablet, 4 MG PO HS 10/11/17 Fluticasone/Vilanterol (Breo Ellipta 200-25 Mcg INH) 1 Each Blst.w.dev, 1 PUFF INH QDAY 05/01/17 Linaclotide (LINZESS) 145 Mcg Capsule, 145 MCG PO QAM, CAPSULE 05/01/17 Furosemide (LASIX) 20 Mg Tablet, 1-2 TAB PO QAM, TAB 05/01/17 Aspirin (ASPIRIN) 81 Mg Tab.chew, 81 MG PO QHS, TAB.CHEW 05/01/17 Atorvastatin Calcium (LIPITOR) 20 Mg Tablet, 1 TAB PO QHS, TAB 05/01/17 Oxygen (OXYGEN) Inha, 3 L INH CONTINUOUS, L 10/18/16 Dexlansoprazole (DEXILANT) 60 Mg Cap., 60 MG PO QHS 10/18/16 Fish Oil/Dha/Epa (FISH OIL 1,200 MG FISH OIL) 1 Each Capsule, 1 EACH PO TID, CAPSULE 10/18/16 Sitagliptin Phos/Metformin Hcl (JANUMET 50-1,000 MG TABLET) 1 Each Tablet, 1 EACH PO BID 10/18/16 Meloxicam (MELOXICAM) 7.5 Mg Tablet, 7.5 MG PO QAM 10/18/16 Allopurinol (ALLOPURINOL) 100 Mg Tablet, 100 MG PO QAM, TAB 10/18/16 Discontinued Reported Medications Sitagliptin Phos/Metformin Hcl (JANUMET 50-1,000 MG TABLET) 1 Each Tablet, 1 EACH PO BID 12/17/17 Olmesartan Medoxomil (BENICAR) 40 Mg Tablet, 40 MG PO QDAY 12/17/17 Losartan Potassium (LOSARTAN POTASSIUM) 100 Mg Tablet, 100 MG PO QDAY 12/17/17 Oxycodone Hcl/Acetaminophen (PERCOCET 10-325 MG TABLET) 1 Each Tablet, 1 EACH PO Q6H, TAB 12/17/17 [Vitamin B12] No Conflict Check, 1 UNIT SUBQ QMONTH 10/11/17 Insulin Glargine (LANTUS) 100 Unit/Ml Soln, 40 UNIT SUBQ QHS, ML 10/18/16 Cinnamon Bark (CINNAMON) 500 Mg Capsule, 1000 MG PO BID, CAPSULE 02/22/14 Past Medical/Surgical History Past medical history for obesity, pancreatitis, history of hypercholesterolemia , GERD, hypertension, type II diabetes, COPD. (DELGADO GILBERT MD) Hx Smoking: Yes (1/2-1PPD, FOR 50 YRS) Smoking Status: Current: Every Day Smoker Exposure to Second Hand Smoke?: Yes Hx Substance Use Disorder: No Hx Alcohol Use: No (DELGADO GILBERT MD) Constitutional Vital Sign - Last 24 Hours 12/30/17 12/30/17 12/30/17 12/30/17 14:17 14:18 15:19 15:30 Temp 97.7 Pulse 74 74 Resp 18 B/P (MAP) 200/92 199/89 (125) 214/100 (138) Pulse Ox 89 91 O2 Delivery Nasal Cannula 12/30/17 12/30/17 12/30/17 12/30/17 15:32 15:37 15:52 16:00 Pulse 63 64 64 B/P (MAP) 186/85 (118) Pulse Ox 92 91 93 12/30/17 12/30/17 12/30/17 12/30/17 16:07 16:22 16:30 16:52 Pulse 65 59 67 B/P (MAP) 187/82 (117) Pulse Ox 92 89 88 12/30/17 12/30/17 12/30/17 17:03 17:10 17:22 B/P (MAP) 205/87 (126) 218/100 (139) Pulse Ox 92 (LAURORA,EUSEBIA V DO) Physical Exam General Appearance: The patient is alert, has no immediate need for airway protection and no signs of toxicity. Eyes: Pupils equal and round no pallor or injection. ENT, Mouth: Mucous membranes are moist. Patient has tenderness around C7 midline to palpation collar remains intact. Respiratory: There are no retractions, lungs are clear to auscultation. Cardiovascular: Regular rate and rhythm. Gastrointestinal: Abdomen is soft and non tender, no masses, bowel sounds normal. Neurological: GCS is 15 Skin: Warm and dry, no rashes. Has right sided occipital parietal hematoma, there is a small bruise to the right knee and she also has a hematoma to the right forearm midshaft of the radius and ulna. There does not appear to be any deformities. [Musculoskeletal: Patient has pain to the right knee. She has difficulty lifting the right leg (DELGADO GILBERT MD) Medical Decision Making Data Points Result Diagram: 12/31/17 0508 12/30/17 1409 Laboratory Hematology Test 12/30/17 14:09 Red Blood Count 3.31 M/uL (4.17-5.56) Mean Corpuscular Volume 94.5 fL (80.0-96.0) Mean Corpuscular Hemoglobin 32.4 pg (26.0-33.0) Mean Corpuscular Hemoglobin Concent 34.3 g/dL (32.0-36.0) Red Cell Distribution Width 15.2 % (11.5-14.5) Mean Platelet Volume 7.6 fL (7.2-11.1) Neutrophils (%) (Auto) 86.5 % (39.4-72.5) Lymphocytes (%) (Auto) 8.2 % (17.6-49.6) Monocytes (%) (Auto) 4.4 % (4.1-12.4) Eosinophils (%) (Auto) 0.7 % (0.4-6.7) Basophils (%) (Auto) 0.2 % (0.3-1.4) Nucleated RBC Relative Count (auto) 0.0 /100WBC Neutrophils # (Auto) 9.0 K/uL (2.0-7.4) Lymphocytes # (Auto) 0.8 K/uL (1.3-3.6) Monocytes # (Auto) 0.5 K/uL (0.3-1.0) Eosinophils # (Auto) 0.1 K/uL (0.0-0.5) Basophils # (Auto) 0.0 K/uL (0.0-0.1) Nucleated RBC Absolute Count (auto) 0.00 K/uL Sodium Level 136 mmol/L (137-145) Potassium Level 4.8 mmol/L (3.5-5.0) Chloride Level 101 mmol/L (98-107) Carbon Dioxide Level 24 mmol/L (22-31) Blood Urea Nitrogen 17 mg/dl (7-18) Creatinine 1.00 mg/dl (0.52-1.04) Glomerular Filtration Rate Calc 54.7 Random Glucose 125 mg/dl (75-110) Calcium Level 9.8 mg/dl (8.4-10.2) Total Bilirubin 0.5 mg/dl (0.2-1.3) Aspartate Amino Transf (AST/SGOT) 27 U/L (0-35) Alanine Aminotransferase (ALT/SGPT) 31 U/L (0-56) Alkaline Phosphatase 83 U/L (0-126) Total Protein 7.8 gm/dl (6.3-8.2) Albumin 3.8 g/dl (3.5-5.0) Chemistry Test 12/30/17 14:09 White Blood Count 10.4 k/uL (4.5-11.0) Red Blood Count 3.31 M/uL (4.17-5.56) Hemoglobin 10.7 g/dL (12.0-16.0) Hematocrit 31.3 % (34.0-47.0) Mean Corpuscular Volume 94.5 fL (80.0-96.0) Mean Corpuscular Hemoglobin 32.4 pg (26.0-33.0) Mean Corpuscular Hemoglobin Concent 34.3 g/dL (32.0-36.0) Red Cell Distribution Width 15.2 % (11.5-14.5) Platelet Count 358 K/uL (150-450) Mean Platelet Volume 7.6 fL (7.2-11.1) Neutrophils (%) (Auto) 86.5 % (39.4-72.5) Lymphocytes (%) (Auto) 8.2 % (17.6-49.6) Monocytes (%) (Auto) 4.4 % (4.1-12.4) Eosinophils (%) (Auto) 0.7 % (0.4-6.7) Basophils (%) (Auto) 0.2 % (0.3-1.4) Nucleated RBC Relative Count (auto) 0.0 /100WBC Neutrophils # (Auto) 9.0 K/uL (2.0-7.4) Lymphocytes # (Auto) 0.8 K/uL (1.3-3.6) Monocytes # (Auto) 0.5 K/uL (0.3-1.0) Eosinophils # (Auto) 0.1 K/uL (0.0-0.5) Basophils # (Auto) 0.0 K/uL (0.0-0.1) Nucleated RBC Absolute Count (auto) 0.00 K/uL Glomerular Filtration Rate Calc 54.7 Calcium Level 9.8 mg/dl (8.4-10.2) Total Bilirubin 0.5 mg/dl (0.2-1.3) Aspartate Amino Transf (AST/SGOT) 27 U/L (0-35) Alanine Aminotransferase (ALT/SGPT) 31 U/L (0-56) Alkaline Phosphatase 83 U/L (0-126) Total Protein 7.8 gm/dl (6.3-8.2) Albumin 3.8 g/dl (3.5-5.0) (VIJAYAORA,EUSEBIA V DO) EKG/Imaging Imaging head neg acute intracranial pathology; cervical neg fx but ddd/oa; Forarm neg KNee no acute fx but + djd, oa and puprapatella effusion cxr shows improving pneumonia hip OA (VIJAYAPAMEUSEBIA DO) ED Course/Re-evaluation ED Course Patient is a 72-year-old female status post mechanical fall at home. Plan at this time will be CT of the head, C-spine we will also x-ray the chest to look for any residual pneumonia. We will x-ray the right forearm right knee and right hip. (DELGADO GILBERT MD) ED Course 12/30/2017 4:37:50 pm Pt signed out to me pending imaging which showed no acute emergent pathology. PT feels she can go home. Pt has a walker at home and states she will use. Pt states she feels better accept for right knee hurts. Wll akanksha wrap and reocmmend ice. Pt has used percocet in past so will give pt perocet. PTs family is in the room and is very upset. "i want to get all her records from her last admission for icu forward". Family feel that they were never told about her hospital stay and that they are her emergency contact. They are upset because she had renal failure in icu. I explained that we did check her renal function is stable currently. Also let family know that her xray shows improvement. family upset that she was d/c before her lungs were completely cleared. I told the family that I can not get her the records since medical records is currently closd for the day; but, I will have medical record paper requests signed now and when medical records is available tomorrow they will have the form. 12/30/2017 5:17:31 pm Pts family upset about pts current blood pressure and will not take her home with its current level. I suspect some of the blood pressure is due to pt pain which I have just medicated. I will also give pt a blood pressure medication. Pts family was given a script for a automated blood pressure cuff so that they can monitor her bp at home and keep a log for her pcp. 12/30/2017 5:45:07 pm Pts blood pressure is improving post percocet and clonidine but family refusing to take pt home. "i think she should never had been discharged". will speak with hospitalist. 12/30/2017 5:50:[address] Humphreys who will admit. Decision to Disposition Date: Dec 30, 2017 Decision to Disposition Time: 16:42 (EUSEBIA LYLES DO) Depart Departure Latest Vital Signs Vital Signs Date Time Temp Pulse Resp B/P (MAP) Pulse Ox O2 Delivery O2 Flow Rate FiO2 12/30/17 17:22 92 12/30/17 17:10 218/100 (139) 12/30/17 16:52 67 12/30/17 14:18 97.7 18 Nasal Cannula (EUSEBIA LYLES DO) Impression: Primary Impression: Fall Additional Impressions: Contusion of knee, right Osteoarthritis (arthritis due to wear and tear of joints) Closed head injury Uncontrolled hypertension Generalized weakness Condition: Condition Unchanged Disposition: Admitted from ER Referrals: MELANIE ESCALANTE (PCP) 2 Days [facility] 2 Days New Scripts Oxycodone Hcl/Acetaminophen (OXYCODONE-ACETAMINOPHEN 5-325) 1 Each Tablet 1 EACH PO Q4-6H Y for PAIN, #20 TAB Prov: EUSEBIA LYLES DO 12/30/17 Patient Instructions: Contusion in Adults (DC), Osteoarthritis (DC) Problem Qualifiers Primary Impression: Fall Encounter type: initial encounter Qualified Codes: W19.XXXA - Unspecified fall, initial encounter Additional Impressions: Contusion of knee, right Encounter type: initial encounter Qualified Codes: S80.01XA - Contusion of right knee, initial encounter Osteoarthritis (arthritis due to wear and tear of joints) Osteoarthritis location: unspecified site Osteoarthritis type: unspecified Qualified Codes: M19.90 - Unspecified osteoarthritis, unspecified site Closed head injury Encounter type: initial encounter Qualified Codes: S09.90XA - Unspecified injury of head, initial encounter DELGADO GILBERT MD Dec 30, 2017 14:20 EUSEBIA LYLES DO Dec 30, 2017 16:50
[2017-12-30] MEDS ORDERED: DIPHTH/TETANUS/ACEL. PERTUSSIS IM ONE (14:25)
[2017-12-30 14:36] LABS: PLATELET COUNT, AUTOMATED 358 K/uL (150-450)
--- NOTE | 2017-12-30 15:06 | RADIOLOGY IMAGING REPORT ---
FACILITY: [facility] - [place] PATIENT NAME: Danielle Moody : 1945 MR: [id number] V: [id number] EXAM DATE: ORDERING PHYSICIAN: DELGADO GILBERT TECHNOLOGIST: Location: [facility] Patient: Danielle Moody : 1945 Visit/Account:[id number] Date of Sevice: 12/30/[address] scan without contrast HISTORY: Trauma COMPARISONS: December 18, 2017 TECHNIQUE: Non-contrast head CT was performed with sagittal and coronal reformations. One of the following dose optimization techniques was utilized in the performance of this exam: autom ated exposure control; adjustment of the mA and/or kV according to patient size; or use of iterative reconstruction technique. Specific details can be referenced in the facility's radiology CT exam ope rational policy. FINDINGS: There is no intracranial hemorrhage, hydrocephalus or midline shift. The basal cisterns, borjas-white differentiation, and convexity sulci are maintained. Small amount of right frontoparietal scalp hemor rhage. Mild unchanged patchy white matter hypoattenuation. Cataract postsurgical change. Clear mastoi d air cells, bilateral maxillary sinus mucous retention cysts, no fracture. IMPRESSION: No acute intracranial abnormality. Right frontoparietal scalp hemorrhage. Report Dictated By: Rodo Varghese MD at 12/30/2017 2:54 PM Report E-Signed By: Rodo Varghese MD at 12/30/2017 3:02 PM WSN:[id number]
--- NOTE | 2017-12-30 15:16 | RADIOLOGY IMAGING REPORT ---
[place] [facility] [place] NAME: Danielle Moody : 1945 MR: [id number] V: [id number] EXAM DATE: ORDERING PHYSICIAN: DELGADO GILBERT TECHNOLOGIST: Location: [facility] - [place] Patient: Danielle Moody : 1945 Visit/Account:[id number] Date of Sevice: 12/30/2017 C-SPINE W/O CONTRAST EXAMINATION: CT cervical spine with contrast Contrast amount: Trauma One of the following dose optimization techniques was utilized in the performance of this exam: Autom ated exposure control; adjustment of the mA and/or kV according to the patient's size; or use of an i terative reconstruction technique. Specific details can be referenced in the facility's radiology C T exam operational policy. COMPARISON STUDIES: None TECHNIQUE: Axial images were obtained from the skull base through the upper thoracic spine with IV co ntrast administration. Coronal and sagittal reformatted images were obtained from the axial source da ta. FINDINGS: Prevertebral soft tissues: Negative Alignment: Straightening of the cervical spine. Vertebral bodies: Vertebral bodies well-maintained with respect to height and alignment. No fracture s. Cortex intact with no cortical fracture noted. Posterior elements: Facet joints well-maintained and aligned with no facet fracture or disruption. Disc spaces: Prominent disc osteophyte complexes projecting within the neural canal at the C3-4 and C 4-5 levels. This is resulting in central canal stenosis of the moderate degree at the C4-5 level. L dilia changes at the C3-4 level. Lateral recess impingement changes on the left at the C3-4 level.. Mild left neural foraminal narrowing changes at the C4-5 level. Visualized soft tissues anterior neck: Negative Visualized lung/mediastinum: Negative IMPRESSION: 1. Negative cervical spine for acute bony pathology. Mild/moderate degenerative changes as describe d Report Dictated By: Jamir Michel MD at 12/30/2017 3:01 PM Report E-Signed By: Jamir Michel MD at 12/30/2017 3:11 PM WSN:[email or web address]
--- NOTE | 2017-12-30 15:47 | RADIOLOGY IMAGING REPORT ---
FACILITY: [facility] PATIENT NAME: Danielle Moody : 1945 MR: [id number] V: [id number] EXAM DATE: ORDERING PHYSICIAN: DELGADO GILBERT TECHNOLOGIST: Location: [facility] Patient: Danielle Moody : 1945 Visit/Account:[id number] Date of Sevice: 12/30/2017 CHEST PA AND LAT Additional pertinent History: Fall COMPARISON STUDIES: 12/20/2017 FINDINGS: Support lines and catheters: None Lungs and Pleura: Improvement in the appearance of the previously seen and described dense consolida tion in the left midlung field. Residual patchy interstitial alveolar infiltrative changes remain bu t distinct improvement. Heart and vasculature: Negative. Sapna and Mediastinum: Negative. Bones and Chest wall: No acute bony pathology. Truncation of both distal clavicles. Mild anterior wedging of the midthoracic vertebral bodies. Upper Abdomen: Negative. IMPRESSION: 1. No acute lung pathology. 2. Improving left lung consolidation when compared to previous study. Minimal residual infiltrative change remains. Report Dictated By: Jamir Michel MD at 12/30/2017 3:40 PM Report E-Signed By: Jamir Michel MD at 12/30/2017 3:43 PM WSN:[email or web address]
--- NOTE | 2017-12-30 15:48 | RADIOLOGY IMAGING REPORT ---
FACILITY: [facility] - [place] PATIENT NAME: Danielle Moody : 1945 MR: [id number] V: [id number] EXAM DATE: ORDERING PHYSICIAN: DELGADO GILBERT TECHNOLOGIST: Location: [facility] [place] Patient: Danielle Moody : 1945 Visit/Account:[id number] Date of Sevice: 12/30/2017 HIP RIGHT Indication: Trauma. Comparison: None Available Findings: AP view of the pelvis. AP and frog-leg views of the right hip. No evidence of acute fracture, dislocation, or radiopaque foreign body. Moderate bilateral hip osteoarthritis. Arterial calcifications. Pelvic phleboliths. Degenerative rosas ges in the included portion of the lumbar spine. IMPRESSION: 1. No acute osseous abnormality of the pelvis or right hip. 2. Moderate bilateral hip osteoarthritis. Report Dictated By: Matt De Leon MD at 12/30/2017 3:41 PM Report E-Signed By: Matt De Leon MD at 12/30/2017 3:43 PM WSN:[email or web address]
--- NOTE | 2017-12-30 15:49 | RADIOLOGY IMAGING REPORT ---
FACILITY: [facility] PATIENT NAME: Danielle Moody : 1945 MR: [id number] V: [id number] EXAM DATE: ORDERING PHYSICIAN: DELGADO GILBERT TECHNOLOGIST: Location: [facility] - [place] Patient: Danielle Moody : 1945 Visit/Account:[id number] Date of Sevice: 12/30/2017 FOREARM RIGHT Indication: Right forearm injury. Comparison: None available Findings: 2 views of the right forearm. No evidence of acute fracture, dislocation, or radiopaque foreign body. Chondrocalcinosis in the radiocarpal and elbow joints. Mild osteoarthritis of the triscaphe and 1st c arpometacarpal joints. IMPRESSION: No acute osseous abnormality of the right forearm. Report Dictated By: Matt De Leon MD at 12/30/2017 3:43 PM Report E-Signed By: Matt De Leon MD at 12/30/2017 3:44 PM WSN:[email or web address]
--- NOTE | 2017-12-30 15:52 | RADIOLOGY IMAGING REPORT ---
FACILITY: [facility] PATIENT NAME: Danielle Moody : 1945 MR: [id number] V: [id number] EXAM DATE: ORDERING PHYSICIAN: DELGADO GILBERT TECHNOLOGIST: Location: [facility] Patient: Danielle Moody : 1945 Visit/Account:[id number] Date of Sevice: 12/30/2017 KNEE 4 VIEW RIGHT HISTORY: trauma four view examination of the right knee FINDINGS: No acute bony pathology. Symmetric significant joint space narrowing of both the medial lateral join t compartments with marginal osteophytes and chondrocalcinosis changes. Medial translation of the fe moral condyles relative to the tibial plateau by approximately 5 mm. Patellofemoral degenerative nohelia nges. Patellar sunrise views demonstrates medial translation. Joint effusion noted. Soft tissue sw elling in the prepatellar and infrapatellar soft tissues IMPRESSION: 1. Tricompartment DJD changes of an advanced degree. 2. Fairly significant suprapatellar joint effusion. 3. Prepatellar and infrapatellar soft tissue swelling change. Report Dictated By: Jamir Michel MD at 12/30/2017 3:43 PM Report E-Signed By: Jamir Michel MD at 12/30/2017 3:47 PM WSN:[email or web address]
[2017-12-30] MEDS ORDERED: oxyCODONE/ACETAMIN 5/325MG TH 2 TAB/BOTTLE PO ONE (16:35)
[2017-12-30] MEDS ORDERED: OXYC-373 PO (16:46)
[2017-12-30] MEDS ORDERED: PER PO (16:46)
[2017-12-30] MEDS ORDERED: cloNIDine HCL 0.1 MG TAB PO ONE (17:15)
[2017-12-30 20:15] VITALS: BP 177/88
--- NOTE | 2017-12-30 21:22 | History & Physical ---
History of Present Illness Chief Complaint s/p Fall at home and uncontrolled BP History of Present Illness Mrs. Moody is a 72 y.o. femal;e with PMH of HTN, DM-II, COPD, Dyslipidemia, Obesity, GERD, Hypothyroidism, Peripheral Neuropathy , Depression and recent episodes of Pneumonias. She was recently discharged from the hospital after pneumonia.after being admitted and treated for bacterial pneumonia with sepsis. She returns to the emergency department after having a fall through a doorway. Patient states the fall was purely mechanical as at no time did she experience any chest pain or discomfort prior to during or after the fall. There is no loss of consciousness. Patient did hit her head and she does have a right-sided parietal occipital hematoma. She is complaining of right knee pain. She also has a hematoma to the middle of the left forearm. Patient denies any abdominal pain. She denies nausea vomiting or diarrhea. Patient denies fevers or chills. During the ER investigation all the XR's were negative for acute fracture. Her BP was high 218/100 in the ER probably due to her pain. She received BP and pain management in the ER. She was being d/c'd but the family was reluctant to take her home with weakness and high BP. I discussed the case with the ER-MD and admitted the patient for observation and correction of her BP. History Home Meds Active Scripts Oxycodone Hcl/Acetaminophen (OXYCODONE-ACETAMINOPHEN 5-325) 1 Each Tablet, 1 EACH PO Q4-6H Y for PAIN, #20 TAB Prov:EUSEBIA LYLES V DO 12/30/17 Insulin Glargine,Hum.rec.anlog (LANTUS SOLOSTAR) 100 Unit/1 Ml Insuln.pen, 30 UNIT SQ QHS, #1 CART Prov:KANDICE COREAS DO 12/26/17 Oxybutynin Chloride (OXYBUTYNIN CHLORIDE) 5 Mg Tablet, 1 TAB PO BID, #180 TAB 3 Refills Prov:WENDY STONE MD 12/22/14 Gabapentin (GABAPENTIN) 400 Mg Capsule, 400 MG PO TID, #90 CAPSULE 12 Refills Prov:WENDY STONE MD 10/03/14 Reported Medications Cyanocobalamin (Vitamin B-12) (CYANOCOBALAMIN INJECTION) 1,000 Mcg/1 Ml Vial, 1000 MCG IJ Qmonthly, VIAL 12/17/17 Oxycodone Hcl/Acetaminophen (OXYCODONE-ACETAMINOPHEN 5-325) 1 Each Tablet, 1 EACH PO Q6H, TAB 12/17/17 Umeclidinium [place] (Incruse Ellipta) 62.5 Mcg Blst.w.dev, QDAY 12/17/17 Nicotine (NICOTROL) 10 Mg/Inh Ctr, 10 MG INH 12/17/17 Amlodipine Besylate (AMLODIPINE BESYLATE) 10 Mg Tablet, 1 TAB PO QHS, TAB 12/17/17 Levothyroxine Sodium (LEVOTHYROXINE SODIUM) 50 Mcg Tablet, 50 MCG PO QDAY, TAB 12/17/17 Cholecalciferol (Vitamin D3) (VITAMIN D-3) 2,000 Unit Capsule, 2000 UNIT PO, CAPSULE 12/17/17 Baclofen (BACLOFEN) 10 Mg Tablet, 10 MG PO TID Y for PAIN, #30 TAB 10/11/17 Olmesartan Medoxomil (BENICAR) 40 Mg Tablet, 40 MG PO QAM 10/11/17 Citalopram Hydrobromide (CITALOPRAM HBR) 20 Mg Tablet, 20 MG PO QAM, #5 TAB 10/11/17 Doxazosin Mesylate (DOXAZOSIN MESYLATE) 4 Mg Tablet, 4 MG PO HS 10/11/17 Fluticasone/Vilanterol (Breo Ellipta 200-25 Mcg INH) 1 Each Blst.w.dev, 1 PUFF INH QDAY 05/01/17 Linaclotide (LINZESS) 145 Mcg Capsule, 145 MCG PO QAM, CAPSULE 05/01/17 Furosemide (LASIX) 20 Mg Tablet, 1-2 TAB PO QAM, TAB 05/01/17 Aspirin (ASPIRIN) 81 Mg Tab.chew, 81 MG PO QHS, TAB.CHEW 05/01/17 Atorvastatin Calcium (LIPITOR) 20 Mg Tablet, 1 TAB PO QHS, TAB 05/01/17 Oxygen (OXYGEN) Inha, 3 L INH CONTINUOUS, L 10/18/16 Dexlansoprazole (DEXILANT) 60 Mg , 60 MG PO QHS 10/18/16 Fish Oil/Dha/Epa (FISH OIL 1,200 MG FISH OIL) 1 Each Capsule, 1 EACH PO TID, CAPSULE 10/18/16 Sitagliptin Phos/Metformin Hcl (JANUMET 50-1,000 MG TABLET) 1 Each Tablet, 1 EACH PO BID 10/18/16 Meloxicam (MELOXICAM) 7.5 Mg Tablet, 7.5 MG PO QAM 10/18/16 Allopurinol (ALLOPURINOL) 100 Mg Tablet, 100 MG PO QAM, TAB 10/18/16 Discontinued Reported Medications Sitagliptin Phos/Metformin Hcl (JANUMET 50-1,000 MG TABLET) 1 Each Tablet, 1 EACH PO BID 12/17/17 Olmesartan Medoxomil (BENICAR) 40 Mg Tablet, 40 MG PO QDAY 12/17/17 Losartan Potassium (LOSARTAN POTASSIUM) 100 Mg Tablet, 100 MG PO QDAY 12/17/17 Oxycodone Hcl/Acetaminophen (PERCOCET 10-325 MG TABLET) 1 Each Tablet, 1 EACH PO Q6H, TAB 12/17/17 [Vitamin B12] No Conflict Check, 1 UNIT SUBQ QMONTH 10/11/17 Insulin Glargine (LANTUS) 100 Unit/Ml Soln, 40 UNIT SUBQ QHS, ML 10/18/16 Cinnamon Bark (CINNAMON) 500 Mg Capsule, 1000 MG PO BID, CAPSULE 02/22/14 Allergies: Coded Allergies: bacitracin (Verified Allergy, Intermediate, RASH, 10/11/17) gramicidin D (Verified Allergy, Intermediate, RASH, 10/11/17) neomycin (Verified Allergy, Intermediate, RASH, 10/11/17) polymyxin B (Verified Allergy, Intermediate, RASH, 10/11/17) levofloxacin (Verified Allergy, Unknown, 12/17/17) Patient History: FH: breast cancer BROTHER, , Age:71 BROTHER, FH: colon cancer SISTER, FH: diabetes mellitus MOTHER, , Age:94 FH: lung cancer FATHER, , Age:71 SISTER, FH: stroke SISTER, Hx Smoking: Yes (1/2-1PPD, FOR 50 YRS, Quit on 10/11/2017) Smoking Status: Former Smoker Exposure to Second Hand Smoke?: Yes Caffeine Intake: Coffee Caffeine/Cups Per Day: 4-6 Hx Alcohol Use: No Hx Substance Use Disorder: Yes (2x/month) Social Drug Use: Occasional Social Drugs: Marijuana Review of Systems Constitutional: No Fever, No Weight Loss, No Weight Gain, No Chills Neurological: No Confusion, No Weakness, No Dizziness ENT: No Sinus Congestion, No Sore Throat Cardiovascular: No Chest Pain, No Palpitations Respiratory: Cough, No Shortness of Breath, No Wheezing Gastrointestinal: No Nausea, No Vomiting, No Diarrhea, No Constipation, No Abdominal Pain Genitourinary: No Dysuria, No Hematuria Musculoskeletal: No Pain, No Sprain, No Strain Psychiatric: No Depression, No Anxiety Exam Vital Signs Vital Signs Date Time Temp Pulse Resp B/P (MAP) Pulse Ox O2 Delivery O2 Flow Rate FiO2 12/30/17 20:15 98.0 52 20 177/88 (117) 93 High-Flow Nasal Cannula 4.0 General Appearance: Alert, Awake, No Acute Distress, Afebrile Neuro: No Gross deficits Eyes: PERRLA ENT: Normal Neck: No Masses Cardiovascular: Normal Rhythm & Peripheral Pulses Respiratory: No Respiratory Distress GI: Abd Soft and Non-Tender Extremities: Soft and Non Tender, Edema Integumentary: Generalized Fragile Skin, Other (lacerations) Psych: Alert & Oriented X3 Medical Decision Making Data Points Result Diagram: 12/30/17 1409 12/30/17 1409 Pre-Admit Course Medical Record Review: Yes Assessment and Plan Problems: (1) Fall Status: Acute Assessment & Plan: Nursing care and fall precautions will be provided. PT evaluation in am and if she is cleared by PT then she can go back home. (2) Contusion of knee, right Status: Acute Assessment & Plan: There is no fracture of skull, UE and the knee. Pain management with Narcotics (3) Uncontrolled hypertension Status: Acute Assessment & Plan: I will resume her all home medications including her BP meds. Her CCB was held by her PCP. Olmesartan 40mg po qd Doxazosin 4mg po at hs Low salt diet (4) Type II diabetes mellitus Onset Date: 06/23/2014 Status: Chronic Assessment & Plan: I will continue her Lantus 32 Units at dinner time and Janumet 50/1000mg po bid. Accucheck q AC and HS Moderate sliding scale with regular Insulin. !800 Eliezer ADA diet (5) COPD (chronic obstructive pulmonary disease) Status: Chronic Assessment & Plan: I will use Duoneb treatments and use her home meds also. Oxygen to keep O2 sat >90% Condition stable Time Spent on Plan of Care: < 30 min Copies to: MELANIE ESCALANTE PAPER TUBE MACHINE OPERATOR Venous Thromboembolism VTE Risk Physician Assess for VTE Risk: Yes Patient's VTE Risk: High VTE Diagnostic Test 2 Days Prior to Admit: No Antithrombotics Is Pt On Any Antithrombotics?: No Exam Sepsis Risk: No Definite Risk Problem Qualifiers (1) Fall: Encounter type: initial encounter Qualified Codes: W19.XXXA - Unspecified fall, initial encounter (2) Contusion of knee, right: Encounter type: initial encounter Qualified Codes: S80.01XA - Contusion of right knee, initial encounter KENNA PIMENTEL MD Dec 30, 2017 21:22
[2017-12-30] MEDS ORDERED: ACETAMINOPHEN 325 MG TAB PO PRN (21:45)
[2017-12-30] MEDS ORDERED: BACLOFEN 10 MG TAB PO PRN (22:00)
[2017-12-30] MEDS: ALBUTEROL/IPRATROPIUM 3 ML NEB NEB SCH ×2 (22:00→23:15)
[2017-12-30] MEDS: NIFEdipine XL 30 MG TABCR PO SCH (22:34)
[2017-12-30] MEDS ORDERED: DOXAZOSIN MESYLATE 2 MG TAB PO ONE (22:35)
[2017-12-30] MEDS ORDERED: LEVOTHYROXINE SOD 0.05 MG TAB PO ONE (22:35)
[2017-12-30] MEDS ORDERED: PATIENT'S OWN MED INH PRN ×2 (23:10)
[2017-12-30] MEDS: metFORMIN HCL 500 MG TAB PO SCH (23:48)
[2017-12-30] MEDS: INSULIN GLARGINE 100 U/ML 3 ML PEN SUBQ SCH (23:50)
[2017-12-30 23:52] VITALS: BP 145/58
[2017-12-31 05:25] LABS: PLATELET COUNT, AUTOMATED 269 K/uL (150-450)
[2017-12-31] MEDS: ALBUTEROL/IPRATROPIUM 3 ML NEB NEB SCH ×5 (05:50→22:11)
[2017-12-31] MEDS: PANTOPRAZOLE SOD 40 MG TABEC PO SCH (06:30)
[2017-12-31] MEDS: metFORMIN HCL 500 MG TAB PO SCH ×2 (07:26→16:54)
[2017-12-31 07:29] VITALS: BP 131/59
[2017-12-31] MEDS ORDERED: metFORMIN HCL 500 MG TAB PO SCH (07:30)
[2017-12-31] MEDS ORDERED: FUROSEMIDE 40 MG TAB PO SCH (09:00)
[2017-12-31] MEDS ORDERED: OMEGA-3 500 MG CAP PO SCH (09:00)
[2017-12-31 09:06] VITALS: Ht 172.7 cm; Wt 108.9 kg
[2017-12-31] MEDS: GABAPENTIN(*) 100 MG CAP 100 MG, GABAPENTIN(*) 300 MG CAP 300 MG PO SCH ×3 (09:48→20:39)
[2017-12-31] MEDS: NIFEdipine XL 30 MG TABCR PO SCH (09:48)
[2017-12-31] MEDS: ALLOPURINOL 100 MG TAB PO SCH (09:49)
[2017-12-31] MEDS: OLMESARTAN 20 MG TAB PO SCH (09:49)
[2017-12-31] MEDS: OXYBUTYNIN CHL 5 MG TAB PO SCH ×2 (09:49→20:39)
[2017-12-31] MEDS: CHOLECALCIFEROL 1000 UNIT TAB PO SCH (09:49)
[2017-12-31] MEDS: FERROUS SULFATE 325 MG TAB PO SCH ×2 (09:49→16:54)
[2017-12-31] MEDS: CITALOPRAM HYDROBROM 20 MG TAB PO SCH (09:49)
[2017-12-31] MEDS: LINACLOTIDE 145 MCG CAPSULE PO SCH (09:50)
[2017-12-31] MEDS: OMEGA-3 500 MG CAP PO SCH ×3 (09:56→20:40)
[2017-12-31] MEDS ORDERED: UMECLIDINIUM BROMIDE INH PRN (10:00)
[2017-12-31] MEDS ORDERED: FLUTICASONE/VILANTEROL 1 EACH INHALER INH PRN (10:00)
[2017-12-31 11:30] VITALS: BP 154/56
[2017-12-31 15:41] VITALS: BP 140/55
[2017-12-31] MEDS: INSULIN GLARGINE 100 U/ML 3 ML PEN SUBQ SCH (16:56)
[2017-12-31] MEDS ORDERED: ASPIRIN 81 MG ENTERIC COATED PO SCH (17:00)
[2017-12-31] MEDS ORDERED: INSULIN GLARGINE 100 U/ML 3 ML PEN SUBQ SCH (17:00)
[2017-12-31] MEDS ORDERED: ATORVASTATIN 10 MG TAB PO SCH (17:00)
[2017-12-31 19:50] VITALS: BP 129/62
[2017-12-31] MEDS ORDERED: LEVOTHYROXINE SOD 0.05 MG TAB PO SCH (21:00)
[2017-12-31] MEDS ORDERED: DOXAZOSIN MESYLATE 2 MG TAB PO SCH (21:00)
--- NOTE | 2017-12-31 22:12 | Hospitalist Progress Note ---
Subjective Progress Notes Subjective Mrs. Moody is a 72 y.o. femal;e with PMH of HTN, DM-II, COPD, Dyslipidemia, Obesity, GERD, Hypothyroidism, Peripheral Neuropathy , Depression and recent episodes of Pneumonias. She was recently discharged from the hospital after pneumonia.after being admitted and treated for bacterial pneumonia with sepsis. She returns to the emergency department after having a fall through a doorway. Patient states the fall was purely mechanical as at no time did she experience any chest pain or discomfort prior to during or after the fall. There is no loss of consciousness. Patient did hit her head and she does have a right-sided parietal occipital hematoma. She is complaining of right knee pain. She also has a hematoma to the middle of the left forearm. Patient denies any abdominal pain. She denies nausea vomiting or diarrhea. Patient denies fevers or chills. During the ER investigation all the XR's were negative for acute fracture. Her BP was high 218/100 in the ER probably due to her pain. She received BP and pain management in the ER. She was being d/c'd but the family was reluctant to take her home with weakness and high BP. I discussed the case with the ER-MD and admitted the patient for observation and correction of her BP. 12/31: Her BP has significantly improved after using Procardia XL 30mg daily. She is afebrile and hemodynamically stable without any complaint today. I discussed the case with her family. Patient Complains of: Neurological: No: Confusion, Weakness, Dizziness Cardiovascular: No: Chest Pain, Palpitations Respiratory: No: Cough, Congestion, Shortness of Breath Gastrointestinal: No Nausea, No Vomiting Genitourinary: No Dysuria, No Hematuria Musculoskeletal: No: Pain, Sprain, Strain Physical Exam Vital Signs Date Time Temp Pulse Resp B/P (MAP) Pulse Ox O2 Delivery O2 Flow Rate FiO2 12/31/17 20:40 89 Nasal Cannula 4.5 12/31/17 19:50 98.1 72 16 129/62 (84) Intake and Output 01/01/18 07:00 Intake Total 1000 ml Balance 1000 ml Intake Oral 1000 ml # Voids 4 # Bowel Movements 2 General Appearance: Alert, Awake, No Acute Distress, Afebrile Neuro: No Gross deficits Cardiovascular: Normal Rhythm & Peripheral Pulses Respiratory: No Respiratory Distress GI: Soft and Non-Tender Extremities: Soft and Non Tender, Edema Psych: Alert & Oriented X3 Result Diagram: 12/31/17 0508 12/30/17 1409 Assessment and Plan Problems: (1) Fall Status: Acute Assessment & Plan: Nursing care and fall precautions will be provided. PT evaluation in am and if she is cleared by PT then she can go back home. 12/31: PT evaluation was done and recommended to have subacute PT/OT in a NH setting before discharging home. Awaiting for placement (2) Contusion of knee, right Status: Acute Assessment & Plan: There is no fracture of skull, UE and the knee. Pain management with Narcotics 12/31: No significant pain and I will continue the same treatment (3) Uncontrolled hypertension Status: Acute Assessment & Plan: I will resume her all home medications including her BP meds. Her CCB was held by her PCP. Olmesartan 40mg po qd Doxazosin 4mg po at hs Low salt diet 12/31: I will continue Procardia XL 30mg po qd and explained to her family (4) Type II diabetes mellitus Onset Date: 06/23/2014 Status: Chronic Assessment & Plan: I will continue her Lantus 32 Units at dinner time and Janumet 50/1000mg po bid. Accucheck q AC and HS Moderate sliding scale with regular Insulin. !800 Eliezer ADA diet 12/31: I will continue the same management (5) COPD (chronic obstructive pulmonary disease) Status: Chronic Assessment & Plan: I will use Duoneb treatments and use her home meds also. Oxygen to keep O2 sat >90% Condition stable Time Spent on Plan of Care: < 30 min Copies to: MELANIE ESCALANTE PRECISION INSTRUMENT MAKER Exam Sepsis Risk: No Definite Risk Problem Qualifiers (1) Fall: Encounter type: initial encounter Qualified Codes: W19.XXXA - Unspecified fall, initial encounter (2) Contusion of knee, right: Encounter type: initial encounter Qualified Codes: S80.01XA - Contusion of right knee, initial encounter KENNA PIMENTEL MD Dec 31, 2017 22:12
[2018-01-01 00:02] VITALS: BP 150/69
[2018-01-01 03:40] VITALS: BP 146/62
[2018-01-01] MEDS: ALBUTEROL/IPRATROPIUM 3 ML NEB NEB SCH ×3 (05:10→13:28)
[2018-01-01 07:38] VITALS: BP 127/51
[2018-01-01] MEDS: PANTOPRAZOLE SOD 40 MG TABEC PO SCH (07:48)
[2018-01-01] MEDS: FERROUS SULFATE 325 MG TAB PO SCH (07:48)
[2018-01-01] MEDS: LINACLOTIDE 145 MCG CAPSULE PO SCH (08:25)
[2018-01-01] MEDS: OLMESARTAN 20 MG TAB PO SCH (08:25)
[2018-01-01] MEDS: OMEGA-3 500 MG CAP PO SCH (08:25)
[2018-01-01] MEDS: CITALOPRAM HYDROBROM 20 MG TAB PO SCH (08:26)
[2018-01-01] MEDS: metFORMIN HCL 500 MG TAB PO SCH (08:26)
[2018-01-01] MEDS: ALLOPURINOL 100 MG TAB PO SCH (08:26)
[2018-01-01] MEDS: NIFEdipine XL 30 MG TABCR PO SCH (08:26)
[2018-01-01] MEDS: OXYBUTYNIN CHL 5 MG TAB PO SCH (08:26)
[2018-01-01] MEDS: GABAPENTIN(*) 100 MG CAP 100 MG, GABAPENTIN(*) 300 MG CAP 300 MG PO SCH (08:26)
[2018-01-01] MEDS: CHOLECALCIFEROL 1000 UNIT TAB PO SCH (08:26)
[2018-01-01] MEDS ORDERED: MELOXICAM 7.5 MG TAB PO SCH (09:00)
[2018-01-01] MEDS ORDERED: FUROSEMIDE 20 MG TAB PO SCH (09:00)
--- NOTE | 2018-01-01 10:54 | Hospitalist Progress Note ---
Subjective Progress Notes Subjective This patient was admitted after a fall. She had no acute events overnight. Patient Complains of: Cardiovascular: No: Chest Pain Respiratory: No: Shortness of Breath Physical Exam Vital Signs Date Time Temp Pulse Resp B/P (MAP) Pulse Ox O2 Delivery O2 Flow Rate FiO2 01/01/18 09:37 55 16 01/01/18 09:31 92 High-Flow Nasal Cannula 6.0 01/01/18 07:38 98.7 127/51 (76) Intake and Output 01/02/18 07:00 Intake Total 0 ml Balance 0 ml Intake Oral 0 ml Neuro: No Gross deficits Cardiovascular: Regular Rate and Rhythm Respiratory: Clear to Auscultation Extremities: Edema, Other (Pain and effusion right knee.) Result Diagram: 12/31/17 0508 12/30/17 1409 Imaging Knee x-rays reviewed. Assessment and Plan Problems: (1) Fall Status: Acute Assessment & Plan: She suffered a fall at home. Her only complaint is of right knee pain. Physical and occupational therapy consults are ongoing. [facility] are made. (2) Contusion of knee, right Status: Acute Assessment & Plan: Her x-ray did not show a fracture. She does have an effusion on the right knee and generalized tenderness. We will apply ice packs through the day, but orthopedic consultation may be required if her effusion does not resolve. (3) Uncontrolled hypertension Status: Acute Assessment & Plan: She did have significant blood pressure elevation on admission. She is on treatment with olmesartan, nifedipine, and Lasix. Her blood pressure has been controlled since starting her medication. (4) Type II diabetes mellitus Onset Date: 06/23/2014 Status: Chronic Assessment & Plan: I will continue her Lantus 32 Units at dinner time and Janumet 50/1000mg po bid. Accucheck q AC and HS Moderate sliding scale with regular Insulin. !800 Eliezer ADA diet 12/31: I will continue the same management (5) COPD (chronic obstructive pulmonary disease) Status: Chronic Assessment & Plan: I will use Duoneb treatments and use her home meds also. Oxygen to keep O2 sat >90% Exam Sepsis Risk: No Definite Risk Problem Qualifiers (1) Fall: Encounter type: initial encounter Qualified Codes: W19.XXXA - Unspecified fall, initial encounter (2) Contusion of knee, right: Encounter type: initial encounter Qualified Codes: S80.01XA - Contusion of right knee, initial encounter KANDICE COREAS DO Jan 01, 2018 10:54
== END 2018-01-01 13:45 ==
LOC: ER 14:22 → MED 18:31
PROVIDERS: ADMIT Specialist; ATTEND Specialist
DX: S09.90XA Unspecified injury of head, initial encounter (principal); S80.01XA Contusion of right knee, initial encounter; R53.1 Weakness; I10 Essential (primary) hypertension; E11.9 Type 2 diabetes mellitus without complications; J44.9 Chronic obstructive pulmonary disease, unspecified; W18.30XA Fall on same level, unspecified, initial encounter
CPT/HCPCS: 36415; 36416; 70450; 71046; 72125; 73090; 73502; 73564; 82274; 82948; 85025; 90471; 90715; 94640; 96372; 97116; 97161; 97165; 97535; 99285; A9270; G0378; J7620; 82040; 82247; 82310; 82374; 82435; 82565; 82947; 84075; 84132; 84155; 84295; 84450; 84460; 84520; J1815

== ENCOUNTER → 2017-12-30 | Outpatient (CLI) | payer MEDICARE, MEDICAID ==
[~2017-12-30] MED LIST changes: +CITA-139 PO; -CITA-145 PO; +FERR-53 PO; +INSU100I30 SQ; +METF-410 PO; -METF-411 PO; -METF-421 PO
[2018-01-02 16:25] VITALS: BMI 36.5
== END ==
LOC: AMB 13:36
PROVIDERS: ATTEND Nurse Practitioner
DX: M25.561 Pain in right knee (principal); S00.03XA Contusion of scalp, initial encounter; M79.89 Other specified soft tissue disorders; S50.811A Abrasion of right forearm, initial encounter; I10 Essential (primary) hypertension; W18.30XA Fall on same level, unspecified, initial encounter; Y92.019 Unspecified place in single-family (private) house as the place of occurrence of the external cause
CPT/HCPCS: A0425; A0427

== ENCOUNTER 2018-01-01 13:45 | Inpatient (IN) | payer MEDICARE, MEDICAID ==
[~2018-01-01] VITALS: Ht 174 cm; Wt 122.5 kg
[2018-01-01] MEDS ORDERED: FLUTICASONE/VILANTEROL 1 EACH INHALER INH PRN (14:04)
[2018-01-01] MEDS ORDERED: UMECLIDINIUM BROMIDE INH PRN (14:04)
[2018-01-01] MEDS ORDERED: FUROSEMIDE 40 MG TAB PO SCH (14:04)
[2018-01-01] MEDS ORDERED: MELOXICAM 7.5 MG TAB PO SCH (14:04)
[2018-01-01] MEDS ORDERED: FUROSEMIDE 20 MG TAB PO SCH (14:04)
[2018-01-01] MEDS ORDERED: BACLOFEN 10 MG TAB PO PRN (14:20)
--- NOTE | 2018-01-01 14:25 | PT ECF NOTE ---
Type of Note: Initial Note Primary Medical Diagnosis: Fall, contusion of the R) knee Physical Therapy Evaluation Date: 01/01/18 SUBJECTIVE: Prior Hospitalization: [facility] 12/30/17-01/01/18 Prior Level of Function: Pt reports she was ambulating with 4WW, she reports frequent assist from CNAs and her grandson Prior Living Status: Single level house, Living with family Community Services: [facility] Home Accessibility: 4 stairs with rails Equipment Owned: Rollator Medical Complications/Past Medical History: See EMR Psychosocial Support: Family in town, patient lives with grandson Pain Scale (0-10): 10/10 R) knee OBJECTIVE: Strength: Right Lower Extremity: DF: 4/5 Knee flexion: <3/5, pt refused d/t pain Knee extension: <3/5, pt refused d/t pain Hip flexion: <3/5, pt refused d/t pain Left Lower Extremity: DF: 4/5 Knee flexion: 3+/5 Knee extension: 3+/5 Hip flexion: <3/5 ROM: (please note any abnormalities) R) LE AROM and PROM limited d/t knee pain and swelling Sensation: (please note any abnormalities) no abnormalities noted Other Neuro findings: none noted Bed Mobility: NT Transfers: ModAx2 stand step pivot from w/c to gerichair Gait: Pt refused Stairs: NT Other Objective Measures: Functional Reach: 7 inches ASSESSMENT: PT/OT ECF co eval complete. The patient requires step by step cues for sequencing prior to STS transfer with RW. She required modA x2 to rise to stand from w/c and was initially retropulsive upon standing. Pt with difficulty sequencing stand step pivot from w/c to tom chair, requiring frequent verbal cues and re-direction. The patient declined further ambulation at this time. SpO2 dropped to 81% on 6L with mobility, this returned to WNL with cues for deep breathing. The patient will benefit from skilled rehab to increase independence with functional mobility and decrease need of assistance from others prior to d/c home. Problem List/Current Limitations: Pain Decreased activity jatinder Decreased strength Decreased ROM Decreased balance Generalized weakness Decreased problem solving Confusion Short Term Goals: 1: Pt to complete bed mobility with Chloe 2: Pt to complete transfers with Chloe and least restrictive AD 3: Pt to ambulate 150' with SBA and least restrictive AD 4: Pt to asc/desc 4 stairs with SBA Long-Term Goals: Pt to d/c home with adequate assistance in place Patient Goals: Discharge home Rehabilitation Prognosis: Fair Barriers for Discharge: Confusion, decreased motivation to participate PLAN: The patient will benefit from skilled physical therapy services 5 times per week for 2 weeks including: Therapeutic Exercise Therapeutic Activities Transfer Training Gait Training Stair Training Manual Therapy Safety Training Neuromuscular Re-educ. Pt/Caregiver Training Bed Mobility Thank you for this referral. If you have any questions, concerns, or comments about this report or plan, please contact me at . Ronna Anderson, PT, DPT MTDD
[2018-01-01] MEDS: BACLOFEN 10 MG TAB PO SCH ×2 (14:45→20:47)
--- NOTE | 2018-01-01 14:55 | OT ECF NOTE ---
Type of Note: Initial Note Primary Medical Diagnosis: Generalized weakness s/p fall at home with contusion of R knee Occupational Therapy Evaluation Date: 01/01/18 SUBJECTIVE: Prior Hospitalization: [facility] 12/30/18 thru 01/01/18 with previous [facility] admission thru 12/26/17 Prior Level of Function: Pt reporting she has PRODUCTION MINER assist for all ADLs (AM dressing and showering). She also reports she has consistent assist with toileting as the CNAs live next door and she calls them over whenever she needs them. Pt also resides with grandson who assists with IADLs. Pt with varied reports regarding level of assist for ADLs and frequency of falls at home ( reporting1-3 falls in the last month). Pt oriented to self and situation, requiring v/c's to report accurate date. Prior Living Status: Single level house Living with family-grandson Assist by family Community Services: Support adequate No known needs Home Accessibility: Stairs with rails All needs on one level Walk-in shower (small per pt report, no room for shower chair) Equipment Owned: Rollator Toilet riser Medical Complications/Past Medical History: Current every day smoker, HTN, hyperlipemia, COPD, emphysema, reflux, hiatal hernia, arthritis. Psychosocial Support: Supportive family that live nearby Pain Scale (0-10): Pt initially reporting 29/10 pain in R knee. Pt then reporting 10/10 pain in R knee. Ice applied, emotional support and positioning offered. Pt verbalized relief. OBJECTIVE: Strength: MMT: Right Left Shoulder Flexion WFL WFL Elbow Flexion WFL WFL Wrist Extension WFL WFL Vp Cardiovascular Service Line WFL WFL (5= normal, 4= good, 3= fair, 2= poor, 1= trace) ROM: Both upper extremities, WFL Functional Transfer: Assistive Device: Front wheeled walker, Gait belt Transfer Ability: Moderate assistance, 2-person assist with v/c's for safe sequencing ADL: Upper body dressing: Assistive device: Upper body dressing ability: N/T Lower body dressing: Assistive device: None Lower body dressing ability: Total A Toileting: Assistive device: Toileting ability: N/T Grooming/hygiene: Assistive device: Grooming ability: N/T Bathing: Assistive device: Bathing ability: N/T Standardized Assessment: Cristobal Index of Activities of Daily Livin/20 at initial evaluation () ASSESSMENT: "Ashley" presents to [facility] with generalized weakness limiting safe ambulation and engagement in ADLs. She currently requires 2-person assist for safe sit<>stands and step stand pivot transfers. At [facility], pt reports ambulating with SBA and 4WW throughout home with report of falls at home. Ashley will benefit from skilled OT services to improve activity tolerance for engagement in ADLs prior to discharge home with assist from family. Problem List/Current Limitations: Pain Decreased activity tolerance Decreased strength Generalized weakness Poor safety awareness Lack of motivation Confusion Short Term Goals: 1) Pt will be Min A UB/LB dressing. 2) Pt will be SBA toileting. 3) Pt will be (I) grooming/hygiene seated. 4) Pt Cristobal Index of ADLs will increase by 2 points. 5) Pt will be educated on energy conservation techniques. Car Repairman Goals: Return home with services Patient Goals: "Be able to walk better around my house Rehabilitation Prognosis: Good Barriers to Discharge: Motivation, medical hx, pain PLAN: The patient will benefit from skilled occupational therapy services 5 times per week for 2 weeks including: Ther ex ADL training Safety training Ther act IADL training Transfer training Adaptive equip training Cognitive training Bed mobility Energy conservation Thank you for this referral. If you have any questions, concerns, or comments about this report or plan, please contact me at . Felisha Boyd MS, OTR/L Occupational Therapist MICHAEL
[2018-01-01 15:35] VITALS: BP 136/68
[2018-01-01] MEDS ORDERED: NICOTINE INH SYSTEM 10 MG/INH INH PRN (15:45)
[2018-01-01] MEDS ORDERED: NICOTINE CARTRIDGE 1 EA PO PRN (15:45)
--- NOTE | 2018-01-01 15:59 | Consultant Pharmacy Review ---
Photo Lab Specialist Review Medication Review Do All Mecications have a Diag: Yes Beers Criteria Medication 2014 Alpha 1 Blockers: Doxazosin (4 MG AT HS MAY INCREASE FALL RISK) Proton Pump Inhibitors: Pantoprazole (40 MG QDAY;MAY INCREASE FRACTURE RISK. USE FOR THE SHORTEST TIME POSSIBLE.) Pain Medications: Meloxicam (7.5 MG QODAY. MONITOR RENAL FUNCTION.) Other General Cautions Agents / Umeclidinium Risk Rating X: Avoid combination Summary Umeclidinium may enhance the anticholinergic effect of Anticholinergic Agents. Severity Major Reliability Rating Fair: Reported in the prescribing information Patient Management Avoid concurrent use of umeclidinium with any other drugs that have anticholinergic properties. If such combinations cannot be avoided, monitor patients closely for evidence of anticholinergic-related toxicities ( e.g., urinary retention, constipation, tachycardia, dry mouth, etc.). Anticholinergic Agents Interacting Members Aclidinium; Acrivastine; Amitriptyline; Amoxapine; Atropine (Ophthalmic); Atropine (Systemic); Belladonna ; Benperidol; Benztropine; Bilastine; Biperiden; Bromperidol; Brompheniramine; Buclizine; Carbinoxamine; Cetirizine (Systemic); Chlorpheniramine; ChlorproMAZINE; Cimetropium; Clemastine; Clidinium; ClomiPRAMINE; CloZAPine; Cyclizine; Cyclobenzaprine; Cyclopentolate; Cyproheptadine; Darifenacin; Desipramine; Dexbrompheniramine; Dexchlorpheniramine; Dicyclomine; DimenhyDRINATE; DiphenhydrAMINE (Systemic); DiphenhydrAMINE (Topical); Disopyramide; Dosulepin; Doxepin (Systemic); Doxepin (Topical); Doxylamine; Droperidol; Ebastine; Fesoterodine; Fexofenadine; FlavoxATE; Flupentixol; FluPHENAZine; Glycopyrrolate (Oral Inhalation); Glycopyrrolate (Systemic); Haloperidol; Homatropine; HydrOXYzine; Hyoscyamine; Imidafenacin; Imipramine; Ipratropium (Nasal); Ipratropium (Oral Inhalation); Isocarboxazid; Ketotifen ( Systemic); Levocetirizine; Lofepramine; Loratadine; Loxapine; Maprotiline; Meclizine; Melitracen [INT]; Mepenzolate; Mequitazine; Methotrimeprazine; Methscopolamine; Methylene Blue; Moclobemide; Molindone; Nefopam; Nortriptyline ; OLANZapine; Olopatadine (Systemic); Orphenadrine; Oxatomide; Oxomemazine; Oxybutynin; Periciazine; Perphenazine; Phenelzine; Pheniramine; Phenyltoloxamine ; Pimozide; Pizotifen; Prifinium; Prochlorperazine; Procyclidine; Promazine; Promethazine; Propantheline; Propiverine; Protriptyline; Pyrilamine (Systemic); QUEtiapine; QuiNIDine; RisperiDONE; Rupatadine; Scopolamine (Ophthalmic); Scopolamine (Systemic); Solifenacin; Paraguayan Rue; Thioridazine; Thiothixene; Thonzylamine; Tiotropium; Tiropramide; Tolterodine; Tranylcypromine; Trifluoperazine; Trihexyphenidyl; Trimeprazine; Trimethobenzamide; Trimipramine ; Triprolidine; Trospium; Umeclidinium; Zuclopenthixol Discussion Product labeling for both umeclidinium and umeclidinium with vilanterol caution that concurrent use of any other anticholinergic drugs should be avoided due to the risk for additive/excessive anticholinergic effects.1,2,3 Lexicomp Interaction Analysis A = No known interaction C = Monitor therapy X = Avoid combination B = No action needed D = Consider therapy modification Drugs in this analysis: Acetaminophen; Allopurinol; AmLODIPine; Aspirin; Baclofen; Benicar; Breo Ellipta; Cardura; CeleXA; Cholecalciferol; DuoNeb [DSC] ; Ferrous Sulfate; Fish Oil (SYN); Incruse Ellipta; Januvia; Lantus; Lasix; Levothyroxine; Linzess; Lipitor; MetFORMIN; Mobic; Neurontin; Nicotrol; Oxybutynin; Percocet; Procardia XL; Protonix * Drug-Drug Interactions * X DuoNeb [DSC] (Anticholinergic Agents) Incruse Ellipta (Umeclidinium) X DuoNeb [DSC] (Ipratropium (Oral Inhalation)) Incruse Ellipta ( Anticholinergic Agents) X DuoNeb [DSC] (Ipratropium (Oral Inhalation)) Oxybutynin (Anticholinergic Agents) X Incruse Ellipta (Umeclidinium) Oxybutynin (Anticholinergic Agents) D Aspirin (Salicylates) Mobic (Nonsteroidal Anti-Inflammatory Agents ( Nonselective)) D Baclofen (BURNISHING MACHINE OPERATOR Depressants) Percocet (OxyCODONE) D Breo Ellipta (QTc-Prolonging Agents (Indeterminate Risk and Risk Modifying)) CeleXA (QTc-Prolonging Agents (Highest Risk)) D CeleXA (QTc-Prolonging Agents (Highest Risk)) DuoNeb [DSC] (QTc-Prolonging Agents (Indeterminate Risk and Risk Modifying)) D CeleXA (Selective Serotonin Reuptake Inhibitors) Mobic (Nonsteroidal Anti- Inflammatory Agents (Nonselective)) D Ferrous Sulfate (Iron Salts) Levothyroxine D Januvia (Dipeptidyl Peptidase-IV Inhibitors) Lantus (Insulins) D Lasix (Loop Diuretics) Mobic (Nonsteroidal Anti-Inflammatory Agents) D Neurontin (BURNISHING MACHINE OPERATOR Depressants) Percocet (OxyCODONE) C Allopurinol Lasix (Loop Diuretics) C AmLODIPine (Calcium Channel Blockers) Cardura (Alpha1-Blockers) C Aspirin CeleXA (Selective Serotonin Reuptake Inhibitors) C Aspirin (Agents with Antiplatelet Properties) Fish Oil (SYN) ([place]-3 Fatty Acids) C Aspirin (Salicylates) Januvia (Blood Glucose Lowering Agents) Depends on Dose C Aspirin (Salicylates) Lantus (Blood Glucose Lowering Agents) Depends on Dose C Aspirin (Salicylates) Lasix (Loop Diuretics) C Aspirin (Salicylates) MetFORMIN (Blood Glucose Lowering Agents) Depends on Dose C Baclofen (BURNISHING MACHINE OPERATOR Depressants) CeleXA (Selective Serotonin Reuptake Inhibitors) C Baclofen (BURNISHING MACHINE OPERATOR Depressants) Neurontin (BURNISHING MACHINE OPERATOR Depressants) C Benicar (Angiotensin II Receptor Blockers) Mobic (Nonsteroidal Anti- Inflammatory Agents) C Breo Ellipta (Beta2-Agonists) Lasix (Loop Diuretics) C Breo Ellipta (Corticosteroids (Orally Inhaled)) Lasix (Loop Diuretics) C Breo Ellipta (Sympathomimetics) DuoNeb [DSC] (Sympathomimetics) C Cardura (Alpha1-Blockers) Procardia XL (Calcium Channel Blockers) C CeleXA (Agents with Antiplatelet Properties) Fish Oil (SYN) ([place]-3 Fatty Acids) C CeleXA (Selective Serotonin Reuptake Inhibitors) Januvia (Blood Glucose Lowering Agents) C CeleXA (Selective Serotonin Reuptake Inhibitors) Lantus (Blood Glucose Lowering Agents) C CeleXA (Selective Serotonin Reuptake Inhibitors) Levothyroxine (Thyroid Products) C CeleXA (Selective Serotonin Reuptake Inhibitors) MetFORMIN (Blood Glucose Lowering Agents) C CeleXA (Selective Serotonin Reuptake Inhibitors) Neurontin (BURNISHING MACHINE OPERATOR Depressants ) C CeleXA (Selective Serotonin Reuptake Inhibitors) Percocet (BURNISHING MACHINE OPERATOR Depressants) C CeleXA (Serotonin Modulators) Percocet (Opioid Analgesics) C DuoNeb [DSC] (Anticholinergic Agents) Percocet (Opioid Analgesics) C DuoNeb [DSC] (Beta2-Agonists) Lasix (Loop Diuretics) C Ferrous Sulfate (Iron Salts) Protonix (Proton Pump Inhibitors) C Fish Oil (SYN) ([place]-3 Fatty Acids) Mobic (Agents with Antiplatelet Properties) C Incruse Ellipta (Anticholinergic Agents) Percocet (Opioid Analgesics) C Januvia (Antidiabetic Agents) Lasix (Hyperglycemia-Associated Agents) C Januvia (SITagliptin) Lipitor (AtorvaSTATin) C Lantus (Antidiabetic Agents) Lasix (Hyperglycemia-Associated Agents) C Lantus (Hypoglycemia-Associated Agents) MetFORMIN (Antidiabetic Agents) C Lasix (Diuretics) Percocet (Opioid Analgesics) C Lasix (Hyperglycemia-Associated Agents) MetFORMIN (Antidiabetic Agents) C Oxybutynin (Anticholinergic Agents) Percocet (Opioid Analgesics) B Acetaminophen Percocet (Opioid Analgesics) B AmLODIPine (Calcium Channel Blockers) Mobic (Nonsteroidal Anti-Inflammatory Agents) B Lasix (Furosemide) Levothyroxine (Thyroid Products) Depends on Dose B Levothyroxine (Thyroid Products) Protonix (Proton Pump Inhibitors) B Mobic (Nonsteroidal Anti-Inflammatory Agents) Procardia XL (Calcium Channel Blockers) * Acetaminophen Percocet AmLODIPine Benicar AmLODIPine Cardura AmLODIPine Lasix AmLODIPine Procardia XL Benicar Cardura Benicar Lasix Benicar Procardia XL Cardura Lasix Cardura Procardia XL DuoNeb [DSC] Incruse Ellipta Lasix Procardia XL * Disclaimer: Readers are advised that decisions regarding drug therapy must be based on the independent judgment of the clinician, changing information about a drug (eg, as reflected in the literature and area counselor's most current product information), and changing medical practices. * Terms & Conditions // * Disclaimer * Lexicomp on myQaa * Lexicomp on [employer] * Get [employer] [place] 2018 [employer] and its affiliates and/or licensors. All Rights Reserved. * Top of Form 1 * Bottom of Form 1 Pneumococcal Vaccine HX Pneumo Vac ([id number]): Yes (70) RADHA HAY Jan 01, 2018 15:59
[2018-01-01] MEDS: metFORMIN HCL 500 MG TAB PO SCH (17:05)
[2018-01-01] MEDS: ASPIRIN 81 MG ENTERIC COATED PO SCH (17:05)
[2018-01-01] MEDS: FERROUS SULFATE 325 MG TAB PO SCH (17:05)
[2018-01-01] MEDS: INSULIN GLARGINE 100 U/ML 3 ML PEN SUBQ SCH (17:06)
[2018-01-01] MEDS: ATORVASTATIN 10 MG TAB PO SCH (17:06)
[2018-01-01] MEDS: ALBUTEROL/IPRATROPIUM 3 ML NEB NEB SCH ×2 (17:24→21:04)
[2018-01-01] MEDS: GABAPENTIN(*) 100 MG CAP 100 MG, GABAPENTIN(*) 300 MG CAP 300 MG PO SCH (20:47)
[2018-01-01] MEDS: OXYBUTYNIN CHL 5 MG TAB PO SCH (20:48)
[2018-01-01] MEDS: OMEGA-3 500 MG CAP PO SCH (20:48)
[2018-01-01] MEDS: amLODIPine BESYL(*) 5 MG TAB PO SCH (20:48)
[2018-01-01] MEDS: LEVOTHYROXINE SOD 0.05 MG TAB PO SCH (20:48)
[2018-01-01] MEDS: DOXAZOSIN MESYLATE 2 MG TAB PO SCH (20:48)
[2018-01-02] MEDS: ALBUTEROL/IPRATROPIUM 3 ML NEB NEB SCH ×6 (01:17→21:12)
[2018-01-02 07:30] VITALS: BP 150/70
[2018-01-02] MEDS: ALLOPURINOL 100 MG TAB PO SCH (08:52)
[2018-01-02] MEDS: OXYBUTYNIN CHL 5 MG TAB PO SCH ×2 (08:52→20:30)
[2018-01-02] MEDS: CITALOPRAM HYDROBROM 20 MG TAB PO SCH (08:52)
[2018-01-02] MEDS: metFORMIN HCL 500 MG TAB PO SCH ×2 (08:52→17:10)
[2018-01-02] MEDS: FUROSEMIDE 40 MG TAB PO SCH (08:53)
[2018-01-02] MEDS: OMEGA-3 500 MG CAP PO SCH ×3 (08:53→20:30)
[2018-01-02] MEDS: OLMESARTAN 20 MG TAB PO SCH (08:53)
[2018-01-02] MEDS: GABAPENTIN(*) 100 MG CAP 100 MG, GABAPENTIN(*) 300 MG CAP 300 MG PO SCH ×3 (08:53→20:29)
[2018-01-02] MEDS: FERROUS SULFATE 325 MG TAB PO SCH ×2 (08:53→17:10)
[2018-01-02] MEDS: BACLOFEN 10 MG TAB PO SCH ×3 (08:53→20:30)
[2018-01-02] MEDS: CHOLECALCIFEROL 1000 UNIT TAB PO SCH (08:53)
[2018-01-02] MEDS: LINACLOTIDE 145 MCG CAPSULE PO SCH (08:54)
[2018-01-02] MEDS: NIFEdipine XL 30 MG TABCR PO SCH (08:56)
[2018-01-02] MEDS: PANTOPRAZOLE SOD 40 MG TABEC PO SCH (08:58)
[2018-01-02 13:16] LABS: PLATELET COUNT, AUTOMATED 281 K/uL (150-450)
[2018-01-02] MEDS: ACETAMINOPHEN 325 MG TAB PO PRN (14:15)
[2018-01-02 15:03] VITALS: BP 147/60
--- NOTE | 2018-01-02 15:11 | RADIOLOGY IMAGING REPORT ---
FACILITY: [facility] [place] PATIENT NAME: Danielle Moody : 1945 MR: [id number] V: [id number] EXAM DATE: ORDERING PHYSICIAN: KENNA PIMENTEL TECHNOLOGIST: Location: [facility] Patient: Danielle Moody : 1945 Visit/Account:[id number] Date of Sevice: 01/02/2018 CHEST PA AND LAT Indication: Hypoxia Comparison: Chest x-ray 12/30/2017 Findings: Lungs: Pleural-based reticular opacities seen left upper lobe, stable. Right lung is clear. Mediastinum/pulmonary vasculature: Heart size and pulmonary vasculature are normal. Bones/soft tissues: Normal. IMPRESSION: 1. Pleural-based reticular opacities left lung, stable. 2. Otherwise clear lungs. Report Dictated By: Josef Quintana at 01/02/2018 2:53 PM Report E-Signed By: Josef Quintana at 01/02/2018 3:07 PM WSN:[id number]
[2018-01-02 15:25] VITALS: BP 123/74
--- NOTE | 2018-01-02 15:37 | SPEECH INITIAL EVALUATION ---
INITIAL SPEECH THERAPY EVALUATION REPORT Cognitive Communication Assessment Patient Name: Danielle Moody (Dolly) Date of Evaluation: 01/02/2018 Patient : 1945 Clinician: Melania Boyd M.S., [facility] Treatment Dx: Moderately Severe Cognitive Communication Deficit BACKGROUND The patient is a 72 year old female who [facility]/ reports of repeated falls and possible head injury in home environment. CT scan was negative. Pt and family report that she receives assistance from CNAs (who reside next door) for all ADL tasks. Pt lives w/ grandson who is available to assist w/ IADLs. LANGUAGE/COGNITION The Matt Cognitive Assessment (MoCA) was administered with the following results: -MoCA Total Score (TS): 08/04 = moderately severe cognitive impairment (MCI) -Cognitive Domains Demonstrating Deficits: widespread deficits across assessment items requiring visuospatial skills, executive function, immediate memory, short term memory, attention, semantic fluency, and mental abstraction. -Cognitive Domains Demonstrating Strength: orientation (successful with month , year, day, place, city; unsuccessful with date) Functional Communication: patient demonstrated word-finding deficits, intermittent perseverations, conversational tangents, decreased thought organization, and initially poor insight re: impact of cognitive linguistic deficits on safe participation in IADL tasks. Patient also w/ some masking behaviors including frequent joking, attempts to re-direct assessment tasks, and tendency to shift to preferred topics in conversation. Patient appeared to benefit from increased wait-time and repeated task instructions to comprehend new information. SPEECH: Articulation of speech sounds at word, sentence, and conversational level is wnl. VOICE: within functional limits DYSPHAGIA: Patient observed w/ noon meal. No deficits observed. SUMMARY COGNITIVE / LINGUISTIC ASSESSMENT Patient presents w/ moderately severe cognitive communicative deficits characterized by decreased ability to sustain attention, difficulty completing immediate and short term memory tasks, significant difficulty participating in executive function activities, deficits in functional problem solving, mild delay in speed of processing, and poor error awareness. Patient also exhibits mild word-finding deficits, difficulty comprehending complex, novel information , decreased thought organization, intermittent perseverations, and frequent conversational tangents w/ irrelevant verbal insertions. Results indicate the patient may demonstrate decreased participation and safety w/ IADL's including the following: Executing complex instructions including those for safety and medical information Independent medication management Independent senior financial consultant Coordinating and scheduling medical appointments Safe navigation RECOMMENDATIONS 1. ST 3x/wk PROGNOSIS: Good. Pt exhibits high motivation to return to prior living environment, strong family support, and emerging insight re: cognitive communicative impairments. The patient was initially unaware of poor performance on the standardized assessments, but ultimately endorsed errors when provided w/ concrete examples. Patient was highly willing to participate in speech services, and appears to enjoy socializing with others. ST will following the patient for cognitive linguistic therapy for safety, independence and compensatory strategy training. PLAN OF CARE Short Term Goals 1. The patient will utilize external compensatory memory systems to support recall of functional information during 90% of opportunities with min verbal cues for successful communication related to patient independence, self advocacy, and adherence to safety precautions. 2. The patient will perform executive function tasks (ie. thought organization, planning, problem solving) for successful participation in medical POC, progress towards rehabilitative goals, and role in discharge planning during 90 % of opportunities with min verbal cues. Long-Term Goals 1. The patient will demonstrate functional cognitive communication status for safe discharge to prior living environment w/ independent utilization of compensatory strategies and environmental modifications. Thank you for this referral. Please call [phone] Melania Boyd M.S., CCC-[facility] [*] MICHAEL
[2018-01-02 16:25] VITALS: Ht 174 cm; Wt 122.5 kg
--- NOTE | 2018-01-02 16:59 | EKG ---
FACILITY: [facility] PATIENT NAME: NINO JUDGE : [id number] MR: [id number] V: [id number] EXAM DATE: ORDERING PHYSICIAN: KENNA PIMENTEL TECHNOLOGIST: YANICK Test Reason : CP Blood Pressure : / mmHG Vent. Rate : 062 BPM Atrial Rate : 062 BPM P-R Int : 182 ms QRS Dur : 112 ms QT Int : 418 ms P-R-T Axes : 077 -70 081 degrees QTc Int : 424 ms Normal sinus rhythm Left bundle branch block No ST-T abnormalities When compared with ECG of 18-DEC-2017 19:21, Sinus rhythm has replaced Atrial fibrillation Vent. rate has decreased BY 40 BPM Confirmed by SANTOSH BOLTON ([id number]) on 01/04/2018 1:49:14 PM Referred By: MARGARITO Confirmed By:SANTOSH BOLTON
[2018-01-02] MEDS: ASPIRIN 81 MG ENTERIC COATED PO SCH (17:00)
[2018-01-02] MEDS: ATORVASTATIN 10 MG TAB PO SCH (17:00)
[2018-01-02] MEDS: INSULIN GLARGINE 100 U/ML 3 ML PEN SUBQ SCH (17:10)
[2018-01-02] MEDS: LEVOTHYROXINE SOD 0.05 MG TAB PO SCH (20:30)
[2018-01-02] MEDS: DOXAZOSIN MESYLATE 2 MG TAB PO SCH (20:30)
[2018-01-02] MEDS: amLODIPine BESYL(*) 5 MG TAB PO SCH (20:30)
[2018-01-03] MEDS: ALBUTEROL/IPRATROPIUM 3 ML NEB NEB SCH ×6 (01:13→21:04)
[2018-01-03] MEDS: UMECLIDINIUM BROMIDE INH SCH (05:43)
[2018-01-03] MEDS: FLUTICASONE/VILANTEROL 1 EACH INHALER INH SCH (05:43)
[2018-01-03 07:55] VITALS: BP 114/43
[2018-01-03] MEDS: metFORMIN HCL 500 MG TAB PO SCH ×2 (08:02→16:55)
[2018-01-03] MEDS: PANTOPRAZOLE SOD 40 MG TABEC PO SCH (08:08)
[2018-01-03] MEDS: NIFEdipine XL 30 MG TABCR PO SCH (08:50)
[2018-01-03] MEDS: FUROSEMIDE 20 MG TAB PO SCH (08:50)
[2018-01-03] MEDS: CITALOPRAM HYDROBROM 20 MG TAB PO SCH (08:51)
[2018-01-03] MEDS: GABAPENTIN(*) 100 MG CAP 100 MG, GABAPENTIN(*) 300 MG CAP 300 MG PO SCH ×3 (08:51→21:18)
[2018-01-03] MEDS: MELOXICAM 7.5 MG TAB PO SCH (08:51)
[2018-01-03] MEDS: OXYBUTYNIN CHL 5 MG TAB PO SCH ×2 (08:51→21:17)
[2018-01-03] MEDS: ALLOPURINOL 100 MG TAB PO SCH (08:52)
[2018-01-03] MEDS: OLMESARTAN 20 MG TAB PO SCH (08:52)
[2018-01-03] MEDS: OMEGA-3 500 MG CAP PO SCH ×3 (08:52→21:17)
[2018-01-03] MEDS: FERROUS SULFATE 325 MG TAB PO SCH ×2 (08:52→16:54)
[2018-01-03] MEDS: BACLOFEN 10 MG TAB PO SCH ×3 (08:52→21:17)
[2018-01-03] MEDS: CHOLECALCIFEROL 1000 UNIT TAB PO SCH (08:52)
[2018-01-03] MEDS: LINACLOTIDE 145 MCG CAPSULE PO SCH (09:00)
--- NOTE | 2018-01-03 11:23 | Medical Nutrition Therapy ---
Nutrition Anthropometrics Height (Inches): 68.00 Height (Calculated Centimeters: 172.257089 Weight (Pounds): 240 Weight (Calculated Kilograms): 108.862 BMI Calculated: 36.49 Duke Nutrition Score: Probably Inadequate Duke Nutrition Risk Score: 16 Dietary Referral Nutrition Risk Factors: Nutrition Risk Comment: Nausea & abdominal pain for past 5 days Physical Findings Physical Appearance: Obese BMI 30-39 Skin Appearance Skin Appearance: Edema Edema Location Modifier: Both Edema Location: Lower Extremity Type of Edema: Degree of Edema: 2+ Gastrointestinal Symptoms GI Symtoms: Tube Present: Bowel Sounds: Recent Bowel Pattern: Constipated Stool Characteristics: Nutritional Diagnosis Nutritional Risk Acuity 3: Fair Appetite Past Medical History: DMI, HTN, COPD, depression, GERD, hypercholesterolemia Nutritional Acuity: 3-Mild Nutrition Diagnosis: Inconsistent Carb. Intake Nutrition Etiology: Inconsist. Eating Pattern Nutrition Problem/Etiology/Sym: Inconsistent carbohydrate intake related to inconsistent eating pattern as evidenced by blood glucose ranging from 97-211 and varied intake of 25-100% of meals. Energy Requirement: 1780 (4815-7781) Protein Requirement: 86 (.8 g/kg) Fluid Requirement: 2160 (20 ml/kg) Diet Type: Diabetic Nutrition Intervention: Cont diet as ordered Drug: Diuretics Nutrition Monitoring & Eval RD Patient Assessment Time: [address] Assessment Type: RD Assessment Patient Nutrition Acuity: 3-Mild Follow Up Date: Jan 06, 2018 Nutritional Comment: Pt admitted for repeated falls. Pt has hx of T2DM. BMI is in class 3 obesity range. On diabetic diet and eating 25-100% of small portions. Will cont to monitor and encourage intake. 01/03 Pt undergoing PT/OT for rehab. Currently following ADA diet with variable intake averaging 56% of meals. Notable labs include low H/H, BUN 22, creatinine 1.2, glc ranging from 97-211. Will cont to monitor and encourage intake. KEANU DENNIS Jan 03, 2018 11:23
[2018-01-03] MEDS: INSULIN HUM LISPRO 100 UN/ML 3 ML VIAL SUBQ PRN ×3 (13:24→21:18)
[2018-01-03 15:40] VITALS: BP 107/68
[2018-01-03] MEDS: ASPIRIN 81 MG ENTERIC COATED PO SCH (16:55)
[2018-01-03] MEDS: ATORVASTATIN 10 MG TAB PO SCH (16:55)
[2018-01-03] MEDS: INSULIN GLARGINE 100 U/ML 3 ML PEN SUBQ SCH (16:56)
[2018-01-03] MEDS: LEVOTHYROXINE SOD 0.05 MG TAB PO SCH (21:18)
[2018-01-03] MEDS: amLODIPine BESYL(*) 5 MG TAB PO SCH (21:18)
[2018-01-03] MEDS: DOXAZOSIN MESYLATE 2 MG TAB PO SCH (21:18)
[2018-01-04] MEDS: ALBUTEROL/IPRATROPIUM 3 ML NEB NEB SCH ×6 (01:05→21:08)
[2018-01-04] MEDS: FLUTICASONE/VILANTEROL 1 EACH INHALER INH SCH (05:10)
[2018-01-04] MEDS: UMECLIDINIUM BROMIDE INH SCH (05:13)
[2018-01-04] MEDS: metFORMIN HCL 500 MG TAB PO SCH ×2 (07:57→17:04)
[2018-01-04] MEDS: FERROUS SULFATE 325 MG TAB PO SCH ×2 (07:57→17:39)
[2018-01-04] MEDS: PANTOPRAZOLE SOD 40 MG TABEC PO SCH (07:57)
[2018-01-04 08:20] VITALS: BP 136/69
[2018-01-04] MEDS: NIFEdipine XL 30 MG TABCR PO SCH (08:33)
[2018-01-04] MEDS: OMEGA-3 500 MG CAP PO SCH ×3 (08:33→21:04)
[2018-01-04] MEDS: CHOLECALCIFEROL 1000 UNIT TAB PO SCH (08:33)
[2018-01-04] MEDS: MELOXICAM 7.5 MG TAB PO SCH (08:33)
[2018-01-04] MEDS: OLMESARTAN 20 MG TAB PO SCH (08:34)
[2018-01-04] MEDS: BACLOFEN 10 MG TAB PO SCH ×3 (08:34→21:04)
[2018-01-04] MEDS: OXYBUTYNIN CHL 5 MG TAB PO SCH ×2 (08:35→21:04)
[2018-01-04] MEDS: CITALOPRAM HYDROBROM 20 MG TAB PO SCH (08:35)
[2018-01-04] MEDS: ALLOPURINOL 100 MG TAB PO SCH (08:35)
[2018-01-04] MEDS: GABAPENTIN(*) 100 MG CAP 100 MG, GABAPENTIN(*) 300 MG CAP 300 MG PO SCH ×3 (08:35→21:04)
[2018-01-04] MEDS: FUROSEMIDE 40 MG TAB PO SCH (08:36)
[2018-01-04] MEDS: LINACLOTIDE 145 MCG CAPSULE PO SCH (08:36)
[2018-01-04 15:25] VITALS: BP 116/59
[2018-01-04] MEDS: ASPIRIN 81 MG ENTERIC COATED PO SCH (17:39)
[2018-01-04] MEDS: INSULIN GLARGINE 100 U/ML 3 ML PEN SUBQ SCH (17:39)
[2018-01-04] MEDS: ATORVASTATIN 10 MG TAB PO SCH (17:39)
[2018-01-04] MEDS: LEVOTHYROXINE SOD 0.05 MG TAB PO SCH (21:05)
[2018-01-04] MEDS: amLODIPine BESYL(*) 5 MG TAB PO SCH (21:05)
[2018-01-04] MEDS: DOXAZOSIN MESYLATE 2 MG TAB PO SCH (21:05)
[2018-01-05] MEDS: ALBUTEROL/IPRATROPIUM 3 ML NEB NEB SCH ×6 (01:05→21:11)
[2018-01-05] MEDS: UMECLIDINIUM BROMIDE INH SCH (05:07)
[2018-01-05] MEDS: FLUTICASONE/VILANTEROL 1 EACH INHALER INH SCH (05:07)
[2018-01-05 07:30] VITALS: BP 119/71
[2018-01-05] MEDS: metFORMIN HCL 500 MG TAB PO SCH ×2 (07:35→16:48)
[2018-01-05] MEDS: PANTOPRAZOLE SOD 40 MG TABEC PO SCH (07:38)
[2018-01-05] MEDS: MELOXICAM 7.5 MG TAB PO SCH (08:31)
[2018-01-05] MEDS: OXYBUTYNIN CHL 5 MG TAB PO SCH ×2 (08:31→20:29)
[2018-01-05] MEDS: BACLOFEN 10 MG TAB PO SCH ×3 (08:31→20:29)
[2018-01-05] MEDS: GABAPENTIN(*) 100 MG CAP 100 MG, GABAPENTIN(*) 300 MG CAP 300 MG PO SCH ×3 (08:31→20:29)
[2018-01-05] MEDS: NIFEdipine XL 30 MG TABCR PO SCH (08:31)
[2018-01-05] MEDS: FERROUS SULFATE 325 MG TAB PO SCH ×2 (08:31→17:34)
[2018-01-05] MEDS: CHOLECALCIFEROL 1000 UNIT TAB PO SCH (08:32)
[2018-01-05] MEDS: ALLOPURINOL 100 MG TAB PO SCH (08:32)
[2018-01-05] MEDS: CITALOPRAM HYDROBROM 20 MG TAB PO SCH (08:32)
[2018-01-05] MEDS: LINACLOTIDE 145 MCG CAPSULE PO SCH (08:32)
[2018-01-05] MEDS: FUROSEMIDE 20 MG TAB PO SCH (08:32)
[2018-01-05] MEDS: OLMESARTAN 20 MG TAB PO SCH (08:32)
[2018-01-05] MEDS: OMEGA-3 500 MG CAP PO SCH ×3 (08:32→20:29)
[2018-01-05] MEDS: INSULIN HUM LISPRO 100 UN/ML 3 ML VIAL SUBQ PRN (11:35)
[2018-01-05] MEDS: ASPIRIN 81 MG ENTERIC COATED PO SCH (17:34)
[2018-01-05] MEDS: ATORVASTATIN 10 MG TAB PO SCH (17:34)
[2018-01-05] MEDS: INSULIN GLARGINE 100 U/ML 3 ML PEN SUBQ SCH (17:34)
[2018-01-05 18:50] VITALS: BP 129/63
[2018-01-05] MEDS: amLODIPine BESYL(*) 5 MG TAB PO SCH (20:29)
[2018-01-05] MEDS: LEVOTHYROXINE SOD 0.05 MG TAB PO SCH (20:29)
[2018-01-05] MEDS: DOXAZOSIN MESYLATE 2 MG TAB PO SCH (20:29)
[2018-01-06] MEDS: ALBUTEROL/IPRATROPIUM 3 ML NEB NEB SCH ×5 (05:43→22:09)
[2018-01-06] MEDS: UMECLIDINIUM BROMIDE INH SCH (05:44)
[2018-01-06] MEDS: FLUTICASONE/VILANTEROL 1 EACH INHALER INH SCH (05:44)
[2018-01-06 07:30] VITALS: BP 113/63
[2018-01-06] MEDS: PANTOPRAZOLE SOD 40 MG TABEC PO SCH (07:44)
[2018-01-06] MEDS: metFORMIN HCL 500 MG TAB PO SCH ×2 (07:44→17:09)
--- NOTE | 2018-01-06 08:48 | Medical Nutrition Therapy ---
Nutrition Anthropometrics Height (Inches): 68.00 Height (Calculated Centimeters: 172.654063 Weight (Pounds): 240 Weight (Calculated Kilograms): 108.862 BMI Calculated: 36.49 Duke Nutrition Score: Adequate Duke Nutrition Risk Score: 17 Dietary Referral Nutrition Risk Factors: Nutrition Risk Comment: Nausea & abdominal pain for past 5 days Physical Findings Physical Appearance: Obese BMI 30-39 Skin Appearance Skin Appearance: Edema Edema Location Modifier: Both Edema Location: Lower Extremity Type of Edema: Degree of Edema: 2+ Gastrointestinal Symptoms GI Symtoms: Tube Present: Bowel Sounds: Recent Bowel Pattern: Constipated Stool Characteristics: Nutritional Diagnosis Nutritional Risk Acuity 3: Fair Appetite Past Medical History: DMI, HTN, COPD, depression, GERD, hypercholesterolemia Nutritional Acuity: 3-Mild Nutrition Diagnosis: Inconsistent Carb. Intake Nutrition Etiology: Inconsist. Eating Pattern Nutrition Problem/Etiology/Sym: Inconsistent carbohydrate intake related to inconsistent eating pattern as evidenced by blood glucose ranging from 97-211 and varied intake of 25-100% of meals. Energy Requirement: 1780 (0510-7975) Protein Requirement: 86 (.8 g/kg) Fluid Requirement: 2160 (20 ml/kg) Diet Type: Diabetic Nutrition Intervention: Cont diet as ordered, Encourage intake, HS snack Drug: Diuretics Nutrition Monitoring & Eval Nutrition Goals: Eat 75-100% Meal Nutrition Follow-Up: Good Intake RD Patient Assessment Time: [address] Assessment Type: RD Re-Assessment Patient Nutrition Acuity: 3-Mild Follow Up Date: Jan 13, 2018 Nutritional Comment: Pt admitted for repeated falls. Pt has hx of T2DM. BMI is in class 3 obesity range. On diabetic diet and eating 25-100% of small portions. Will cont to monitor and encourage intake. 01/03 Pt undergoing PT/OT for rehab. Currently following ADA diet with variable intake averaging 56% of meals. Notable labs include low H/H, BUN 22, creatinine 1.2, glc ranging from 97-211. Will cont to monitor and encourage intake. 01/06 Pt cont on ADA diet. BG ranging 109-177 past 3 days. Pt eating 100% of meals. Cont on K+ depeting duiretic. K+ 4.3 on 01/03. Will cont to monitor and encourage intake. JESÚS TEJADA Jan 06, 2018 08:48
[2018-01-06] MEDS: OLMESARTAN 20 MG TAB PO SCH (09:23)
[2018-01-06] MEDS: FUROSEMIDE 40 MG TAB PO SCH (09:23)
[2018-01-06] MEDS: NIFEdipine XL 30 MG TABCR PO SCH (09:23)
[2018-01-06] MEDS: OXYBUTYNIN CHL 5 MG TAB PO SCH ×2 (09:23→21:19)
[2018-01-06] MEDS: CHOLECALCIFEROL 1000 UNIT TAB PO SCH (09:23)
[2018-01-06] MEDS: OMEGA-3 500 MG CAP PO SCH ×3 (09:24→21:20)
[2018-01-06] MEDS: FERROUS SULFATE 325 MG TAB PO SCH ×2 (09:24→17:10)
[2018-01-06] MEDS: GABAPENTIN(*) 100 MG CAP 100 MG, GABAPENTIN(*) 300 MG CAP 300 MG PO SCH ×3 (09:24→21:20)
[2018-01-06] MEDS: BACLOFEN 10 MG TAB PO SCH ×3 (09:24→21:20)
[2018-01-06] MEDS: CITALOPRAM HYDROBROM 20 MG TAB PO SCH (09:24)
[2018-01-06] MEDS: LINACLOTIDE 145 MCG CAPSULE PO SCH (09:25)
[2018-01-06] MEDS: ALLOPURINOL 100 MG TAB PO SCH (09:25)
[2018-01-06] MEDS: ACETAMINOPHEN 325 MG TAB PO PRN (13:57)
[2018-01-06 16:00] VITALS: BP 127/66
[2018-01-06] MEDS: ATORVASTATIN 10 MG TAB PO SCH (17:09)
[2018-01-06] MEDS: ASPIRIN 81 MG ENTERIC COATED PO SCH (17:09)
[2018-01-06] MEDS: INSULIN GLARGINE 100 U/ML 3 ML PEN SUBQ SCH (17:11)
[2018-01-06] MEDS: DOXAZOSIN MESYLATE 2 MG TAB PO SCH (21:19)
[2018-01-06] MEDS: amLODIPine BESYL(*) 5 MG TAB PO SCH (21:20)
[2018-01-06] MEDS: LEVOTHYROXINE SOD 0.05 MG TAB PO SCH (21:20)
[2018-01-06] MEDS: INSULIN HUM LISPRO 100 UN/ML 3 ML VIAL SUBQ PRN (21:23)
[2018-01-07] MEDS: FLUTICASONE/VILANTEROL 1 EACH INHALER INH SCH (05:36)
[2018-01-07] MEDS: ALBUTEROL/IPRATROPIUM 3 ML NEB NEB SCH ×5 (05:36→21:34)
[2018-01-07] MEDS: UMECLIDINIUM BROMIDE INH SCH (05:36)
[2018-01-07] MEDS: PANTOPRAZOLE SOD 40 MG TABEC PO SCH (07:43)
[2018-01-07] MEDS: metFORMIN HCL 500 MG TAB PO SCH ×2 (07:43→17:22)
[2018-01-07 08:15] VITALS: BP 119/59
[2018-01-07] MEDS: OLMESARTAN 20 MG TAB PO SCH (08:47)
[2018-01-07] MEDS: BACLOFEN 10 MG TAB PO SCH ×3 (08:48→20:33)
[2018-01-07] MEDS: GABAPENTIN(*) 100 MG CAP 100 MG, GABAPENTIN(*) 300 MG CAP 300 MG PO SCH ×3 (08:48→20:32)
[2018-01-07] MEDS: ALLOPURINOL 100 MG TAB PO SCH (08:48)
[2018-01-07] MEDS: CITALOPRAM HYDROBROM 20 MG TAB PO SCH (08:48)
[2018-01-07] MEDS: FUROSEMIDE 20 MG TAB PO SCH (08:48)
[2018-01-07] MEDS: OXYBUTYNIN CHL 5 MG TAB PO SCH ×2 (08:48→20:33)
[2018-01-07] MEDS: CHOLECALCIFEROL 1000 UNIT TAB PO SCH (08:49)
[2018-01-07] MEDS: LINACLOTIDE 145 MCG CAPSULE PO SCH (08:49)
[2018-01-07] MEDS: OMEGA-3 500 MG CAP PO SCH ×3 (08:49→20:33)
[2018-01-07] MEDS: FERROUS SULFATE 325 MG TAB PO SCH ×2 (08:51→17:21)
[2018-01-07] MEDS: MELOXICAM 7.5 MG TAB PO SCH (09:24)
[2018-01-07] MEDS: NIFEdipine XL 30 MG TABCR PO SCH (09:25)
--- NOTE | 2018-01-07 15:02 | ECF H&P BLANK ---
ECF H&P UPDATE The acute care issues below are resolving and/or stable. Patient requires mcfp and/or skilled rehabilitation and is ready for admission to Extended Care. Any change in condition is described below. History of Present Illness Chief Complaint s/p Fall at home and uncontrolled BP History of Present Illness Mrs. Moody is a 72 y.o. femal;e with PMH of HTN, DM-II, COPD, Dyslipidemia, Obesity, GERD, Hypothyroidism, Peripheral Neuropathy , Depression and recent episodes of Pneumonias. She was recently discharged from the hospital after pneumonia.after being admitted and treated for bacterial pneumonia with sepsis. She returns to the emergency department after having a fall through a doorway. Patient states the fall was purely mechanical as at no time did she experience any chest pain or discomfort prior to during or after the fall. There is no loss of consciousness. Patient did hit her head and she does have a right-sided parietal occipital hematoma. She is complaining of right knee pain. She also has a hematoma to the middle of the left forearm. Patient denies any abdominal pain. She denies nausea vomiting or diarrhea. Patient denies fevers or chills. During the ER investigation all the XR's were negative for acute fracture. Her BP was high 218/100 in the ER probably due to her pain. She received BP and pain management in the ER. She was being d/c'd but the family was reluctant to take her home with weakness and high BP. I discussed the case with the ER-MD and admitted the patient for observation and correction of her BP. History Home Meds Active Scripts Oxycodone Hcl/Acetaminophen (OXYCODONE-ACETAMINOPHEN 5-325) 1 Each Tablet, 1 EACH PO Q4-6H Y for PAIN, #20 TAB Prov:EUSEBIA LYLES V DO 12/30/17 Insulin Glargine,Hum.rec.anlog (LANTUS SOLOSTAR) 100 Unit/1 Ml Insuln.pen, 30 UNIT SQ QHS, #1 CART Prov:KANDICE COREAS DO 12/26/17 Oxybutynin Chloride (OXYBUTYNIN CHLORIDE) 5 Mg Tablet, 1 TAB PO BID, #180 TAB 3 Refills Prov:WENDY STONE MD 12/22/14 Gabapentin (GABAPENTIN) 400 Mg Capsule, 400 MG PO TID, #90 CAPSULE 12 Refills Prov:WENDY STONE MD 10/03/14 Reported Medications Cyanocobalamin (Vitamin B-12) (CYANOCOBALAMIN INJECTION) 1,000 Mcg/1 Ml Vial, 1000 MCG IJ Qmonthly, VIAL 12/17/17 Oxycodone Hcl/Acetaminophen (OXYCODONE-ACETAMINOPHEN 5-325) 1 Each Tablet, 1 EACH PO Q6H, TAB 12/17/17 Umeclidinium [place] (Incruse Ellipta) 62.5 Mcg Blst.w.dev, QDAY 12/17/17 Nicotine (NICOTROL) 10 Mg/Inh Ctr, 10 MG INH 12/17/17 Amlodipine Besylate (AMLODIPINE BESYLATE) 10 Mg Tablet, 1 TAB PO QHS, TAB 12/17/17 Levothyroxine Sodium (LEVOTHYROXINE SODIUM) 50 Mcg Tablet, 50 MCG PO QDAY, TAB 12/17/17 Cholecalciferol (Vitamin D3) (VITAMIN D-3) 2,000 Unit Capsule, 2000 UNIT PO, CAPSULE 12/17/17 Baclofen (BACLOFEN) 10 Mg Tablet, 10 MG PO TID Y for PAIN, #30 TAB 10/11/17 Olmesartan [place]ox[place] (BENICAR) 40 Mg Tablet, 40 MG PO QAM 10/11/17 Citalopram Hydrobromide (CITALOPRAM HBR) 20 Mg Tablet, 20 MG PO QAM, #5 TAB 10/11/17 Doxazosin Mesylate (DOXAZOSIN MESYLATE) 4 Mg Tablet, 4 MG PO HS 10/11/17 Fluticasone/Vilanterol (Breo Ellipta 200-25 Mcg INH) 1 Each Blst.w.dev, 1 PUFF INH QDAY 05/01/17 Linaclotide (LINZESS) 145 Mcg Capsule, 145 MCG PO QAM, CAPSULE 05/01/17 Furosemide (LASIX) 20 Mg Tablet, 1-2 TAB PO QAM, TAB 05/01/17 Aspirin (ASPIRIN) 81 Mg Tab.chew, 81 MG PO QHS, TAB.CHEW 05/01/17 Atorvastatin Calcium (LIPITOR) 20 Mg Tablet, 1 TAB PO QHS, TAB 05/01/17 Oxygen (OXYGEN) Inha, 3 L INH CONTINUOUS, L 10/18/16 Dexlansoprazole (DEXILANT) 60 Mg , 60 MG PO QHS 10/18/16 Fish Oil/Dha/Epa (FISH OIL 1,200 MG FISH OIL) 1 Each Capsule, 1 EACH PO TID, CAPSULE 10/18/16 Sitagliptin Phos/Metformin Hcl (JANUMET 50-1,000 MG TABLET) 1 Each Tablet, 1 EACH PO BID 10/18/16 Meloxicam (MELOXICAM) 7.5 Mg Tablet, 7.5 MG PO QAM 10/18/16 Allopurinol (ALLOPURINOL) 100 Mg Tablet, 100 MG PO QAM, TAB 10/18/16 Discontinued Reported Medications Sitagliptin Phos/Metformin Hcl (JANUMET 50-1,000 MG TABLET) 1 Each Tablet, 1 EACH PO BID 12/17/17 Olmesartan Medoxomil (BENICAR) 40 Mg Tablet, 40 MG PO QDAY 12/17/17 Losartan Potassium (LOSARTAN POTASSIUM) 100 Mg Tablet, 100 MG PO QDAY 12/17/17 Oxycodone Hcl/Acetaminophen (PERCOCET 10-325 MG TABLET) 1 Each Tablet, 1 EACH PO Q6H, TAB 12/17/17 [Vitamin B12] No Conflict Check, 1 UNIT SUBQ QMONTH 10/11/17 Insulin Glargine (LANTUS) 100 Unit/Ml Soln, 40 UNIT SUBQ QHS, ML 10/18/16 Cinnamon Bark (CINNAMON) 500 Mg Capsule, 1000 MG PO BID, CAPSULE 02/22/14 Allergies: Coded Allergies: bacitracin (Verified Allergy, Intermediate, RASH, 10/11/17) gramicidin D (Verified Allergy, Intermediate, RASH, 10/11/17) neomycin (Verified Allergy, Intermediate, RASH, 10/11/17) polymyxin B (Verified Allergy, Intermediate, RASH, 10/11/17) levofloxacin (Verified Allergy, Unknown, 12/17/17) Patient History: FH: breast cancer BROTHER, , Age:71 BROTHER, FH: colon cancer SISTER, FH: diabetes mellitus MOTHER, , Age:94 FH: lung cancer FATHER, , Age:71 SISTER, FH: stroke SISTER, Hx Smoking: Yes (1/2-1PPD, FOR 50 YRS, Quit on 10/11/2017) Smoking Status: Former Smoker Exposure to Second Hand Smoke?: Yes Caffeine Intake: Coffee Caffeine/Cups Per Day: 4-6 Hx Alcohol Use: No Hx Substance Use Disorder: Yes (2x/month) Social Drug Use: Occasional Social Drugs: Marijuana Review of Systems Constitutional: No Fever, No Weight Loss, No Weight Gain, No Chills Neurological: No Confusion, No Weakness, No Dizziness ENT: No Sinus Congestion, No Sore Throat Cardiovascular: No Chest Pain, No Palpitations Respiratory: Cough, No Shortness of Breath, No Wheezing Gastrointestinal: No Nausea, No Vomiting, No Diarrhea, No Constipation, No Abdominal Pain Genitourinary: No Dysuria, No Hematuria Musculoskeletal: No Pain, No Sprain, No Strain Psychiatric: No Depression, No Anxiety Exam Vital Signs Vital Signs Date Time Temp Pulse Resp B/P (MAP) Pulse Ox O2 Delivery O2 Flow Rate FiO2 12/30/17 20:15 98.0 52 20 177/88 (117) 93 High-Flow Nasal Cannula 4.0 General Appearance: Alert, Awake, No Acute Distress, Afebrile Neuro: No Gross deficits Eyes: PERRLA ENT: Normal Neck: No Masses Cardiovascular: Normal Rhythm & Peripheral Pulses Respiratory: No Respiratory Distress GI: Abd Soft and Non-Tender Extremities: Soft and Non Tender, Edema Integumentary: Generalized Fragile Skin, Other (lacerations) Psych: Alert & Oriented X3 Medical Decision Making Data Points Result Diagram: 12/30/17 1409 12/30/17 1409 Pre-Admit Course Medical Record Review: Yes Assessment and Plan Problems: (1) Fall Status: Acute Assessment & Plan: Nursing care and fall precautions will be provided. PT evaluation in am and if she is cleared by PT then she can go back home. (2) Contusion of knee, right Status: Acute Assessment & Plan: There is no fracture of skull, UE and the knee. Pain management with Narcotics (3) Uncontrolled hypertension Status: Acute Assessment & Plan: I will resume her all home medications including her BP meds. Her CCB was held by her PCP. Olmesartan 40mg po qd Doxazosin 4mg po at hs Low salt diet (4) Type II diabetes mellitus Onset Date: 06/23/2014 Status: Chronic Assessment & Plan: I will continue her Lantus 32 Units at dinner time and Janumet 50/1000mg po bid. Accucheck q AC and HS Moderate sliding scale with regular Insulin. !800 Eliezer ADA diet (5) COPD (chronic obstructive pulmonary disease) Status: Chronic Assessment & Plan: I will use Duoneb treatments and use her home meds also. Oxygen to keep O2 sat >90% Condition stable Time Spent on Plan of Care: < 30 min Copies to: MELANIE ESCALANTE Venous Thromboembolism VTE Risk Physician Assess for VTE Risk: Yes Patient's VTE Risk: High VTE Diagnostic Test 2 Days Prior to Admit: No Antithrombotics Is Pt On Any Antithrombotics?: No Exam Sepsis Risk: No Definite Risk Problem Qualifiers (1) Fall: Encounter type: initial encounter Qualified Codes: W19.XXXA - Unspecified fall, initial encounter (2) Contusion of knee, right: Encounter type: initial encounter Qualified Codes: S80.01XA - Contusion of right knee, initial encounter KENNA PIMENTEL MD Dec 30, 2017 21:22 <Electronically signed by KENNA PIMENTEL MD> D/ 1355 21 21 JANE/MATT CC: MELANIE ESCALANTE JULIE A MD Jan 07, 2018 15:02
--- NOTE | 2018-01-07 15:26 | Hospitalist Progress Note ---
Physical Exam Vital Signs Date Time Temp Pulse Resp B/P (MAP) Pulse Ox O2 Delivery O2 Flow Rate FiO2 01/07/18 13:42 59 16 01/07/18 13:38 94 High-Flow Nasal Cannula 6.0 01/07/18 08:15 97.3 119/59 (79) Intake and Output 01/08/18 07:00 Intake Total 480 ml Balance 480 ml Intake Oral 480 ml # Voids 2 # Bowel Movements 1 Assessment and Plan Problems: (1) Leg swelling Status: Acute Assessment & Plan: The patient now has swelling of her R thigh and continued swelling of her R knee. Will order a venous doppler study. Will consult ortho. (2) Fall Status: Acute Assessment & Plan: She suffered a fall at home. She complains of right knee pain. Physical and occupational therapy consults are ongoing. She was transferred to [facility] for rehabilitation. Her knee swelling has not improved. Will consult orthopedics. (3) Contusion of knee, right Status: Acute Assessment & Plan: Her x-ray did not show a fracture. She did have an effusion on the right knee and generalized tenderness. Ice packs were applied with good result. PT/OT working with her. (4) Uncontrolled hypertension Status: Acute Assessment & Plan: She did have significant blood pressure elevation on admission. She is on treatment with olmesartan, nifedipine, and Lasix. Her blood pressure has been controlled since starting her medication. (5) Type II diabetes mellitus Onset Date: 06/23/2014 Status: Chronic Assessment & Plan: She has been continued on Lantus 32 Units at dinner time and Janumet 50/1000mg po bid. Accucheck q AC and HS. Moderate sliding scale with regular Insulin. 1800 Eliezer ADA diet. She has maintained good control on this regimen. (6) COPD (chronic obstructive pulmonary disease) Status: Chronic Assessment & Plan: Duoneb treatments and oxygen ordered. She uses 4L at home when well. She is recovering from recent pneumonia so her current requirements are higher. Oxygen to keep O2 sat >90% Time Spent on Plan of Care: < 30 min RADHA NEWTON MD Jan 07, 2018 15:26
[2018-01-07] MEDS: ASPIRIN 81 MG ENTERIC COATED PO SCH (17:21)
[2018-01-07] MEDS: INSULIN GLARGINE 100 U/ML 3 ML PEN SUBQ SCH (17:21)
[2018-01-07] MEDS: ATORVASTATIN 10 MG TAB PO SCH (17:22)
--- NOTE | 2018-01-07 18:29 | CONSULTATION ---
EVENT DATE: January 07, 2018 REFERRING PHYSICIAN Dalila Daigle MD CONSULTING PHYSICIAN Renato Daigle MD HISTORY OF PRESENT ILLNESS Patient is a 72-year-old female admitted on December 30, 2017 status post fall at home. She was admitted to the hospitalist service for significant medical issues, but she did have a effusion to the right knee. X-rays were taken and reported as without gross fracture. She was then later, after a short stay in inpatient, transferred up to the extended care facility. She has been having ongoing therapy and has been progressing. However, the hospitalist is concerned about the ongoing effusion. It has not changed in size. Patient actually reports she is actually seeing steady improvement, but they want to have it checked out. PHYSICAL EXAMINATION Clinical exam today shows a right knee a moderate effusion. There is bruising anteromedially. She is generally tender where the bruising is and superiorly in the suprapatellar pouch. She has no significant mediolateral tenderness. She can do a straight leg raise with that leg. She flexes to about 90, feels like the knee gets quite tight. She reports she has been able to flex past this in the past. She is grossly stable on ligamentous exam. Distally she has bilateral lower extremity 1+ pitting edema in the legs, ankle and feet. Knee is slightly warm compared to the opposite side, but it is not grossly hot and there is no erythema. LABORATORY AND RADIOLOGY X-rays are reviewed and they are showing severe degenerative arthritis of the right knee, tricompartmental, spurring and sclerosis and significant loss of space. ASSESSMENT AND PLAN Exacerbation of right knee degenerative joint disease status post trauma. The knee has an effusion. This could be hemarthrosis. At this point over a week out from the injury, the likelihood of an aspirate being able to achieve any significant decompression would be minimal. She is only on aspirin. She is reporting that she is seeing improvement (196) DICTATION ENDS ABRUPTLY MTDD
--- NOTE | 2018-01-07 18:45 | CONSULTATION ---
EVENT DATE: January 07, 2018 ATTENDING PHYSICIAN Dalila Daigle MD CONSULTING PHYSICIAN Renato Nicole MD HISTORY OF PRESENT ILLNESS Patient is a 72-year-old female admitted on December 30, 2017, a little over a week ago, status post fall. She also has multiple medical conditions and had just been recently released from transitional care status post pneumonia. She was admitted to the hospitalist team for medical management. She did have a knee effusion. X-rays were taken in the ER and were reported as without fracture. She has progressed in a very slow manner. Medicine is concerned about the ongoing confusion. It has not worsened, but has not significantly improved. Ultrasound is pending this afternoon. Patient reports to me today that she is seeing steady improvement with decreasing pain, improving function and can bear more weight on it without any complaint. PHYSICAL EXAMINATION VITAL SIGNS: Exam shows her vital signs to be stable today. She is A and O times three. HEENT: Normocephalic. Trachea is midline. Eyes track appropriately. NEUROLOGIC: She speaks clearly and answers questions appropriately. CHEST: Rises and falls with inspiration and expiration. There are no obvious wheezes or rales, and she is on oxygen. ABDOMEN: Soft, nontender with active bowel sounds noted. EXTREMITIES: Right lower extremity shows bilateral leg, foot and ankle 1+ pitting edema. Right knee shows moderate effusion. Patient reports it has actually improved since she came in. There is bruising anteromedially. She has tenderness over the bruising and mildly in the suprapatellar pouch region. Otherwise there is no specific joint line tenderness. She can fully extend the knee and do a straight leg raise with that leg. She flexes about 90 degrees then feels like the knee gets very full and tight. She reports she has been able to get past this position in the past. She is grossly stable on ligamentous exam. Sensory exam otherwise intact distally. LABORATORY AND RADIOLOGY X-rays were reviewed from the ER and they are showing tricompartmental severe DJD with significant loss of space, spurring and sclerosis. ASSESSMENT AND PLAN At this time patient is recovering from blunt trauma with likely hemarthrosis. At this point in time, eight days out from the injury, likelihood of being able to aspirate any significant fluid would be very small, as likely she has clotted here. She does not have any evidence of infection. She is slowly seeing steady improvement, so it would be my recommendation that they continue therapy for range of motion, strengthening and weightbearing. If her symptoms should increase, Orthopedics can be reconsulted. However, at this point I think we should see slow and steady improvement. I have recommended bilateral lower extremity AISHWARYA stuart. Followup is p.r.n. MTDD
--- NOTE | 2018-01-07 19:04 | RADIOLOGY IMAGING REPORT ---
FACILITY: [facility] PATIENT NAME: Danielle Moody : 1945 MR: [id number] V: [id number] EXAM DATE: ORDERING PHYSICIAN: RADHA NEWTON TECHNOLOGIST: Location: [facility] [place] Patient: Danielle Moody : 1945 Visit/Account:[id number] Date of Sevice: 01/07/2018 EXAMINATION: VENOUS DOPP LOW RIGHT EXTREMIT COMPARISON: None Available HISTORY: Right leg swelling. Fall 8 days ago. FINDINGS: Standard right lower extremity Doppler ultrasound with color flow and spectral analysis is performed. The right common femoral vein, proximal femoral vein, and visualized proximal superficial greater sap henous vein are patent and compress appropriately. The mid and distal femoral vein are suboptimally v isualized on grayscale imaging but appear patent on Doppler. The popliteal vein and visualized calf v essels are patent. No popliteal fluid collection. IMPRESSION: No right lower extremity deep venous thrombus. Report Dictated By: Dereje Osborn MD at 01/07/2018 6:59 PM Report E-Signed By: Dereje Osborn MD at 01/07/2018 7:01 PM WSN:[id number]
[2018-01-07] MEDS: amLODIPine BESYL(*) 5 MG TAB PO SCH (20:32)
[2018-01-07] MEDS: LEVOTHYROXINE SOD 0.05 MG TAB PO SCH (20:33)
[2018-01-07] MEDS: DOXAZOSIN MESYLATE 2 MG TAB PO SCH (20:33)
[2018-01-07 21:00] VITALS: BP 130/82
[2018-01-08] MEDS: ALBUTEROL/IPRATROPIUM 3 ML NEB NEB SCH ×5 (05:55→21:05)
[2018-01-08] MEDS: UMECLIDINIUM BROMIDE INH SCH (05:55)
[2018-01-08] MEDS: FLUTICASONE/VILANTEROL 1 EACH INHALER INH SCH (05:55)
[2018-01-08] MEDS: PANTOPRAZOLE SOD 40 MG TABEC PO SCH (07:38)
[2018-01-08] MEDS: metFORMIN HCL 500 MG TAB PO SCH ×2 (07:38→17:15)
[2018-01-08 07:40] VITALS: BP 129/57
[2018-01-08] MEDS: NIFEdipine XL 30 MG TABCR PO SCH (08:40)
[2018-01-08] MEDS: LINACLOTIDE 145 MCG CAPSULE PO SCH (08:40)
[2018-01-08] MEDS: ALLOPURINOL 100 MG TAB PO SCH (08:41)
[2018-01-08] MEDS: OMEGA-3 500 MG CAP PO SCH ×3 (08:41→20:53)
[2018-01-08] MEDS: GABAPENTIN(*) 100 MG CAP 100 MG, GABAPENTIN(*) 300 MG CAP 300 MG PO SCH ×3 (08:41→20:54)
[2018-01-08] MEDS: OLMESARTAN 20 MG TAB PO SCH (08:41)
[2018-01-08] MEDS: CITALOPRAM HYDROBROM 20 MG TAB PO SCH (08:41)
[2018-01-08] MEDS: OXYBUTYNIN CHL 5 MG TAB PO SCH ×2 (08:41→20:54)
[2018-01-08] MEDS: CHOLECALCIFEROL 1000 UNIT TAB PO SCH (08:41)
[2018-01-08] MEDS: FUROSEMIDE 40 MG TAB PO SCH (08:41)
[2018-01-08] MEDS: FERROUS SULFATE 325 MG TAB PO SCH ×2 (08:42→17:15)
[2018-01-08] MEDS: BACLOFEN 10 MG TAB PO SCH ×3 (08:42→20:53)
--- NOTE | 2018-01-08 13:35 | Hospitalist Depart ---
Discharge Summary Reason for Hosp/Final Diag: (1) Leg swelling Status: Acute Hospital Course & Plan: The patient developed swelling of her R thigh and had continued swelling of her R knee. Orthopedic surgery was consulted and recommended continued conservative therapy. (2) Fall Status: Acute Hospital Course & Plan: She suffered a fall at home. She complained of right knee pain. Evaluation showed no fractures. Physical and occupational therapy were consulted. She was transferred to [facility] for rehabilitation. She continue to work with therapy while on ECF and achieved her therapy goals prior to discharge. (3) Contusion of knee, right Status: Acute Hospital Course & Plan: Her x-ray did not show a fracture. She did have an effusion on the right knee and generalized tenderness. Ice packs were applied. PT and OT worked with her. (4) Uncontrolled hypertension Status: Acute Hospital Course & Plan: She did have significant blood pressure elevation on admission. She was placed on treatment with olmesartan, nifedipine, and Lasix. Her blood pressure was controlled after starting her medication. (5) Type II diabetes mellitus Onset Date: 06/23/2014 Status: Chronic Hospital Course & Plan: She was continued on Lantus 32 Units at dinner time and Janumet 50/1000mg po bid. Accuchecks were done q AC and HS. She was also placed on sliding scale insulin as well. 1800 Eliezer ADA diet was ordered. She maintained good control of her blood sugars on this regimen. (6) COPD (chronic obstructive pulmonary disease) Status: Chronic Hospital Course & Plan: Duoneb treatments and oxygen were ordered. She uses 4L at home when well. She was recovering from recent pneumonia so her O2 requirements were still above her baseline of 4L. Departure Weight (Pounds): 270 Weight (Ounces): 2.0 Result Diagram: 01/02/18 1305 01/02/18 1305 Condition: Improved Discharge: Home, Self Care Time Spent: < 30 min Discharge Instructions Home Meds Active Scripts Oxycodone Hcl/Acetaminophen (OXYCODONE-ACETAMINOPHEN 5-325) 1 Each Tablet, 1 EACH PO Q4-6H Y for PAIN, #20 TAB Prov:EUSEBIA LYLES V DO 12/30/17 Insulin Glargine 100 Un/Ml Pen (LANTUS SOLOSTAR PEN) 100 Unit/1 Ml Insuln.pen, 30 UNIT SQ QHS, #1 CART Prov:JOSS,KANDICE DO 12/26/17 Oxybutynin Chloride (OXYBUTYNIN CHLORIDE) 5 Mg Tablet, 1 TAB PO BID, #180 TAB 3 Refills Prov:WENDY STONE MD 12/22/14 Gabapentin (GABAPENTIN) 400 Mg Capsule, 400 MG PO TID, #90 CAPSULE 12 Refills Prov:WENDY STONE MD 10/03/14 Reported Medications Cyanocobalamin (Vitamin B-12) (CYANOCOBALAMIN INJECTION) 1,000 Mcg/1 Ml Vial, 1000 MCG IJ Qmonthly, VIAL 12/17/17 Oxycodone Hcl/Acetaminophen (OXYCODONE-ACETAMINOPHEN 5-325) 1 Each Tablet, 1 EACH PO Q6H, TAB 12/17/17 Umeclidinium [place] (Incruse Ellipta) 62.5 Mcg Blst.w.dev, QDAY 12/17/17 Amlodipine Besylate (AMLODIPINE BESYLATE) 10 Mg Tablet, 1 TAB PO QHS, TAB 12/17/17 Levothyroxine Sodium (LEVOTHYROXINE SODIUM) 50 Mcg Tablet, 50 MCG PO QDAY, TAB 12/17/17 Cholecalciferol (Vitamin D3) (VITAMIN D-3) 2,000 Unit Capsule, 2000 UNIT PO, CAPSULE 12/17/17 Baclofen (BACLOFEN) 10 Mg Tablet, 10 MG PO TID Y for PAIN, #30 TAB 10/11/17 Olmesartan Medoxomil (BENICAR) 40 Mg Tablet, 40 MG PO QAM 10/11/17 Citalopram Hydrobromide (CITALOPRAM HBR) 20 Mg Tablet, 20 MG PO QAM, #5 TAB 10/11/17 Doxazosin Mesylate (DOXAZOSIN MESYLATE) 4 Mg Tablet, 4 MG PO HS 10/11/17 Fluticasone/Vilanterol (Breo Ellipta 200-25 Mcg INH) 1 Each Blst.w.dev, 1 PUFF INH QDAY 05/01/17 Linaclotide (LINZESS) 145 Mcg Capsule, 145 MCG PO QAM, CAPSULE 05/01/17 Furosemide (LASIX) 20 Mg Tablet, 1-2 TAB PO QAM, TAB 05/01/17 Aspirin (ASPIRIN) 81 Mg Tab.chew, 81 MG PO QHS, TAB.CHEW 05/01/17 Atorvastatin Calcium (LIPITOR) 20 Mg Tablet, 1 TAB PO QHS, TAB 05/01/17 Oxygen (OXYGEN) Inha, 3 L INH CONTINUOUS, L 10/18/16 Dexlansoprazole (DEXILANT) 60 Mg Cap.mp, 60 MG PO QHS 10/18/16 Fish Oil/Dha/Epa (FISH OIL 1,200 MG FISH OIL) 1 Each Capsule, 1 EACH PO TID, CAPSULE 10/18/16 Sitagliptin Phos/Metformin Hcl (JANUMET 50-1,000 MG TABLET) 1 Each Tablet, 1 EACH PO BID 10/18/16 Meloxicam (MELOXICAM) 7.5 Mg Tablet, 7.5 MG PO QAM 10/18/16 Allopurinol (ALLOPURINOL) 100 Mg Tablet, 100 MG PO QAM, TAB 10/18/16 Discontinued Reported Medications Nicotine (NICOTROL) 10 Mg/Inh Ctr, 10 MG INH 12/17/17 Follow up Referrals: Internal Medicine - In Two Weeks with Estela Marie Diet: Diabetic Activity: As Tolerated Copies to: ESTELA MARIE JULIE A MD Jan 08, 2018 13:35
[2018-01-08] MEDS ORDERED: FERR-53 PO (13:40)
[2018-01-08] MEDS: INSULIN GLARGINE 100 U/ML 3 ML PEN SUBQ SCH (17:15)
[2018-01-08] MEDS: ASPIRIN 81 MG ENTERIC COATED PO SCH (17:15)
[2018-01-08] MEDS: ATORVASTATIN 10 MG TAB PO SCH (17:16)
[2018-01-08] MEDS: DOXAZOSIN MESYLATE 2 MG TAB PO SCH (20:53)
[2018-01-08] MEDS: INSULIN HUM LISPRO 100 UN/ML 3 ML VIAL SUBQ PRN (20:53)
[2018-01-08] MEDS: amLODIPine BESYL(*) 5 MG TAB PO SCH (20:54)
[2018-01-08] MEDS: LEVOTHYROXINE SOD 0.05 MG TAB PO SCH (20:54)
[2018-01-09] MEDS: ALBUTEROL/IPRATROPIUM 3 ML NEB NEB SCH ×3 (01:21→09:05)
[2018-01-09] MEDS: FLUTICASONE/VILANTEROL 1 EACH INHALER INH SCH (06:04)
[2018-01-09] MEDS: UMECLIDINIUM BROMIDE INH SCH (06:04)
[2018-01-09 08:00] VITALS: BP 112/45
[2018-01-09] MEDS: metFORMIN HCL 500 MG TAB PO SCH (08:05)
[2018-01-09] MEDS: FERROUS SULFATE 325 MG TAB PO SCH (08:05)
[2018-01-09] MEDS: PANTOPRAZOLE SOD 40 MG TABEC PO SCH (08:07)
--- NOTE | 2018-01-09 08:39 | OT ECF NOTE ---
Type of Note: Discharge Note Primary Medical Diagnosis: Generalized weakness s/p fall at home with contusion of R knee Occupational Therapy Evaluation Date: 01/01/18 SUBJECTIVE: Prior Hospitalization: H 12/30/18 thru 01/01/18 with previous [facility] admission thru 12/26/17 Prior Level of Function: Pt reporting she has TRADITIONAL MAORI HEALTH PRACTITIONER assist for all ADLs (AM dressing and showering). She also reports she has consistent assist with toileting as the CNAs live next door and she calls them over whenever she needs them. Pt also resides with grandson who assists with IADLs. Prior Living Status: Single level house Living with family-grandson Assist by family-two nieces reside next door and are her TRADITIONAL MAORI HE[employer] PRACTITIONER-caregivers Community Services: Support adequate No known needs Home Accessibility: Stairs with rails All needs on one level Walk-in shower (small per pt report, niece/TRADITIONAL MAORI HE[employer] PRACTITIONER is planning to obtain an extended tub bench that may fit) Equipment Owned: Rollator Toilet riser Extended tub bench Wheelchair Medical Complications/Past Medical History: Current every day smoker, HTN, hyperlipemia, COPD, emphysema, reflux, hiatal hernia, arthritis. Psychosocial Support: Supportive family that live nearby and grandson that resides with pt Pain Scale (0-10): Pt reporting no pain in R knee upon discharge tx OBJECTIVE: Strength: MMT: Right Left Shoulder Flexion WFL WFL Elbow Flexion WFL WFL Wrist Extension WFL WFL Event [employer]inator [employer] WFL WFL (5= normal, 4= good, 3= fair, 2= poor, 1= trace) ROM: Both upper extremities, WFL Functional Transfer: Assistive Device: Front wheeled walker Transfer Ability: SBA with v/c's for safety with O2 tubing and walker negotiation ADL: Upper body dressing: Assistive device: None Upper body dressing ability: Independent Lower body dressing: Assistive device: None Lower body dressing ability: Occasional Min A with socks and threading LB clothing. Niece/TRADITIONAL MAORI HE[employer] PRACTITIONER assists with all dressing. Toileting: Assistive device: Raised toilet seat Toileting ability: Modified Independent Grooming/hygiene: Assistive device: Recommend sitting for grooming for energy conservation Grooming ability: Independent Bathing: Assistive device: Extended tub transfer bench. Bathing ability: N/T. Niece/TRADITIONAL MAORI HE[employer] PRACTITIONER assists with all bathing. Standardized Assessment: Cristobal Index of Activities of Daily Livin/20 at initial evaluation (). 15/20 at discharge (01/09/18). ASSESSMENT: "Ashley" presented to [facility] with generalized weakness limiting safe ambulation and engagement in ADLs. She has met all skilled OT goals. She presents with no further questions/concerns in regards to discharge home reporting extensive support from family. Problem List/Current Limitations: Pain Decreased activity tolerance Decreased strength Generalized weakness Poor safety awareness Lack of motivation Confusion Short Term Goals: 1) Pt will be Min A UB/LB dressing. GOAL MET. 2) Pt will be SBA toileting. GOAL MET. 3) Pt will be (I) grooming/hygiene seated. GOAL MET. 4) Pt Cristobal Index of ADLs will increase by 2 points. GOAL MET. 5) Pt will be educated on energy conservation techniques. GOAL MET. Usp Goals: Return home with services Patient Goals: "Be able to walk better around my house" Rehabilitation Prognosis: Good Barriers to Discharge: Motivation, medical hx, pain PLAN: The patient will discharge with PT/RN, assist from paid family caregivers for ADLs, and family assist for IADLs. Recommend 24/7 supervision for safety with O2 management and RW negotiation. Pt frequently requires increased O2 needs during ambulation to 8L. Thank you for this referral. If you have any questions, concerns, or comments about this report or plan, please contact me at . Felisha Boyd MS, OTR/L Occupational Therapist MICHAEL
[2018-01-09] MEDS: OMEGA-3 500 MG CAP PO SCH (08:53)
[2018-01-09] MEDS: CHOLECALCIFEROL 1000 UNIT TAB PO SCH (08:53)
[2018-01-09] MEDS: ALLOPURINOL 100 MG TAB PO SCH (08:53)
[2018-01-09] MEDS: BACLOFEN 10 MG TAB PO SCH (08:53)
[2018-01-09] MEDS: FUROSEMIDE 20 MG TAB PO SCH (08:54)
[2018-01-09] MEDS: OLMESARTAN 20 MG TAB PO SCH (08:54)
[2018-01-09] MEDS: GABAPENTIN(*) 100 MG CAP 100 MG, GABAPENTIN(*) 300 MG CAP 300 MG PO SCH (08:54)
[2018-01-09] MEDS: CITALOPRAM HYDROBROM 20 MG TAB PO SCH (08:54)
[2018-01-09] MEDS: OXYBUTYNIN CHL 5 MG TAB PO SCH (08:54)
[2018-01-09] MEDS: NIFEdipine XL 30 MG TABCR PO SCH (08:55)
[2018-01-09] MEDS: MELOXICAM 7.5 MG TAB PO SCH (08:55)
[2018-01-09] MEDS: LINACLOTIDE 145 MCG CAPSULE PO SCH (08:56)
== END 2018-01-09 11:00 | disposition home health service (06) | DRG 554 ==
LOC: ECF 13:45
PROVIDERS: ADMIT Family Medicine; ATTEND Family Medicine
DX: M25.061 Hemarthrosis, right knee (principal); Z68.41 Body mass index [BMI] 40.0-44.9, adult; I10 Essential (primary) hypertension; S80.01XD Contusion of right knee, subsequent encounter; E11.42 Type 2 diabetes mellitus with diabetic polyneuropathy; K21.9 Gastro-esophageal reflux disease without esophagitis; J44.9 Chronic obstructive pulmonary disease, unspecified; E78.5 Hyperlipidemia, unspecified; E66.9 Obesity, unspecified; E03.9 Hypothyroidism, unspecified; S00.83XD Contusion of other part of head, subsequent encounter; S50.12XD Contusion of left forearm, subsequent encounter; F32.9 Major depressive disorder, single episode, unspecified; W19.XXXD Unspecified fall, subsequent encounter; Y92.009 Unspecified place in unspecified non-institutional (private) residence as the place of occurrence of the external cause; Z99.81 Dependence on supplemental oxygen; Z79.4 Long term (current) use of insulin; Z88.1 Allergy status to other antibiotic agents; Z87.891 Personal history of nicotine dependence
CPT/HCPCS: 36415; 36416; 36600; 71046; 81001; 82310; 82374; 82435; 82565; 82803; 82947; 82948; 84132; 84295; 84520; 85025; 93005; 94640; 94668; 97161; 97165; J1815

== ENCOUNTER → 2018-07-28 | Outpatient (CLI) | payer MEDICARE, MEDICAID ==
[2018-01-02 16:25] VITALS: BMI 36.5
[~2018-07-28] MED LIST changes: +AMLO-113 PO; -AMLO-99 PO; -AMLO2.5T74 PO; +AMLO2.5T76 PO; -CITA-139 PO; +CITA-145 PO; +FERR-53 PO; -HYDR-4309 PO; +HYDR-653 PO; -LOSA100T67 PO; +LOSA100T69 PO; -METF-410 PO; +METF-450 PO; +METF-452 PO
--- NOTE | 2018-07-28 16:22 | RADIOLOGY IMAGING REPORT ---
FACILITY: [facility] [place] PATIENT NAME: NINO JUDGE : [id number] MR: [id number] V: [id number] EXAM DATE: [id number] ORDERING PHYSICIAN: MELANIE ESCALANTE TECHNOLOGIST: Nga Zelaya PROCEDURE:BILATERAL DIGITAL SCREENING MAMMOGRAM WITH CAD ASSISTED INTERPRETATION & 3D TOMOSYNTHESIS COMPARISON:Prior mammograms 03/17/15. INDICATIONS:SCREENING FINDINGS: A small amount of fibroglandular tissue is seen throughout the breasts. The parenchymal pattern has remained stable allowing for difference in mammographic technique & patient positioning. There is no evidence of malignant appearing mass, malignant appearing calcifications or other secondary sign of malignancy in either breast. DIAGNOSTIC CATEGORY 1--NEGATIVE. RECOMMENDATIONS: ROUTINE MAMMOGRAM AND CLINICAL EVALUATION. IMPRESSION: BIRADS 1: Negative. No significant abnormality is seen. Dictated by: Maritza Cardona M.D. on 07/28/2018 at 15:59 Transcribed by: JENNIFER on 07/28/2018 at 16:10 Approved by: Maritza Cardona M.D. on 07/28/2018 at 16:21 [facility]
== END ==
LOC: MAMO 00:14
PROVIDERS: ATTEND Nurse Practitioner Family
DX: Z12.31 Encounter for screening mammogram for malignant neoplasm of breast (principal); Z80.3 Family history of malignant neoplasm of breast
CPT/HCPCS: 77063; 77067

== ENCOUNTER → 2019-05-04 | Outpatient (CLI) | payer MEDICARE, MEDICAID ==
[2018-01-02 16:25] VITALS: BMI 36.5
[~2019-05-04] MED LIST changes: -AMLO-113 PO; +AMLO-127 PO; -AMLO2.5T76 PO; +AMLO2.5T78 PO; -LOSA100T69 PO; +LOSA100T75 PO; -METR-160 PO; +METR500T15 PO; -OMEP-125 PO; +OMEP-126 PO
--- NOTE | 2019-05-04 12:25 | EKG ---
FACILITY: [facility] PATIENT NAME: NINO JUDGE : [id number] MR: [id number] V: [id number] EXAM DATE: ORDERING PHYSICIAN: MELANIE ESCALANTE TECHNOLOGIST: ARMIDA Test Reason : CHEST PAIN Blood Pressure : / mmHG Vent. Rate : 054 BPM Atrial Rate : 054 BPM P-R Int : 206 ms QRS Dur : 136 ms QT Int : 464 ms P-R-T Axes : 062 -72 078 degrees QTc Int : 440 ms Sinus bradycardia Left ventricular hypertrophy with QRS widening and repolarization abnormality Possible Lateral infarct , age undetermined Abnormal ECG When compared with ECG of 02-JAN-2018 16:50, QRS duration has increased Borderline criteria for Lateral infarct are now present Confirmed by KANDICE COREAS ([id number]) on 05/04/2019 4:50:22 PM Referred By: AVA Confirmed By:KANDICE COREAS
== END ==
LOC: RESP 11:27
PROVIDERS: ATTEND Nurse Practitioner Family
DX: R94.31 Abnormal electrocardiogram [ECG] [EKG] (principal)
CPT/HCPCS: 93005

== ENCOUNTER → 2019-05-14 | Outpatient (CLI) | payer MEDICARE, MEDICAID ==
[2018-01-02 16:25] VITALS: BMI 36.5
[~2019-05-14] MED LIST changes: +ICOS1CAP PO; +IOPAMIDOL 76% 100 ML INFUS BTL 100 ML ONE; +LEVI SUBQ; +LEVO75TA73 PO; +NS(*) 0.9% 50 ML BAG 50 ML ONE; +VALS160T22 PO; +VENL75CA4 PO
--- NOTE | 2019-05-14 16:59 | RADIOLOGY IMAGING REPORT ---
FACILITY: [facility] - [place] PATIENT NAME: Danielle Moody : 1945 MR: [id number] V: [id number] EXAM DATE: ORDERING PHYSICIAN: MELANIE ESCALANTE TECHNOLOGIST: Location: [facility] - [place] Patient: Danielle Moody : 1945 Visit/Account:[id number] Date of Sevice: 05/14/2019 EXAMINATION: CTA of the chest with IV contrast HISTORY: Chest pain. TECHNIQUE: Pulmonary embolus protocol - Thin-slice axial imaging of the chest was performed during maximal pulmonary arterial opacification with intravenous nonionic iodinated contrast. 3D coronal sla b MIPs and 2D reconstructions in the coronal and sagittal planes were performed to aid in pulmonary e mbolus detection. Vehicle [employer] Equipment [employer] images have been stored on PACS. One of the following dose optimization techniques was utilized in the performance of this exam: Autom ated exposure control; adjustment of the mA and/or kV according to the patient's size; or use of an i terative reconstruction technique. Specific details can be referenced in the facility's radiology C T exam operational policy. CONTRAST: 75 mL of IV Isovue-370 COMPARISON: Chest CT dated 12/17/2017. FINDINGS: CTA CHEST: Please note that this exam is optimized for assessment of the pulmonary arteries and is not intended as a diagnostic study of the thoracic aorta, coronary arteries or venous structures. Angiographic Findings: Pulmonary arteries: There are no filling defects in the main, right, left, lobar, segmental or visual ized sub-segmental branches of the pulmonary arterial system. No intraluminal webs or bronchial ashli aterals. Other vasculature: Calcified plaque in the thoracic aorta with no aneurysm. Additional non-angiographic findings: Lower neck: Negative. Lungs / Pleura: Stable small cyst in the peripheral right upper lobe. 4 mm pulmonary nodule in the posterior right upper lobe (series 10, image 95), new compared with 12/17/2017. Mediastinum / Sapna: Negative. Heart / Pericardium: Coronary artery calcification. No pericardial effusion. Lymph nodes: Stable 1.8 x 1.6 cm right hilar lymph node compared with 12/17/2017. Musculoskeletal / Body wall: Degenerative changes in the spine and shoulders. No aggressive osseous lesions. Upper abdomen: Negative. IMPRESSION: 1. No evidence of acute or chronic pulmonary embolism. 2. Otherwise no acute cardiopulmonary process. 3. Stable 1.8 x 1.6 cm right hilar lymph node. 4. 4 mm pulmonary nodule in the posterior right upper lobe (series 10, image 95), new compared with 0 12/17/2017. See guidelines below. [employer] SOC[employer]ET[employer] FOLLOW-UP GUIDELINES FOR NEWLY DETECTED INCIDENTAL NODULES IN PERSONS 35 YEARS OF AGE OR OLDER. *These recommendations do NOT apply to lung cancer screening, patients with immunosuppression or roslyn ents with a known primary malignancy. SOLITARY SOLID NODULE If nodule size is < 6 mm: * Low risk patient ? No routine follow-up. * High risk patient ? Optional CT at 12 months. If nodule size is 6-8 mm: * Low risk patient ? CT at 6-12 months, then consider CT at 18-24 months if no change. * High risk patient ? CT at 6-12 months, then CT at 18-24 months if no change. If nodule size is > 8 mm: * Low risk patient ? Consider CT at 3, 9 and 24 months (if no change), PET/CT, tissue sampling or a combination thereof. * High risk patient ? Consider CT at 3, 9 and 24 months (if no change), PET/CT, tissue sampling, or a combination thereof. LOW RISK PATIENT: Minimal or absent history of tobacco use and of other known risk factors. HIGH RISK PATIENT: Tobacco use, family history of lung cancer, upper pulmonary lobe location of nodul e, presence of emphysema, pulmonary fibrosis, older age. Sonia H, Margo DP, Yadielo JM, et al. Guidelines for Management of Incidental Pulmonary Nodules Dete cted on CT Images: From the Fleischner Society 2017. Radiology. [facility] Report Dictated By: Matt De Leon MD at 05/14/2019 4:38 PM Report E-Lucia By: Matt De eLon MD at 05/14/2019 4:51 PM WSN:[id number]
== END ==
LOC: CT 15:35
PROVIDERS: ATTEND Nurse Practitioner Family
DX: R59.9 Enlarged lymph nodes, unspecified (principal); R91.1 Solitary pulmonary nodule
CPT/HCPCS: 71275; J7050; Q9967

== ENCOUNTER 2019-05-19 11:39 | Inpatient (IN) | payer MEDICARE, MEDICAID ==
[2018-01-02 16:25] VITALS: Ht 172.7 cm; Wt 104.3 kg
[~2019-05-19] VITALS: Ht 172.7 cm; Wt 104.3 kg
[~2019-05-19 11:39] MED LIST changes: -ICOS1CAP PO; -IOPAMIDOL 76% 100 ML INFUS BTL 100 ML ONE; -LEVI SUBQ; -LEVO75TA73 PO; -NS(*) 0.9% 50 ML BAG 50 ML ONE; -VALS160T22 PO; -VENL75CA4 PO
--- NOTE | 2019-05-19 11:44 | ER Report ---
History and Physical Time Seen By MD: 11:39 HPI/ROS CHIEF COMPLAINT: Cough, shortness of breath HISTORY OF PRESENT ILLNESS: Patient is 74-year-old female here with complaints of cough, shortness breath, increasing fatigue over the past week. Patient was evaluated on 05/05 at which time patient and elevated d-dimer, troponin was negative in the setting of a brief episode of chest pain. CT PE was completed and was negative for pulmonary embolism at that point. Patient reports that she has had progressive dyspnea and increasing fatigue the past several days to one week but denies fevers, chills. She does report a cough productive of sputum. Patient is afebrile at time of evaluation, hemodynamically stable. REVIEW OF SYSTEMS: Constitutional: No fever, no chills. + worsening fatigue Eyes: No discharge. ENT: No sore throat. Cardiovascular: No chest pain, no palpitations. Respiratory: + cough, + shortness of breath. Gastrointestinal: No abdominal pain, no vomiting. Genitourinary: No hematuria. Musculoskeletal: No back pain. Skin: No rashes. Neurological: No headache. Allergies: Coded Allergies: bacitracin (Verified Allergy, Intermediate, RASH, 10/11/17) gramicidin D (Verified Allergy, Intermediate, RASH, 10/11/17) neomycin (Verified Allergy, Intermediate, RASH, 10/11/17) polymyxin B (Verified Allergy, Intermediate, RASH, 10/11/17) levofloxacin (Verified Allergy, Unknown, 12/17/17) Home Meds Active Scripts Oxybutynin Chloride (OXYBUTYNIN CHLORIDE) 5 Mg Tablet, 1 TAB PO BID, #180 TAB 3 Refills Prov:WENDY STONE MD 12/22/14 Gabapentin (GABAPENTIN) 400 Mg Capsule, 400 MG PO TID, #90 CAPSULE 12 Refills Prov:WENDY STONE MD 10/03/14 Reported Medications Icosapent Ethyl (VASCEPA) 1 Gm Capsule, 1 GM PO BID, CAPSULE 05/19/19 Valsartan (DIOVAN) 160 Mg Tablet, 160 MG PO QDAY 05/19/19 Insulin Detemir (LEVEMIR) 100 Unit/Ml Injs, 40 UNIT SUBQ 05/19/19 Cyanocobalamin (Vitamin B-12) (CYANOCOBALAMIN INJECTION) 1,000 Mcg/1 Ml Vial, 1000 MCG IJ Qmonthly, VIAL 12/17/17 Oxycodone Hcl/Acetaminophen (OXYCODONE-ACETAMINOPHEN 5-325) 1 Each Tablet, 1 EACH PO Q6H, TAB 12/17/17 Amlodipine Besylate (AMLODIPINE BESYLATE) 10 Mg Tablet, 2.5 MG PO QHS, TAB 12/17/17 Levothyroxine Sodium (LEVOTHYROXINE SODIUM) 50 Mcg Tablet, 75 MCG PO QDAY, TAB 12/17/17 Cholecalciferol (Vitamin D3) (VITAMIN D-3) 2,000 Unit Capsule, 2000 UNIT PO, CAPSULE 12/17/17 Baclofen (BACLOFEN) 10 Mg Tablet, 10 MG PO TID PRN for PAIN, #30 TAB 10/11/17 Olmesartan Medoxomil (BENICAR) 40 Mg Tablet, 40 MG PO QAM 10/11/17 Doxazosin Mesylate (DOXAZOSIN MESYLATE) 4 Mg Tablet, 4 MG PO HS 10/11/17 Fluticasone/Vilanterol (Breo Ellipta 200-25 Mcg INH) 1 Each Blst.w.dev, 1 PUFF INH QDAY 05/01/17 Linaclotide (LINZESS) 145 Mcg Capsule, 145 MCG PO QAM, CAPSULE 05/01/17 Furosemide (LASIX) 20 Mg Tablet, 1-2 TAB PO QAM, TAB 05/01/17 Atorvastatin Calcium (LIPITOR) 20 Mg Tablet, 1 TAB PO QHS, TAB 05/01/17 Oxygen (OXYGEN) Inha, 3 L INH CONTINUOUS, L 10/18/16 Dexlansoprazole (DEXILANT) 60 Mg Rosendo., 60 MG PO QHS 10/18/16 Fish Oil/Dha/Epa (FISH OIL 1,200 MG FISH OIL) 1 Each Capsule, 1 EACH PO TID, CAPSULE 10/18/16 Sitagliptin Phos/Metformin Hcl (JANUMET 50-1,000 MG TABLET) 1 Each Tablet, 1 EACH PO BID 10/18/16 Meloxicam (MELOXICAM) 7.5 Mg Tablet, 7.5 MG PO QAM 10/18/16 Allopurinol (ALLOPURINOL) 100 Mg Tablet, 100 MG PO QAM, TAB 10/18/16 Discontinued Reported Medications Umeclidinium [place] (Incruse Ellipta) 62.5 Mcg Blst.w.dev, QDAY 12/17/17 Citalopram Hydrobromide (CITALOPRAM HBR) 20 Mg Tablet, 20 MG PO QAM, #5 TAB 10/11/17 Aspirin (ASPIRIN) 81 Mg Tab.chew, 81 MG PO QHS, TAB.CHEW 05/01/17 Discontinued Scripts Ferrous Sulfate (FERROUS SULFATE) 325 Mg Tablet, 325 MG PO BIDBS, #60 TAB Prov:RADHA DAIGLE MD 01/08/18 Insulin Glargine 100 Un/Ml Pen (LANTUS SOLOSTAR PEN) 100 Unit/1 Ml Insuln.pen, 30 UNIT SQ QHS, #1 CART Prov:JOSSKANDICE SAXENA 12/26/17 Hx Smoking: Yes Smoking Status: Former Smoker Exposure to Second Hand Smoke?: Yes Hx Substance Use Disorder: No Hx Alcohol Use: Yes Constitutional Vital Sign - Last 24 Hours 05/19/19 05/19/19 05/19/19 05/19/19 11:40 11:44 12:00 12:08 Pulse 64 60 Resp 20 19 B/P (MAP) 127/72 (90) 127/72 129/72 (91) Pulse Ox 88 O2 Delivery Room Air 05/19/19 05/19/19 05/19/19 05/19/19 12:08 12:09 12:30 13:00 Pulse 89 Resp 17 B/P (MAP) 146/69 (94) 134/56 (82) Pulse Ox 90 91 O2 Delivery Nasal Cannula O2 Flow Rate 3.0 05/19/19 05/19/19 05/19/19 05/19/19 13:05 13:18 13:30 13:35 Pulse 59 63 63 Resp 12 19 14 B/P (MAP) 140/67 (91) Pulse Ox 91 87 05/19/19 14:00 B/P (MAP) 123/64 (83) Physical Exam General Appearance: The patient is alert, has no immediate need for airway protection and no signs of toxicity. NAD Eyes: Pupils equal and round no pallor or injection. ENT, Mouth: Mucous membranes are moist. Respiratory: + coarse BS b/l worse in right lung sutton Cardiovascular: Regular rate and rhythm. Gastrointestinal: Abdomen is soft and non tender, no masses, bowel sounds normal. Neurological: Alert and oriented, cranial nerves intact, no focal neurological deficits Skin: Warm and dry, no rashes. Musculoskeletal: Neck is supple non tender. Extremities are nontender, nonswollen and have full range of motion. DIFFERENTIAL DIAGNOSIS: After history and physical exam differential diagnosis was considered for shortness of breath including but not limited to pulmonary infectious process, COPD, asthma, pulmonary embolus and congestive heart failure. Medical Decision Making Data Points Result Diagram: 05/19/19 1143 05/19/19 1143 Laboratory Hematology Test 05/19/19 11:43 White Blood Count 9.0 k/uL (4.5-11.0) Red Blood Count 3.73 M/uL (4.17-5.56) L Hemoglobin 12.3 g/dL (12.0-16.0) Hematocrit 35.4 % (34.0-47.0) Mean Corpuscular Volume 94.8 fL (80.0-96.0) Mean Corpuscular Hemoglobin 32.9 pg (26.0-33.0) Mean Corpuscular Hemoglobin Concent 34.7 g/dL (32.0-36.0) Red Cell Distribution Width 14.5 % (11.5-14.5) Platelet Count 241 K/uL (150-450) Mean Platelet Volume 8.8 fL (7.2-11.1) Neutrophils (%) (Auto) 76.7 % (39.4-72.5) H Lymphocytes (%) (Auto) 14.5 % (17.6-49.6) L Monocytes (%) (Auto) 7.7 % (4.1-12.4) Eosinophils (%) (Auto) 0.7 % (0.4-6.7) Basophils (%) (Auto) 0.4 % (0.3-1.4) Nucleated RBC Relative Count (auto) 0.1 /100WBC Neutrophils # (Auto) 6.9 K/uL (2.0-7.4) Lymphocytes # (Auto) 1.3 K/uL (1.3-3.6) Monocytes # (Auto) 0.7 K/uL (0.3-1.0) Eosinophils # (Auto) 0.1 K/uL (0.0-0.5) Basophils # (Auto) 0.0 K/uL (0.0-0.1) Nucleated RBC Absolute Count (auto) 0.01 K/uL Chemistry Test 05/19/19 11:43 Sodium Level 130 mmol/L (137-145) Potassium Level 5.5 mmol/L (3.5-5.0) Chloride Level 96 mmol/L (98-107) Carbon Dioxide Level 23 mmol/L (22-31) Blood Urea Nitrogen 51 mg/dl (7-18) Creatinine 1.60 mg/dl (0.52-1.04) Glomerular Filtration Rate Calc 31.6 Random Glucose 155 mg/dl (75-110) Calcium Level 9.5 mg/dl (8.4-10.2) Total Bilirubin 0.4 mg/dl (0.2-1.3) Aspartate Amino Transf (AST/SGOT) 27 U/L (0-35) Alanine Aminotransferase (ALT/SGPT) 30 U/L (0-56) Alkaline Phosphatase 81 U/L (0-126) Troponin I < 0.012 ng/ml B-Type Natriuretic Peptide 255 pg/ml (0-100) Total Protein 8.1 g/dl (6.3-8.2) Albumin 4.2 g/dl (3.5-5.0) Coagulation Test 05/19/19 11:43 Prothrombin Time 12.9 seconds (12.0-14.4) Prothromb Time International Ratio 0.97 Activated Partial Thromboplast Time 42 seconds (23-35) Urinalysis Test 05/19/19 12:59 Urine Color Yellow Urine Clarity Cloudy Urine pH 6.0 pH (4.8-9.5) Urine Specific [place] 1.006 Urine Protein 30 mg/dL (NEGATIVE) Urine Glucose (UA) Negative mg/dL (NEGATIVE) Urine Ketones Negative mg/dL (NEGATIVE) Urine Blood Small (NEGATIVE) Urine Nitrite Negative (NEGATIVE) Urine Bilirubin Negative (NEGATIVE) Urine Urobilinogen Negative mg/dL (0.2-1.9) Urine Leukocyte Esterase Large (NEGATIVE) Urine RBC 1 /HPF (0-2/HPF) Urine WBC 97 /HPF (0-5/HPF) Urine WBC Clumps Many /HPF Urine Squamous Epithelial Cells Many /LPF (</=FEW) Urine Transitional Epithelial Cells Few /LPF (NONE-FEW) Urine Bacteria Moderate /HPF (NONE-FEW) Urine Mucus Few /HPF (NONE-FEW) EKG/Imaging Imaging PATIENT NAME: Danielle Moody : 1945 MR: [id number] V: [id number] EXAM DATE: [id number] ORDERING PHYSICIAN: WILLIE MATHEWS TECHNOLOGIST: [place] [facility] [place] : 1945 Visit/Account:[id number] Date of Sevice: 05/19/2019 CHEST PA LAT HISTORY: Cough/cold for a few days. History of pneumonia 2 years ago. Smoker. COMPARISON: CT angiogram chest 05/14/2019. Most recent chest x-ray 01/02/2018 and studies dating to 07/29/2008. TECHNIQUE: PA and lateral views of the chest. FINDINGS: PULMONARY/PLEURA: There are stable hyperinflation and stable blunting of the costophrenic angles. The lungs are clear. No pneumothorax. CARDIOMEDIASTINAL: Cardiac and mediastinal silhouettes are within normal limits. There is mild aortic calcification. BONES/SOFT TISSUES: There is diffuse bony demineralization. There is stable wedging of T7-T11. The visible abdomen is normal. IMPRESSION: 1. No acute cardiopulmonary process. ED Course/Re-evaluation ED Course Patient is a 74-year-old female here with complaints of increasing fatigue, increasing shortness of breath, general malaise. Patient is dehydrated appearing on examination. Chest x-ray was stable. Labs were significant for acute kidney injury with a creatinine 1.6 compared to 1.1 on the 03 11 her labs were recently drawn. Patient was also found to have a urinary tract infection likely precipitating her current symptoms. I discussed these findings with the patient and subsequently with Dr. Chase Daigle accepted the patient to the hospital service. Patient was hemodynamically stable at time of admission. Decision to Disposition Date: May 19, 2019 Decision to Disposition Time: 13:46 Depart Departure Latest Vital Signs Vital Signs Date Time Temp Pulse Resp B/P (MAP) Pulse Ox O2 Delivery O2 Flow Rate FiO2 05/19/19 14:00 123/64 (83) 05/19/19 13:35 63 14 87 05/19/19 12:08 Nasal Cannula 3.0 Impression: Primary Impression: UTI (urinary tract infection) Additional Impressions: Dehydration Dyspnea Condition: Improved Disposition: Admitted from ER Referrals: MELANIE ESCALANTE [facility] [employer] (PCP) Problem Qualifiers WILLIE MATHEWS DO May 19, 2019 11:44
[2019-05-19] MEDS ORDERED: NS(*) 0.9% 1000 ML BAG 1,000 ML IV ONE (11:50)
[2019-05-19] MEDS ORDERED: methylPREDNIS SUCC 125 MG/2ML IVP ONE (11:50)
[2019-05-19 12:08] LABS: PLATELET COUNT, AUTOMATED 241 K/uL (150-450)
[2019-05-19] MEDS: ALBUTEROL 2.5 MG/3 ML NEB NEB SCH (12:13)
[2019-05-19 12:14] LABS: INR 0.97
[2019-05-19] MEDS ORDERED: VALS160T22 PO (12:48)
[2019-05-19] MEDS ORDERED: LEVI SUBQ (12:48)
[2019-05-19] MEDS ORDERED: ICOS1CAP PO (12:48)
--- NOTE | 2019-05-19 13:10 | RADIOLOGY IMAGING REPORT ---
FACILITY: [facility] [place]IENT NAME: Danielle Moody : 1945 MR: [id number] V: [id number] EXAM DATE: ORDERING PHYSICIAN: WILLIE MATHEWS TECHNOLOGIST: Location: [facility] - [place] Patient: Danielle Moody : 1945 Visit/Account:[id number] Date of Sevice: 05/19/2019 CHEST PA LAT HISTORY: Cough/cold for a few days. History of pneumonia 2 years ago. Smoker. COMPARISON: CT angiogram chest 05/14/2019. Most recent chest x-ray 01/02/2018 and studies dating to 07/07. TECHNIQUE: PA and lateral views of the chest. FINDINGS: PULMONARY/PLEURA: There are stable hyperinflation and stable blunting of the costophrenic angles. The lungs are clear. No pneumothorax. CARDIOMEDIASTINAL: Cardiac and mediastinal silhouettes are within normal limits. There is mild aortic calcification. BONES/SOFT TISSUES: There is diffuse bony demineralization. There is stable wedging of T7-T11. The vi sible abdomen is normal. IMPRESSION: 1. No acute cardiopulmonary process. Report Dictated By: Bárbara Morelos at 05/19/2019 12:57 PM Report E-Signed By: Bárbara Morelos at 05/19/2019 1:01 PM WSN:[id number]
[2019-05-19] MEDS ORDERED: cefTRIAXone(*) 1 GM VIAL 1 GM in WATER STERILE(*) 10 ML VIAL 10 ML IVP ONE (13:40)
[2019-05-19 14:52] VITALS: BP 152/72
--- NOTE | 2019-05-19 14:58 | EKG ---
FACILITY: [facility] - [place] PATIENT NAME: NINO JUDGE : [id number] MR: [id number] V: [id number] EXAM DATE: ORDERING PHYSICIAN: WILLIE MATHEWS TECHNOLOGIST: ARMIDA Test Reason : FATIGUE Blood Pressure : / mmHG Vent. Rate : 061 BPM Atrial Rate : 029 BPM P-R Int : 000 ms QRS Dur : 128 ms QT Int : 398 ms P-R-T Axes : 000 -75 057 degrees QTc Int : 400 ms Appears to be sinus rhythm with bigeminal ventricular ectopy Left axis deviation Nonspecific intraventricular block Abnormal ECG Confirmed by ZOILA NEWTON ([id number]) on 05/20/2019 5:31:04 AM Referred By: BISI Confirmed By:ZOILA NEWTON
[2019-05-19] MEDS ORDERED: INSULIN HUM LISPRO 100 UN/ML 3 ML VIAL SUBQ PRN (15:20)
[2019-05-19] MEDS ORDERED: ALBUTEROL 2.5 MG/3 ML NEB NEB PRN (15:20)
[2019-05-19] MEDS ORDERED: ACETAMINOPHEN 325 MG TAB PO PRN (15:20)
[2019-05-19] MEDS ORDERED: INFLUENZA VIRUS VAC 0.5ML SYR IM ONLY ONE (15:20)
[2019-05-19] MEDS: NICOTINE 21 MG/24 HR PATCH TD SCH (15:51)
[2019-05-19] MEDS: NS(*) 0.9% 1000 ML BAG 1,000 ML IV PRN (15:52)
--- NOTE | 2019-05-19 16:12 | History & Physical ---
History of Present Illness Chief Complaint Shortness of breath History of Present Illness She is a 74-year-old female who presented to the emergency department with complaints of cough, shortness breath, increasing fatigue over the past week. Patient was evaluated on 05/05 at which time patient had an elevated d-dimer, troponin was negative in the setting of a brief episode of chest pain. CT PE was completed and was negative for pulmonary embolism at that point. Patient reports that she has had progressive dyspnea and increasing fatigue the past several days to one week but denies fevers, chills. She does report a cough productive of sputum. She was recommended for admission for UTI, dehydration and COPD exacerbation. History Problems: (1) COPD (chronic obstructive pulmonary disease) Status: Chronic (2) Type II diabetes mellitus Onset Date: 06/23/2014 Status: Chronic (3) Hypercholesterolemia Onset Date: 06/23/2014 Status: Chronic (4) GERD (gastroesophageal reflux disease) Status: Chronic (5) Hypertension, benign Onset Date: 06/23/2014 Status: Chronic (6) Morbid obesity Status: Chronic (7) Gout Status: Chronic Home Meds Active Scripts Oxybutynin Chloride (OXYBUTYNIN CHLORIDE) 5 Mg Tablet, 1 TAB PO BID, #180 TAB 3 Refills Prov:WENDY STONE MD 12/22/14 Gabapentin (GABAPENTIN) 400 Mg Capsule, 400 MG PO TID, #90 CAPSULE 12 Refills Prov:WENDY STONE MD 10/03/14 Reported Medications Icosapent Ethyl (VASCEPA) 1 Gm Capsule, 1 GM PO BID, CAPSULE 05/19/19 Valsartan (DIOVAN) 160 Mg Tablet, 160 MG PO QDAY 05/19/19 Cyanocobalamin (Vitamin B-12) (CYANOCOBALAMIN INJECTION) 1,000 Mcg/1 Ml Vial, 1000 MCG IJ Qmonthly, VIAL 12/17/17 Oxycodone Hcl/Acetaminophen (OXYCODONE-ACETAMINOPHEN 5-325) 1 Each Tablet, 1 EACH PO Q6H, TAB 12/17/17 Amlodipine Besylate (AMLODIPINE BESYLATE) 10 Mg Tablet, 2.5 MG PO QHS, TAB 12/17/17 Levothyroxine Sodium (LEVOTHYROXINE SODIUM) 50 Mcg Tablet, 75 MCG PO QDAY, TAB 12/17/17 Cholecalciferol (Vitamin D3) (VITAMIN D-3) 2,000 Unit Capsule, 2000 UNIT PO, CAPSULE 12/17/17 Baclofen (BACLOFEN) 10 Mg Tablet, 10 MG PO TID PRN for PAIN, #30 TAB 10/11/17 Doxazosin Mesylate (DOXAZOSIN MESYLATE) 4 Mg Tablet, 4 MG PO HS 10/11/17 Fluticasone/Vilanterol (Breo Ellipta 200-25 Mcg INH) 1 Each Blst.w.dev, 1 PUFF INH QDAY 05/01/17 Linaclotide (LINZESS) 145 Mcg Capsule, 145 MCG PO QAM, CAPSULE 05/01/17 Furosemide (LASIX) 20 Mg Tablet, 1-2 TAB PO QAM, TAB 05/01/17 Atorvastatin Calcium (LIPITOR) 20 Mg Tablet, 1 TAB PO QHS, TAB 05/01/17 Oxygen (OXYGEN) Inha, 3 L INH CONTINUOUS, L 10/18/16 Dexlansoprazole (DEXILANT) 60 Mg Cap., 60 MG PO QHS 10/18/16 Fish Oil/Dha/Epa (FISH OIL 1,200 MG FISH OIL) 1 Each Capsule, 1 EACH PO TID, CAPSULE 10/18/16 Sitagliptin Phos/Metformin Hcl (JANUMET 50-1,000 MG TABLET) 1 Each Tablet, 1 EACH PO BID 10/18/16 Meloxicam (MELOXICAM) 7.5 Mg Tablet, 7.5 MG PO QAM 10/18/16 Allopurinol (ALLOPURINOL) 100 Mg Tablet, 100 MG PO QAM, TAB 10/18/16 Discontinued Reported Medications Insulin Detemir (LEVEMIR) 100 Unit/Ml Injs, 40 UNIT SUBQ 05/19/19 Umeclidinium [place] (Incruse Ellipta) 62.5 Mcg Blst.w.dev, QDAY 12/17/17 Olmesartan Medoxomil (BENICAR) 40 Mg Tablet, 40 MG PO QAM 10/11/17 Citalopram Hydrobromide (CITALOPRAM HBR) 20 Mg Tablet, 20 MG PO QAM, #5 TAB 10/11/17 Aspirin (ASPIRIN) 81 Mg Tab.chew, 81 MG PO QHS, TAB.CHEW 05/01/17 Discontinued Scripts Ferrous Sulfate (FERROUS SULFATE) 325 Mg Tablet, 325 MG PO BIDBS, #60 TAB Prov:RADHA NEWTON MD 01/08/18 Insulin Glargine 100 Un/Ml Pen (LANTUS SOLOSTAR PEN) 100 Unit/1 Ml Insuln.pen, 30 UNIT SQ QHS, #1 CART Prov:KANDICE COREAS 12/26/17 Allergies: Coded Allergies: bacitracin (Verified Allergy, Intermediate, RASH, 10/11/17) gramicidin D (Verified Allergy, Intermediate, RASH, 10/11/17) neomycin (Verified Allergy, Intermediate, RASH, 10/11/17) polymyxin B (Verified Allergy, Intermediate, RASH, 10/11/17) levofloxacin (Verified Allergy, Unknown, 12/17/17) Patient History: FH: breast cancer BROTHER, , Age:71 BROTHER, FH: colon cancer BROTHER, , Age:71 SISTER, FH: diabetes mellitus MOTHER, , Age:94 FH: liver cancer BROTHER, , Age:71 FH: lung cancer FATHER, , Age:71 SISTER, FH: prostate cancer BROTHER, FH: stroke SISTER, Hx Smoking: Yes Smoking Status: Former Smoker Exposure to Second Hand Smoke?: Yes Caffeine Intake: Coffee Caffeine/Cups Per Day: 2 cups a day Hx Alcohol Use: Yes Hx Substance Use Disorder: Yes (2x/month) Social Drug Use: Occasional Social Drugs: Marijuana Review of Systems All Systems Reviewed/Normal: Yes, Except as Noted Exam Vital Signs Vital Signs Date Time Temp Pulse Resp B/P (MAP) Pulse Ox O2 Delivery O2 Flow Rate FiO2 05/19/19 14:52 99.3 57 20 152/72 (98) 95 Nasal Cannula 3.5 General Appearance: Alert, Awake, No Acute Distress, Afebrile Neuro: No Gross deficits Cardiovascular: Regular Rate and Rhythm Respiratory: No Respiratory Distress, Clear to Auscultation GI: Abd Soft and Non-Tender Extremities: Warm, Perfused; No Edema Psych: Alert & Oriented X3, Appropriate Mood & Affect Medical Decision Making Data Points Result Diagram: 05/19/19 1143 05/19/19 1143 Item Value Date Time B-Type Natriuretic Peptide 255 pg/ml H 05/19/19 1143 Troponin I < 0.012 ng/ml 05/19/19 1143 EKG / Imaging Imaging PATIENT NAME: Danielle Moody : 1945 MR: [id number] V: [id number] EXAM DATE: [id number] ORDERING PHYSICIAN: WILLIE MATHEWS TECHNOLOGIST: Location: Patient: Danielle Moody : 1945 Visit/Account:[id number] Date of Sevice: 05/19/2019 CHEST PA LAT HISTORY: Cough/cold for a few days. History of pneumonia 2 years ago. Smoker. COMPARISON: CT angiogram chest 05/14/2019. Most recent chest x-ray 01/02/2018 and studies dating to 07/29/2008. TECHNIQUE: PA and lateral views of the chest. FINDINGS: PULMONARY/PLEURA: There are stable hyperinflation and stable blunting of the costophrenic angles. The lungs are clear. No pneumothorax. CARDIOMEDIASTINAL: Cardiac and mediastinal silhouettes are within normal limits. There is mild aortic calcification. BONES/SOFT TISSUES: There is diffuse bony demineralization. There is stable wedging of T7-T11. The visible abdomen is normal. IMPRESSION: 1. No acute cardiopulmonary process. Assessment and Plan Problems: (1) COPD exacerbation Status: Acute Assessment & Plan: She presented with cough, sputum production and progressive shortness of breath. She was given Solu-Medrol in the ER with an hour long nebulizer and reported much improvement in symptoms upon admission. She will be placed on oral Prednisone, nebulizers. She is 1ppd smoker and will receive nicotine replacement during admission. She as counseled on tobacco use. She is planning on stopping smoking soon. (2) Acute renal failure Status: Acute Assessment & Plan: Secondary to dehydration. Creatinine was 1.1 one week ago, is now 1.6. Will give IV hydration overnight and recheck level in the morning. (3) UTI (urinary tract infection) Status: Acute Assessment & Plan: She was placed on Rocephin in the emergency department. She has no symptoms of UTI, other than fatigue. She has no WBC count or Fever. Will await urine culture results. Will continue Rocephin for now. (4) Hypertension, benign Onset Date: 06/23/2014 Status: Chronic Assessment & Plan: She is on chronic treatment with Valsartan, Amlodipine and Furosemide. Will only continue amlodipine for now with reduced kidney function. (5) Type II diabetes mellitus Onset Date: 06/23/2014 Status: Chronic Assessment & Plan: Continue chronic treatment with Janumet. She will also be placed on AC/HS blood glucose checks, SS insulin #2, and ADA diet. (6) GERD (gastroesophageal reflux disease) Status: Chronic Assessment & Plan: She is on chronic treatment with Dexilant. She will be placed on Protonix throughout admission. (7) Hypercholesterolemia Onset Date: 06/23/2014 Status: Chronic Assessment & Plan: Continue chronic Atorvastatin. (8) Gout Status: Chronic Assessment & Plan: She is on chronic treatment with Allopurinol. Will hold secondary to acute kidney injury. (9) Morbid obesity Status: Chronic Venous Thromboembolism Antithrombotics Is Pt On Any Antithrombotics?: Yes Exam Sepsis Risk: No Definite Risk [id number] APONTEP May 19, 2019 16:12
[2019-05-19] MEDS: metFORMIN HCL 500 MG TAB PO SCH (17:29)
[2019-05-19] MEDS: INSULIN HUM LISPRO 100 UN/ML 3 ML VIAL SUBQ PRN ×2 (17:31→21:45)
[2019-05-19] MEDS: ALBUTEROL/IPRATROPIUM 3 ML NEB NEB SCH (17:58)
[2019-05-19 19:15] VITALS: BP 132/63
[2019-05-19] MEDS ORDERED: METFORMIN HCL PO SCH (21:00)
[2019-05-19] MEDS ORDERED: [UNRECOGNIZED DRUG - OTHER] PO SCH (21:00)
[2019-05-19] MEDS ORDERED: NON-FORMULARY MEDICATION MISCELL (Gabapentin 400 MG) PO SCH (21:00)
[2019-05-19] MEDS ORDERED: SITAGLIPTIN PHOS PO SCH (21:00)
[2019-05-19] MEDS ORDERED: LANI SUBQ (21:03)
[2019-05-19] MEDS: NICOTINE POLACRILEX 2 MG GUM PO PRN (21:44)
[2019-05-19] MEDS: DOXAZOSIN MESYLATE 2 MG TAB PO SCH (22:59)
[2019-05-19] MEDS: PANTOPRAZOLE SOD 40 MG TABEC PO SCH (22:59)
[2019-05-19] MEDS: ATORVASTATIN 10 MG TAB PO SCH (22:59)
[2019-05-19] MEDS: amLODIPine BESYL(*) 2.5 MG TAB PO SCH (23:00)
[2019-05-19] MEDS: GABAPENTIN(*) 100 MG CAP 100 MG, GABAPENTIN(*) 300 MG CAP 300 MG PO SCH (23:00)
[2019-05-19] MEDS: OXYBUTYNIN CHL 5 MG TAB PO SCH (23:00)
[2019-05-19 23:03] VITALS: BP 113/59
[2019-05-20] MEDS: NS(*) 0.9% 1000 ML BAG 1,000 ML IV PRN ×2 (02:23→11:23)
[2019-05-20] MEDS: ALBUTEROL/IPRATROPIUM 3 ML NEB NEB SCH ×4 (05:30→17:18)
[2019-05-20 06:06] LABS: PLATELET COUNT, AUTOMATED 214 K/uL (150-450)
[2019-05-20] MEDS: LEVOTHYROXINE SOD 0.075 MG TAB PO SCH (06:11)
[2019-05-20] MEDS: NICOTINE POLACRILEX 2 MG GUM PO PRN ×3 (06:13→14:11)
[2019-05-20 07:01] VITALS: BP 141/61
[2019-05-20] MEDS ORDERED: ALLOPURINOL 100 MG PO SCH (09:00)
[2019-05-20] MEDS: PATCH REMOVAL 1 EA TP SCH (09:00)
[2019-05-20] MEDS ORDERED: NS(*) 0.9% 500 ML BAG 500 ML IV ONE (09:15)
[2019-05-20] MEDS: INSULIN HUM LISPRO 100 UN/ML 3 ML VIAL SUBQ PRN ×3 (09:22→17:25)
[2019-05-20] MEDS: ENOXAPARIN 30 MG/0.3 ML SYR SC SCH (09:22)
[2019-05-20] MEDS: predniSONE 20 MG TAB PO SCH (09:23)
[2019-05-20] MEDS: OXYBUTYNIN CHL 5 MG TAB PO SCH ×2 (09:23→21:37)
[2019-05-20] MEDS: metFORMIN HCL 500 MG TAB PO SCH (09:24)
[2019-05-20] MEDS: NICOTINE 21 MG/24 HR PATCH TD SCH (09:24)
[2019-05-20] MEDS: GABAPENTIN(*) 100 MG CAP 100 MG, GABAPENTIN(*) 300 MG CAP 300 MG PO SCH ×3 (09:24→21:37)
[2019-05-20 11:26] VITALS: BP 137/59
[2019-05-20] MEDS ORDERED: VENL75CA4 PO (11:58)
[2019-05-20] MEDS ORDERED: AMLO2.5T78 PO (11:58)
[2019-05-20] MEDS ORDERED: LEVO75TA73 PO (11:58)
--- NOTE | 2019-05-20 12:26 | Hospitalist Progress Note ---
Subjective Progress Notes Subjective She reports much improvement in the SOB. She is really wanting to go home. There was some concern that she might leave AMA to go out and smoke, but calmed after getting nicotine gum. Physical Exam Vital Signs Date Time Temp Pulse Resp B/P (MAP) Pulse Ox O2 Delivery O2 Flow Rate FiO2 05/20/19 11:26 97.7 54 20 137/59 (85) 91 Nasal Cannula 2.0 Intake and Output 05/20/19 07:04 Intake Total 1800 ml Balance 1800 ml Intake Oral 800 ml IV Total 1000 ml # Voids 2 General Appearance: Alert, Awake, No Acute Distress Cardiovascular: Regular Rate and Rhythm Respiratory: Clear to Auscultation Result Diagram: 05/20/1952405/20/19524 Assessment and Plan Problems: (1) COPD exacerbation Status: Acute Assessment & Plan: She presented with cough, sputum production and progressive shortness of breath. She was given Solu-Medrol in the ER with an hour long nebulizer and reported much improvement in symptoms upon admission. She will be placed on oral Prednisone, nebulizers. She is 1ppd smoker and will receive nicotine replacement during admission. She as counseled on tobacco use. She is planning on stopping smoking soon. She is back to her baseline O2 requirement and not wheezing on exam. (2) Hyperkalemia Status: Acute Assessment & Plan: Secondary to dehydration and valsartan use. Valsartan held. Hydrating and rechecking potassium this afternoon. (3) Acute renal failure Status: Acute Assessment & Plan: Secondary to dehydration and exacerbated by Lasix use. Creatinine was 1.1 one week ago, is was 1.6 in the ER. Hydrating. Creatinine 1.4 today. (4) UTI (urinary tract infection) Status: Acute Assessment & Plan: She was placed on Rocephin in the emergency department. She has no symptoms of UTI, other than fatigue. She has no WBC count or Fever. Will await urine culture results. Will continue Rocephin for now. (5) Type II diabetes mellitus Onset Date: 06/23/2014 Status: Chronic Assessment & Plan: Chronically on treatment with Janumet. It was initially continued, but will hold the metformin for now and check a lactate. She is on AC/HS blood glucose checks, SS insulin #2, and ADA diet. (6) Hypertension, benign Onset Date: 06/23/2014 Status: Chronic Assessment & Plan: She is on chronic treatment with Valsartan, Amlodipine and Furosemide. Only on amlodipine for now with reduced kidney function. (7) GERD (gastroesophageal reflux disease) Status: Chronic Assessment & Plan: She is on chronic treatment with Dexilant. She will be placed on Protonix throughout admission. (8) Hypercholesterolemia Onset Date: 06/23/2014 Status: Chronic Assessment & Plan: Continue chronic Atorvastatin. (9) Gout Status: Chronic Assessment & Plan: She is on chronic treatment with Allopurinol. Will hold secondary to acute kidney injury. (10) Morbid obesity Status: Chronic Exam Sepsis Risk: No Definite Risk SANTOSH BOLTON MD May 20, 2019 12:26
[2019-05-20] MEDS ORDERED: cefTRIAXone(*) 1 GM VIAL 1 GM in WATER STERILE(*) 10 ML VIAL 10 ML IVP SCH (14:00)
--- NOTE | 2019-05-20 16:01 | Medical Nutrition Therapy ---
Nutrition Anthropometrics Height (Inches): 68.00 Height (Calculated Centimeters: 172.817221 Weight (Pounds): 230 Weight (Calculated Kilograms): 104.383 BMI: 35.0 Duke Nutrition Score: Adequate Duke Nutrition Risk Score: 19 Dietary Referral Nutrition Risk Factors: Nutrition Risk Comment: Nausea & abdominal pain for past 5 days Physical Findings Physical Appearance: Obese BMI 30-39 Skin Appearance Skin Appearance: Edema Edema Location Modifier: Edema Location: Type of Edema: Degree of Edema: Gastrointestinal Symptoms GI Symtoms: Tube Present: Bowel Sounds: Recent Bowel Pattern: Stool Characteristics: Nutritional Diagnosis Nutritional Risk Acuity 1: Acute/ES Renal Nutritional Risk Acuity 3: Substance abuse, GERD, Morbid Obesity, COPD Unstable Past Medical History: DMI, HTN, COPD, depression, GERD, hypercholesterolemia Nutritional Acuity: 1-High Nutrition Diagnosis: Over-weight/Obesity Nutrition Etiology: Physiological Causes Nutrition Problem/Etiology/Sym: AEB DM Energy Requirement: 1919 (MSJ) Protein Requirement: 83.2 (83.2-104 (.8g/kg/day-1.0g/kg/day)) Fluid Requirement: 2600 (25ml/kg/day) Diet Type: Diabetic Nutrition Intervention: Cont diet as ordered, Teaching, Check glucose, Obtain Height and Weight Nutrition Monitoring & Eval Nutrition Goals: Eat 75-100% Meal RD Patient Assessment Time: [address] Assessment Type: RD Assessment Patient Nutrition Acuity: 1-High Follow Up Date: May 23, 2019 Nutritional Comment: 05/20/2019: Pt admitted for UTI and COPD exacerbation, but came to the hospital due to complaints of cough, SOB, and fatigue. Pt has acute renal failure believed to be secondary to dehydration, UTI, hypertension, GERD, type 2 DM, gout, hypercholesteremia, and chronic morbid obesity. Pt laboratory values indicate: low hgb of 10.5, low hct of 30.6, low sodium of 130, high potassium of 5.9, high BUN of 52, high creatinine of 1.4, high random glucose of 292, and high whole blood glucose of 285 (previously 306). Pt intake has not been reported yet. Will continue to monitor pt lab values, intake, and weight. Will talk to pt about management of comorbidities. - MANINDER JACQUES May 20, 2019 09:08
[2019-05-20 16:11] VITALS: BP 129/58
[2019-05-20 19:13] VITALS: BP 139/66
[2019-05-20] MEDS: GUAIFENESIN/DEXTROMETHORPHAN 5 ML PO PRN (19:51)
[2019-05-20] MEDS: PANTOPRAZOLE SOD 40 MG TABEC PO SCH (21:36)
[2019-05-20] MEDS: amLODIPine BESYL(*) 2.5 MG TAB PO SCH (21:37)
[2019-05-20] MEDS: ATORVASTATIN 10 MG TAB PO SCH (21:37)
[2019-05-20] MEDS: DOXAZOSIN MESYLATE 2 MG TAB PO SCH (21:37)
[2019-05-20 22:46] VITALS: BP 135/68
[2019-05-21] MEDS: ALBUTEROL/IPRATROPIUM 3 ML NEB NEB SCH ×2 (05:10→10:00)
[2019-05-21 05:23] VITALS: BP 125/65
[2019-05-21] MEDS: LEVOTHYROXINE SOD 0.075 MG TAB PO SCH (05:24)
[2019-05-21] MEDS: GUAIFENESIN/DEXTROMETHORPHAN 5 ML PO PRN ×2 (05:26→11:27)
[2019-05-21 05:44] LABS: PLATELET COUNT, AUTOMATED 209 K/uL (150-450)
[2019-05-21] MEDS: NICOTINE POLACRILEX 2 MG GUM PO PRN ×2 (06:04→11:31)
[2019-05-21] MEDS ORDERED: NS(*) 0.9% 500 ML BAG 500 ML ONE (06:24)
[2019-05-21] MEDS ORDERED: IV BOLUS 500 ML IVSOL IV ONE (06:25)
[2019-05-21 06:55] VITALS: BP 127/58
--- NOTE | 2019-05-21 08:20 | NUR ---
Pt asleep, breakfast moved to counter in case patient wakes up prior to RN checking in. Addendum: 05/21/19 at 1208 by CLARISSE STRICKLAND RN Amended: Links added.
[2019-05-21] MEDS: PATCH REMOVAL 1 EA TP SCH (09:00)
[2019-05-21] MEDS: ENOXAPARIN 30 MG/0.3 ML SYR SC SCH (09:00)
--- NOTE | 2019-05-21 11:15 | NUR ---
Pt refused meal. Addendum: 05/21/19 at 1208 by CLARISSE STRICKLAND RN Amended: Links added.
[2019-05-21] MEDS: GABAPENTIN(*) 100 MG CAP 100 MG, GABAPENTIN(*) 300 MG CAP 300 MG PO SCH (11:28)
[2019-05-21] MEDS: predniSONE 20 MG TAB PO SCH (11:30)
[2019-05-21] MEDS: NICOTINE 21 MG/24 HR PATCH TD SCH (11:30)
[2019-05-21] MEDS: OXYBUTYNIN CHL 5 MG TAB PO SCH (11:30)
[2019-05-21] MEDS ORDERED: PRED20TA6 PO (12:06)
[2019-05-21] MEDS ORDERED: NICO1PAT88 TD (12:06)
[2019-05-21] MEDS ORDERED: NICO-306 PO (12:06)
[2019-05-21] MEDS ORDERED: CEF300 PO (12:06)
--- NOTE | 2019-05-21 12:15 | Hospitalist Depart ---
Discharge Summary Reason for Hosp/Final Diag: (1) COPD exacerbation Status: Acute Hospital Course & Plan: She presented with cough, sputum production and progressive shortness of breath. She was given Solu-Medrol in the ER with an hour long nebulizer and reported much improvement in symptoms upon admission. She was started on oral Prednisone, nebulizers. She is 1ppd smoker and will receive nicotine replacement during admission. She as counseled on tobacco use. She is planning on stopping smoking. (2) Hyperkalemia Status: Acute Hospital Course & Plan: Secondary to dehydration and valsartan use. Valsartan stopped. (3) Acute renal failure Status: Acute Hospital Course & Plan: Secondary to dehydration and exacerbated by Lasix use. Creatinine was 1.1 one week ago, is was 1.6 in the ER. Some improvement with hydration, recommend follow up recheck as outpt. (4) UTI (urinary tract infection) Status: Acute Hospital Course & Plan: She was placed on Rocephin in the emergency department. She has no symptoms of UTI, other than fatigue. She has no WBC count or Fever. Will await urine culture results. Will continue Rocephin for now. (5) Type II diabetes mellitus Onset Date: 06/23/2014 Status: Chronic Hospital Course & Plan: Chronically on treatment with Janumet. Resume on discharge. (6) Hypertension, benign Onset Date: 06/23/2014 Status: Chronic Hospital Course & Plan: She is on chronic treatment with Valsartan, Amlodipine and Furosemide. Continue amlodipine until follow up with PCP to reevaluate BP and regimen. (7) GERD (gastroesophageal reflux disease) Status: Chronic Hospital Course & Plan: She is on chronic treatment with Dexilant. (8) Hypercholesterolemia Onset Date: 06/23/2014 Status: Chronic Hospital Course & Plan: Continue chronic Atorvastatin. (9) Gout Status: Chronic Hospital Course & Plan: She is on chronic treatment with Allopurinol. (10) Morbid obesity Status: Chronic Departure Weight (Pounds): 230 Weight (Ounces): 2.0 Result Diagram: 05/21/1952905/21/19529 Condition: Improved Discharge: Home Discharge Instructions Home Meds Active Scripts Cefdinir 300 Mg Cap (OMNICEF 300 MG CAP (OR EQUIV)) 300 Mg Cap, 300 MG PO BID for 4 Days, #8 CAP Prov:DOREEN GONZALEZ DO 05/21/19 Nicotine Polacrilex (NICOTINE GUM) 2 Mg Gum, 2 MG PO Q1-2H PRN for smoking for 7 Days, #48 GUM Prov:DOREEN GONZALEZ DO 05/21/19 Nicotine (NICOTINE PATCH) 1 Each Patch.td24, 21 MG TD QDAY for 7 Days, #7 PATCH.24H Prov:DOREEN GONZALEZ DO 05/21/19 Prednisone (PREDNISONE) 20 Mg Tablet, 40 MG PO QDAY for 5 Days, #10 TAB Prov:DOREEN GONZALEZ DO 05/21/19 Oxybutynin Chloride (OXYBUTYNIN CHLORIDE) 5 Mg Tablet, 1 TAB PO BID, #180 TAB 3 Refills Prov:WENDY STONE MD 12/22/14 Gabapentin (GABAPENTIN) 400 Mg Capsule, 400 MG PO TID, #90 CAPSULE 12 Refills Prov:WENDY STONE MD 10/03/14 Reported Medications Levothyroxine Sodium (LEVOTHYROXINE SODIUM) 75 Mcg Tablet, 1 TAB PO QDAY 05/20/19 Amlodipine Besylate (AMLODIPINE BESYLATE) 2.5 Mg Tablet, 1 TAB PO QDAY 05/20/19 Venlafaxine Hcl (VENLAFAXINE HCL ER) 75 Mg Cap.er.24h, 1 CAP PO QDAY 05/20/19 Icosapent Ethyl (VASCEPA) 1 Gm Capsule, 2 GM PO BID, CAPSULE 05/19/19 Cyanocobalamin (Vitamin B-12) (CYANOCOBALAMIN INJECTION) 1,000 Mcg/1 Ml Vial, 1000 MCG IJ Qmonthly, VIAL 12/17/17 Oxycodone Hcl/Acetaminophen (OXYCODONE-ACETAMINOPHEN 5-325) 1 Each Tablet, 1 EACH PO Q6H, TAB 12/17/17 Cholecalciferol (Vitamin D3) (VITAMIN D-3) 2,000 Unit Capsule, 5000 UNIT PO, CAPSULE 12/17/17 Baclofen (BACLOFEN) 10 Mg Tablet, 10 MG PO TID PRN for PAIN, #30 TAB 10/11/17 Doxazosin Mesylate (DOXAZOSIN MESYLATE) 4 Mg Tablet, 4 MG PO HS 10/11/17 Fluticasone/Vilanterol (Breo Ellipta 200-25 Mcg INH) 1 Each Blst.w.dev, 1 PUFF INH QDAY 05/01/17 Linaclotide (LINZESS) 145 Mcg Capsule, 145 MCG PO QAM, CAPSULE 05/01/17 Atorvastatin Calcium (LIPITOR) 20 Mg Tablet, 1 TAB PO QHS, TAB 05/01/17 Oxygen (OXYGEN) Inha, 3 L INH CONTINUOUS, L 10/18/16 Dexlansoprazole (DEXILANT) 60 Mg Cap., 60 MG PO QHS 10/18/16 Fish Oil/Dha/Epa (FISH OIL 1,200 MG FISH OIL) 1 Each Capsule, 1 EACH PO TID, CAPSULE 10/18/16 Sitagliptin Phos/Metformin Hcl (JANUMET 50-1,000 MG TABLET) 1 Each Tablet, 1 EACH PO BID 10/18/16 Allopurinol (ALLOPURINOL) 100 Mg Tablet, 100 MG PO QAM, TAB 10/18/16 Discontinued Reported Medications Valsartan (DIOVAN) 160 Mg Tablet, 160 MG PO QDAY 05/19/19 Furosemide (LASIX) 20 Mg Tablet, 1-2 TAB PO QAM MDD 40, TAB Pt takes 20 mg QOD and 40 mg QOD, alternating doses each day 05/01/17 Amlodipine Besylate (AMLODIPINE BESYLATE) 10 Mg Tablet, 2.5 MG PO QHS, TAB 12/17/17 Levothyroxine Sodium (LEVOTHYROXINE SODIUM) 50 Mcg Tablet, 75 MCG PO QDAY, TAB 12/17/17 Meloxicam (MELOXICAM) 7.5 Mg Tablet, 7.5 MG PO QAM 10/18/16 Insulin Detemir (LEVEMIR) 100 Unit/Ml Injs, 40 UNIT SUBQ 05/19/19 Umeclidinium [place] (Incruse Ellipta) 62.5 Mcg Blst.w.dev, QDAY 12/17/17 Olmesartan Medoxomil (BENICAR) 40 Mg Tablet, 40 MG PO QAM 10/11/17 Citalopram Hydrobromide (CITALOPRAM HBR) 20 Mg Tablet, 20 MG PO QAM, #5 TAB 10/11/17 Aspirin (ASPIRIN) 81 Mg Tab.chew, 81 MG PO QHS, TAB.CHEW 05/01/17 Discontinued Scripts Ferrous Sulfate (FERROUS SULFATE) 325 Mg Tablet, 325 MG PO BIDBS, #60 TAB Prov:RADHA NEWTON MD 01/08/18 Insulin Glargine 100 Un/Ml Pen (LANTUS SOLOSTAR PEN) 100 Unit/1 Ml Insuln.pen, 30 UNIT SQ QHS, #1 CART Prov:KANDICE COREAS DO 12/26/17 Diet: Diabetic Activity: As Tolerated Special Instructions: Hold valsartan and furosemide until reevaluated by your promary care provider. Recommend follow up BMP with PCP to monitor kidney function and potassium level. Complete 5 days prednisone for breathing. Take cefdinir until gone for treatment of urinary infection. Copies to: MELANIE ESCALANTE ; Venous Thromboembolism Antithrombotics Is Pt On Any Antithrombotics?: Yes DOREEN GONZALEZ DO May 21, 2019 12:15
--- NOTE | 2019-05-21 12:29 | Antimicrobial Stewardship ---
Antimicrobial Time Out Antimicrobial Stewardship MD Service: Hospitalist Indications: UTI Antimicrobial Used Rocephin 1 gm IVP q 24 hours Start Date: May 19, 2019 Culture Results: Yes (Klebsiella pneumoniae in urine) Eligible for PO Conversion Eligable for PO Conversion: Yes Comments Comments She is being sent home with a prescription for Cefdinir 300 mg po BID for 4 days. RADHA HAY May 21, 2019 12:29
== END 2019-05-21 12:56 | disposition home or self-care (01) | DRG 191 ==
LOC: ER 12:35 → MED 14:02
PROVIDERS: ADMIT Internal Medicine; ATTEND Internal Medicine
DX: J44.1 Chronic obstructive pulmonary disease with (acute) exacerbation (principal); N17.9 Acute kidney failure, unspecified; N39.0 Urinary tract infection, site not specified; I10 Essential (primary) hypertension; E11.65 Type 2 diabetes mellitus with hyperglycemia; K21.9 Gastro-esophageal reflux disease without esophagitis; E87.5 Hyperkalemia; E86.0 Dehydration; F17.210 Nicotine dependence, cigarettes, uncomplicated; E78.00 Pure hypercholesterolemia, unspecified; M1A.9XX0 Chronic gout, unspecified, without tophus (tophi); E66.01 Morbid (severe) obesity due to excess calories; Z68.35 Body mass index [BMI] 35.0-35.9, adult; Z88.1 Allergy status to other antibiotic agents; Z88.8 Allergy status to other drugs, medicaments and biological substances; Z79.4 Long term (current) use of insulin; Z79.84 Long term (current) use of oral hypoglycemic drugs
CPT/HCPCS: 36415; 36416; 71046; 81001; 82040; 82247; 82310; 82374; 82435; 82565; 82803; 82947; 82948; 83605; 83880; 84075; 84132; 84155; 84295; 84450; 84460; 84484; 84520; 85025; 85610; 85730; 87077; 87088; 87186; 93005; 94640; 94667; 96361; 96374; 96375; 97161; 99284; A4216; J0696; J1650; J2930; J7030; J7512; J7613